=== PATIENT | female | born 1960 | race Caucasian/White ===

== ENCOUNTER 2021-08-29 21:14 | Inpatient (IN) | payer MEDICAID, SELFPAY ==
[2021-08-29 22:57] LABS: Abs Immature Grans 0.01 10^3/uL (0.0-0.06); Absolute Basophil Count 0.02 10^3/uL (0.0-0.2); Absolute Eosinophil Count 0.15 10^3/uL (0.0-0.7); Absolute Lymphocyte Count 1.41 10^3/uL (1.2-3.4); Absolute Monocyte Count 0.48 10^3/uL (0.1-0.8); Absolute Neutrophil Count 4.79 10^3/uL (1.2-6.7); Basophils % 0.3; Eosinophils % 2.2; HCT 32.6 % (36.0-46.0); HGB 11.2 g/dL (11.2-15.7); Immature Grans % 0.1; Lymphocytes % 20.6; MCH 29.7 pg (27.0-33.0); MCHC 34.4 % (32.0-36.0); MCV 86.5 fL (80-95); MPV 10.7 fL (8.0-11.0); Neutrophils % 69.8; Nucleated RBC 0 %; Platelet Count 146 10^3/uL (130-400); RBC 3.77 10^6/uL (3.93-5.22); RDW 12.3 % (11.7-14.6); WBC 6.86 10^3/uL (4.4-10.8)
[2021-08-29 23:03] LABS: Anion Gap 3.4 mmol/L (3-11); BUN 10 mg/dL (7-18); CO2 31.6 mmol/L (21.0-32.0); CREATININE 0.4 mg/dL (0.55-1.02); Calcium 8.3 mg/dL (8.5-10.1); Chloride 83 mmol/L (98-107); Glucose 84 mg/dL (74-106); Magnesium 1.6 mg/dL (1.8-2.4); Potassium 4.1 mmol/L (3.5-5.1)
[2021-08-29 23:07] LABS: Sodium 118 mmol/L (136-145)
[2021-08-30] VITALS (7 sets, daily range): BP systolic 113–193; BP diastolic 71–109; PULSE 57–82; RESP 16–21; TEMP 35.7–36.7; O2SAT 94–97
--- NOTE | 2021-08-30 | DI.RAD_ITS ---
Exam(s) XR HAND RT COMPLETE EXAM: XR HAND RT COMPLETE CLINICAL HISTORY: Pain. TECHNIQUE: 2D digital imaging was performed. COMPARISON: No exams were available for comparison FINDINGS: 3 views There is severe soft tissue swelling over the dorsal aspect of the hand and extending into the wrist. There is no radiopaque foreign body. There are no fractures. No radiographic evidence of osteomye litis. No soft tissue emphysema evident IMPRESSION: Severe soft tissue swelling over the dorsal aspect of the right hand. Suspect possible abscess. Rec ommend further study with CT, MRI, or ultrasound. No radiopaque foreign body. No gas in the soft tissues. No fractures, erosions, no radiographic evidence of osteomyelitis. DATA REPOSITORY: RADIATION DOSE DELIVERED:
[2021-08-30] MEDS: MAGNESIUM SULFATE 1 GM/100 ML BAG IVPB (00:09)
[2021-08-30] MEDS: Enoxaparin 40 MG/0.4 ML SYR SC ×2 (00:10→22:50)
[2021-08-30] MEDS: Normal Saline 1,000 ML 100 ML IV ×2 (03:36→15:08)
[2021-08-30 03:41] LABS: Anion Gap 2.7 mmol/L (3-11); BUN 8 mg/dL (7-18); CO2 32.3 mmol/L (21.0-32.0); CREATININE 0.4 mg/dL (0.55-1.02); Calcium 8.1 mg/dL (8.5-10.1); Chloride 83 mmol/L (98-107); Glucose 88 mg/dL (74-106); Potassium 4.2 mmol/L (3.5-5.1)
[2021-08-30 03:44] LABS: Sodium 118 mmol/L (136-145)
--- NOTE | 2021-08-30 06:10 | W.PM.HP.N ---
Assessment and Plan Assessment and plan (1) Hyponatremia: Status: Acute Assessment and plan: At [facility] a urine sodium was checked and was 48 serum osmolality was 369. Her sodium here was 118 on 2 occasions. She did not get her IV fluids started immediately on admission as directed And will be rechecked this morning. I have held her desmopressin. (2) Anemia: Status: Chronic Assessment and plan: I see from her previous labs that her hemoglobin was 13 in April of last year. In May it dropped to 11.7. (3) Hydrocephalus: Assessment and plan: I believe this is stable at the present time. She has a shunt in place. However the radiologist at [facility] could not see the end of the shunt tube. (4) Diabetes insipidus: Status: Acute (5) Pyuria: Status: Acute Assessment and plan: Urinalysis at [facility] is compatible with a urinary tract infection, although there were moderate epithelial cells. I do not know if a culture was done. History of Present Illness History of Present Illness Chief Complaint: Altered mental status and hyponatremia Narrative: This 61-year-old female was sent from her residence at [facility] to [facility] for evaluation of mental status changes. She has a history of multiple medical problems that include a stroke, history of astrocytoma of the brain, diabetes, atrial fibrillation, diabetes insipidus, depression, traumatic brain injury, constipation, congenital mitral insufficiency, posttraumatic seizures, vitamin D deficiency, gastroesophageal reflux, obstructive hydrocephalus and recent injury to her right hand and wrist without evidence of fracture. Her current medicines as transferred from [facility] show atorvastatin 80 mg/day, [id number] mg twice daily, vitamin D, albuterol/ipratropium inhaler as needed desmopressin 0.1 mg twice daily, hydrocortisone cream, senna 2 tablets daily, rivaroxaban 20 mg daily. She was evaluated at [facility] with a CT scan of the head, and lab studies. She was found to be hyponatremic with a sodium 115. She was given 100 mL of 3% saline and because he had no beds available they called to see if she could be admitted here. I excepted her as a transfer from there. She is transferred in stable condition. She has no complaints at the present time except for her right hand which is swollen with a hematoma with cutaneous blisters. She states that she does not use tobacco or drink alcohol. She has a daughter 36 years old and lives in [place] and her mother lives in [place] or not. She is . She can walk some with a walker. She has been immunized to coronavirus. Her sodium was last checked May 07 of last year prior to this present illness. Review of Systems Constitutional Constitutional: Denies chills, Denies fever(s) and Denies headache(s) ENT Ears, Nose, Mouth, and Throat: Denies headache(s) and Denies odynophagia Cardiovascular Cardiovascular: Denies chest pain, Denies radiating jaw, neck or arm pain, Denies palpitations and Denies dyspnea Respiratory Respiratory: Denies cough and Denies dyspnea Gastrointestinal Gastrointestinal: Denies diarrhea, Denies nausea, Denies odynophagia and Denies vomiting Genitourinary Genitourinary: Denies urinary frequency, Denies difficulty voiding and Denies dysuria Neurologic Neurologic: Denies headache(s) Endocrine Endocrine: Denies palpitations PFSH All Active Problems (Updated 08/30/21 @ 06:52 by Mann Barber MD) Pyuria (Acute) Diabetes insipidus (Acute) Anemia (Chronic) Hyponatremia (Acute) Medical History (Updated 08/30/21 @ 06:52 by Mann Barber MD) Hydrocephalus Social History Smoking/Tobacco Use Status: Former Tobacco Use Smoking risk assessment performed?: Yes Meds Allergies and Home Medications Allergies Allergy/AdvReac Type Severity Reaction Status Date / Time pineapple Allergy Unverified 08/29/21 22:44 tomato Allergy Unverified 08/29/21 22:44 Home Medications Medication Instructions Recorded Confirmed Type acetaminophen 325 mg tablet 650 mg PO PRN PRN 08/29/21 08/29/21 History (Pharbetol) atorvastatin 80 mg tablet 80 mg PO QHS 08/29/21 08/29/21 History carbamazepine 300 mg 300 mg PO BID 08/29/21 08/29/21 History capsule,extended release [id number] carvedilol 6.25 mg tablet 6.25 mg PO BID 08/29/21 08/29/21 History cholecalciferol (vitamin D3) 25 1,000 unit PO DAILY 08/29/21 08/29/21 History mcg (1,000 unit) capsule (Vitamin D3) desmopressin 0.1 mg tablet 0.1 mg PO BID 08/29/21 08/29/21 History ipratropium 20 mcg-albuterol 100 1 puff INHALATION .Q6H,PRN PRN 08/29/21 08/29/21 History mcg/actuation mist for inhalation (Combivent Respimat) rivaroxaban 20 mg tablet (Xarelto) 20 mg PO QPM 08/29/21 08/29/21 History sennosides 8.6 mg-docusate sodium 2 tab-cap PO DAILY 08/29/21 08/29/21 History 50 mg tablet (Senexon-S) Exam Const General: cooperative, comfortable, no acute distress and not ill appearing Nutritional Appearance: overweight HENMT Head: normal to inspection and normocephalic Mouth: oral mucosae normal Teeth and gingiva: poor dentition Neck Neck: normal visual inspection, no lymphadenopathy and no JVD Resp Auscultation: clear to auscultation bilaterally, no rales, no rhonchi and no wheezes Cardio Rate: regular rate Rhythm: regular rhythm Heart Sounds: S1 normal, S2 normal, no gallops and no murmurs GI Palpation: soft, no hepatosplenomegaly, no guarding and nontender Neuro General: patient alert, patient awake and patient oriented x3 Extrem Right upper extremity: normal capillary refill Other: There is a hematoma covering much of the dorsal right hand. There are number of other tense blisters filled with serous fluid on the fingers. There appears to be a small amount of oozing from the hematoma in the back of the hand. She has intact sensation on the hand and fingers. There is some limitation of flexion of the hand because of the hematoma that is present. Results Labs Result diagrams: 08/29/21 22:45 08/30/21 03:15 Labs: Laboratory Results - last 24 hr 08/29/21 08/29/21 08/30/21 22:45 22:45 03:15 WBC 6.86 RBC 3.77 L Hgb 11.2 Hct 32.6 L MCV 86.5 MCH 29.7 MCHC 34.4 RDW 12.3 Plt Count 146 MPV 10.7 Immature Gran % 0.1 Neutrophils % 69.8 Lymphocytes % 20.6 Monocytes % 7.0 Eosinophils % 2.2 Basophils % 0.3 Nucleated RBC % 0 Absolute Neutrophils 4.79 Absolute Lymphocytes 1.41 Absolute Monocytes 0.48 Absolute Eosinophils 0.15 Absolute Basophils 0.02 Sodium 118 L* 118 L* Potassium 4.1 4.2 Chloride 83 L 83 L Carbon Dioxide 31.6 32.3 H Anion Gap 3.4 2.7 L BUN 10 8 Creatinine 0.4 L 0.4 L Estimated GFR/1.73 m2 >= 60.00 >= 60.00 Glucose 84 88 Calcium 8.3 L 8.1 L Magnesium 1.6 L
[2021-08-30 06:52] LABS: Anion Gap 3.2 mmol/L (3-11); BUN 9 mg/dL (7-18); CO2 30.8 mmol/L (21.0-32.0); CREATININE 0.4 mg/dL (0.55-1.02); Calcium 8.2 mg/dL (8.5-10.1); Chloride 84 mmol/L (98-107); Glucose 87 mg/dL (74-106); Potassium 4.1 mmol/L (3.5-5.1)
[2021-08-30 06:55] LABS: Magnesium 1.9 mg/dL (1.8-2.4)
[2021-08-30 07:05] LABS: Sodium 118 mmol/L (136-145)
[2021-08-30] MEDS: Atorvastatin 40 MG TAB 80 MG PO ×2 (08:13→20:55)
[2021-08-30] MEDS: Carvedilol 6.25 MG TAB PO ×2 (08:14→20:55)
[2021-08-30] MEDS: Sennosides/Docusate Sodium TAB 2 TAB PO (08:56)
[2021-08-30] MEDS: Desmopressin 0.2 MG TAB PO (08:56)
[2021-08-30] MEDS: Sulfameth/Trimeth DS TAB 1 TAB PO ×2 (09:52→22:49)
--- NOTE | 2021-08-30 09:58 | WOUNDCONS ---
- If Service Date Differs Date of service: 08/30/21 Time of Service: 09:58 Wound Initial Evaluation Narrative: pictures for the chart request of Dr. Jones, Dr. Chacon, Nazia Rock NP. Hand is swollen, Painful, Blistered, there are pukses above the hand, and sensation below the area. - Photo Photo:
--- NOTE | 2021-08-30 10:31 | PDOC.CMIN ---
- If Service Date Differs Date of service: 08/30/21 Time of Service: 10:31 Care Management Initial Assess REASON FOR HOSPITALIZATION:: Hyponatremia PAST MEDICAL HISTORY/PAST SURGICAL HISTORY:: All Active Problems (Updated 08/30/21 @ 06:52 by Mann Barber MD). Pyuria (Acute). Diabetes insipidus (Acute). Anemia (Chronic). Hyponatremia (Acute). Medical History (Updated 08/30/21 @ 06:52 by Mann Barber MD). Hydrocephalus PREVIOUS FUNCTIONAL STATUS/SOCIAL/FAMILY SUPPORTS:: Maribel resides at the [facility] in [place], [place] She has been there for about 13 years. Maribel has one daughter who lives in the area but beulah does not see her often. her mother is her strongest support and visits with Beulah often. Maribel had a brain tumor removed many years ago which has left her with some defecits. She requires maximum assist with ADLs which is provided by the staff at the facility where she lives. CURRENT FUNCTIONAL STATUS:: Maribel was lying in bed when SUDEEP met with her. She was drowsy at first but was agreeable to conversation. Maribel had her right hand suspended on an IV pole with stockingette to reduce swelling. She apparently fell at her facility about 4 days ago and injured the hand. It was not fractured but was bruised and swollen with fluid filled blisters. Dr. Rivers examined the patient and recommended elevation and frequent monitoring. SUDEEP met with Beulah's mother, jackie Davis, later in the day. Her mother explained that Beulah had a small stroke about a year and a half ago and has not been able to ambulate much since then and requires almost total care. She also stated that Beulah is sometimes confused about days or events and may gives inappropriate answers to questions. She also shared that Beulah's [id number] was the one who put her in the [facility]. Has patient been provided with info about the portal/API?: No Did the patient sign up for the portal?: No (not from area) CODE STATUS:: Full Code INSURANCE COVERAGE / FINANCIAL ISSUES:: Medicaid CURRENT HOME/COMMUNITY SERVICES/EQUIPMENT:: lives in a correction facility PRIMARY CARE PHYSICIAN:: facility provider POTENTIAL DISCHARGE NEEDS:: return to [facility] PATIENT/FAMILY EDUCATION NEEDS:: Review of discharge instructions, limitations, medications, Ask Me Three TRANSPORTATION:: likely via EMS PLAN:: Maribel will return to [facility] where she resides when medically cleared for discharge. She will follow up with facility providers and plan of care and transport via EMS.CM will continue to support Maribel and her discharge needs.
--- NOTE | 2021-08-30 11:10 | DI.VRAD_ITS ---
PROCEDURE INFORMATION: Exam: XR Right Hand Exam date and time: 08/30/2021 10:56 AM Age: 61 years old Clinical indication: Pain; Hand; Right; Prior surgery; Surgery type: Unknown, TECHNIQUE: Imaging protocol: XR Right hand. Views: 3 or more views. COMPARISON: No relevant prior studies available. FINDINGS: Limitations: Evaluation is limited by suboptimal positioning with overlap of the digits on all images. Bones/joints: The bones are diffusely demineralized. No acute or healing fractures are identified. There is no cortical erosion or periosteal reaction. Alignment is anatomic. Soft tissues: Severe soft tissue swelling in the dorsum of the hand. No soft tissue emphysema or radiopaque foreign body. IMPRESSION: 1. Severe soft tissue swelling in the dorsal right hand. No soft tissue emphysema or radiopaque foreign body. 2. No acute osseous or articular abnormality in the right hand. Dictated and Authenticated by: Tracy Murray MD. Ordering:CHRISTINE Mcgregor MD
[2021-08-30 11:14] LABS: Bilirubin Negative (Negative); Blood Large (Negative); Clarity Cloudy (Clear); Glucose Negative (Negative); Ketones Negative (Negative); Leukocyte Esterase Large (Negative); Nitrite Positive (Negative); Specific Gravity 1.025 (1.005-1.025)
[2021-08-30 11:20] LABS: Bacteria Moderate HPF (Negative); C & S Indicated? Yes; Crystals Moderate Amorphous HPF (Negative); Epithelial Cells Few HPF (Negative); Mucus Trace (Negative); RBC >50 HPF (0-2); WBC >50 HPF (0-5)
[2021-08-30 11:37] LABS: Creatinine,Urine 87.11 mg/dL; Sodium, Urine 27 mmol/L
--- NOTE | 2021-08-30 11:37 | W.ORTHOCONSU ---
Date of service: 08/30/21 Time of Service: 11:00 History of Present Illness Narrative: 61-year-old female with unclear history of right hand injury and subsequent swelling. Probable fall with right hand injury 4 days ago. Lives at long-term care facility due to brain injury. Reportedly presented to [facility] emergency department yesterday due to right hand swelling and pain and subsequently transferred to [facility] due to lack of beds there for treatment of severe hyponatremia. Outside hospital records do not detail the right hand findings. It is possible there was hypertonic saline infiltrated about the dorsal right hand. History unobtainable, unfortunately, from patient. Consult Reason Right hand compartment syndrome Assessment and Plan Assessment and plan (1) Injury of hand, right: Status: Acute Assessment and plan: 61-year-old female with significant right edema, unclear etiology but probably iatrogenic injury from outside hospital dorsal IV hypertonic saline infiltrate. Possibly related to right hand injury 4 days ago. Although dorsal and somewhat generalized soft tissue swelling is severe, does not appear consistent with acute compartment syndrome at this time. With no underlying cause for bone, muscle, or intrinsic hand problem like fracture or crush injury, do not recommend any surgical intervention at this time. Probably subcutaneous fluid accumulation from prior IV. Unclear if at all related to right hand injury. Bullae drained. Hand wrapped from distally fingers to approximately the wrist with gentle Rai wrap compression and vertically elevated using stockinette to bedside IV pole given need for strict elevation and unclear patient ability to comply with elevation instructions. Nonadherent dressing and gauze applied underneath for drainage. Orders provided to nurses for dressing change later today, and they will call me later today with update on swelling. No drainable collection from the dorsal hand. No signs or symptoms of infection. Blisters are currently weeping. Plan for strict elevation, medical optimization of hyponatremia/ diuresis as indicated, serial checks right hand. Please call me directly with any questions or concerns about this patient Discussed with primary medical team Review of Systems Narrative: Unreliable/unobtainable, but as best I can tell negative for numbness tingling in the right hand and fingers PFSH All Active Problems Injury of hand, right (Acute) Pyuria (Acute) Diabetes insipidus (Acute) Anemia (Chronic) Hyponatremia (Acute) Medical History Hydrocephalus Social History Smoking/Tobacco Use Status: Former Tobacco Use Smoking risk assessment performed?: Yes Exam Narrative Exam Narrative: Right hand shows severe dorsal soft tissue edema with subacute appearing blisters that are actively weeping serosanguineous, nonpurulent, drainage. Examination limited by patient altered mental status. As best I can discern, there is no significant discomfort with short arc passive range of motion of all fingers.limited sensory exam, but grossly appears intact to light touch throughout. Limited motor exam due to discomfort but demonstrates flicker fingers and thumb flexion extension limited by swelling. Readily palpable radial pulse. Brisk cap refill all fingers. No erythema, warmth, or wrist joint issues. No proximal streaking. Results Labs Result diagrams: 08/29/21 22:45 08/30/21 05:58 Labs: Laboratory Results - last 24 hr 08/29/21 08/29/21 08/30/21 22:45 22:45 03:15 WBC 6.86 RBC 3.77 L Hgb 11.2 Hct 32.6 L MCV 86.5 MCH 29.7 MCHC 34.4 RDW 12.3 Plt Count 146 MPV 10.7 Immature Gran % 0.1 Neutrophils % 69.8 Lymphocytes % 20.6 Monocytes % 7.0 Eosinophils % 2.2 Basophils % 0.3 Nucleated RBC % 0 Absolute Neutrophils 4.79 Absolute Lymphocytes 1.41 Absolute Monocytes 0.48 Absolute Eosinophils 0.15 Absolute Basophils 0.02 Sodium 118 L* 118 L* Potassium 4.1 4.2 Chloride 83 L 83 L Carbon Dioxide 31.6 32.3 H Anion Gap 3.4 2.7 L BUN 10 8 Creatinine 0.4 L 0.4 L Estimated GFR/1.73 m2 >= 60.00 >= 60.00 Glucose 84 88 Calcium 8.3 L 8.1 L Magnesium 1.6 L 08/30/21 08/30/21 05:58 05:58 WBC RBC Hgb Hct MCV MCH MCHC RDW Plt Count MPV Immature Gran % Neutrophils % Lymphocytes % Monocytes % Eosinophils % Basophils % Nucleated RBC % Absolute Neutrophils Absolute Lymphocytes Absolute Monocytes Absolute Eosinophils Absolute Basophils Sodium 118 L* Potassium 4.1 Chloride 84 L Carbon Dioxide 30.8 Anion Gap 3.2 BUN 9 Creatinine 0.4 L Estimated GFR/1.73 m2 >= 60.00 Glucose 87 Calcium 8.2 L Magnesium 1.9 Imaging Imaging Studies: Right hand x-rays ordered and reviewed are negative for any apparent fracture or dislocation. No radiopaque foreign body or collection. Significant dorsal soft tissue swelling. Procedures Other Procedure Description/Findings: Right hand: Under sterile technique, the numerous bullae and blisters were pierced with a 21-gauge needle and drained of largely serous and some chronic serosanguinous fluid. There is no purulence. This was done at the bedside with nursing assistance. Patient tolerated procedure well. There is also attempted dorsal mid hand aspiration drainage of any abscess, or cyst, and there was no deep fluid collection.
[2021-08-30 11:53] LABS: ESR 12 mm/hr (0-30)
[2021-08-30 11:59] LABS: C-Reactive Protein 1.74 mg/dL (0.0-0.3)
[2021-08-30 14:13] LABS: Anion Gap 2.7 mmol/L (3-11); BUN 9 mg/dL (7-18); CO2 32.3 mmol/L (21.0-32.0); CREATININE 0.4 mg/dL (0.55-1.02); Calcium 8.2 mg/dL (8.5-10.1); Chloride 84 mmol/L (98-107); Glucose 107 mg/dL (74-106)
[2021-08-30 14:15] LABS: Sodium 119 mmol/L (136-145)
--- NOTE | 2021-08-30 16:10 | W.PM.PROGNOT ---
Date of Service Date of service: 08/30/21 Time of Service: 09:30 Subjective Subjective Patient reports: other Interval history since last seen: Called to patients room patient has large blisters with large hematoma to right hand. After reviewing the notes from [facility] patient had xray with findings of soft tissue swelling. No fx. Orthopedic consult placed. Dr. Rivers saw patient drained hematoma, wrapped and has hanging. Desmopression held. Repeat sodium was 119. Will give lasix, and repeat sodium at 1999. IVF infusion. Roxicodone for pain prn and tylenol sched. Labs and imaging have been reviewed. discussed with Dr. Chacon Objective Last Vital Signs Temp 36.5 C 08/30/21 15:51 Pulse 61 08/30/21 15:51 Resp 17 08/30/21 15:51 BP 193/105 H 08/30/21 15:51 Pulse Ox 94 08/30/21 15:51 Laboratory Results - last 24 hr 08/29/21 08/29/21 08/30/21 22:45 22:45 03:15 WBC 6.86 RBC 3.77 L Hgb 11.2 Hct 32.6 L MCV 86.5 MCH 29.7 MCHC 34.4 RDW 12.3 Plt Count 146 MPV 10.7 Immature Gran % 0.1 Neutrophils % 69.8 Lymphocytes % 20.6 Monocytes % 7.0 Eosinophils % 2.2 Basophils % 0.3 Nucleated RBC % 0 Absolute Neutrophils 4.79 Absolute Lymphocytes 1.41 Absolute Monocytes 0.48 Absolute Eosinophils 0.15 Absolute Basophils 0.02 ESR Sodium 118 L* 118 L* Potassium 4.1 4.2 Chloride 83 L 83 L Carbon Dioxide 31.6 32.3 H Anion Gap 3.4 2.7 L BUN 10 8 Creatinine 0.4 L 0.4 L Estimated GFR/1.73 m2 >= 60.00 >= 60.00 Glucose 84 88 Calcium 8.3 L 8.1 L Magnesium 1.6 L C-Reactive Protein Urine Color Urine Clarity Urine pH Ur Specific [place] Urine Protein Urine Ketones Urine Blood Urine Nitrite Urine Bilirubin Urine Urobilinogen Ur Leukocyte Esterase Urine RBC Urine WBC Ur Epithelial Cells Urine Crystals Urine Bacteria Urine Casts Urine Mucus Ur Culture Indicated? Ur Random Creatinine Ur Random Sodium Urine Glucose 08/30/21 08/30/21 08/30/21 05:58 05:58 05:58 WBC RBC Hgb Hct MCV MCH MCHC RDW Plt Count MPV Immature Gran % Neutrophils % Lymphocytes % Monocytes % Eosinophils % Basophils % Nucleated RBC % Absolute Neutrophils Absolute Lymphocytes Absolute Monocytes Absolute Eosinophils Absolute Basophils ESR Sodium 118 L* Potassium 4.1 Chloride 84 L Carbon Dioxide 30.8 Anion Gap 3.2 BUN 9 Creatinine 0.4 L Estimated GFR/1.73 m2 >= 60.00 Glucose 87 Calcium 8.2 L Magnesium 1.9 C-Reactive Protein 1.74 H Urine Color Urine Clarity Urine pH Ur Specific [place] Urine Protein Urine Ketones Urine Blood Urine Nitrite Urine Bilirubin Urine Urobilinogen Ur Leukocyte Esterase Urine RBC Urine WBC Ur Epithelial Cells Urine Crystals Urine Bacteria Urine Casts Urine Mucus Ur Culture Indicated? Ur Random Creatinine Ur Random Sodium Urine Glucose 08/30/21 08/30/21 08/30/21 05:58 10:48 11:17 WBC RBC Hgb Hct MCV MCH MCHC RDW Plt Count MPV Immature Gran % Neutrophils % Lymphocytes % Monocytes % Eosinophils % Basophils % Nucleated RBC % Absolute Neutrophils Absolute Lymphocytes Absolute Monocytes Absolute Eosinophils Absolute Basophils ESR 12 Sodium Potassium Chloride Carbon Dioxide Anion Gap BUN Creatinine Estimated GFR/1.73 m2 Glucose Calcium Magnesium C-Reactive Protein Urine Color Yellow Urine Clarity Cloudy Urine pH 7.0 Ur Specific [place] 1.025 Urine Protein 100 H Urine Ketones Negative Urine Blood Large H Urine Nitrite Positive H Urine Bilirubin Negative Urine Urobilinogen 1.0 H Ur Leukocyte Esterase Large H Urine RBC >50 H Urine WBC >50 H Ur Epithelial Cells Few Urine Crystals Moderate Amorphous Urine Bacteria Moderate Urine Casts 5-10 Fine Granular Urine Mucus Trace Ur Culture Indicated? Yes Ur Random Creatinine 87.11 Ur Random Sodium 27 Urine Glucose Negative 08/30/21 08/30/21 12:00 14:00 WBC RBC Hgb Hct MCV MCH MCHC RDW Plt Count MPV Immature Gran % Neutrophils % Lymphocytes % Monocytes % Eosinophils % Basophils % Nucleated RBC % Absolute Neutrophils Absolute Lymphocytes Absolute Monocytes Absolute Eosinophils Absolute Basophils ESR Sodium Cancelled 119 L* Potassium Cancelled 4.0 Chloride Cancelled 84 L Carbon Dioxide Cancelled 32.3 H Anion Gap Cancelled 2.7 L BUN Cancelled 9 Creatinine Cancelled 0.4 L Estimated GFR/1.73 m2 Cancelled >= 60.00 Glucose Cancelled 107 H Calcium Cancelled 8.2 L Magnesium C-Reactive Protein Urine Color Urine Clarity Urine pH Ur Specific [place] Urine Protein Urine Ketones Urine Blood Urine Nitrite Urine Bilirubin Urine Urobilinogen Ur Leukocyte Esterase Urine RBC Urine WBC Ur Epithelial Cells Urine Crystals Urine Bacteria Urine Casts Urine Mucus Ur Culture Indicated? Ur Random Creatinine Ur Random Sodium Urine Glucose
[2021-08-30] MEDS: Furosemide 40 MG/4 ML VIAL IVP (16:21)
[2021-08-30] MEDS: Acetaminophen 500 MG TAB 1000 MG PO ×2 (17:13→22:49)
[2021-08-30] MEDS: hydrALAZINE 20 MG/ML VIAL 10 MG IVP (17:50)
[2021-08-30 20:34] LABS: BUN 11 mg/dL (7-18); CREATININE 0.6 mg/dL (0.55-1.02); Calcium 8.5 mg/dL (8.5-10.1); Chloride 85 mmol/L (98-107); Glucose 176 mg/dL (74-106); Potassium 3.7 mmol/L (3.5-5.1)
[2021-08-30 20:39] LABS: Sodium 120 mmol/L (136-145)
[2021-08-30] MEDS: Rivaroxaban 10 MG TABLET 20 MG PO (20:55)
[2021-08-31] MEDS: Normal Saline 1,000 ML 100 ML IV ×3 (01:15→21:23)
[2021-08-31 04:07] VITALS: BP 152/82; PULSE 76; RESP 20; TEMP 36.1; O2SAT 96
[2021-08-31] MEDS: Acetaminophen 500 MG TAB 1000 MG PO ×3 (06:30→18:25)
[2021-08-31 06:47] LABS: Abs Immature Grans 0.04 10^3/uL (0.0-0.06); Absolute Basophil Count 0.02 10^3/uL (0.0-0.2); Absolute Eosinophil Count 0.08 10^3/uL (0.0-0.7); Absolute Lymphocyte Count 1.27 10^3/uL (1.2-3.4); Absolute Monocyte Count 0.58 10^3/uL (0.1-0.8); Basophils % 0.3; Eosinophils % 1.2; HCT 33.2 % (36.0-46.0); HGB 11.4 g/dL (11.2-15.7); Immature Grans % 0.6; Lymphocytes % 18.7; MCH 29.5 pg (27.0-33.0); MCHC 34.3 % (32.0-36.0); MPV 10.9 fL (8.0-11.0); Monocytes % 8.5; Neutrophils % 70.7; Nucleated RBC 0 %; Platelet Count 147 10^3/uL (130-400); RBC 3.86 10^6/uL (3.93-5.22); RDW 12.5 % (11.7-14.6); RDW-SD 39.5 fL; WBC 6.79 10^3/uL (4.4-10.8)
[2021-08-31 07:05] LABS: Anion Gap 4.4 mmol/L (3-11); BUN 11 mg/dL (7-18); CO2 30.6 mmol/L (21.0-32.0); CREATININE 0.5 mg/dL (0.55-1.02); Calcium 8.3 mg/dL (8.5-10.1); Chloride 90 mmol/L (98-107); Glucose 87 mg/dL (74-106); Magnesium 1.7 mg/dL (1.8-2.4); Potassium 3.9 mmol/L (3.5-5.1); Sodium 125 mmol/L (136-145)
[2021-08-31 07:24] LABS: Iron 55 ug/dL (50-170); Total Iron Binding Capacity 308 ug/dL (250-450); Transferrin Sat 18 % (15-50)
[2021-08-31 07:27] LABS: Folate 1.8 ng/mL (8.6-20.0); Vitamin B12 395 pg/mL (193-986)
[2021-08-31 07:32] LABS: Ferritin 49 ng/mL (8-252)
[2021-08-31 08:10] VITALS: BP 154/80; PULSE 70; RESP 16; TEMP 35.9; O2SAT 96
[2021-08-31] MEDS: Sennosides/Docusate Sodium TAB 2 TAB PO (08:14)
[2021-08-31] MEDS: Carvedilol 6.25 MG TAB PO ×2 (08:15→21:23)
[2021-08-31] MEDS: Folic Acid 1 MG TAB PO ×2 (08:15→21:24)
[2021-08-31] MEDS: Magnesium Oxide 400 MG TAB PO (08:44)
[2021-08-31] MEDS: Lisinopril 5 MG TAB PO (08:44)
--- NOTE | 2021-08-31 08:56 | W.PM.PROGNOT ---
Date of Service Date of service: 08/31/21 Time of Service: 08:20 Assessment and Plan Assessment and plan (1) Injury of hand, right: Status: Acute Assessment and plan: 61-year-old female with improved significant right hand dorsal edema Patient comfortable with reasonable active and passive motor about the digits. Dorsal edema compressible. Not consistent with acute or missed compartment syndrome at this time. Discussed with primary medical team and nursing staff. Continue strict elevation above the level of the heart between meals. Nonocclusive, nonstick dressing changes twice daily as needed for serous weeping. Start hand therapy/OT tomorrow for hand range of motion, to prevent stiffness, and consider compressive and/or lymphedema wrap or glove. Please call me directly with any questions or concerns about this patient. I will follow along. Subjective Subjective Interval history since last seen: Comfortable. No complaints except needs dentures for eating Right hand feels better. Exam Narrative Exam Narrative: Awake, sitting up resting comfortably in bed without pain. Eating breakfast with right hand in a dressing resting at her side. Significant dorsal edema remains however improved and compressible dorsally with less edema extending into the digits and minimal reaccumulation of blisters. Patient now demonstrates moderate active flexion extension all fingers and thumb without significant discomfort. Also tolerates passive range of motion all digits and wrist without difficulty. Isolated tenderness about dorsal blister and edema. No purulence. No erythema or proximal streaking. Objective Last Vital Signs Temp 97.0 F L 08/31/21 04:07 Pulse 76 08/31/21 04:07 Resp 20 08/31/21 04:07 BP 152/82 H 08/31/21 04:07 Pulse Ox 96 08/31/21 04:07 Laboratory Results - last 24 hr 08/30/21 08/30/21 08/30/21 05:58 05:58 10:48 WBC RBC Hgb Hct MCV MCH MCHC RDW Plt Count MPV Immature Gran % Neutrophils % Lymphocytes % Monocytes % Eosinophils % Basophils % Nucleated RBC % Absolute Neutrophils Absolute Lymphocytes Absolute Monocytes Absolute Eosinophils Absolute Basophils ESR 12 Sodium Potassium Chloride Carbon Dioxide Anion Gap BUN Creatinine Estimated GFR/1.73 m2 Glucose Calcium Magnesium Iron TIBC Transferrin % Sat Ferritin C-Reactive Protein 1.74 H Vitamin B12 Folate Urine Color Yellow Urine Clarity Cloudy Urine pH 7.0 Ur Specific [place] 1.025 Urine Protein 100 H Urine Ketones Negative Urine Blood Large H Urine Nitrite Positive H Urine Bilirubin Negative Urine Urobilinogen 1.0 H Ur Leukocyte Esterase Large H Urine RBC >50 H Urine WBC >50 H Ur Epithelial Cells Few Urine Crystals Moderate Amorphous Urine Bacteria Moderate Urine Casts 5-10 Fine Granular Urine Mucus Trace Ur Culture Indicated? Yes Ur Random Creatinine Ur Random Sodium Urine Glucose Negative 08/30/21 08/30/21 08/30/21 11:17 12:00 14:00 WBC RBC Hgb Hct MCV MCH MCHC RDW Plt Count MPV Immature Gran % Neutrophils % Lymphocytes % Monocytes % Eosinophils % Basophils % Nucleated RBC % Absolute Neutrophils Absolute Lymphocytes Absolute Monocytes Absolute Eosinophils Absolute Basophils ESR Sodium Cancelled 119 L* Potassium Cancelled 4.0 Chloride Cancelled 84 L Carbon Dioxide Cancelled 32.3 H Anion Gap Cancelled 2.7 L BUN Cancelled 9 Creatinine Cancelled 0.4 L Estimated GFR/1.73 m2 Cancelled >= 60.00 Glucose Cancelled 107 H Calcium Cancelled 8.2 L Magnesium Iron TIBC Transferrin % Sat Ferritin C-Reactive Protein Vitamin B12 Folate Urine Color Urine Clarity Urine pH Ur Specific [place] Urine Protein Urine Ketones Urine Blood Urine Nitrite Urine Bilirubin Urine Urobilinogen Ur Leukocyte Esterase Urine RBC Urine WBC Ur Epithelial Cells Urine Crystals Urine Bacteria Urine Casts Urine Mucus Ur Culture Indicated? Ur Random Creatinine 87.11 Ur Random Sodium 27 Urine Glucose 08/30/21 08/31/21 08/31/21 20:10 06:20 06:20 WBC 6.79 RBC 3.86 L Hgb 11.4 Hct 33.2 L MCV 86.0 MCH 29.5 MCHC 34.3 RDW 12.5 Plt Count 147 MPV 10.9 Immature Gran % 0.6 Neutrophils % 70.7 Lymphocytes % 18.7 Monocytes % 8.5 Eosinophils % 1.2 Basophils % 0.3 Nucleated RBC % 0 Absolute Neutrophils 4.80 Absolute Lymphocytes 1.27 Absolute Monocytes 0.58 Absolute Eosinophils 0.08 Absolute Basophils 0.02 ESR Sodium 120 L* 125 L Potassium 3.7 3.9 Chloride 85 L 90 L Carbon Dioxide 30.0 30.6 Anion Gap 5.0 4.4 BUN 11 11 Creatinine 0.6 0.5 L Estimated GFR/1.73 m2 >= 60.00 >= 60.00 Glucose 176 H 87 D Calcium 8.5 8.3 L Magnesium 1.7 L Iron TIBC Transferrin % Sat Ferritin 49 C-Reactive Protein Vitamin B12 Folate Urine Color Urine Clarity Urine pH Ur Specific [place] Urine Protein Urine Ketones Urine Blood Urine Nitrite Urine Bilirubin Urine Urobilinogen Ur Leukocyte Esterase Urine RBC Urine WBC Ur Epithelial Cells Urine Crystals Urine Bacteria Urine Casts Urine Mucus Ur Culture Indicated? Ur Random Creatinine Ur Random Sodium Urine Glucose 08/31/21 08/31/21 06:20 06:20 WBC RBC Hgb Hct MCV MCH MCHC RDW Plt Count MPV Immature Gran % Neutrophils % Lymphocytes % Monocytes % Eosinophils % Basophils % Nucleated RBC % Absolute Neutrophils Absolute Lymphocytes Absolute Monocytes Absolute Eosinophils Absolute Basophils ESR Sodium Potassium Chloride Carbon Dioxide Anion Gap BUN Creatinine Estimated GFR/1.73 m2 Glucose Calcium Magnesium Iron 55 TIBC 308 Transferrin % Sat 18 Ferritin C-Reactive Protein Vitamin B12 395 Folate 1.8 L Urine Color Urine Clarity Urine pH Ur Specific [place] Urine Protein Urine Ketones Urine Blood Urine Nitrite Urine Bilirubin Urine Urobilinogen Ur Leukocyte Esterase Urine RBC Urine WBC Ur Epithelial Cells Urine Crystals Urine Bacteria Urine Casts Urine Mucus Ur Culture Indicated? Ur Random Creatinine Ur Random Sodium Urine Glucose
[2021-08-31] MEDS: Sulfameth/Trimeth DS TAB 1 TAB PO ×2 (09:14→21:23)
[2021-08-31 11:40] VITALS: BP 151/86; PULSE 66; RESP 18; TEMP 35.8; O2SAT 95
[2021-08-31 14:25] LABS: Anion Gap 3.5 mmol/L (3-11); BUN 12 mg/dL (7-18); CO2 30.5 mmol/L (21.0-32.0); CREATININE 0.6 mg/dL (0.55-1.02); Calcium 8.4 mg/dL (8.5-10.1); Chloride 91 mmol/L (98-107); Glucose 138 mg/dL (74-106); Potassium 3.8 mmol/L (3.5-5.1); Sodium 125 mmol/L (136-145)
[2021-08-31 15:06] VITALS: BP 139/82; PULSE 66; RESP 16; TEMP 36.7; O2SAT 96
[2021-08-31 16:11] LABS: Osmolality, Urine 418 mOsm/kg (150-1,150)
--- NOTE | 2021-08-31 16:23 | W.PM.PROGNOT ---
Date of Service Date of service: 08/31/21 Time of Service: 11:30 Assessment and Plan Assessment and plan (1) Hyponatremia: Start date: 08/31/21 Start time: 11:30 Status: Acute Assessment and plan: On IVF, was not improving after holding desmopressin, Given IVP lasix 40 and now NA 125, repeat at 1400 NA 125. Will give another dose IVP lasix and repeat BMP in am (2) Anemia: Start date: 08/31/21 Start time: 11:00 Status: Chronic Assessment and plan: Anemia studies done. folate was 1.8 started on folate 1 mg BID (3) Hydrocephalus: Start date: 08/31/21 Start time: 11:30 Assessment and plan: stable at the present time. She has a shunt in place. . (4) Diabetes insipidus: Start date: 08/31/21 Start time: 11:30 Status: Chronic Assessment and plan: Chronic, on desmopression however currently on hold d/t hyponatremia, may need to be cut in half or held on discharege until f/u with PCP. (5) Pyuria: Start date: 08/31/21 Start time: 11:00 Status: Acute Assessment and plan: Urine cx from [facility] reveals proteus vernon sensitive to bactirim. Will continue day 2/5. Discussed with Dr. Chacon Subjective Subjective Patient reports: no new complaints Interval history since last seen: Patient sitting up in bed with right arm in sling hanging. Per Dr. Rivers improved but not great. He would like OT to work with her on hand therapy and lymphedema wraps. OT ordered for tomorrow. Sodium this am 125. Repeat at noon was 125, given another dose IVP lasix. Repeat BMP in am. Placed on lisinopril in addition to carvedilol. continue IVF at this time. Urine cx from [facility] revealed proteus mirabilis, sensitive to bactrim, on day 2/5. Mag low repleted. Pateint denies any other issues. Exam Const General: cooperative, comfortable, no acute distress and ill appearing chronically Nutritional Appearance: obese Orientation: alert, awake and oriented x3 HENMT Head: normal to inspection Teeth and gingiva: abnormal dentition, abnormal tooth or associated gingiva, gingiva abnormal receding and poor dentition Eyes Eyelids: eyelids normal Pupils: PERRL EOM: EOM intact bilaterally Neck Neck: normal visual inspection and no JVD Lymphatic: no lymphadenopathy noted Chest Chest: normal inspection of the chest Resp Effort & Inspection: normal respiratory effort Auscultation: clear to auscultation bilaterally Cardio Jugular venous pressure: no JVD Rhythm: regular rhythm Heart Sounds: S1 normal GI Inspection: obesity Auscultation: normal bowel sounds Skin Trauma: other (large hematoma and blisters to right hand, wrapped) Wounds: wounds noted (right hand with multiple blisters and hematoma now wrapped, followed by ort) hand drainage and without odor Neuro General: patient alert, patient awake and patient oriented x3 Gait: normal gait Extrem General: abnormal to inspection and full ROM Right upper extremity: edema and hand Details: tenderness and swelling; Negative for abnormal to inspection and ROM of fingers abnormal; No abnormal to inspection Objective Last Vital Signs Temp 35.8 C L 08/31/21 11:40 Pulse 66 08/31/21 11:40 Resp 18 08/31/21 11:40 BP 151/86 H 08/31/21 11:40 Pulse Ox 95 08/31/21 11:40 Laboratory Results - last 24 hr 08/30/21 08/31/21 08/31/21 20:10 06:20 06:20 WBC 6.79 RBC 3.86 L Hgb 11.4 Hct 33.2 L MCV 86.0 MCH 29.5 MCHC 34.3 RDW 12.5 Plt Count 147 MPV 10.9 Immature Gran % 0.6 Neutrophils % 70.7 Lymphocytes % 18.7 Monocytes % 8.5 Eosinophils % 1.2 Basophils % 0.3 Nucleated RBC % 0 Absolute Neutrophils 4.80 Absolute Lymphocytes 1.27 Absolute Monocytes 0.58 Absolute Eosinophils 0.08 Absolute Basophils 0.02 Sodium 120 L* 125 L Potassium 3.7 3.9 Chloride 85 L 90 L Carbon Dioxide 30.0 30.6 Anion Gap 5.0 4.4 BUN 11 11 Creatinine 0.6 0.5 L Estimated GFR/1.73 m2 >= 60.00 >= 60.00 Glucose 176 H 87 D Calcium 8.5 8.3 L Magnesium 1.7 L Iron TIBC Transferrin % Sat Ferritin 49 Vitamin B12 Folate 08/31/21 08/31/21 08/31/21 06:20 06:20 14:02 WBC RBC Hgb Hct MCV MCH MCHC RDW Plt Count MPV Immature Gran % Neutrophils % Lymphocytes % Monocytes % Eosinophils % Basophils % Nucleated RBC % Absolute Neutrophils Absolute Lymphocytes Absolute Monocytes Absolute Eosinophils Absolute Basophils Sodium 125 L Potassium 3.8 Chloride 91 L Carbon Dioxide 30.5 Anion Gap 3.5 BUN 12 Creatinine 0.6 Estimated GFR/1.73 m2 >= 60.00 Glucose 138 H Calcium 8.4 L Magnesium Iron 55 TIBC 308 Transferrin % Sat 18 Ferritin Vitamin B12 395 Folate 1.8 L
[2021-08-31 16:25] LABS: Osmolality Serum 240 mOsm/kg (275-295)
[2021-08-31] MEDS: Furosemide 40 MG/4 ML VIAL IVP (18:26)
[2021-08-31 19:34] VITALS: BP 146/82; PULSE 66; RESP 18; TEMP 36.5; O2SAT 96
[2021-08-31] MEDS: Atorvastatin 40 MG TAB 80 MG PO (21:23)
[2021-08-31] MEDS: Enoxaparin 40 MG/0.4 ML SYR SC (21:23)
[2021-08-31] MEDS: Rivaroxaban 10 MG TABLET 20 MG PO (21:24)
[2021-08-31] MEDS: Normal Saline Flush 10 ML SYR IVP (21:24)
[2021-08-31 22:58] VITALS: BP 112/72; PULSE 70; RESP 17; TEMP 37.5; O2SAT 97
[2021-09-01 03:15] VITALS: BP 140/80; PULSE 68; RESP 18; TEMP 36.6; O2SAT 96
[2021-09-01 07:03] LABS: Anion Gap 4.7 mmol/L (3-11); BUN 10 mg/dL (7-18); CO2 31.3 mmol/L (21.0-32.0); CREATININE 0.6 mg/dL (0.55-1.02); Calcium 8.5 mg/dL (8.5-10.1); Chloride 98 mmol/L (98-107); Glucose 77 mg/dL (74-106); Potassium 4.3 mmol/L (3.5-5.1); Sodium 134 mmol/L (136-145)
[2021-09-01 07:15] VITALS: BP 110/70; PULSE 65; RESP 16; TEMP 36; O2SAT 96
[2021-09-01 07:45] LABS: Magnesium 1.7 mg/dL (1.8-2.4)
[2021-09-01 08:11] LABS: Vitamin D 25 Total 29.3 ng/mL (30-100)
[2021-09-01] MEDS: Acetaminophen 500 MG TAB 1000 MG PO ×2 (08:26→11:45)
[2021-09-01] MEDS: Carvedilol 6.25 MG TAB PO (08:26)
[2021-09-01] MEDS: Lisinopril 5 MG TAB PO (08:26)
--- NOTE | 2021-09-01 08:26 | OT.INIE ---
Occupational Therapy Notes Inpatient Occupational Therapy Evaluation Date: 09/01/21 Referring Doctor:Nazia Rock NP OT Orders: Non Urgent Precautions: Fall, standard, full PATIENT PROFILE/ADMITTING DIAGNOSIS: Pt is a 61 year old female who was transferred from [facility] after a fall at her SNF placement. She had no fx but had notable bruising and fluid filled blisters. OT evaluation was sent for hand ROM and mobility. Past Medical History: (R) hand injury Pyuria Diabetes Insipidus Anemia Hyponatremia Social History/Home Situation: Pt lives at a SNF. She is a poor historian and unable to provide OT with details. Per note, ?Maribel resides at the [facility] in [place], [place] She has been there for about 13 years. Maribel has one daughter who lives in the area but beulah does not see her often. her mother is her strongest support and visits with Beulah often. Maribel had a brain tumor removed many years ago which has left her with some defecits. She requires maximum assist with ADLs which is provided by the staff at the facility where she lives. SUBJECTIVE: Pt was lying in bed when OT arrived. She is agreeable to OT session. OBJECTIVE: General Observation: Montez in place, (R) hand wrapped in gauze, IV in (L) UE Mental Status: A&Ox2 Pain: 7/10 pain in (R) hand ROM: RUE elbow and shoulder WFL L UE WNL STRENGTH: RUE NT LUE 3/5 throughout FUNCTIONAL MOBILITY/ADLS: BATHING lying in bed with max (A) set up/clean up Bathing (I) face and abdomen, max (A) (B) LE, max (A) hair DRESSING lying in bed Dressing UE Max (A) don and doffing [facility] gown. GROOMING mod (A) brushing hair, (I) with donning teeth TOILETING NT, pt states that she needs help with this. EATING NT SPECIAL TESTS: Daily Activity Limitations Standardized Measure [facility] AM -PAC ?6 clicks? Daily Activity Inpatient Short Form: Raw score: 10 Standardized score: 27.31 CMS score: 74.70% INFORMED CONSENT/EDUCATION: Pt instructed in purpose of OT Consult and plan of care. ASSESSMENT: Patient is a 61-year-old female referred to occupational therapy services with diagnosis of (R) hand injury, pyuria, diabetes, anemia, hyponatremia. Patient presents with clinical signs and symptoms consistent with dx, as demonstrated by the following impairment level findings/functional limitations: Impairments in ADL/IADL and leisure activities, pain in (R) hand, decreased functional activity tolerance, decreased strength in (R) UE, impairments in gross and fine motor control. OT was unable to assess ROM due to wraps placed on pts hand. However OT will continue to work with pt on hand ROM. AMPAC score 10 Patient is assessed as a Moderate 69277 complexity based on the following: History: see above Examination: see functional limitations as noted above Presentation: evolving Decision Making: AMPAC score 10 GOALS Goals x1 week 1. Grooming- Sitting in bed pt will require mod (A) for oral hygiene 2. Dressing- Sitting in chair pt will require mod (A) [facility] gown 3. Bathing- sitting in chair with max (A) set up/clean up pt will be (I) abdomen, (L) UE. Mod (A) denis area 4. Toileting- on commode mod (A) 5. Eating- Min (A) PLAN OF CARE/TREATMENT PLAN: 1x/day, 5 days/ week x 1week Initiate Occupational Therapy Services for bathing, dressing, grooming, toileting, eating, transfer training. DISCHARGE RECOMMENDATIONS OT recommends that pt return to SNF when medically cleared per MD. TREATMENT TIME/MINUTES/CODES 81778, [id number], 30 minutes FREDDIE Flynn/L [facility]
[2021-09-01] MEDS: Sennosides/Docusate Sodium TAB 2 TAB PO (08:27)
[2021-09-01] MEDS: Sulfameth/Trimeth DS TAB 1 TAB PO (09:48)
[2021-09-01] MEDS: Folic Acid 1 MG TAB PO (09:49)
[2021-09-01 11:31] VITALS: BP 117/77; PULSE 77; RESP 18; TEMP 36; O2SAT 95
--- NOTE | 2021-09-01 12:03 | W.PM.DS.N ---
Date of service: 09/01/21 Time of Service: 12:03 DS: Diagnosis Discharge Diagnosis (1) Hyponatremia: Status: Acute (2) Anemia: Status: Chronic (3) Hydrocephalus: (4) Diabetes insipidus: Status: Chronic (5) Pyuria: Status: Acute Discharge Plan Disposition Patient Disposition: SKILLED NSG. FAC.(LEVEL 1) Condition: Improving Discharge Details Reason For Visit: Hyponatremia Admit Date/Time: 08/29/21 21:14 Admit Provider: Mann Barber Attending Provider: Mann Barber [facility] Course Hospital Course: This is a 61-year-old female who resides at [facility] and presented to [facility] for evaluation of mental status changes.?Her medical history of include a stroke, history of astrocytoma of the brain, diabetes, atrial fibrillation, diabetes insipidus on depression, traumatic brain injury, constipation, congenital mitral insufficiency, posttraumatic seizures, vitamin D deficiency, gastroesophageal reflux, obstructive hydrocephalus and recent injury to her right hand and wrist without evidence of fracture. Her work up showed hyponatremia with a sodium of 115. She received hypertonic saline and because no beds available there she was transported here. Her desmopressin was placed on hold. she received NS iv fluids and placed on lasix. her sodium improved to 134 on day of discharge. she is back to baseline with confusion resolved. hemodynamically stable and eating and drinking. she is being discharged back to her senior living with instruction to decrease her desnopressin to 0.1 mg daily from BID. she should have her electrolytes repeted next week. discharged by ambulance discussed with DR Ines Hodge Medsamira and New Rx's Prescriptions: Continued atorvastatin 80 mg Tablet 80 mg PO QHS 0RF acetaminophen [Pharbetol] 325 mg Tablet 650 mg PO PRN PRN0RF carvedilol 6.25 mg Tablet 6.25 mg PO BID 0RF sennosides-docusate sodium [Senexon-S] 8.6-50 mg Tablet 2 tab-cap PO DAILY 0RF cholecalciferol (vitamin D3) [Vitamin D3] 25 mcg (1,000 unit) Capsule 1,000 unit PO DAILY 0RF carbamazepine 300 mg Capsule, Er Multiphase 12 Hr 300 mg PO BID 0RF Xarelto 20 mg Tablet 20 mg PO QPM 0RF Rx Instructions: must administer with evening meal Combivent Respimat 20-100 mcg/actuation Mist 1 puff INHALATION .Q6H,PRN PRN0RF Changed desmopressin 0.1 mg Tablet 0.1 mg PO DAILY Qty: 0 0RF Discharge Instructions Instructions: Diabetes Insipidus (DC) Additional Instructions: your were treated for UTI. cultures showed mixed growth. if you have further symptoms you should report for repeat urine and culture as indicated. no further antibiotics at discharge. Referrals: Practice Provider [Provider Group] (routine senior living follow up following hospitalization, within one week. ) Activity:: Activity as Tolerated Equipment/Supplies:: No Equipment Needed Diet:: As Tolerated Discharge Orders Discharge Orders: Discharge Order (Routine); Ordered 09/01/21 Ordered By: Liyah Cornell Discharge Data Discharge Date/Time-TO BE ENTERED AT DEPARTURE: 09/01/21 13:13 DS: Summary Time Spent with Patient providing and/or coordinating discharge services: Greater than 30 minutes Status at Discharge Functional status at discharge: bed bound Overall status at discharge: patient is back to baseline Mental Status: mental status grossly normal Speech and Movement: speech and movement normal Mood: congruent mood Affect: blunted Exam Const General: cooperative, comfortable, no acute distress and ill appearing chronically Nutritional Appearance: obese Orientation: alert, awake and oriented x3 HENMT Head: normal to inspection and normocephalic Teeth and gingiva: abnormal dentition, gingiva abnormal receding and poor dentition Chest Chest: normal inspection of the chest Resp Effort & Inspection: normal respiratory effort Auscultation: clear to auscultation bilaterally Cardio Rate: regular rate Rhythm: regular rhythm GI Inspection: obesity Palpation: soft Auscultation: normal bowel sounds Skin General skin exam: other (big bulky dressing intact to right hand.) Trauma: other (large hematoma and blisters to right hand, wrapped) Neuro General: patient alert, patient awake and patient oriented x3 Extrem General: abnormal to inspection, abnormal ROM and other (bedbound) Right upper extremity: normal capillary refill and edema Psych Mental Status: mental status grossly normal Speech and Movement: speech and movement normal Mood: congruent mood Affect: blunted DS: Data Vitals/I&O Vitals and I&O: Vital Signs Temperature 36.0 C L 09/01/21 11:31 Temperature Source Tympanic 09/01/21 11:31 Pulse 77 09/01/21 11:31 Pulse Rhythm Regular 08/31/21 22:50 Respiratory Rate 18 09/01/21 11:31 Respiratory Effort 08/31/21 22:50 Respiratory Depth Normal 08/31/21 22:50 Respiratory Pattern Normal 08/31/21 22:50 Blood Pressure 117/77 09/01/21 11:31 Pulse Oximetry 95 09/01/21 11:31 Oxygen Delivery Method Room Air 09/01/21 11:31 Oxygen Flow Rate 0 09/01/21 11:31 Pain Level 0 09/01/21 03:15 Comment 08/30/21 15:51 Intake & Output 08/31/21 09/01/21 09/01/21 23:59 11:59 23:59 Intake Total 1724.667 / 3924.667 480 / 480 Output Total 2500 / 2500 1500 / 1500 Balance -775.333 / 1424.667 -1020 / -1020 Intake: IV 1004.667 / 3004.667 Oral 720 / 920 480 / 480 Output: Urine 2500 / 2500 1500 / 1500 Other: Urine Color Yellow Yellow Urine Appearance Sediment Clear Stool Size Moderate Stool Characteristics Liquid Brown Data Completed and Pending Labs on day of discharge: Labs from last 24 hours 09/01/21 09/01/21 09/01/21 06:43 06:43 06:43 Sodium 134 L Potassium 4.3 Chloride 98 Carbon Dioxide 31.3 Anion Gap 4.7 BUN 10 Creatinine 0.6 Estimated GFR/1.73 m2 >= 60.00 Glucose 77 D Serum Osmolality Calcium 8.5 Magnesium 1.7 L 25-OH Vitamin D Total 29.3 L Urine Osmolality 08/31/21 08/30/21 08/30/21 14:02 11:17 05:58 Sodium 125 L Potassium 3.8 Chloride 91 L Carbon Dioxide 30.5 Anion Gap 3.5 BUN 12 Creatinine 0.6 Estimated GFR/1.73 m2 >= 60.00 Glucose 138 H Serum Osmolality 240 L Calcium 8.4 L Magnesium 25-OH Vitamin D Total Urine Osmolality 418 PFSH All Active Problems (Updated 08/31/21 @ 16:43 by Nazia Rock NP) Injury of hand, right (Acute) Pyuria (Acute) Diabetes insipidus (Chronic) Anemia (Chronic) Hyponatremia (Acute) Medical History Hydrocephalus Social History Smoking/Tobacco Use Status: Former Tobacco Use Smoking risk assessment performed?: Yes
--- NOTE | 2021-09-01 18:47 | PDOC.CMDIS ---
- If Service Date Differs Date of service: 09/01/21 Time of Service: 18:47 LACE Index Scoring Tool - Questions: Length of Stay (in days): 3 Acuity (Admit via E.D.?): Yes Comorbidities: Diabetes w/o Complication E.D. Visits: 0 - Answers: Total Score: 7 Risk of Readmission: Low Risk Care Management Discharge Reason for Hospitalization: Hyponatremia Discharge Plan: Maribel returned to [facility] today, where she resides. She was transported via EMS, coordinated by CM. She will follow up with facility providers and discharge plan of care. Patient/Family Education Needs: Review discharge instructions and limitations, discussion of self care needs including ask me three. Services Needed at Discharge: Penitentiary Facility ([facility]), Transportation ([facility])
--- NOTE | 2021-09-02 07:46 | OTDS_ITS ---
Occupational Therapy Notes Occupational Therapy Inpatient Discharge Summary Date: 09/02/21 Dates of Service: 09/01/21 Referring Doctor:Nazia Rock NP OT Orders: Non Urgent Precautions: Fall, standard, full *This document serves as a summary of care, no skilled OT services provided for this documentation* PATIENT PROFILE/ADMITTING DIAGNOSIS: Pt is a 61 year old female who was transferred from [facility] after a fall at her SNF placement. She had no fx but had notable bruising and fluid filled blisters. OT evaluation was sent for hand ROM and mobility. Past Medical History: (R) hand injury Pyuria Diabetes Insipidus Anemia Hyponatremia Social History/Home Situation: Pt lives at a SNF. She is a poor historian and unable to provide OT with details. Per CM note, ?Maribel resides at the [facility] in [place], [place] She has been there for about 13 years. Maribel has one daughter who lives in the area but beulah does not see her often. her mother is her strongest support and visits with Beulah often. Maribel had a brain tumor removed many years ago which has left her with some defecits. She requires maximum assist with ADLs which is provided by the staff at the facility where she lives. SUBJECTIVE:??NT OBJECTIVE:? ROM: RUE elbow and shoulder WFL L UE WNL STRENGTH: RUE NT LUE 3/5 throughout FUNCTIONAL MOBILITY/ADLS: BATHING lying in bed with max (A) set up/clean up Bathing (I) face and abdomen, max (A) (B) LE, max (A) hair DRESSING lying in bed Dressing UE Max (A) [facility] gown. GROOMING mod (A) brushing hair, (I) with donning teeth TOILETING NT, pt states that she needs help with this. EATING NT ASSESSMENT:?? Patient is a 61-year-old female referred to occupational therapy services with diagnosis of (R) hand injury, pyuria, diabetes, anemia, hyponatremia. Patient was seen for OT consult only and was discharged later that day. OT was unable to assess pts hand due to bandages and minimal ROM of his digits. GOALS 1.? Grooming- Sitting in bed pt will require mod (A) for oral hygiene 2.? Dressing- Sitting in chair pt will require mod (A) don [facility] gown 3.? Bathing- sitting in chair with max (A) set up/clean up pt will be (I) abdomen, (L) UE. Mod (A) denis area 4.? Toileting- on commode mod (A) 5.? Eating- Min (A) PLAN OF CARE/TREATMENT PLAN: Pt was discharged and medically cleared. She returned to SNF DISCHARGE RECOMMENDATIONS OT recommends that pt return to SNF when medically cleared per MD. TREATMENT TIME/MINUTES/CODES? N/A Sandra Patterson OTR/L [facility]
== END 2021-09-01 13:13 | disposition skilled nursing facility (03) | DRG 644 ==
PROVIDERS: Internal Medicine; Nurse Practitioner Family; Student in an Organized Health Care Education/Training Program; Admitting Provider Family Medicine; Visit Provider Family Medicine
DX: E23.2 Diabetes insipidus (principal); G91.3 Post-traumatic hydrocephalus, unspecified; Q23.3 Congenital mitral insufficiency; N39.0 Urinary tract infection, site not specified; D64.9 Anemia, unspecified; Z98.2 Presence of cerebrospinal fluid drainage device; Z86.73 Personal history of transient ischemic attack (TIA), and cerebral infarction without residual deficits; I48.91 Unspecified atrial fibrillation; E11.9 Type 2 diabetes mellitus without complications; K59.00 Constipation, unspecified; F32.A Depression, unspecified; G40.909 Epilepsy, unspecified, not intractable, without status epilepticus; E55.9 Vitamin D deficiency, unspecified; K21.9 Gastro-esophageal reflux disease without esophagitis; W19.XXXA Unspecified fall, initial encounter; Z85.841 Personal history of malignant neoplasm of brain; Z87.891 Personal history of nicotine dependence; S60.221A Contusion of right hand, initial encounter; B96.4 Proteus (mirabilis) (morganii) as the cause of diseases classified elsewhere
CPT/HCPCS: 10160; 36410; 36415; 80048; 82306; 83935; 85652; 97166; 97535; J1650; 73130; 81003; 81015; 82565; 82607; 82728; 82746; 83540; 83550; 83735; 83930; 84300; 85025; 86140; 87086; 99222; 99232; 99239; J0360; J1940; J3475; J3490

== ENCOUNTER 2022-07-13 19:05 | Outpatient (REF) | payer MEDICAID, SELFPAY ==
[2022-07-13 20:14] LABS: Abs Immature Grans 0.08 10^3/uL (0.0-0.06); Absolute Eosinophil Count 0.24 10^3/uL (0.0-0.7); Basophils % 0.4; Eosinophils % 1.5; HCT 32.4 % (36.0-46.0); HGB 9.7 g/dL (11.2-15.7); Immature Grans % 0.5; Lymphocytes % 13.1; MCH 27.5 pg (27.0-33.0); MCHC 29.9 % (32.0-36.0); MCV 92 fL (80-95); MPV 9.3 fL (8.0-11.0); Monocytes % 6.3; Neutrophils % 78.2; Platelet Count 393 10^3/uL (130-400); RBC 3.53 10^6/uL (3.93-5.22); RDW 15.7 % (11.7-14.6); RDW-SD 53.2 fL; WBC 15.82 10^3/uL (4.4-10.8)
[2022-07-13 20:18] LABS: Absolute Basophil Count 0.06 10^3/uL (0.0-0.2); Absolute Lymphocyte Count 2.07 10^3/uL (1.2-3.4); Absolute Neutrophil Count 12.37 10^3/uL (1.2-6.7)
[2022-07-13 20:19] LABS: Iron 24 ug/dL (50-170); Total Iron Binding Capacity 359 ug/dL (250-450); Transferrin Sat 7 % (15-50)
[2022-07-13 20:52] LABS: ALT 14 U/L (14-59); AST 14 U/L (15-37); Albumin 3.5 g/dL (3.4-5.0); Alkaline Phosphatase 94 U/L (46-116); Anion Gap 7.6 mmol/L (3-11); BUN 22 mg/dL (7-18); Bilirubin, Total 0.2 mg/dL (0.2-1.0); CO2 32.4 mmol/L (21.0-32.0); Calcium 9.4 mg/dL (8.5-10.1); Chloride 99 mmol/L (98-107); Estimated GFR 64.49 (mL/min/1.73m2); Ferritin 18 ng/mL (8-252); Folate 3.8 ng/mL (8.6-20.0); Glucose 105 mg/dL (74-106); Magnesium 1.8 mg/dL (1.8-2.4); Sodium 139 mmol/L (136-145); TSH (W/Ref FT4) 1.12 uIU/mL (0.36-3.74); Total Protein 7.5 g/dL (6.4-8.2); Vitamin B12 310 pg/mL (193-986)
[2022-07-13 21:17] LABS: Hemoglobin A1C 5.4 % (<5.7)
[2022-07-13 21:19] LABS: NT-proBNP 228 pg/mL (<300)
[2022-07-14 18:19] LABS: Carbamazepine 9.1 ug/mL (4.0-12.0)
== END 2022-07-13 19:06 | disposition home or self-care (01) ==
LOC: LBN 19:05
PROVIDERS: Visit Provider Nurse Practitioner Gerontology
DX: D64.9 Anemia, unspecified (principal); E11.9 Type 2 diabetes mellitus without complications; R68.89 Other general symptoms and signs; E55.9 Vitamin D deficiency, unspecified; G40.909 Epilepsy, unspecified, not intractable, without status epilepticus; Z51.81 Encounter for therapeutic drug level monitoring; Z79.899 Other long term (current) drug therapy; Z85.841 Personal history of malignant neoplasm of brain
CPT/HCPCS: 80053; 82306; 80156; 82607; 82728; 82746; 83036; 83540; 83550; 83735; 83880; 84443; 85025

== ENCOUNTER 2022-09-08 16:46 | Outpatient (REF) | payer MEDICAID, SELFPAY ==
[2022-09-08 18:28] LABS: ALT 14 U/L (14-59); AST 10 U/L (15-37); Albumin 3.5 g/dL (3.4-5.0); Alkaline Phosphatase 104 U/L (46-116); Anion Gap 6.9 mmol/L (3-11); BUN 20 mg/dL (7-18); Bilirubin, Total 0.2 mg/dL (0.2-1.0); CO2 34.1 mmol/L (21.0-32.0); Calcium 9.1 mg/dL (8.5-10.1); Chloride 101 mmol/L (98-107); Estimated GFR 64.49 (mL/min/1.73m2); Glucose 92 mg/dL (74-106); NT-proBNP 170 pg/mL (<300); Potassium 4.2 mmol/L (3.5-5.1); Sodium 142 mmol/L (136-145); Total Protein 7.8 g/dL (6.4-8.2)
== END 2022-09-08 16:47 | disposition home or self-care (01) ==
LOC: LBN 16:46
PROVIDERS: Visit Provider Nurse Practitioner Gerontology
DX: R68.89 Other general symptoms and signs (principal)
CPT/HCPCS: 80053; 83880

== ENCOUNTER 2022-09-25 09:15 | Emergency (ER) | payer MEDICAID, SELFPAY ==
--- NOTE | 2022-09-25 09:14 | W.ED.GENAD ---
Discharge Plan Disposition Patient Disposition: Home Discharge Details Clinical Impression: History of choking Primary Care Provider: Radha,Local ED Provider: Mann Barcenas Home Meds and New Rx's Prescriptions: Continued atorvastatin 80 mg Tablet 80 mg PO QHS acetaminophen [Pharbetol] 325 mg Tablet 650 mg PO PRN PRN carvedilol 6.25 mg Tablet 6.25 mg PO BID sennosides-docusate sodium [Senexon-S] 8.6-50 mg Tablet 2 tab-cap PO DAILY cholecalciferol (vitamin D3) [Vitamin D3] 25 mcg (1,000 unit) Capsule 1,000 unit PO DAILY carbamazepine 300 mg Capsule, Er Multiphase 12 Hr 300 mg PO BID Xarelto 20 mg Tablet 20 mg PO QPM Rx Instructions: must administer with evening meal Combivent Respimat 20-100 mcg/actuation Mist 1 puff INHALATION .Q6H,PRN PRN desmopressin 0.1 mg Tablet 0.1 mg PO DAILY Qty: 0 0RF Discharge Instructions Additional Instructions: You were seen in the emergency department for your episode of choking. Please schedule an appointment with your primary care provider later this week. Please return to the emergency department if you develop fevers chills nausea or vomiting. Medical Decision Making This is a normothermic and not tachycardic 62-year-old female coming from a local rehabilitation facility with episode of choking now with no complaints. Given that she did not require the Heimlich maneuver and was able to tolerate a p.o. challenge with a glass of water in the emergency department my suspicion for aspiration or esophageal obstruction is exceedingly low. Furthermore she had no signs of esophageal food bolus. Her vital signs are reassuring against pneumonia and she denies fevers and cough. It may be possible that she requires modification of her diet. I do not feel that she requires a chest x-ray at this point in time as her lung sounds are clear bilaterally. She has no obvious foreign bodies in her mouth. She certainly may develop an aspiration pneumonia however at this point there is no indication for prophylactic antibiotics as I feel that the risks of side effects from antibiotics outweigh the potential benefits at this early juncture. We will proceed with an empiric trial of expectant outpatient management back of the patient's half-way facility. HPI General Date/Time Provider Initiated Documentation: 04/28/23 09:23. HPI Narrative: This is a 62-year-old patient from a local half-way facility arriving via EMS following episode of choking. Patient was reportedly in her usual state of health earlier this morning when she choked on some ground sausage. She was sent to the emergency department for assessment for possibility of aspiration pneumonia. Patient denies any complaints at the moment. She does not feel that there is any foreign bodies or food in her throat or mouth. She is not having any pain. She does not feel short of breath. She has not had a cough nor any fevers. She did not take any falls this morning. She denies abdominal pain nausea vomiting chest pain dysuria and frequency. She did not require the Heimlich maneuver. Related Data Home Medications Medication Instructions Recorded Confirmed acetaminophen 325 mg tablet 650 mg PO PRN PRN 08/29/21 08/29/21 (Pharbetol) atorvastatin 80 mg tablet 80 mg PO QHS 08/29/21 08/29/21 carbamazepine 300 mg 300 mg PO BID 08/29/21 08/29/21 capsule,extended release [id number] carvedilol 6.25 mg tablet 6.25 mg PO BID 08/29/21 08/29/21 cholecalciferol (vitamin D3) 25 1,000 unit PO DAILY 08/29/21 08/29/21 mcg (1,000 unit) capsule (Vitamin D3) ipratropium 20 mcg-albuterol 100 1 puff inhalation .Q6H,PRN PRN 08/29/21 08/29/21 mcg/actuation mist for inhalation (Combivent Respimat) rivaroxaban 20 mg tablet (Xarelto) 20 mg PO QPM 08/29/21 08/29/21 sennosides 8.6 mg-docusate sodium 2 tab-cap PO DAILY 08/29/21 08/29/21 50 mg tablet (Senexon-S) desmopressin 0.1 mg tablet 0.1 mg PO DAILY #0 tabs 09/01/21 08/29/21 Previous Rx's Medication Instructions Recorded desmopressin 0.1 mg tablet 0.1 mg PO DAILY #0 tabs 09/01/21 Allergies Allergy/AdvReac Type Severity Reaction Status Date / Time pineapple Allergy Unverified 08/29/21 22:44 tomato Allergy Unverified 08/29/21 22:44 PFSH All Active Problems (Updated 09/25/22 @ 09:25 by Mann Barcenas MD) History of choking (Acute) Medical History Hydrocephalus Social History Smoking/Tobacco Use Status: Former Tobacco Use Smoking risk assessment performed?: Yes Alcohol Intake: never Drug use: Never Substance use type: does not use Do you feel safe at home: Yes Do you feel safe in your relationship?: Yes Exam Narrative Exam Narrative: General: Well-appearing in no acute distress speaking in complete sentences. Head: Normocephalic, atraumatic. Eye: Pupils equal, round reactive to light. Extraocular eye movements intact. No conjunctival injection. No scleral icterus. Ear, nose, mouth, throat: Grossly normal inspection. Normal voice, handling secretions normally. Neck: Trachea midline. Cardiovascular: Well-perfused distal extremities. Respiratory: Nonlabored respiration. Clear lungs bilaterally. Gastrointestinal: Nondistended abdomen. Musculoskeletal: No edema. Moving all 4 extremities spontaneously. Skin: Normal for age and race, grossly normal temperature and turgor. No acute rash. Neurologic: Alert and appropriate, no apparent acute deficits. Psychiatric: Mood and manner are appropriate. Grooming and personal hygiene are appropriate.
[2022-09-25 09:16] VITALS: BP 130/70; PULSE 85; RESP 16; TEMP 37.1; O2SAT 97
== END 2022-09-25 09:44 | disposition home or self-care (01) ==
PROVIDERS: Emergency Provider Emergency Medicine
DX: R09.89 Other specified symptoms and signs involving the circulatory and respiratory systems (principal); Z87.898 Personal history of other specified conditions
CPT/HCPCS: 99281; 99282

== ENCOUNTER 2022-10-06 17:23 | Outpatient (REF) | payer MEDICAID, SELFPAY ==
[2022-10-06 18:04] LABS: ALT 18 U/L (14-59); AST 12 U/L (15-37); Albumin 3.3 g/dL (3.4-5.0); Alkaline Phosphatase 104 U/L (46-116); Anion Gap 6.5 mmol/L (3-11); BUN 19 mg/dL (7-18); Bilirubin, Total 0.2 mg/dL (0.2-1.0); CO2 32.5 mmol/L (21.0-32.0); CREATININE 0.9 mg/dL (0.55-1.02); Calcium 8.9 mg/dL (8.5-10.1); Chloride 100 mmol/L (98-107); Estimated GFR 73.19 (mL/min/1.73m2); Glucose 129 mg/dL (74-106); Potassium 4.1 mmol/L (3.5-5.1); Sodium 139 mmol/L (136-145); Total Protein 7.4 g/dL (6.4-8.2)
== END 2022-10-06 17:24 | disposition home or self-care (01) ==
LOC: LBN 17:23
PROVIDERS: Visit Provider Nurse Practitioner Gerontology
DX: E87.5 Hyperkalemia (principal); R68.89 Other general symptoms and signs
CPT/HCPCS: 80053

== ENCOUNTER 2022-11-09 19:25 | Outpatient (REF) | payer MEDICAID, SELFPAY ==
[2022-11-09 20:40] LABS: TROPONIN-I 7.2 ug/mL (4.0-12.0)
== END 2022-11-09 19:26 | disposition home or self-care (01) ==
LOC: LBN 19:25
PROVIDERS: Visit Provider Nurse Practitioner Gerontology
DX: E55.9 Vitamin D deficiency, unspecified (principal); I50.9 Heart failure, unspecified; Z51.81 Encounter for therapeutic drug level monitoring; Z79.899 Other long term (current) drug therapy; G40.909 Epilepsy, unspecified, not intractable, without status epilepticus
CPT/HCPCS: 80156

== ENCOUNTER 2023-07-19 16:20 | Outpatient (REF) | payer MEDICAID, SELFPAY ==
[2023-07-19 18:13] LABS: TROPONIN-I 9.8 ug/mL (4.0-12.0)
[2023-07-19 18:22] LABS: ALT 14 U/L (14-59); AST 8 U/L (15-37); Albumin 3.3 g/dL (3.4-5.0); Alkaline Phosphatase 86 U/L (46-116); Anion Gap 9.3 mmol/L (3-11); BUN 23 mg/dL (7-18); Bilirubin, Total 0.2 mg/dL (0.2-1.0); CO2 30.7 mmol/L (21.0-32.0); CREATININE 1.1 mg/dL (0.55-1.02); Calcium 9.1 mg/dL (8.5-10.1); Chloride 104 mmol/L (98-107); Estimated GFR 57.17 (mL/min/1.73m2); Glucose 132 mg/dL (74-106); NT-proBNP 93 pg/mL (<300); Potassium 3.9 mmol/L (3.5-5.1); Sodium 144 mmol/L (136-145); Total Protein 7.9 g/dL (6.4-8.2)
== END 2023-07-19 16:21 | disposition home or self-care (01) ==
LOC: LBN 16:20
PROVIDERS: Visit Provider Nurse Practitioner Gerontology
DX: D64.9 Anemia, unspecified (principal); I11.0 Hypertensive heart disease with heart failure; F33.0 Major depressive disorder, recurrent, mild; Z51.81 Encounter for therapeutic drug level monitoring; Z79.899 Other long term (current) drug therapy
CPT/HCPCS: 80053; 80156; 83880

== ENCOUNTER 2023-08-30 18:33 | Outpatient (REF) | payer MEDICAID, SELFPAY ==
[2023-08-30 17:31] LABS: Bilirubin Small (Negative); Blood Large (Negative); Clarity Turbid (Clear); Glucose Negative (Negative); Ketones Trace mg/dL (Negative); Leukocyte Esterase Large (Negative); Nitrite Positive (Negative); Specific Gravity 1.025 (1.005-1.025); pH 5.5 (5-8)
[2023-08-30 17:39] LABS: RBC >50 HPF (0-2)
[2023-08-30 17:40] LABS: C & S Indicated? C&S Done As Ordered
== END 2023-08-30 18:34 | disposition home or self-care (01) ==
LOC: LBN 18:33
PROVIDERS: Visit Provider Nurse Practitioner Gerontology
DX: R82.89 Other abnormal findings on cytological and histological examination of urine (principal); R31.9 Hematuria, unspecified; B96.29 Other Escherichia coli [E. coli] as the cause of diseases classified elsewhere
CPT/HCPCS: 87077; 81003; 81015; 87086; 87186

== ENCOUNTER 2023-11-09 17:02 | Outpatient (REF) | payer MEDICAID, SELFPAY ==
[2023-11-09 17:52] LABS: Abs Immature Grans 0.09 10^3/uL (0.0-0.06); Absolute Basophil Count 0.04 10^3/uL (0.0-0.2); Absolute Eosinophil Count 0.24 10^3/uL (0.0-0.7); Absolute Lymphocyte Count 2.06 10^3/uL (1.2-3.4); Absolute Monocyte Count 0.57 10^3/uL (0.1-0.8); Absolute Neutrophil Count 6.11 10^3/uL (1.2-6.7); Basophils % 0.4 %; Eosinophils % 2.6 %; HCT 38.3 % (36.0-46.0); Lymphocytes % 22.6 %; MCH 29.9 pg (27.0-33.0); MCHC 31.3 % (32.0-36.0); MCV 96 fL (80-95); MPV 9.9 fL (8.0-11.0); Monocytes % 6.3 %; Neutrophils % 67.1 %; Platelet Count 326 10^3/uL (130-400); RBC 4.01 10^6/uL (3.93-5.22); RDW 14.3 % (11.7-14.6); RDW-SD 49.8 fL; WBC 9.11 10^3/uL (4.4-10.8)
[2023-11-09 17:57] LABS: Iron 84 ug/dL (50-170); Total Iron Binding Capacity 348 ug/dL (250-450); Transferrin Sat 24 % (15-50)
[2023-11-09 18:20] LABS: Hemoglobin A1C 6.3 % (<5.7)
[2023-11-09 18:25] LABS: ALT 19 U/L (14-59); AST 10 U/L (15-37); Albumin 3.4 g/dL (3.4-5.0); Alkaline Phosphatase 116 U/L (46-116); Anion Gap 6.9 mmol/L (3-11); BUN 15 mg/dL (7-18); Bilirubin, Total 0.3 mg/dL (0.2-1.0); CO2 31.1 mmol/L (21.0-32.0); CREATININE 1.1 mg/dL (0.55-1.02); Calcium 8.7 mg/dL (8.5-10.1); Chloride 95 mmol/L (98-107); Estimated GFR 57.17 (mL/min/1.73m2); Glucose 151 mg/dL (74-106); Potassium 3.9 mmol/L (3.5-5.1); Sodium 133 mmol/L (136-145); Total Protein 7.7 g/dL (6.4-8.2); Vitamin B12 287 pg/mL (193-986)
[2023-11-09 19:01] LABS: NT-proBNP 132 pg/mL (<300)
== END 2023-11-09 17:03 | disposition home or self-care (01) ==
LOC: LBN 17:02
PROVIDERS: Visit Provider Nurse Practitioner Gerontology
DX: G91.1 Obstructive hydrocephalus (principal); I48.0 Paroxysmal atrial fibrillation; I11.0 Hypertensive heart disease with heart failure; E55.9 Vitamin D deficiency, unspecified; E13.65 Other specified diabetes mellitus with hyperglycemia
CPT/HCPCS: 80053; 82306; 82607; 83036; 83540; 83550; 83880; 85025

== ENCOUNTER 2023-11-14 08:05 | Outpatient (REF) | payer MEDICAID, SELFPAY ==
[2023-11-14 09:20] LABS: Bilirubin Negative (Negative); Blood Moderate (Negative); Clarity Cloudy (Clear); Glucose Negative (Negative); Ketones Negative (Negative); Leukocyte Esterase Moderate (Negative); Nitrite Negative (Negative); Urobilinogen 0.2 mg/dL (Up to 0.2); pH 6.5 (5-8)
[2023-11-14 09:53] LABS: Bacteria Moderate HPF (Negative); C & S Indicated? C&S Done As Ordered; Crystals Negative HPF (Negative); Epithelial Cells Rare HPF (Negative); Mucus Negative (Negative); WBC >50 HPF (0-5)
== END 2023-11-14 08:06 | disposition home or self-care (01) ==
LOC: LBN 08:05
PROVIDERS: Visit Provider Nurse Practitioner Gerontology
DX: R82.998 Other abnormal findings in urine (principal); R53.83 Other fatigue
CPT/HCPCS: 87077; 81003; 81015; 87086; 87186

== ENCOUNTER 2024-03-30 16:53 | Outpatient (REF) | payer MEDICAID, SELFPAY ==
[2024-03-30 16:56] LABS: Abs Immature Grans 0.08 10^3/uL (0.0-0.06); Absolute Basophil Count 0.06 10^3/uL (0.0-0.2); Absolute Eosinophil Count 0.17 10^3/uL (0.0-0.7); Absolute Lymphocyte Count 1.59 10^3/uL (1.2-3.4); Absolute Monocyte Count 0.98 10^3/uL (0.1-0.8); Absolute Neutrophil Count 6.58 10^3/uL (1.2-6.7); Basophils % 0.6 %; Eosinophils % 1.8 %; HCT 37.1 % (36.0-46.0); HGB 11.5 g/dL (11.2-15.7); Immature Grans % 0.8 %; Lymphocytes % 16.8 %; MCH 29.9 pg (27.0-33.0); MCV 97 fL (80-95); MPV 9.5 fL (8.0-11.0); Monocytes % 10.4 %; Neutrophils % 69.6 %; Platelet Count 379 10^3/uL (130-400); RBC 3.84 10^6/uL (3.93-5.22); RDW 14.2 % (11.7-14.6); WBC 9.46 10^3/uL (4.4-10.8)
[2024-03-30 17:21] LABS: ALT 19 U/L (14-59); AST 10 U/L (15-37); Albumin 2.9 g/dL (3.4-5.0); Alkaline Phosphatase 92 U/L (46-116); BUN 11 mg/dL (7-18); CREATININE 0.9 mg/dL (0.55-1.02); Calcium 9.3 mg/dL (8.5-10.1); Chloride 99 mmol/L (98-107); Estimated GFR 72.73 (mL/min/1.73m2); Glucose 118 mg/dL (74-106); Potassium 4.6 mmol/L (3.5-5.1); Sodium 140 mmol/L (136-145); TROPONIN-I 10.4 ug/mL (4.0-12.0); TSH (W/Ref FT4) 1.12 uIU/mL (0.36-3.74); Total Protein 7.8 g/dL (6.4-8.2)
== END 2024-03-30 16:54 | disposition home or self-care (01) ==
LOC: LBN 16:53
PROVIDERS: Visit Provider Nurse Practitioner Gerontology
DX: R53.82 Chronic fatigue, unspecified (principal); G40.89 Other seizures
CPT/HCPCS: 80053; 80156; 84443; 85025

== ENCOUNTER 2024-08-09 22:41 | Outpatient (REF) | payer MEDICAID, SELFPAY ==
[2024-08-09 22:23] LABS: Abs Immature Grans 0.13 10^3/uL (0.0-0.06); Absolute Eosinophil Count 0.12 10^3/uL (0.0-0.7); Absolute Monocyte Count 0.97 10^3/uL (0.1-0.8); Basophils % 0.3 %; HGB 10.8 g/dL (11.2-15.7); Immature Grans % 1.1 %; Lymphocytes % 10.6 %; MCH 28.1 pg (27.0-33.0); MCHC 30.9 % (32.0-36.0); MCV 91 fL (80-95); MPV 9.9 fL (8.0-11.0); Monocytes % 8.2 %; Neutrophils % 78.8 %; Platelet Count 359 10^3/uL (130-400); RBC 3.84 10^6/uL (3.93-5.22); RDW 15.1 % (11.7-14.6); RDW-SD 50.8 fL; WBC 11.84 10^3/uL (4.4-10.8)
[2024-08-09 22:25] LABS: Absolute Basophil Count 0.04 10^3/uL (0.0-0.2); Absolute Lymphocyte Count 1.26 10^3/uL (1.2-3.4); Absolute Neutrophil Count 9.33 10^3/uL (1.2-6.7)
[2024-08-09 22:34] LABS: ALT 14 U/L (14-59); AST 16 U/L (15-37); Alkaline Phosphatase 103 U/L (46-116); Anion Gap 8.8 mmol/L (3-11); BUN 13 mg/dL (7-18); Bilirubin, Total 0.3 mg/dL (0.2-1.0); CO2 31.2 mmol/L (21.0-32.0); CREATININE 0.9 mg/dL (0.55-1.02); Calcium 9.2 mg/dL (8.5-10.1); Chloride 91 mmol/L (98-107); Estimated GFR 72.28 (mL/min/1.73m2); Glucose 115 mg/dL (74-106); Magnesium 2.1 mg/dL (1.8-2.4); Potassium 4.2 mmol/L (3.5-5.1); Sodium 131 mmol/L (136-145); Total Protein 8.2 g/dL (6.4-8.2)
== END 2024-08-09 22:42 | disposition home or self-care (01) ==
LOC: LBN 22:41
PROVIDERS: PCP Nurse Practitioner Gerontology; Visit Provider Nurse Practitioner Gerontology
DX: E87.8 Other disorders of electrolyte and fluid balance, not elsewhere classified (principal); D63.1 Anemia in chronic kidney disease; E83.42 Hypomagnesemia
CPT/HCPCS: 80053; 83735; 85025

== ENCOUNTER 2024-08-10 09:17 | Inpatient (IN) | payer MEDICAID, SELFPAY ==
[2024-08-10] VITALS (77 sets, daily range): BP systolic 112–179; BP diastolic 58–124; PULSE 61–99; RESP 13–25; TEMP 36.5–37.9; O2SAT 91–98
--- NOTE | 2024-08-10 09:15 | RT.EKG_ITS ---
APPROVED REPORT Exam: Resting ECG Reason for Exam: SOB Patient Location: E HR:86 bpm ECG Measurements Heart Rate 86 AXIS LA 173 P 48 QRSd 97 QRS 239 QT 366 T 48 QTc 439 Conclusion Sinus rhythm, rate 86 No interval abnormalities No STEMI No priors available for comparison
--- NOTE | 2024-08-10 09:28 | W.ED.GENAD ---
Discharge Plan Discharge Details Chief Complaint: Abd Prob Primary Care Provider: Unknown,Unknown ED Provider: Abril Hyde Home Meds and New Rx's Prescriptions: No Action atorvastatin 80 mg Tablet 80 mg PO QHS acetaminophen [Pharbetol] 325 mg Tablet 650 mg PO PRN PRN carvedilol 6.25 mg Tablet 6.25 mg PO BID sennosides-docusate sodium [Senexon-S] 8.6-50 mg Tablet 2 tab-cap PO DAILY cholecalciferol (vitamin D3) [Vitamin D3] 25 mcg (1,000 unit) Capsule 1,000 unit PO DAILY carbamazepine 300 mg Capsule, Er Multiphase 12 Hr 300 mg PO BID Xarelto 20 mg Tablet 10 mg PO QPM Rx Instructions: must administer with evening meal desmopressin 0.1 mg Tablet 0.1 mg PO DAILY Qty: 0 0RF furosemide 20 mg tablet 40 mg PO DAILY polyethylene glycol 3350 [ClearLax] 17 gram/dose powder 17 g PO DAILY HPI General Date/Time Provider Initiated Documentation: 08/10/24 09:55. HPI Narrative: Maribel is a 64 year old female who presents to the emergency department today for evaluation of abdominal pain and distention. HPI/ROS limited due to baseline mental status, however patient denies headache, congestion, sore throat, cough, chest pain, shortness of breath, nausea/vomiting, change in bowel or bladder function. She reports that she did have some discomfort this morning with urinating. Did not eat breakfast this AM. According to staff normal BM yesterday. Past medical history significant for dementia/AMS, CVA, obstructive hydrocephalus, HLD, and is anticoagulated. Physical exam remarkable for softly distended obese abdomen with hyperactive bowel sounds. Maribel is alert, appropriately conversational, answering questions. Easy work of breathing, coarse lung sounds throughout. Normal heart sounds, regular rate and rhythm. Bilateral pedal edema noted. D/dx includes but is not limited to: Bowel obstruction, diverticulitis, ascites, acute infectious process such as pneumonia, hepatitis, pyelonephritis, cholecystitis I independently interpreted the following tests: CBC notable for leukocytosis, white cell count 15.63. Mild anemia unchanged from baseline. Hyponatremia and hypochloremia noted, sodium 130 and chloride 91. CMP otherwise unremarkable. Urine notable for WBC >50, specific gravity >1.030, 100 protein and trace ketones, moderate blood. EKG reassuring, normal sinus rhythm, no changes consistent with acute ischemia, normal intervals. CT chest/abdomen/pelvis consistent with ileus; there was also a staghorn calculus noted in left kidney with concern for pyelonephritis. Dr Carbone discussed case with Dr Callahan; recommends abx and possible temporizing stent; pt will likely require nephrotomy for definitive management. Dr Callahan at bedside to evaluate at 1430. Presented case to Dr. Shah, general surgery. He is agreeable with plan of care for NG tube, bowel rest, and IV fluids. Ileus is likely secondary to pyelonephritis. While in the emergency department, Maribel received Zosyn for treatment of infected stone, IV fluids for maintenance, and NG tube for decompression. Patient to be admitted to med surg unit- Dr Carbone presented case to Val Tyson, NIA. Reviewed plan for admission with patient's mother, who is agreeable with plan of care. Related Data Home Medications ?Medication ?Instructions ?Recorded ?Confirmed acetaminophen 325 mg tablet 650 mg PO PRN PRN 08/29/21 08/10/24 (Pharbetol) atorvastatin 80 mg tablet 80 mg PO QHS 08/29/21 08/10/24 carbamazepine 300 mg 300 mg PO BID 08/29/21 08/10/24 capsule,extended release [id number] carvedilol 6.25 mg tablet 6.25 mg PO BID 08/29/21 08/10/24 cholecalciferol (vitamin D3) 25 1,000 unit PO DAILY 08/29/21 08/10/24 mcg (1,000 unit) capsule (Vitamin D3) rivaroxaban 20 mg tablet (Xarelto) 10 mg PO QPM 08/29/21 08/10/24 sennosides 8.6 mg-docusate sodium 2 tab-cap PO DAILY 08/29/21 08/10/24 50 mg tablet (Senexon-S) desmopressin 0.1 mg tablet 0.1 mg PO DAILY #0 tabs 09/01/21 08/10/24 furosemide 20 mg tablet 40 mg PO DAILY 08/10/24 08/10/24 polyethylene glycol 3350 17 17 g PO DAILY 08/10/24 08/10/24 gram/dose oral powder (ClearLax) Previous Rx's ?Medication ?Instructions ?Recorded desmopressin 0.1 mg tablet 0.1 mg PO DAILY #0 tabs 09/01/21 Allergies Allergy/AdvReac Type Severity Reaction Status Date / Time pineapple Allergy Unknown Unverified 08/10/24 09:29 tomato Allergy Unknown Unverified 08/10/24 09:29 General SAEID: 4 Review of Systems Narrative: see HPI Exam Const General: cooperative, comfortable, no acute distress and well developed Nutritional Appearance: obese Orientation: alert, awake and oriented to person Limitations: altered mental status (per baseline) [facility] Head: atraumatic General nose exam: external nose normal Face and sinus: normal facial exam Mouth: moist mucous membranes Neck Neck: normal visual inspection Resp Effort & Inspection: normal respiratory effort and able to speak in complete sentences Auscultation: other (course lung sounds in all antony) Cardio Rate: regular rate Rhythm: regular rhythm GI Inspection: distended, obesity, no visible herniation and no visible pulsation Palpation: soft, not firm, no guarding, not rigid and tender (diffuse) Auscultation: hyperactive bowel sounds Skin General skin exam: no rashes or lesions noted Trauma: no lacerations or abrasions Extrem General: pedal edema (bilateral, lower legs and feet) Medical Decision Making Imaging Data Radiologic Study: Radiologist's impression: Exam(s) CT CHEST/ABD/PEL W EXAM: CT CHEST/ABD/PEL W CLINICAL HISTORY: abdominal distention, diffuse tenderness TECHNIQUE: Imaging Protocol: Axial computed tomography images with coronal and sagittal reformatted images were created and reviewed. Lung Computer Aided Detection (CAD) was utilized. CONTRAST MATERIAL: Intravenous: Omnipaque 350 contrast volume:100 mL Oral: No COMPARISON: No exams were available for comparison FINDINGS: CHEST: Tracheobronchial tree: Patent where visualized. No evidence of bronchiectasis. Pulmonary parenchyma: No consolidation or dominant measurable mass. No architectural distortion. Visualized thyroid gland: Unremarkable. Mediastinum and Le: No dominant adenopathy or fluid collection. The esophagus is unremarkable. Pleura: No effusion or pneumothorax. Heart: The heart is not dilated. No coronary artery calcifications are seen. No pericardial effusion. Pulmonary arteries: No large central pulmonary embolism is present. The segmental and subsegmental pulmonary arteries are not adequately opacified for evaluation of pulmonary emboli. Aorta: Thoracic aorta non-dilated. No evidence of dissection. Mild atherosclerotic calcification is present. Lymph nodes: There are mildly enlarged lymph nodes seen adjacent to the great vessels. The largest measures 2 cm. Tubes, Catheters, and Lines: The patient has a ventriculoperitoneal shunt. Soft tissues: Unremarkable. Bones:Within normal limits for the patient's age. No displaced rib fractures are present. ABDOMEN: Liver: Normal density. No measurable mass. Portal, Superior Mesenteric, and Splenic Veins: Unremarkable. Gallbladder and Biliary Tract: There is a 3.7 cm gallstone. No biliary ductal dilatation. Pancreas: Normal density, no abnormal calcifications or inflammatory process. Spleen: Normal. Adrenals: No masses seen. Kidneys: The right kidney shows normal enhancement. There is a simple cyst on the right kidney. No nephrolithiasis or obstructive uropathy is present. There is a left-sided staghorn calculus with resultant hydronephrosis. There is delayed enhancement of the left kidney. There is cortical thinning present. Inflammatory stranding is seen around the left kidney. No intraparenchymal gas is seen. Nonobstructing stones are present in the left kidney. There are enlarged lymph nodes seen in the right hilum. Abdominal Aorta: Abdominal portion non-dilated. Atherosclerotic calcification is present. Bowel: There is dilatation of the colon through its entire length to the rectum. No obstructing mass is seen. Air-fluid levels are seen. There also mildly dilated loops of small bowel with air-fluid levels. This may represent an ileus. The appendix is not visualized. There is no pneumatosis. No portal venous gas is seen. The stomach is incompletely distended limiting evaluation. Peritoneal Cavity: No ascites, collection or mesenteric inflammatory response. No free air. Lymph Nodes: Within normal limits. Bones: Within normal limits for the patient's age. Soft Tissues: Calcifications are seen in the soft tissues posteriorly. These may represent injection granuloma. PELVIS: Bladder: Urinary bladder is incompletely distended limiting evaluation. Reproductive Organs: Unremarkable as visualized. Lymph Nodes: Within normal limits. Bones: Within normal limits. IMPRESSION: 1. There is a staghorn calculus in the left kidney. The kidney shows delayed enhancement with cortical thinning. There are areas of decreased attenuation scattered within the left kidney. Perinephric inflammatory stranding is seen. There also enlarged lymph nodes in the hilum of the left kidney. 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 2. Dilated loops of small and large bowel with air-fluid levels throughout to the level of the rectum. No rectal mass is seen. This may represent a severe ileus. Low obstructing lesion cannot be entirely excluded at the anus. Correlation with physical exam is recommended. 3. Cholelithiasis without evidence of acute cholecystitis on the CT examination. 4. No evidence of pneumatosis or portal venous gas. 5. No pulmonary infiltrates. 6. Findings were discussed with Abril Baxter APRN at 12:58 p.m. on 08/10/2024. Radiologic Study #2: Radiologist's impression: Exam(s) XR PORTABLE CHEST AP POST LINE EXAM: XR PORTABLE CHEST AP POST LINE CLINICAL HISTORY: NG tube placement. TECHNIQUE: 2D digital imaging was performed. COMPARISON: CT CT CHEST/ABD/PEL W from 08/10/2024 FINDINGS: Single AP portable view. Heart size is upper normal. The mediastinum is not widened. Lungs are clear. No infiltrates nor obvious pleural effusions. There is an NG tube. Its distal tip is in the proximal stomach just below the GE junction. Should be further advanced into the stomach. The stomach itself is not distended but there are multiple air-filled dilated bowel loops on both sides the abdomen noted. IMPRESSION: No acute pulmonary findings. The NG tube distal tip should be advanced further into the stomach. It is presently just below the GE junction. Quality:SDOH Health Related Social Needs: No Data to Display PFSH All Active Problems (Updated 12/30/23 @ 07:42 by Oliver Sinha NP) Nail dystrophy (Acute) Onychogryphosis (Acute) Medical History Hydrocephalus Social History Smoking/Tobacco Use Status: Former Tobacco Use Smoking risk assessment performed?: Yes Alcohol Intake: never Drug use: Never Substance use type: does not use [facility]: [facility] Do you feel safe at home: Yes Do you feel safe in your relationship?: Yes
[2024-08-10 10:16] LABS: Abs Immature Grans 0.12 10^3/uL (0.0-0.06); Absolute Basophil Count 0.05 10^3/uL (0.0-0.2); Basophils % 0.3 %; Eosinophils % 0.4 %; HCT 34.8 % (36.0-46.0); HGB 10.9 g/dL (11.2-15.7); Immature Grans % 0.8 %; Lymphocytes % 5.1 %; MCH 27.9 pg (27.0-33.0); MCHC 31.3 % (32.0-36.0); MCV 89 fL (80-95); MPV 8.9 fL (8.0-11.0); Monocytes % 8.6 %; Neutrophils % 84.8 %; Platelet Count 356 10^3/uL (130-400); RDW 14.8 % (11.7-14.6); WBC 15.63 10^3/uL (4.4-10.8)
[2024-08-10 10:17] LABS: Absolute Eosinophil Count 0.06 10^3/uL (0.0-0.7); Absolute Monocyte Count 1.34 10^3/uL (0.1-0.8); Absolute Neutrophil Count 13.25 10^3/uL (1.2-6.7)
[2024-08-10 10:30] LABS: INR 1.1 (0.9-1.1); PTT Activated 32.1 sec (20.6-30.2); Prothrombin Time 10.8 sec (9.1-11.1)
[2024-08-10 10:32] LABS: Bilirubin Small (Negative); Blood Moderate (Negative); Clarity Cloudy (Clear); Glucose Negative (Negative); Ketones Trace mg/dL (Negative); Leukocyte Esterase Small (Negative); Nitrite Negative (Negative); Specific Gravity >= 1.030 (1.005-1.025); pH 5.5 (5-8)
[2024-08-10 10:34] LABS: ALT 14 U/L (14-59); AST 15 U/L (15-37); Albumin 2.8 g/dL (3.4-5.0); Alkaline Phosphatase 102 U/L (46-116); Anion Gap 8.3 mmol/L (3-11); BUN 14 mg/dL (7-18); Bilirubin, Total 0.4 mg/dL (0.2-1.0); CO2 30.7 mmol/L (21.0-32.0); CREATININE 0.7 mg/dL (0.55-1.02); Calcium 9.6 mg/dL (8.5-10.1); Chloride 91 mmol/L (98-107); Estimated GFR 97.72 (mL/min/1.73m2); Glucose 138 mg/dL (74-106); Sodium 130 mmol/L (136-145); Total Protein 8.9 g/dL (6.4-8.2)
[2024-08-10 10:54] LABS: Bacteria Many HPF (Negative); C & S Indicated? Yes; WBC >50 HPF (0-5)
[2024-08-10 10:59] LABS: Lab Add On Test DONE
[2024-08-10] MEDS: Normal Saline - Diluent 50 ML VIAL IJ (11:02)
[2024-08-10] MEDS: Omnipaque 350 MG/ML 100 ML BTL IJ (11:04)
[2024-08-10 11:07] LABS: Lipase 12 U/L (<78)
--- NOTE | 2024-08-10 11:10 | DI.CT_ITS ---
Exam(s) CT CHEST/ABD/PEL W EXAM: CT CHEST/ABD/PEL W CLINICAL HISTORY: abdominal distention, diffuse tenderness TECHNIQUE: Imaging Protocol: Axial computed tomography images with coronal and sagittal reformatted images were created and reviewed. Lung Computer Aided Detection (CAD) was utilized. CONTRAST MATERIAL: Intravenous: Omnipaque 350 contrast volume:100 mL Oral: No COMPARISON: No exams were available for comparison FINDINGS: CHEST: Tracheobronchial tree: Patent where visualized. No evidence of bronchiectasis. Pulmonary parenchyma: No consolidation or dominant measurable mass. No architectural distortion. Visualized thyroid gland: Unremarkable. Mediastinum and Le: No dominant adenopathy or fluid collection. The esophagus is unremarkable. Pleura: No effusion or pneumothorax. Heart: The heart is not dilated. No coronary artery calcifications are seen. No pericardial effusion. Pulmonary arteries: No large central pulmonary embolism is present. The segmental and subsegmental p ulmonary arteries are not adequately opacified for evaluation of pulmonary emboli. Aorta: Thoracic aorta non-dilated. No evidence of dissection. Mild atherosclerotic calcification is present. Lymph nodes: There are mildly enlarged lymph nodes seen adjacent to the great vessels. The largest m easures 2 cm. Tubes, Catheters, and Lines: The patient has a ventriculoperitoneal shunt. Soft tissues: Unremarkable. Bones:Within normal limits for the patient's age. No displaced rib fractures are present. ABDOMEN: Liver: Normal density. No measurable mass. Portal, Superior Mesenteric, and Splenic Veins: Unremarkable. Gallbladder and Biliary Tract: There is a 3.7 cm gallstone. No biliary ductal dilatation. Pancreas: Normal density, no abnormal calcifications or inflammatory process. Spleen: Normal. Adrenals: No masses seen. Kidneys: The right kidney shows normal enhancement. There is a simple cyst on the right kidney. No nephrolithiasis or obstructive uropathy is present. There is a left-sided staghorn calculus with res ultant hydronephrosis. There is delayed enhancement of the left kidney. There is cortical thinning present. Inflammatory stranding is seen around the left kidney. No intraparenchymal gas is seen. N onobstructing stones are present in the left kidney. There are enlarged lymph nodes seen in the righ t hilum. Abdominal Aorta: Abdominal portion non-dilated. Atherosclerotic calcification is present. Bowel: There is dilatation of the colon through its entire length to the rectum. No obstructing mass is seen. Air-fluid levels are seen. There also mildly dilated loops of small bowel with air-fluid levels. This may represent an ileus. The appendix is not visualized. There is no pneumatosis. No portal venous gas is seen. The stomach is incompletely distended limiting evaluation. Peritoneal Cavity: No ascites, collection or mesenteric inflammatory response. No free air. Lymph Nodes: Within normal limits. Bones: Within normal limits for the patient's age. Soft Tissues: Calcifications are seen in the soft tissues posteriorly. These may represent injection granuloma. PELVIS: Bladder: Urinary bladder is incompletely distended limiting evaluation. Reproductive Organs: Unremarkable as visualized. Lymph Nodes: Within normal limits. Bones: Within normal limits. IMPRESSION: 1. There is a staghorn calculus in the left kidney. The kidney shows delayed enhancement with cortic al thinning. There are areas of decreased attenuation scattered within the left kidney. Perinephric inflammatory stranding is seen. There also enlarged lymph nodes in the hilum of the left kidney. F indings are suspicious for xanthogranulomatous pyelonephritis. 2. Dilated loops of small and large bowel with air-fluid levels throughout to the level of the rectum . No rectal mass is seen. This may represent a severe ileus. Low obstructing lesion cannot be enti rely excluded at the anus. Correlation with physical exam is recommended. 3. Cholelithiasis without evidence of acute cholecystitis on the CT examination. 4. No evidence of pneumatosis or portal venous gas. 5. No pulmonary infiltrates. 6. Findings were discussed with Arbil Baxter APRN at 12:58 p.m. on 08/10/2024. RADIATION DOSE DELIVERED: 932.58mGy.cm Total DLP DATA REPOSITORY: All CT scans at this facility are submitted to the National Radiology Data Registry (NRDR) Dose Index Registry (DIR) with the [employer] ([employer]). RADIATION OPTIMIZATION: All CT scans at this facility use at least one of these dose optimization te chniques: automated exposure control; mA and/or kV adjustment per patient size (includes targeted exa ms where dose is matched to clinical indication); or iterative reconstruction.
[2024-08-10] MEDS: Normal Saline 1,000 ML 100 ML IV (13:33)
--- NOTE | 2024-08-10 15:54 | DI.RAD_ITS ---
Exam(s) XR PORTABLE CHEST AP POST LINE EXAM: XR PORTABLE CHEST AP POST LINE CLINICAL HISTORY: NG tube placement. TECHNIQUE: 2D digital imaging was performed. COMPARISON: CT CT CHEST/ABD/PEL W from 08/10/2024 FINDINGS: Single AP portable view. Heart size is upper normal. The mediastinum is not widened. Lungs are clear. No infiltrates nor obvious pleural effusions. There is an NG tube. Its distal tip is in the proximal stomach just below the GE junction. Should b e further advanced into the stomach. The stomach itself is not distended but there are multiple air- filled dilated bowel loops on both sides the abdomen noted. IMPRESSION: No acute pulmonary findings. The NG tube distal tip should be advanced further into the stomach. It is presently just below the GE junction. DATA REPOSITORY: RADIATION DOSE DELIVERED:
--- NOTE | 2024-08-10 15:57 | W.PM.HP.N ---
Date of service: 08/10/24 Time of Service: 16:01 Assessment and Plan Assessment and plan (1) Pyelonephritis: Start date: 08/10/24 Start time: 17:14 Status: Acute Assessment and plan: As per imaging and as per discussion with Dr. Callahan this happened in the setting of Staghorn calculus- 2 month prior patient grew proteus Will need stent palcement OR at 07:30 -NPO post midnight -Complete IVF from ED X 1 bag then use m/s admit rate for IVF - On zosyn Urine Cx ordered in ED and pending (2) Staghorn renal calculus: Start date: 08/10/24 Start time: 17:14 Status: Acute Assessment and plan: As above (3) Ileus: Start date: 08/10/24 Start time: 17:15 Status: Acute Assessment and plan: Surgical consult NGT to LIS NPO- bowel rest IVF as per point one (4) Atrial fibrillation: Start date: 08/10/24 Start time: 17:15 Assessment and plan: Hx of On Xeralta and coreg Hold prior to OR and apply TEDs (5) GERD (gastroesophageal reflux disease): Start date: 08/10/24 Start time: 17:15 Assessment and plan: protonix IV daily discussed with Dr. Gottlieb History of Present Illness History of Present Illness Chief Complaint: Abdominal pain and distention Narrative: This 64 year old female with a PMHx of dementia, brain lesions/CVAon anticoagulation, hydrocephalus, hyperlipidemia, CHF presented to the ED at [facility] for evaluation of abdominal pain and distention. HPI/ROS was limited due to baseline mental status and communication abilities.The patient denied chills, fever, chest pain, nausea,vomiting, constipation, diarrhea, burning with urination. However reported having had some discomfort this morning with urinating to the ED provider. The workup in the ED showed WBC at 15.63, Hgb at 10 around baseline, hyponatremia at 130 and Cl at 91, chemistry was unremarkable otherwise. UA was positive for infection. CT of the chest abd and pelvis pointed to an ileus without obstruction, left renal staghorn calculus and pyelonephristis. The ED provider completed a rectal exam as per notes w/o acute findings. Dr Callahan from urology was consulted in the ED with recommendations for antibitics and temporizing stent placement. Surgery was consulted and recommended admission to the hospitalist service with surgery consult. Dr Shah recommended NGT, bowel rest and IVF. The patient is lsited as a full code at this time , waiting for the patient's mother is the DPOA. Mrs Davis, the patient's mother, confirmed full code status via phone call. Review of Systems All systems reviewed & are unremarkable except as noted in HPI and below PFSH All Active Problems (Updated 08/10/24 @ 16:40 by Charlei Callahan MD) Pyelonephritis (Acute) Staghorn renal calculus (Acute) Ileus (Acute) Nail dystrophy (Acute) Onychogryphosis (Acute) Medical History (Updated 08/10/24 @ 16:40 by Charlie Callahan MD) Mitral insufficiency Atrial fibrillation GERD (gastroesophageal reflux disease) Astrocytoma Injury of hand, right Diabetes insipidus Hydrocephalus Anemia Surgical History (Updated 08/10/24 @ 16:40 by Charlie Callahan MD) H/O craniotomy Social History Smoking/Tobacco Use Status: Former Tobacco Use Smoking risk assessment performed?: Yes Alcohol Intake: never Drug use: Never Substance use type: does not use Housing: longterm Do you feel safe at home: Yes Do you feel safe in your relationship?: Yes Meds Allergies and Home Medications Allergies Allergy/AdvReac Type Severity Reaction Status Date / Time pineapple Allergy Unknown Unverified 08/10/24 09:29 tomato Allergy Unknown Unverified 08/10/24 09:29 Home Medications ?Medication ?Instructions ?Recorded ?Confirmed ?Type acetaminophen 325 mg tablet 650 mg PO PRN PRN 08/29/21 08/10/24 History (Pharbetol) atorvastatin 80 mg tablet 80 mg PO QHS 08/29/21 08/10/24 History carbamazepine 300 mg 300 mg PO BID 08/29/21 08/10/24 History capsule,extended release [id number] carvedilol 6.25 mg tablet 6.25 mg PO BID 08/29/21 08/10/24 History cholecalciferol (vitamin D3) 25 1,000 unit PO DAILY 08/29/21 08/10/24 History mcg (1,000 unit) capsule (Vitamin D3) rivaroxaban 20 mg tablet (Xarelto) 10 mg PO QPM 08/29/21 08/10/24 History sennosides 8.6 mg-docusate sodium 2 tab-cap PO DAILY 08/29/21 08/10/24 History 50 mg tablet (Senexon-S) desmopressin 0.1 mg tablet 0.1 mg PO DAILY #0 tabs 09/01/21 08/10/24 Rx furosemide 20 mg tablet 40 mg PO DAILY 08/10/24 08/10/24 History polyethylene glycol 3350 17 17 g PO DAILY 08/10/24 08/10/24 History gram/dose oral powder (ClearLax) Exam Narrative Exam Narrative: Constitutional The patient is lying on stretcher without acute distress and has an average obese body habitus Eyes: Well aligned Neuro:alert and oriented to self. Resp: Normal respiratory pattern, speaks in short sentences, unlabored breathing, clear lung bilaterally w decreased bases Cardio: regular rhythm, S1, S2, bilateral radial and dorsalis pedis pulses are positive GI: Abdomen is distended, semi-firm and non tender, bowel sounds are high-pitched : Negative Costovertebral angle tenderness Integumentary: No opened skin lesions on exposed skin Psych: RASS 0- 1 Results Labs 08/10/24 10:06 08/10/24 10:06 Labs: Laboratory Results - last 24 hr 08/10/24 08/10/24 10:06 10:27 WBC 15.63 H RBC 3.90 L Hgb 10.9 L Hct 34.8 L MCV 89 MCH 27.9 MCHC 31.3 L RDW 14.8 H Plt Count 356 MPV 8.9 Immature Gran % 0.8 Neutrophils % 84.8 Lymphocytes % 5.1 Monocytes % 8.6 Eosinophils % 0.4 Basophils % 0.3 Nucleated RBC % 0.0 Absolute Neutrophils 13.25 H Absolute Lymphocytes 0.80 L Absolute Monocytes 1.34 H Absolute Eosinophils 0.06 Absolute Basophils 0.05 PT 10.8 INR 1.1 APTT 32.1 H Sodium 130 L Potassium 4.0 Chloride 91 L Carbon Dioxide 30.7 Anion Gap 8.3 BUN 14 Creatinine 0.7 Est GFR (CKD-EPI 2020) 97.72 Glucose 138 H Calcium 9.6 Total Bilirubin 0.4 AST 15 ALT 14 Alkaline Phosphatase 102 Total Protein 8.9 H Albumin 2.8 L Lipase 12 Urine Color Dark Yellow Urine Clarity Cloudy Urine pH 5.5 Ur Specific [place] >= 1.030 H Urine Protein 100 H Urine Ketones Trace H Urine Blood Moderate H Urine Nitrite Negative Urine Bilirubin Small H Urine Urobilinogen 1.0 H Ur Leukocyte Esterase Small H Urine RBC Not Applicable Urine WBC >50 H Ur Epithelial Cells Not Applicable Urine Crystals Not Applicable Urine Bacteria Many Urine Mucus Not Applicable Ur Culture Indicated? Yes Urine Glucose Negative Add-On Test Request DONE Last Vital Signs Temp 36.9 C 08/10/24 09:45 Pulse 89 08/10/24 15:01 Resp 20 08/10/24 14:20 BP 155/124 H 08/10/24 15:01 Pulse Ox 94 08/10/24 15:01 Time Spent Time spent with Patient: >75 minutes Time was spent: preparing to see the patient(eg.review tests), obtaining and/or reviewing separately otained hiistory, ordering medications,tests, procedures, referring, communicating with other health respiratory care practitioner, indepentently interpreting results, counseling the patient and care coordination
--- NOTE | 2024-08-10 16:06 | UCONE_ITS ---
Date of service: 08/10/24 Time of Service: 16:06 Assessment and Plan Assessment and plan (1) Staghorn renal calculus: Status: Acute Assessment and plan: Given her previous Proteus urinary tract infection and the staghorn stone, I would not be surprised if her current infection is Proteus as well. We often see recurrent Proteus infections associated with struvite stones. I would suggest continuing with Zosyn to cover her previous positive cultures while her new cultures are pending In addition to antibiotics, she will need a ureteral stent to be placed to allow the kidney to drain maximally. The patient is not able to give informed consent herself. Luckily, she is not overtly septic, so we will wait until we are able to speak with her mother to make sure she is agreeable to her stent placement. If her condition were to deteriorate overnight, we would place an emergent stent. Ultimately, from a urologic standpoint, her stone would likely need to be treated with percutaneous nephrolithotomy. Such a procedure is not available here at our facility, so we will make sure to make appropriate referrals to a tertiary care center after she clinically improves and is discharged from our facility. She is already lost parenchyma in the left kidney, so there is a chronic component to her stones and pyelonephritis. If she has already lost most of her renal function on the left side, a nephrectomy might be appropriate. History of Present Illness History of Present Illness Chief Complaint: Left staghorn calculus Narrative: This is a 64-year-old woman who is a resident of the [facility]. She comes in with concerns for abdominal distention and pain. She was evaluated with a CT of the abdomen and pelvis. A left sided staghorn calculus was identified. There is loss of parenchyma on the left side and her urine appears infected. She is not aware of any prior history of kidney stones. She has had positive urine cultures in the past. Her most recent positive culture in our EMR system was from October 2023 when Proteus was identified. She has no known history of gout or hyperparathyroidism. She is not able to tell me of any previous urologic surgeries. 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 She has had a craniotomy along with a shunt placement for hydrocephalus. She has had posttraumatic seizures. Her most recent neurosurgery evaluation at [facility] was a few years ago. Based on her previous medical record, she has a history of atrial fibrillation, diabetes insipidus, mitral insufficiency and GERD. None of these diagnoses are listed on her medical history, but can be extracted from some of her previous notes. PFSH All Active Problems (Updated 08/10/24 @ 16:40 by Charlie Callahan MD) Pyelonephritis (Acute) Staghorn renal calculus (Acute) Ileus (Acute) Nail dystrophy (Acute) Onychogryphosis (Acute) Medical History (Updated 08/10/24 @ 16:40 by Charlie Callahan MD) Mitral insufficiency Atrial fibrillation GERD (gastroesophageal reflux disease) Astrocytoma Injury of hand, right Diabetes insipidus Hydrocephalus Anemia Surgical History (Updated 08/10/24 @ 16:40 by Charlie Callahan MD) H/O craniotomy Social History Smoking/Tobacco Use Status: Former Tobacco Use Smoking risk assessment performed?: Yes Alcohol Intake: never Drug use: Never Substance use type: does not use Housing: prison Do you feel safe at home: Yes Do you feel safe in your relationship?: Yes Exam Const Other: She does not appear toxic at this time Her vital signs are documented elsewhere Her chest wall motion is normal. Her abdomen is diffusely enlarged and tense but nontender with no peritoneal signs A Montez catheter is in place She is awake and alert I reviewed her CT scan on the PACS system. The left kidney has a very large stone with thinning of her parenchyma, hydronephrosis and perinephric stranding. I do not see any sign of a perinephric abscess. I reviewed her previous cultures. She did have a positive urine culture for Proteus about 9 months ago Results Last Vital Signs Temp 36.9 C 08/10/24 09:45 Pulse 89 08/10/24 15:01 Resp 20 08/10/24 14:20 BP 155/124 H 08/10/24 15:01 Pulse Ox 94 08/10/24 15:01 Labs 08/10/24 10:06 08/10/24 10:06 Labs: Laboratory Results - last 24 hr 08/10/24 08/10/24 10:06 10:27 WBC 15.63 H RBC 3.90 L Hgb 10.9 L Hct 34.8 L MCV 89 MCH 27.9 MCHC 31.3 L RDW 14.8 H Plt Count 356 MPV 8.9 Immature Gran % 0.8 Neutrophils % 84.8 Lymphocytes % 5.1 Monocytes % 8.6 Eosinophils % 0.4 Basophils % 0.3 Nucleated RBC % 0.0 Absolute Neutrophils 13.25 H Absolute Lymphocytes 0.80 L Absolute Monocytes 1.34 H Absolute Eosinophils 0.06 Absolute Basophils 0.05 PT 10.8 INR 1.1 APTT 32.1 H Sodium 130 L Potassium 4.0 Chloride 91 L Carbon Dioxide 30.7 Anion Gap 8.3 BUN 14 Creatinine 0.7 Est GFR (CKD-EPI 2020) 97.72 Glucose 138 H Calcium 9.6 Total Bilirubin 0.4 AST 15 ALT 14 Alkaline Phosphatase 102 Total Protein 8.9 H Albumin 2.8 L Lipase 12 Urine Color Dark Yellow Urine Clarity Cloudy Urine pH 5.5 Ur Specific [place] >= 1.030 H Urine Protein 100 H Urine Ketones Trace H Urine Blood Moderate H Urine Nitrite Negative Urine Bilirubin Small H Urine Urobilinogen 1.0 H Ur Leukocyte Esterase Small H Urine RBC Not Applicable Urine WBC >50 H Ur Epithelial Cells Not Applicable Urine Crystals Not Applicable Urine Bacteria Many Urine Mucus Not Applicable Ur Culture Indicated? Yes Urine Glucose Negative Add-On Test Request DONE
--- NOTE | 2024-08-10 16:11 | SCONE_ITS ---
Date of service: 08/10/24 Time of Service: 16:11 Assessment and Plan Assessment and plan (1) Weston syndrome: Status: Acute Assessment and plan: Based on the history, I suspect there is at the very least a component of chronic constipation or slow colonic transit here, as her colon is quite long, and massively distended, which I would not expect for an acute situation. However, I suspect this is probably complicated by some Weston syndrome, or colonic pseudoobstruction which may be a result of her underlying kidney and electrolyte issues. I think nasogastric tube decompression is very reasonable, but also think there is probably benefit to colonic decompression here. Since she will be in the operating room with Dr. Callahan for renal stenting, I did discuss decompressive colonoscopy with her mother and stepfather. I explained that the goal of the procedure would be palliative to relieve the symptoms of the colonic distention. I think they have a good understanding of this. They are able to provide informed consent on her behalf. Obviously, the risk of procedural complications are a bit higher here, but will minimize insufflation, and evacuate as much as safely possible. History of Present Illness History of Present Illness Chief Complaint: ileus Narrative: Maribel is 64 years old. She comes to the emergency department from her assisted living facility. She was sent to the emergency department today because of abdominal pain. Her past medical history is fairly complicated, and she is not able to provide any details with regards to the history, but according to records, she has a history of multiple medical problems that include a stroke, history of astrocytoma of the brain, diabetes, atrial fibrillation, diabetes insipidus, depression, traumatic brain injury, constipation, congenital mitral insufficiency, posttraumatic seizures, vitamin D deficiency, gastroesophageal reflux, obstructive hydrocephalus. It looks like she has had a few hospitalizations for severe hyponatremia. In the emergency department, she had a leukocytosis to 12,000, and hyponatremia. She underwent a CT scan of the abdomen and pelvis which demonstrated a left-sided staghorn calculus with hydronephrosis, and some dilated intestine that was interpreted as perhaps ileus. Review of Systems Narrative: Unable to obtain meaningful review of symptoms because of mental status PFSH All Active Problems (Updated 08/11/24 @ 07:13 by Amaury Shah MD) [place] syndrome (Acute) Pyelonephritis (Acute) Staghorn renal calculus (Acute) Ileus (Acute) Nail dystrophy (Acute) Onychogryphosis (Acute) Medical History (Updated 08/11/24 @ 07:13 by Amaury Shah MD) Mitral insufficiency Atrial fibrillation GERD (gastroesophageal reflux disease) Astrocytoma Injury of hand, right Diabetes insipidus Hydrocephalus Anemia Surgical History (Updated 08/10/24 @ 16:40 by Charlie Callahan MD) H/O craniotomy Social History Smoking/Tobacco Use Status: Former Tobacco Use Smoking risk assessment performed?: Yes Alcohol Intake: never Drug use: Never Substance use type: does not use Housing: assisted living facility Do you feel safe at home: Yes Do you feel safe in your relationship?: Yes Exam GI Other: Her abdomen is massively distended and tympanitic. Bowel sounds are difficult to hear. Results Last Vital Signs Temp 98.5 F 08/10/24 09:45 Pulse 89 08/10/24 15:01 Resp 20 08/10/24 14:20 BP 155/124 H 08/10/24 15:01 Pulse Ox 94 08/10/24 15:01 Labs 08/10/24 10:06 08/10/24 10:06 Labs: Laboratory Results - last 24 hr 08/10/24 08/10/24 10:06 10:27 WBC 15.63 H RBC 3.90 L Hgb 10.9 L Hct 34.8 L MCV 89 MCH 27.9 MCHC 31.3 L RDW 14.8 H Plt Count 356 MPV 8.9 Immature Gran % 0.8 Neutrophils % 84.8 Lymphocytes % 5.1 Monocytes % 8.6 Eosinophils % 0.4 Basophils % 0.3 Nucleated RBC % 0.0 Absolute Neutrophils 13.25 H Absolute Lymphocytes 0.80 L Absolute Monocytes 1.34 H Absolute Eosinophils 0.06 Absolute Basophils 0.05 PT 10.8 INR 1.1 APTT 32.1 H Sodium 130 L Potassium 4.0 Chloride 91 L Carbon Dioxide 30.7 Anion Gap 8.3 BUN 14 Creatinine 0.7 Est GFR (CKD-EPI 2020) 97.72 Glucose 138 H Calcium 9.6 Total Bilirubin 0.4 AST 15 ALT 14 Alkaline Phosphatase 102 Total Protein 8.9 H Albumin 2.8 L Lipase 12 Urine Color Dark Yellow Urine Clarity Cloudy Urine pH 5.5 Ur Specific [place] >= 1.030 H Urine Protein 100 H Urine Ketones Trace H Urine Blood Moderate H Urine Nitrite Negative Urine Bilirubin Small H Urine Urobilinogen 1.0 H Ur Leukocyte Esterase Small H Urine RBC Not Applicable Urine WBC >50 H Ur Epithelial Cells Not Applicable Urine Crystals Not Applicable Urine Bacteria Many Urine Mucus Not Applicable Ur Culture Indicated? Yes Urine Glucose Negative Add-On Test Request DONE
--- NOTE | 2024-08-10 17:45 | W.PC.ACHO ---
Registration Status: Primary Language: Preferred Language: ED Information & Data Chief Complaint Abd Prob 08/10/24 09:28 Chief Complaint Abd Prob 08/10/24 09:23 Triage Note pt with no hx of abd issues, 08/10/24 09:23 hx of CVA with deficits, AMS at baseline, DNR/DNI, abd pain 10/10 LLQ, last BM yesterday normal per report, temp 100.0 temporal, no n/v /d, abd large/distended and painful, tight. Pt on monitors, BG [address], mother is guardian, came from [facility] by EMS. Medical / Surgical History (Last Updated 08/10/24 @ 16:40 by Charlie Callahan MD) Mitral insufficiency Atrial fibrillation GERD (gastroesophageal reflux disease) Astrocytoma Injury of hand, right Diabetes insipidus Hydrocephalus Anemia (Last Updated 08/10/24 @ 16:40 by Charlie Callahan MD) H/O craniotomy Most Recent Vital Signs Temperature 36.7 C 08/10/24 17:10 Temperature Source Oral 08/10/24 09:45 Pulse 92 H 08/10/24 17:10 Pulse 93 H 08/10/24 17:10 Respiratory Rate 23 08/10/24 17:10 Blood Pressure 172/85 H 08/10/24 17:10 Blood Pressure Mean 118 08/10/24 17:00 Blood Pressure Position Supine 08/10/24 09:23 Pulse Oximetry 93 08/10/24 17:10 Oxygen Delivery Method Room Air 08/10/24 12:23 Oxygen Flow Rate 0 08/10/24 12:23 Pain Level 10 08/10/24 09:45 Allergies pineapple Allergy (Unverified 08/10/24 09:29) Unknown tomato Allergy (Unverified 08/10/24 09:29) Unknown Precautions Isolation Standard precaution 08/10/24 09:28 Active Medications Generic Name Dose Route Start Last Admin Trade Name Freq PRN Reason Stop Dose Admin Sodium Chloride 1,000 mls @ 100 mls/hr 08/10/24 13:15 08/10/24 13:33 Saline 1000ml Bag IV 100 mls/hr INFUSION DAVID Administration IV IV Catheter Type [Left Forearm Peripheral IV ] IV Catheter Gauge [Left 18 Forearm] Diet Orders Category Date Time Status npo [Nothing Per Oral] [DIET] Nutrition 08/10/24 Dinner Active npo [Nothing Per Oral] [DIET] Nutrition 08/10/24 Dinner Active Diagnostics 08/10/24 08/10/24 Range/Units 10:27 10:06 WBC 15.63 H (4.4-10.8) 10^3/uL RBC 3.90 L (3.93-5.22) 10^6/uL Hgb 10.9 L (11.2-15.7) g/dL Hct 34.8 L (36.0-46.0) % MCV 89 (80-95) fL MCH 27.9 (27.0-33.0) pg MCHC 31.3 L (32.0-36.0) % RDW 14.8 H (11.7-14.6) % Plt Count 356 (130-400) 10^3/uL MPV 8.9 (8.0-11.0) fL Immature Gran % 0.8 % Neutrophils % 84.8 % Lymphocytes % 5.1 % Monocytes % 8.6 % Eosinophils % 0.4 % Basophils % 0.3 % Nucleated RBC % 0.0 (0.0-0.3) % Absolute Neutrophils 13.25 H (1.2-6.7) 10^3/uL Absolute Lymphocytes 0.80 L (1.2-3.4) 10^3/uL Absolute Monocytes 1.34 H (0.1-0.8) 10^3/uL Absolute Eosinophils 0.06 (0.0-0.7) 10^3/uL Absolute Basophils 0.05 (0.0-0.2) 10^3/uL PT 10.8 (9.1-11.1) sec INR 1.1 (0.9-1.1) APTT 32.1 H (20.6-30.2) sec Sodium 130 L (136-145) mmol/L Potassium 4.0 (3.5-5.1) mmol/L Chloride 91 L (98-107) mmol/L Carbon Dioxide 30.7 (21.0-32.0) mmol/L Anion Gap 8.3 (3-11) mmol/L BUN 14 (7-18) mg/dL Creatinine 0.7 (0.55-1.02) mg/dL Est GFR (CKD-EPI 2020) 97.72 (mL/min/1.73m2) Glucose 138 H (74-106) mg/dL Calcium 9.6 (8.5-10.1) mg/dL Total Bilirubin 0.4 (0.2-1.0) mg/dL AST 15 (15-37) U/L ALT 14 (14-59) U/L Alkaline Phosphatase 102 (46-116) U/L Total Protein 8.9 H (6.4-8.2) g/dL Albumin 2.8 L (3.4-5.0) g/dL Lipase 12 (<78) U/L Urine Color Dark Yellow (Yellow) Urine Clarity Cloudy (Clear) Urine pH 5.5 (5-8) Ur Specific [place] >= 1.030 H (1.005-1.025) Urine Protein 100 H (Neg-Trace) mg/dL Urine Ketones Trace H (Negative) mg/dL Urine Blood Moderate H (Negative) Urine Nitrite Negative (Negative) Urine Bilirubin Small H (Negative) Urine Urobilinogen 1.0 H (Up to 0.2) mg/dL Ur Leukocyte Esterase Small H (Negative) Urine RBC Not Applicable Urine WBC >50 H (0-5) HPF Ur Epithelial Cells Not Applicable Urine Crystals Not Applicable Urine Bacteria Many (Negative) HPF Urine Mucus Not Applicable Ur Culture Indicated? Yes Urine Glucose Negative (Negative) mg/dL Add-On Test Request DONE 08/10/24 10:27 Urine Culture - Pending Urine - Reflex from Ua Intake and Output - 24 Hour Total 08/10/24 09:09 thru 08/10/24 14:03 Intake Total 50 Output Total 515 Balance -465 Weight 123 kg Intake: IV 50 Output: Gastric Drainage 150 Right Nare 150 Urine 365 Other: Urine Color Dark Cynthia Urine Appearance Cloudy Urinary Catheter Urinary Catheter Date of 08/10/24 Insertion [Urethral (Montez)] Time of insertion [Urethral ( 13:40 Montez)] Falls Risk Assessment Contributing Factors Impairments 08/10/24 09:48 Cognition Cognitive impairment 08/10/24 09:48 Fall Total Score 18 08/10/24 09:48 Level of Risk Moderate Risk 08/10/24 09:48 Problems (Last Updated 08/10/24 @ 16:40 by Charlie Callahan MD) Pyelonephritis (Acute) Staghorn renal calculus (Acute) Ileus (Acute) v v v v v v v v v Sending and/or Receiving Nurses: Please use comment section below to note any information pertinent to the patient hand-off not included above. Information / Comments: Report received from: Kimberly Nazario ED RN, report at 17:09
[2024-08-10] MEDS: Pantoprazole 40 MG VIAL IVP (18:35)
[2024-08-10] MEDS: Carvedilol 6.25 MG TAB PO (20:05)
--- NOTE | 2024-08-10 21:55 | DI.RAD_ITS ---
Exam(s) XR PORTABLE CHEST AP EXAM: XR PORTABLE CHEST AP CLINICAL HISTORY: NG reinsertion/confirm placement TECHNIQUE: 2D digital imaging was performed of the chest. One image was obtained. An AP view was ob tained. COMPARISON: CR XR PORTABLE CHEST AP POST LINE from 08/10/2024 FINDINGS: The enteric tube has been advanced. Its tip is in the stomach below the edge of the film. MEDIASTINUM: Normal. HEART: Normal. PULMONARY VASCULATURE: Normal. LUNGS: There is poor inspiration with crowding of the pulmonary vasculature. No focal consolidating infiltrates. PLEURAL SPACE: No pleural effusion or pneumothorax. BONE:Within normal limits for the patient's age. OTHER FINDINGS:Normal. IMPRESSION: The enteric tube has been advanced and is in good position in the stomach. DATA REPOSITORY: RADIATION DOSE DELIVERED:
--- NOTE | 2024-08-10 22:50 | DI.VRAD_ITS ---
PROCEDURE INFORMATION: Exam: XR Chest Exam date and time: 08/10/2024 9:52 PM Age: 64 years old Clinical indication: Device placement; Ng tube; Ng reinsertion/ confirm placement TECHNIQUE: Imaging protocol: Radiologic exam of the chest. Views: 1 view. COMPARISON: CR XR PORTABLE CHEST AP POST LINE 08/10/2024 3:51 PM FINDINGS: Tubes, catheters and devices: A gastric feeding tube is present within the stomach. Lungs: Mild vascular congestion. Pleural spaces: Unremarkable. No pleural effusion. No pneumothorax. Heart/Mediastinum: The heart demonstrates diffuse enlargement. Bones/joints: Unremarkable. IMPRESSION: Mild vascular congestion. Dictated and Authenticated by: Keila Blandon MD. Orderin Verenice Le MD
[2024-08-11] VITALS (52 sets, daily range): BP systolic 99–183; BP diastolic 49–100; PULSE 83–98; RESP 13–20; TEMP 35.7–36.7; O2SAT 71–99; BMI 45.1
[2024-08-11] MEDS: Normal Saline 1,000 ML 100 ML IV (00:31)
--- NOTE | 2024-08-11 06:45 | DI.RAD_ITS ---
Exam(s) XR ABDOMEN FLAT PLATE EXAM: 2D digital imaging was performed. CLINICAL HISTORY: colonic psuedoobstruction. COMPARISON: CT CT CHEST/ABD/PEL W from 08/10/2024 TECHNIQUE: Supine views of the abdomen performed. FINDINGS: BOWEL GAS PATTERN: There are persistent distended loops of small and large bowel present. No definit e free air is seen at this time. CALCIFICATIONS: No radiopaque calcifications. OSSEOUS STRUCTURES: Normal for age. OTHER FINDINGS: There has been interval placement of a left nephroureteral stent. The tip of an ente mahad tube is seen in the stomach. IMPRESSION: 1. Persistent distended small and large bowel loops. The large bowel loops appears slightly decrease d in size compared to the prior examination. 2. The tip of the enteric tube is in good position in the stomach. 3. Interval placement of a left nephroureteral stent. DATA REPOSITORY: RADIATION DOSE DELIVERED:
--- NOTE | 2024-08-11 06:55 | PGE_ITS ---
Date of Service Date of service: 08/11/24 Time of Service: 06:55 Assessment and Plan Assessment and plan (1) Staghorn renal calculus: Status: Acute (2) Pyelonephritis: Status: Acute Assessment and plan: We will place a left ureteral stent to allow for maximal drainage of the left kidney and continue with IV antibiotics. After she is discharged, we will arrange for a nuclear renogram to assess her differential renal function. She will need an outpatient referral to meet with the urology team at a tertiary care center where she could have a percutaneous nephrolithotomy for nephrectomy based on the amount of renal function present in the left kidney. Subjective Subjective Interval history since last seen: The patient remained afebrile overnight. She did begin passing some liquid stools. I was able to discuss the situation with the patient's parents last evening after they arrived back home. The conversation was done by phone in approximately 6:45 PM. They are in agreement with proceeding with a left ureteral stent placement this morning. Exam Narrative Exam Narrative: Resting comfortably Her vital signs are documented elsewhere Her abdomen is distended but there are no peritoneal signs Objective Last Vital Signs Temp 36.7 C 08/11/24 03:20 Pulse 91 H 08/10/24 23:39 Resp 20 08/10/24 23:39 BP 138/80 08/10/24 23:39 Pulse Ox 96 08/10/24 23:39 Laboratory Results - last 24 hr 08/10/24 08/10/24 10:06 10:27 WBC 15.63 H RBC 3.90 L Hgb 10.9 L Hct 34.8 L MCV 89 MCH 27.9 MCHC 31.3 L RDW 14.8 H Plt Count 356 MPV 8.9 Immature Gran % 0.8 Neutrophils % 84.8 Lymphocytes % 5.1 Monocytes % 8.6 Eosinophils % 0.4 Basophils % 0.3 Nucleated RBC % 0.0 Absolute Neutrophils 13.25 H Absolute Lymphocytes 0.80 L Absolute Monocytes 1.34 H Absolute Eosinophils 0.06 Absolute Basophils 0.05 PT 10.8 INR 1.1 APTT 32.1 H Sodium 130 L Potassium 4.0 Chloride 91 L Carbon Dioxide 30.7 Anion Gap 8.3 BUN 14 Creatinine 0.7 Est GFR (CKD-EPI 2020) 97.72 Glucose 138 H Calcium 9.6 Total Bilirubin 0.4 AST 15 ALT 14 Alkaline Phosphatase 102 Total Protein 8.9 H Albumin 2.8 L Lipase 12 Urine Color Dark Yellow Urine Clarity Cloudy Urine pH 5.5 Ur Specific [place] >= 1.030 H Urine Protein 100 H Urine Ketones Trace H Urine Blood Moderate H Urine Nitrite Negative Urine Bilirubin Small H Urine Urobilinogen 1.0 H Ur Leukocyte Esterase Small H Urine RBC Not Applicable Urine WBC >50 H Ur Epithelial Cells Not Applicable Urine Crystals Not Applicable Urine Bacteria Many Urine Mucus Not Applicable Ur Culture Indicated? Yes Urine Glucose Negative Add-On Test Request DONE Time Spent with Patient Time Spent with Patient: <25 minutes Time was spent: referring, communicating with other health animal care worker
--- NOTE | 2024-08-11 07:17 | ANES.PREOP_ITS ---
General Info Date of Service Date Performed: 08/11/24 Height: 5 ft 6 in Weight: 126.688 kg Body Mass Index (BMI): 45.1 Surgical Procedure: Operation Date: 08/11/24 07:40 Proposed Procedure Side Surgeon p Cystoscopy with Stent Insertion Left Charlie Callahan MD s Colonoscopy Amaury Shah MD Actual Procedure Side Surgeon p Cystoscopy with Stent Insertion Left Charlie Callahan MD s Colonoscopy Not Applicable Amaury Shah MD Meds Allergies and Home Medications Allergies Allergy/AdvReac Type Severity Reaction Status Date / Time pineapple Allergy Unknown Unverified 08/10/24 09:29 tomato Allergy Unknown Unverified 08/10/24 09:29 Home Medication ?Medication ?Instructions ?Recorded acetaminophen 325 mg tablet 650 mg PO PRN PRN 08/29/21 (Pharbetol) atorvastatin 80 mg tablet 80 mg PO QHS 08/29/21 carbamazepine 300 mg 300 mg PO BID 08/29/21 capsule,extended release [id number] carvedilol 6.25 mg tablet 6.25 mg PO BID 08/29/21 cholecalciferol (vitamin D3) 25 1,000 unit PO DAILY 08/29/21 mcg (1,000 unit) capsule (Vitamin D3) rivaroxaban 20 mg tablet (Xarelto) 10 mg PO QPM 08/29/21 sennosides 8.6 mg-docusate sodium 2 tab-cap PO DAILY 08/29/21 50 mg tablet (Senexon-S) desmopressin 0.1 mg tablet 0.1 mg PO DAILY #0 tabs 09/01/21 furosemide 20 mg tablet 40 mg PO DAILY 08/10/24 polyethylene glycol 3350 17 17 g PO DAILY 08/10/24 gram/dose oral powder (ClearLax) Current Visit Medications: Current Medications Generic Name Dose Route Start Last Admin Trade Name Freq PRN Reason Stop Dose Admin Atorvastatin Calcium 80 mg 08/10/24 20:00 08/10/24 20:05 Atorvastatin 40 Mg Tab PO Not Given HS DAVID Carbamazepine 300 mg 08/10/24 20:00 08/10/24 20:20 Carbamazepine 20 Mg/Ml Suspension PO 15 ml BID DAVID Administration Carvedilol 6.25 mg 08/10/24 20:00 08/10/24 20:05 Carvedilol 6.25 Mg Tab PO 6.25 mg BID DAVID Administration Desmopressin Acetate 0.1 mg 08/11/24 08:30 Desmopressin 0.2 Mg Tab PO DAILY DAVID Furosemide 40 mg 08/11/24 08:30 Furosemide 20 Mg Tab PO DAILY DAVID Sodium Chloride 1,000 mls @ 100 mls/hr 08/10/24 13:15 08/11/24 00:31 Saline 1000ml Bag IV 100 mls/hr INFUSION DAVID Administration Piperacillin Sod/Tazobactam 50 mls @ 100 mls/hr 08/10/24 20:00 08/11/24 02:37 Sod 3.375 gm/ Dextrose/Water IVPB Infused Q6H DAVID Infusion Acetaminophen 1,000 mg in 100 mls @ 400 mls/hr 08/10/24 19:45 Ofirmev IVPB Q8H PRN Pain Pantoprazole Sodium 40 mg 08/10/24 17:34 08/10/24 18:35 Pantoprazole 40 Mg Vial IVP 40 mg DAILY DAVID Administration Sodium Chloride 0 ml 08/10/24 20:02 Normal Saline Flush 10 Ml Syr IVP PRN PRN PFSH Active Problems Active Problems: Problem Status Onset 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 Pyelonephritis Acute N12 Staghorn renal calculus Acute N20.0 Ileus Acute K56.7 Nail dystrophy Acute L60.3 Onychogryphosis Acute L60.2 Medical History Medical History (Updated 08/11/24 @ 07:13 by Amaury Shah MD) Mitral insufficiency Atrial fibrillation GERD (gastroesophageal reflux disease) Astrocytoma Injury of hand, right Diabetes insipidus Hydrocephalus Anemia Surgical History Surgical History (Updated 08/10/24 @ 16:40 by Charlie Callahan MD) H/O craniotomy Tobacco Smoking/Tobacco Use Status: Former Tobacco Use Alcohol Alcohol Intake: never Substance Use Substance use: Never Substance use type: does not use Vital Signs and Lab Results Vital Signs Most Recent Vital Signs in EMR: Most Recent Vital Signs Temp Pulse Resp BP Pulse Ox 36.7 C 91 H 20 138/80 96 08/11/24 03:20 08/10/24 23:39 08/10/24 23:39 08/10/24 23:39 08/10/24 23:39 Lab Results 08/10/24 10:06 08/10/24 10:06 Blood Type / Crossmatch: 2 No Data to Display Complete Blood Count: 2 White Blood Count 15.63 10^3/uL (4.4-10.8) H 08/10/24 10:06 Red Blood Count 3.90 10^6/uL (3.93-5.22) L 08/10/24 10:06 Hemoglobin 10.9 g/dL (11.2-15.7) L 08/10/24 10:06 Hematocrit 34.8 % (36.0-46.0) L 08/10/24 10:06 Platelet Count 356 10^3/uL (130-400) 08/10/24 10:06 Complete Metabolic Panel: 2 Sodium 130 mmol/L (136-145) L 08/10/24 10:06 Potassium 4.0 mmol/L (3.5-5.1) 08/10/24 10:06 Chloride 91 mmol/L (98-107) L 08/10/24 10:06 Carbon Dioxide 30.7 mmol/L (21.0-32.0) 08/10/24 10:06 BUN 14 mg/dL (7-18) 08/10/24 10:06 Creatinine 0.7 mg/dL (0.55-1.02) 08/10/24 10:06 Est GFR (CKD-EPI 2020) 97.72 (mL/min/1.73m2) 08/10/24 10:06 Magnesium 2.1 mg/dL (1.8-2.4) 08/09/24 13:15 Calcium 9.6 mg/dL (8.5-10.1) 08/10/24 10:06 Albumin 2.8 g/dL (3.4-5.0) L 08/10/24 10:06 Glucose 138 mg/dL (74-106) H 08/10/24 10:06 Liver Function Panel: 2 Alanine Aminotransferase (ALT/SGPT) 14 U/L (14-59) 08/10/24 10: 06 Aspartate Amino Transf (AST/SGOT) 15 U/L (15-37) 08/10/24 10:06 Coagulation Panel: 2 INR International Normalized Ratio 1.1 (0.9-1.1) 08/10/24 10:0 6 Prothrombin Time 10.8 sec (9.1-11.1) 08/10/24 10:06 Activated Partial Thromboplast Time 32.1 sec (20.6-30.2) H 08/10/24 10:06 Cardiac Panel: 2 No Data to Display Arterial Blood Gas: 2 No Data to Display Venous Blood Gas: 2 No Data to Display Pancreas Panel: 2 Lipase 12 U/L (<78) 08/10/24 10:06 Thyroid Panel: 2 No Data to Display Infectious Disease: 2 No Data to Display Blood Cultures: 2 No Data to Display Toxicology Panel: 2 No Data to Display Anesthesia Assessment and Plan Anesthesia History Personal History: No History of Anesthesia Complications Family History: No Family History of Anesthesia Complications Exercise Tolerance Exercise Tolerance: Metabolic Equivalents>4 Pertinent Negatives Pertinent Negatives: No Symptoms of GERD Cardiac & Pulmonary Exam Cardiac Exam: Normal S1/S2 Heart Sounds Pulmonary Exam: Clear Bilateral Breath Sounds Implantable Cardiac Device Does patient have a Pacemaker or an ICD?: No Airway Exam Known Difficult Airway: No Mallampati Class: 3 Mouth Opening: Normal (> 3cm) Thyromental Distance: Less than 3 cm Neck Range of Motion: Limited ROM Neck Circumference: Thick Teeth Condition: Normal Dentition ASA Classification ASA Score: ASA 3 Emergency Case?: No NPO Status NPO Status: NPO Clears >2 hours, Solids >8 hours Anesthesia Plan Resuscitation Status: Full Code Anesthesia Technique: General Anesthesia Airway Planned: Endotracheal Tube Monitors Used: Standard Monitors Preoperative Comments:: Unable to find any previous cardiac history. Pt. denies any history, mother is unsure. Pt. has NG tube in pace with green contents filling tube and spilling onto bed. COnnected this to decompress before entering OR. Depth is 80cm. Will likely adjust this in OR.
--- NOTE | 2024-08-11 09:00 | DI.RAD_ITS ---
Exam(s) XR RETROGRADE IN OR EXAM: XR RETROGRADE IN OR CLINICAL HISTORY: left ureteral stent placement TECHNIQUE: 2D and realtime digital imaging was performed. CONTRAST MATERIAL: Refer to procedure report. COMPARISON: No exams were available for comparison FINDINGS: Fluoroscopy was provided for Dr. Callahan during the performance of a evaluation of the left renal laz ecting system. Please refer to the procedure report for complete details. Ka,r=10.1 mGy IMPRESSION: RADIATION DOSE DELIVERED: 0.0 0.0 0
--- NOTE | 2024-08-11 09:04 | W.PM.OP ---
Operative Note Operative Note PRE-OP DIAGNOSIS: Weston syndrome POST-OP DIAGNOSIS: same PROCEDURE: Decompressive colonoscopy insertion of Flexi-Seal rectal fixed income manager SURGEON: Amaury Shah Refer to Anesthesia Record ESTIMATED BLOOD LOSS: 0 PATHOLOGY: none sent COMPLICATIONS: None Patient's condition: stable Indications: Maribel is a 64-year-old woman admitted to the hospital with staghorn calculus and obstructive pyelonephritis. Incidentally, she is got a distended abdomen, and a dilated colon consistent with [place] syndrome. She required cystoscopy with stenting for the pyelonephritis. Unfortunately, as combination of her body habitus combined with massive colonic distention, this made appropriate positioning and visualization quite challenging. I discussed the benefits of decompressive colonoscopy with her family who provided informed consent. Procedure Description: After obtaining informed consent from Maribel's mother, I joined the patient in the operating room. She was already in lithotomy positioning for the urology procedure. I performed a digital rectal exam which was normal. There was spontaneous evacuation of a large volume of liquid brown stool. Her abdomen remains quite distended. I then advanced a colonoscope into the rectal vault. There was a large amount of liquid stool and gas in the rectum. This was carefully evacuated. With some irrigation, and minimal gas insufflation I then began advancing the colonoscope. The rectum was easily traversed. The sigmoid colon was extremely redundant, but with tedious suction, and gentle advancement, I was able to advance the entire length of the standard colonoscope. Because of the unprepped stool, significant dilation, and the redundancy of her colon, normal anatomic landmarks were quite difficult to discern. I believe I was able to extend into the transverse colon. Next, I began withdrawing the colonoscope taking great care to evacuate as much liquid stool and gas as possible. The visible mucosa was healthy appearing, with no signs of ischemia. The colon was decompressed along the length of the entire colonoscope. At the end of the procedure, I inserted a Flexi-Seal rectal management system according to the manufactures instructions. The balloon was filled with 40 cc of water. I then turned the conduct of the operation over to Dr. Callahan for the cystoscopy and stenting. Date of Procedure: 08/11/24
[2024-08-11] MEDS: Lidocaine 2% Jelly 6 ML SYR (09:20)
[2024-08-11] MEDS: Omnipaque 300 MG/ML 50 ML BTL (09:20)
--- NOTE | 2024-08-11 09:34 | W.PM.OP ---
Operative Note Operative Note PRE-OP DIAGNOSIS: Left kidney stone POST-OP DIAGNOSIS: same pyelonephritis PROCEDURE: Cystoscopy, left retrograde pyelogram, insert left ureteral stent SURGEON: Charlie Callahan ANESTHESIA TYPE: General LMA/ETT Refer to Anesthesia Record ESTIMATED BLOOD LOSS: 5 PATHOLOGY: none sent COMPLICATIONS: None Patient was transported to: PACU Patient's condition: stable Implants: 7 Irish by 22 to 30 cm left ureteral stent Indications: This is a 64-year-old woman who was admitted through the emergency department yesterday with abdominal distention and pain. She was found to have a staghorn stone in the left kidney with hydronephrosis. Her urine appeared infected and there were radiographic signs of pyelonephritis on her CT scan. In addition to IV antibiotics, she presents for stent placement Findings: Large stone in the left renal pelvis Procedure Description: The patient was brought to the operating room on 08/11/2024. After successful induction of general anesthesia, she was placed in the dorsal lithotomy position. Colonoscopy was performed by Dr. Shah. Her indwelling catheter balloon was deflated and the catheter was removed. Her genitalia was prepped with Betadine. 2% Xylocaine jelly was instilled into the urethra. A 22 Irish rigid cystoscope was passed through the urethra into the bladder. The bladder was inspected with a 30 degree lens. Both ureteral orifices were identified and appeared normal in location. The left orifice was cannulated with a 5 Irish access catheter. The catheter was advanced up the left ureter and a retrograde pyelogram was obtained by injecting Omnipaque through the access catheter under fluoroscopic guidance. The large filling defect was seen in the renal pelvis and there was some contrast that was able to fill the calyces. I then was able to pass an angled tipped guidewire through the access catheter and advanced the wire to the upper pole calyx. I advanced a 7 Irish variable length stent over the wire and positioned the stent with the proximal end curled in the upper pole calyx and the distal end curled within the bladder. The positioning of the stent was confirmed both fluoroscopically and cystoscopically. Visually, I did not see a large amount of purulent material draining from the left ureteral orifice after the stent had been placed. The cystoscope was withdrawn. A 16 Irish Montez catheter was then passed back through the urethra into the bladder. The catheter balloon was inflated with 10 cc of sterile water and the catheter was hooked to gravity drainage. The patient tolerated this procedure well and was taken back to the recovery room in stable condition. Date of Procedure: 08/11/24
--- NOTE | 2024-08-11 11:04 | W.ANESPOSTOP ---
Postoperative Evaluation Date, Time and Location Date Performed: 08/11/24 Time Performed: 11:04 Patient Location: PACU Vital Signs Most Recent Imported Vital Signs: Most Recent Vital Signs Temp Pulse Resp BP Pulse Ox 36.4 C L 86 14 167/100 H 98 08/11/24 10:50 08/11/24 10:56 08/11/24 10:56 08/11/24 10:56 08/11/24 10:56 Pain Score Most Recent Pain Score: Most Recent Pain Score Pain Level 2 Face Scale 08/11/24 11:05 Assessment Mental Status: Awake (Alert & Oriented to Patient Baseline) Airway and Respiratory Function: Patent airway with normal (patient baseline) respiratory exam Cardiovascular Function: Hemodynamically Stable Hydration Status: Adequately Hydrated Nausea & Vomiting: No Nausea or Vomiting Pain: Pain is tolerable per patient Peripheral Nerve Block: Patient did not receive a nerve block
[2024-08-11 11:17] LABS: C Diff PCR Negative (Negative)
--- NOTE | 2024-08-11 11:17 | PHA.REVIEW2 ---
Pharmacy Admission Review Admission Clinical Review Admission Pharmacy Review: [place] syndrome (Acute) Pyelonephritis (Acute) Staghorn renal calculus (Acute) Ileus (Acute) pineapple Allergy (Unverified 08/10/24 09:29) Unknown tomato Allergy (Unverified 08/10/24 09:29) Unknown Resuscitation Status Full Code Height 5 ft 6 in Weight 126.688 kg Comments Comments/Follow Ups: POD #0 Cystoscopy, left retrograde pyelogram, insert left ureteral stent Pharmacy Admission Review Renal Dosing Renal Dosing: BUN 14 mg/dL (7-18) 08/10/24 10:06 Creatinine 0.7 mg/dL (0.55-1.02) 08/10/24 10:06 Medications needing adjustments: Reviewed (CrCl 79.43 mL/min) List of meds needing interventions: Current medications are okay Anticoagulation Anticoagulation: Hgb 10.9 g/dL (11.2-15.7) L 08/10/24 10:06 Hct 34.8 % (36.0-46.0) L 08/10/24 10:06 Plt Count 356 10^3/uL (130-400) 08/10/24 10:06 INR 1.1 (0.9-1.1) 08/10/24 10:06 Creatinine 0.7 mg/dL (0.55-1.02) 08/10/24 10:06 DVT Prophylaxis: Reviewed (TEDs) Relevant Labs Relevant Labs: Sodium 130 mmol/L (136-145) L 08/10/24 10:06 Potassium 4.0 mmol/L (3.5-5.1) 08/10/24 10:06 Chloride 91 mmol/L (98-107) L 08/10/24 10:06 Electrolytes, C-Reactive P, ESR: Reviewed (labs pending) Cardiac Review Cardiac Review: Blood Pressure 157/91 1106 Blood Pressure 181/98 1101 Blood Pressure 167/100 1056 Blood Pressure 165/89 1051 Blood Pressure 172/93 1046 Blood Pressure 152/88 1041 Blood Pressure 154/99 1036 Blood Pressure 107/83 1031 Blood Pressure 151/83 1026 Blood Pressure 159/89 1021 Blood Pressure 156/83 1016 Blood Pressure 155/84 1010 Blood Pressure 149/78 1005 Blood Pressure 129/79 1000 BP, HR, EF%: Reviewed (HR WNL, Oxygen flow rate 2) List meds needing interventions: Has order for carvedilol 6.25mg BID and furosemide 40mg daily QTc Review QTc: Reviewed (439 from 08/10/24) IV to PO Switch IV Medications: Reviewed (acetaminophen, pantoprazole and Zosyn - currently NPO for procedure today) Home Meds Home Med List reviewed: Reviewed Relevent Home Meds Not ordered & why?: vitamin D3, Miralax, Xarelto (on hold per H+P), senna/docusate Current Meds Current Medication Order Review: Reviewed Comments: Added IV access order Pharmacy Antibiotic Review Relevant Labs: WBC 15.63 10^3/uL (4.4-10.8) H 08/10/24 10:06 Temperature 36.4 C Temperature 36.6 C Temperature 36.6 C Temperature 36.6 C Temperature 36.6 C Temperature 36.7 C Temperature 36.6 C Pharmacy Antibiotic Activity: C/S review and Reviewed, no change Comments: Patient is on Zosyn, day 1, for pyelonephritis. Urine culture pending. C. diff toxin PCR pending. Comments Comments/Follow Ups: POD #0 Cystoscopy, left retrograde pyelogram, insert left ureteral stent
--- NOTE | 2024-08-11 11:48 | INITIAL_ITS ---
Date of service: 08/11/24 Time of Service: 11:48 Care Management Initial Assmt Initial Assessment Reason for Hospitalization: Ileus, UTI, pylenephritis, nephrolithiasis Functional Status/Living Situation Patient Presentation: Maribel was lying in bed when CM met with her. Her speech was garbled, and although she attempted to engage well, CM had some difficulty understanding her. She reported that she lives at the [facility], and she likes it there. She stated that she has a daughter and six grandchildren, who visit her at the facility where she resides. She asked if she could have ice chips; CM relayed this to her RN, as she was listed as NPO. She also asked about the remote; CM offered to change the channel, but she declined. CM reviewed her discharge plan, which will be for her to return to the [facility]. She will require EMS transport due to her bed bound status. Town of Residence: [place] Resides with: Other (SNF) Significant Other/Family: Local Caregiver/Guardian: Mraibel lives at the [facility], where she receives full care Natural Supports: Mother, Luna Daughter, Emilia Employment Status: Unemployed Instrumental Activities of Daily Living (ADLs): Requires support Medications Medication Management: No Issues/Barriers identified (Maribel receives her medications from staff at the facility where she resides) Advance Directives Advance Directives: Do you have an Advance Directive: N 08/29/21 21:29 AD On File at [facility]: N 08/29/21 21:29 Date Asked 08/10/24 08/10/24 10:00 AD Date Reviewed COLST On File at [facility] COLST Date Scanned Code Status Resuscitation Status Full Code Insurance Coverage/Financial Issues Insurance: [facility] Care Team Visit Care Team Role Provider Type Val Tyson APRN MD [facility] STAFF PHYSICIAN Unknown Unknown Primary Care Provider STAFF PHYSICIAN Charlie Callahan MD Other Providers [facility] STAFF PHYSICIAN Amaury Shah MD Other Providers [facility] STAFF PHYSICIAN Abril Lau Emergency Provider NURSE PRACTITIONER Ángel Gottlieb MD Admit Provider [facility] STAFF PHYSICIAN Attending Provider Discharge Potential Discharge Needs: PCP F/U Appt and Other (coordinated return to the [facility]) Anticipated Barriers to Discharge: None Identified Patient/Family Education Needs: Review discharge instructions, discuss Ask Me Three Transportation: EMS Plan: Anticipate Maribel will return to the [facility] once medically cleared, where she resides. She will transport via EMS. She will follow up with her PCP and discharge plan of care. CM will continue to follow. Social Determinants of Health Screening Will the Patient Participate in the Screening?: Unable to obtain PFSH All Active Problems (Updated 08/11/24 @ 15:37 by Val Tyson APRN) Cholelithiasis (Acute) Hydronephrosis (Acute) [place] syndrome (Acute) Pyelonephritis (Acute) Staghorn renal calculus (Acute) Ileus (Acute) Nail dystrophy (Acute) Onychogryphosis (Acute) Medical History (Updated 08/11/24 @ 15:37 by Val Tyson APRN) Mitral insufficiency Atrial fibrillation GERD (gastroesophageal reflux disease) Astrocytoma Injury of hand, right Diabetes insipidus Hydrocephalus Anemia Surgical History (Updated 08/10/24 @ 16:40 by Charlie Callahan MD) H/O craniotomy Social History Smoking/Tobacco Use Status: Former Tobacco Use Smoking risk assessment performed?: Yes Alcohol Intake: never Drug use: Never Substance use type: does not use Housing: assisted living facility Do you feel safe at home: Yes Do you feel safe in your relationship?: Yes
--- NOTE | 2024-08-11 12:43 | W.PM.PROGNOT ---
Date of Service Date of service: 08/11/24 Time of Service: 12:43 Assessment and Plan Assessment and plan (1) Pyelonephritis: Start date: 08/11/24 Start time: 12:52 Status: Acute Assessment and plan: On admission as per imaging study S/P stent placement by urology [place] Fong: Please read notes -Ongoing zosyn -outpatient nephrology ref on d/c as per urology Urine Cx ordered and still pending (2) Hydronephrosis: Status: Acute Assessment and plan: As per CT imaging to the right kidney in the setting of taghorn calculus And as above (3) Staghorn renal calculus: Start date: 08/11/24 Start time: 12:53 Status: Acute Assessment and plan: As per imaging on admission- months prior patient grew proteus mirabilis and strep Agalactiae As above (4) Ileus: Start date: 08/11/24 Start time: 13:02 Status: Acute Assessment and plan: Surgical consult: Dr Mcclendon - OR and surgical decompression completed with insertion of flexiseal Continue NGT to LIS Continue NPO- bowel rest continue cautious IVF hydration:LR at 75 cc/hr (5) [place] syndrome: Status: Acute Assessment and plan: As above Considerations for neostigmine ( with cardiac monitoring) as per guidelines s/p 72 hours after admission VS worsening condition or no progression as early as 08/12 as per discussion with Dr. Shah (6) Atrial fibrillation: Start date: 08/11/24 Start time: 13:02 Assessment and plan: Hx of A-fib : SR as per admission EKG On Xarelto and coreg Xarelto resumed s/p Sx interventions (7) Cholelithiasis: Start date: 08/11/24 Start time: 15:38 Status: Acute Assessment and plan: As per CT imaging there is a 3.7 cm gallstone. No biliary ductal dilatation. Outpatient f/u for cholecustectomy (8) GERD (gastroesophageal reflux disease): Start date: 08/11/24 Start time: 13:03 Assessment and plan: Continue protonix IV daily discussed with Dr. Gottlieb Subjective Subjective Patient reports: no new complaints, tolerating liquids well (NPO), voiding w/o difficulty (mohamud), no flatus, bowel movement, diarrhea and afebrile; denies vomiting or shortness of breath Exam Narrative Exam Narrative: Constitutional The patient is in bed , sleeping s/o OR, arousable to voice, appears comfortable; has an obese body habitus Eyes: Well aligned Neuro:alert and oriented to self. Resp: Unlabored breathing, clear lung bilaterally w decreased bases Cardio: regular rhythm, S1, S2, bilateral radial and dorsalis pedis pulses are positive GI: NGT to LIS , Abdomen is distended, soft and non tender, tympanic LLQ> RLQ, bowel sounds remain high-pitched, flexiseal in place : mohamud is patent Integumentary: No opened skin lesions on exposed skin Psych: RASS 0 to - 1 Objective Last Vital Signs Temp 36 C L 08/11/24 12:37 Pulse 94 H 08/11/24 12:37 Resp 18 08/11/24 12:37 BP 152/67 H 08/11/24 12:37 Pulse Ox 96 08/11/24 12:00 Laboratory Results - last 24 hr 08/11/24 08:50 Stl C.difficile Tox PCR Negative Time Spent with Patient Time Spent with Patient: >50 minutes Time was spent: preparing to see the patient(eg.review tests), obtaining and/or reviewing separately otained hiistory, ordering medications,tests, procedures, referring, communicating with other health health and social care teacher, indepentently interpreting results, counseling the patient and care coordination
[2024-08-11 13:49] LABS: Abs Immature Grans 0.06 10^3/uL (0.0-0.06); Absolute Basophil Count 0.04 10^3/uL (0.0-0.2); Absolute Eosinophil Count 0.01 10^3/uL (0.0-0.7); Absolute Lymphocyte Count 0.65 10^3/uL (1.2-3.4); Absolute Monocyte Count 0.91 10^3/uL (0.1-0.8); Absolute Neutrophil Count 5.87 10^3/uL (1.2-6.7); Basophils % 0.5 %; Eosinophils % 0.1 %; HCT 33.5 % (36.0-46.0); HGB 10.3 g/dL (11.2-15.7); Immature Grans % 0.8 %; Lymphocytes % 8.6 %; MCH 27.7 pg (27.0-33.0); MCHC 30.7 % (32.0-36.0); MCV 90 fL (80-95); MPV 8.9 fL (8.0-11.0); Monocytes % 12.1 %; Neutrophils % 77.9 %; Platelet Count 302 10^3/uL (130-400); RBC 3.72 10^6/uL (3.93-5.22); RDW 14.9 % (11.7-14.6); RDW-SD 49.6 fL; WBC 7.54 10^3/uL (4.4-10.8)
[2024-08-11] MEDS: Normal Saline Flush 10 ML SYR IVP ×2 (13:53→20:20)
[2024-08-11 13:58] LABS: BUN 20 mg/dL (7-18); CREATININE 0.8 mg/dL (0.55-1.02); Calcium 8.9 mg/dL (8.5-10.1); Chloride 96 mmol/L (98-107); Estimated GFR 83.26 (mL/min/1.73m2); Glucose 130 mg/dL (74-106); Potassium 4.1 mmol/L (3.5-5.1); Sodium 133 mmol/L (136-145)
[2024-08-11] MEDS: Lactated Ringers 1,000 ML 75 ML IV (14:29)
[2024-08-11] MEDS: Rivaroxaban 10 MG TABLET PO (17:13)
[2024-08-11] MEDS: Atorvastatin 40 MG TAB 80 MG PO (20:18)
[2024-08-11] MEDS: Carvedilol 6.25 MG TAB PO (20:18)
[2024-08-12 02:40] VITALS: BP 108/50; PULSE 86; RESP 19; TEMP 36.9; O2SAT 91
[2024-08-12 06:59] LABS: Abs Immature Grans 0.08 10^3/uL (0.0-0.06); Absolute Basophil Count 0.04 10^3/uL (0.0-0.2); Absolute Eosinophil Count 0.14 10^3/uL (0.0-0.7); Absolute Lymphocyte Count 0.93 10^3/uL (1.2-3.4); Absolute Monocyte Count 0.92 10^3/uL (0.1-0.8); Absolute Neutrophil Count 5.14 10^3/uL (1.2-6.7); Basophils % 0.6 %; Eosinophils % 1.9 %; HCT 31.5 % (36.0-46.0); HGB 9.9 g/dL (11.2-15.7); Immature Grans % 1.1 %; Lymphocytes % 12.8 %; MCH 28.1 pg (27.0-33.0); MCHC 31.4 % (32.0-36.0); MCV 90 fL (80-95); MPV 8.9 fL (8.0-11.0); Monocytes % 12.7 %; Neutrophils % 70.9 %; Platelet Count 300 10^3/uL (130-400); RBC 3.52 10^6/uL (3.93-5.22); RDW 14.8 % (11.7-14.6); RDW-SD 48.5 fL; WBC 7.25 10^3/uL (4.4-10.8)
[2024-08-12 07:11] LABS: Anion Gap 3.9 mmol/L (3-11); BUN 17 mg/dL (7-18); CO2 33.1 mmol/L (21.0-32.0); CREATININE 0.8 mg/dL (0.55-1.02); Calcium 8.9 mg/dL (8.5-10.1); Chloride 98 mmol/L (98-107); Estimated GFR 83.26 (mL/min/1.73m2); Glucose 111 mg/dL (74-106); Potassium 3.8 mmol/L (3.5-5.1); Sodium 135 mmol/L (136-145)
[2024-08-12 07:43] VITALS: BP 143/60; PULSE 82; RESP 18; TEMP 36; O2SAT 93
[2024-08-12] MEDS: Pantoprazole 40 MG VIAL IVP (09:08)
[2024-08-12] MEDS: Normal Saline Flush 10 ML SYR IVP ×6 (09:09→20:55)
[2024-08-12] MEDS: Desmopressin 0.2 MG TAB 0.1 MG PO (09:42)
[2024-08-12] MEDS: Furosemide 20 MG TAB 40 MG PO (09:43)
[2024-08-12] MEDS: Carvedilol 6.25 MG TAB PO ×2 (09:43→20:54)
[2024-08-12] MEDS: Lactated Ringers 1,000 ML 50 ML IV (10:16)
[2024-08-12 12:35] VITALS: BP 136/75; PULSE 85; RESP 19; TEMP 36.3; O2SAT 94
--- NOTE | 2024-08-12 13:56 | IN_ITS ---
PT Notes Visit Reasons: Ileus, UTI, pyelonephritis, nephrolithiasis, kanwal Inpatient Physical Therapy Evaluation Certification Period:? From 08/12/24 through 08/26/24 I certify the need for these services as being medically necessary and skilled as furnished under this plan of treatment while under my care. Please sign and return within 14 days if you agree with the plan of care listed below.? Thank you for this referral! ? Referring Physician? Date Referring Doctor:? Liyah Cornlel PT Orders: PT CONSULT for Mobility consult Precautions: None Patient Profile/Admitting Diagnosis:? The patient is a 64yo female admitted on 08/10 via the ED with abdominal pain and distension. Pt was dx polynephritis, staghorn renal callus,and ileus. On 08/11, she went to the OR for colonscopy for surgical decompression completed with insertion of flexiseal and stent placement by urology. Patient is a resident of the [facility]. She has a history of dementia, brain lesions/CVA, and hydrocephalus. Per staff at the [facility] patient is a wheelchair user and is able to propel herself with bilateral UE/LE, uses a stedy lift to transfer and requires assist of 2 for bed mobility. Past Medical History: PFSH All Active Problems (Updated 08/10/24 @ 16:40 by Charlie Callahan MD) Pyelonephritis (Acute) Staghorn renal calculus (Acute) Ileus (Acute) Nail dystrophy (Acute) Onychogryphosis (Acute) Medical History (Updated 08/10/24 @ 16:40 by Charlie Callahan MD) Mitral insufficiency Atrial fibrillation GERD (gastroesophageal reflux disease) Astrocytoma Injury of hand, right Diabetes insipidus Hydrocephalus Anemia Surgical History (Updated 08/10/24 @ 16:40 by Charlie Callahan MD) H/O craniotomy Social History/Home Situation: Patient lives at the [facility]. Subjective: Called to speak with [facility] to establish previous level of function. Per staff patient was able to transfer with stedy lift and assist of 2 for bed mobility. Patient was able to propel her wheelchair using bilateral upper and lower extremities. Pt's speech is impaired. Initially when asked she said she was ambulatory but later was able to communicate that she uses a wheel chair at the [facility]. Objective: Mental Status: Impaired, able to follow 1-2 step directions with repeated cueing as well as some tactile cues. ROM WFL for bed mobility and supine to sit transfer Strength: Upper extremities: Grossly 3/5 with field health officer strength of 4-4+/5 Lower extremities: Grossly 3/5 Bed Mobility: Supine to sit Max assist of 3 with 4th person to manage catheters, and IV Max assist x 4 for sit to supine and repositioning in bed Rolling supine to right side-lying max assist of 2 Tranfers: Sit to stand Unable Balance: mod to max of 2 to maintain static sitting, max assit of 2 to maintain dynamic sitting balance [facility] AM-PAC 6 clicks Basic Mobility Inpatient Short Form: Raw Score:?8??? CMS Score: 33% Informed Consent/Education:? Patient instructed in purpose of PT consult and plan of care and is agreeable Assessment:? Patient is a?64 year old female admitted on 08/10/24 for.? Patient presents with pain, decreased strength, decreased functional mobility, and decreased sitting balance. The patient would benefit from skilled inpatient services to improve these impairments to maximize function and safety with the goal of return to prior level of function. At this time, recommend use of Marina lift for safety. Patient is assessed as:? Moderate 13115? based on the following: History: See above Examination: see above Presentation: ? Evolving clinical presentation? Decision Making:? Moderate (1-2 history, 2-3 exam, evolving, mod-30 mins) Physical Therapy Goals: 1 week Able to roll in bed [id number] with min to mod assist of 2 Able to transfer supine to sit with mod to max assist of 2-3 Able to sit at edge of bed with mod assist of 2 Plan of Care/Treatment Plan: 1-2x/day, 7 days/week x 1 week for treatment consisting of therapeutic exercise, therapeutic activity, functional mobility training and patient education. Plan of care has been reviewed with the WAREHOUSE TRAINER providing the service under Physical Therapy direction. Initiate Physical Therapy intervention for strengthening, bed mobility, functional mobility training and sitting balance training. DISCHARGE RECOMMENDATIONS: Return to SNF Billing Charges: Treatment Units Time Duration Manual Therapy(46543) Hands-on techniques to modulate pain increase joint range of motion reduce or eliminate soft tissue swelling, inflammation, or restriction facilitate relaxation and improve contractile and non-contractile tissue extensibility ? ? Therapeutic Procedures (85130) Instruction in therapeutic exercises to develop strength and endurance, range of motion and flexibility. HEP instruction and review: Provided skilled instruction in proper exercise performance: Provided skilled manual cues to facilitate proper muscle recruitment and/or movement pattern Neurological Re-Education(60904) To improve balance, coordination, kinesthetic and proprioceptive sensations. ? ? Ultrasound(32851) To promote healing. ? ? Gait Training(82641) ? ? Therapeutic Activity(71008) Instruction in dynamic activities with one on one patient contact by the provider to improve functional performance as follows: ? ? Self Care Training(74453) ? ? E-Stim (Attended)(05825) ? ? Low IE(57746) Mod IE(09672) ?1 ?30 minutes High IE(39699) ? ? Time Coded Treatment Time ? Total Treatment Time ? 30 minutes Informed consent Prior to the start and throughout the course of the examination and treatment, patient was made aware of the specifics and purpose of the physical assessment and treatment procedures. Appropriate draping procedures were utilized to protect modesty where applicable.
[2024-08-12 16:29] VITALS: BP 136/73; PULSE 86; RESP 18; TEMP 36; O2SAT 93
[2024-08-12] MEDS: Rivaroxaban 10 MG TABLET PO (17:05)
[2024-08-12 19:20] VITALS: BP 148/70; PULSE 84; RESP 18; TEMP 36.8; O2SAT 94
[2024-08-12] MEDS: Atorvastatin 40 MG TAB 80 MG PO (20:54)
[2024-08-13] MEDS: Normal Saline Flush 10 ML SYR IVP ×2 (01:57→09:27)
[2024-08-13 02:17] VITALS: BP 137/74; PULSE 81; RESP 18; TEMP 36.4; O2SAT 92
[2024-08-13 07:47] VITALS: BP 147/79; PULSE 80; RESP 20; TEMP 36.8; O2SAT 93
[2024-08-13] MEDS: Furosemide 20 MG TAB 40 MG PO (09:26)
[2024-08-13] MEDS: Carvedilol 6.25 MG TAB PO (09:26)
[2024-08-13] MEDS: Pantoprazole 40 MG VIAL IVP (09:27)
[2024-08-13] MEDS: Desmopressin 0.2 MG TAB 0.1 MG PO (09:27)
--- NOTE | 2024-08-13 09:36 | W.PM.PROGNOT ---
Date of Service Date of service: 08/12/24 Time of Service: 13:00 Assessment and Plan Assessment and plan (1) Pyelonephritis: Status: Acute Assessment and plan: On admission as per imaging study S/P stent placement by urology [place] Fong: Please read notes -Ongoing zosyn -outpatient nephrology ref on d/c as per urology Urine Cx ordered and still pending (2) Hydronephrosis: Status: Acute Assessment and plan: As per CT imaging to the right kidney in the setting of taghorn calculus And as above (3) Staghorn renal calculus: Status: Acute Assessment and plan: As per imaging on admission- months prior patient grew proteus mirabilis and strep Agalactiae As above (4) Ileus: Status: Acute Assessment and plan: Surgical consult: Dr Mcclendon - OR and surgical decompression completed with insertion of flexiseal Continue NGT to LIS Continue NPO- bowel rest continue cautious IVF hydration:LR at 75 cc/hr (5) [place] syndrome: Status: Acute Assessment and plan: As above Considerations for neostigmine ( with cardiac monitoring) as per guidelines s/p 72 hours after admission VS worsening condition or no progression as early as 08/12 as per discussion with Dr. Shah (6) Atrial fibrillation: Assessment and plan: Hx of A-fib : SR as per admission EKG On Xarelto and coreg Xarelto resumed s/p Sx interventions (7) Cholelithiasis: Status: Acute Assessment and plan: As per CT imaging there is a 3.7 cm gallstone. No biliary ductal dilatation. Outpatient f/u for cholecustectomy (8) GERD (gastroesophageal reflux disease): Assessment and plan: Continue protonix IV daily discussed with Dr. Gottlieb Subjective Subjective Patient reports: feels better, tolerating liquids well and afebrile Interval history since last seen: reciseal remains intact, mohamud draining clear yellow urine, concentrated requiring yolanda for transfers Exam Const General: cooperative, comfortable, no acute distress and ill appearing (older than stated age) chronically Nutritional Appearance: obese Orientation: alert, awake and oriented x3 HENMT Head: normal to inspection, normocephalic and atraumatic Eyes General: appearance normal, both eyes and all related structures Resp Effort & Inspection: normal respiratory effort Auscultation: diminished lung sounds Cardio Rate: regular rate Rhythm: regular rhythm GI Inspection: distended, large pannus and obesity Other: flexiseal intact draining liquid stool Other: mohamud draining med yellow urine Neuro General: patient alert, patient awake and patient oriented x3 Extrem General: abnormal ROM (limited d/t body habitus) Objective Last Vital Signs Temp 36.8 C 08/13/24 07:47 Pulse 80 08/13/24 07:47 Resp 20 08/13/24 07:47 BP 147/79 H 08/13/24 07:47 Pulse Ox 93 08/13/24 07:47 Laboratory Results - last 24 hr 08/10/24 10:27 Urine Color Dark Yellow Urine Clarity Cloudy Urine pH 5.5 Ur Specific [place] >= 1.030 H Urine Protein 100 H Urine Ketones Trace H Urine Blood Moderate H Urine Nitrite Negative Urine Bilirubin Small H Urine Urobilinogen 1.0 H Ur Leukocyte Esterase Small H Urine WBC >50 H Urine Bacteria Many Ur Culture Indicated? Yes Urine Glucose Negative Time Spent with Patient Time Spent with Patient: 35-49 minutes Time was spent: preparing to see the patient(eg.review tests), obtaining and/or reviewing separately otained hiistory, ordering medications,tests, procedures, indepentently interpreting results and counseling the patient
--- NOTE | 2024-08-13 10:08 | W.PM.DS.N ---
Date of service: 08/13/24 Time of Service: 10:09 DS: Diagnosis Discharge Diagnosis (1) Pyelonephritis: Status: Acute (2) Hydronephrosis: Status: Acute (3) Staghorn renal calculus: Status: Acute (4) Ileus: Status: Acute (5) [place] syndrome: Status: Acute (6) Cholelithiasis: Status: Acute Discharge Plan Disposition Patient Disposition: Intermediate Facility(SNF) Condition: Improving Discharge Details Reason For Visit: Ileus, UTI, pyelonephritis, nephrolithiasis, kanwal Admit Date/Time: 08/10/24 16:25 Admit Provider: Ángel Gottlieb Attending Provider: Ángel Gottlieb Primary Care Provider: Unknown,Unknown Hospital Course Hospital Course: This is a 64-year-old female patient complex medical history significant for CVA, [place] syndrome, staghorn renal calculus who presented to the emergency department via EMS for evaluation of abdominal pain and distention. Her workup in the emergency department was concerning for a left renal staghorn calculus with pyelonephritis in addition to a ileus which was thought secondary to the pyelonephritis. She was seen by urology and underwent stent placement. She was also seen by general surgery for the ileus. An NG tube was placed and discussion of a palliative colonoscopy to help decompress was discussed with family but symptoms resolved with NG tube placement and a rectal tube/Flexi-Seal placement. She was admitted on Zosyn based on previous cultures while urine culture pending. Her urine culture did grow 2 strains of E. coli both are sensitive to levofloxacin which she will be discharged home on. She was provided a 14-day supply for pyelonephritis but should discuss course with urology outpatient. Her NG tube was removed and diet has been advanced which she is tolerating well. Her Mohamud is draining concentrated yellow urine. Flexi-Seal has been draining soft brown stool. She has remained hemodynamically stable and at her baseline with no complaints or fever. She is stable for discharge back to the [facility] and will be discharged by ground EMS. Discharge discussed with Dr. Buck Home Meds and New Rx's Prescriptions: New levofloxacin 750 mg tablet 750 mg PO DAILY Qty: 14 0RF Continued atorvastatin 80 mg Tablet 80 mg PO QHS acetaminophen [Pharbetol] 325 mg Tablet 650 mg PO PRN PRN carvedilol 6.25 mg Tablet 6.25 mg PO BID sennosides-docusate sodium [Senexon-S] 8.6-50 mg Tablet 2 tab-cap PO DAILY cholecalciferol (vitamin D3) [Vitamin D3] 25 mcg (1,000 unit) Capsule 1,000 unit PO DAILY carbamazepine 300 mg Capsule, Er Multiphase 12 Hr 300 mg PO BID Xarelto 20 mg Tablet 10 mg PO QPM Rx Instructions: must administer with evening meal desmopressin 0.1 mg Tablet 0.1 mg PO DAILY Qty: 0 0RF furosemide 20 mg tablet 40 mg PO DAILY polyethylene glycol 3350 [ClearLax] 17 gram/dose powder 17 g PO DAILY Discharge Instructions Instructions: Urinary tract infections in adults, Intestinal Pseudo-obstruction (DC), Kidney Stone, Adult ED Additional Instructions: take antibiotics as prescribed, unless directed otherwise by your doctor drink at least 6-8 glasses of water daily to stay well hydrated. Referrals: Charlie Callahan MD [ [facility] STAFF PHYSICIAN] - Unknown,Unknown [Primary Care Provider] - (routine provider follow up post hospitalization) Activity:: Activity as Tolerated Equipment/Supplies:: No Equipment Needed Diet:: As Tolerated Discharge Orders Discharge Orders: Discharge Order (Routine); Ordered 08/13/24 Ordered By: Liyah Cornell DS: Summary Time Spent with Patient providing and/or coordinating discharge services: Greater than 30 minutes Status at Discharge Functional status at discharge: bed bound Overall status at discharge: patient is progressing back to baseline Mental Status: other Speech and Movement: other Mood: other Affect: normal affect Quality:SDOH Health Related Social Needs: No Data to Display Exam Const General: cooperative, comfortable, no acute distress and ill appearing (older than stated age) chronically Nutritional Appearance: obese Orientation: alert, awake and oriented x3 HENMT Head: normal to inspection, normocephalic and atraumatic Eyes General: appearance normal, both eyes and all related structures Resp Effort & Inspection: normal respiratory effort Auscultation: diminished lung sounds Cardio Rate: regular rate Rhythm: regular rhythm GI Inspection: distended, large pannus and obesity Other: flexiseal intact draining liquid stool Other: mohamud draining med yellow urine Neuro General: patient alert, patient awake and patient oriented x3 Extrem General: abnormal ROM (limited d/t body habitus) Psych Mental Status: other Speech and Movement: other Mood: other Affect: normal affect DS: Data Vitals/I&O Vitals and I&O: Vital Signs Temperature 36.8 C 08/13/24 07:47 Temperature Source Temporal Artery Scan 08/13/24 07:47 Pulse 80 08/13/24 07:47 Pulse Rhythm Regular 08/10/24 17:46 Pulse 88 08/11/24 11:26 Respiratory Rate 20 08/13/24 07:47 Respiratory Effort Labored 08/10/24 17:46 Respiratory Depth Shallow 08/10/24 17:46 Respiratory Pattern Normal 08/10/24 17:46 Blood Pressure 147/79 H 08/13/24 07:47 Blood Pressure Mean 120 08/11/24 11:26 Blood Pressure Position Supine 08/10/24 09:23 Pulse Oximetry 93 08/13/24 07:47 Respiratory End-tidal CO2 51 08/11/24 11:01 Oxygen Delivery Method Room Air 08/13/24 07:47 Oxygen Flow Rate 0 08/13/24 07:47 Pain Level 0 08/12/24 18:59 Comment RN Notified 08/12/24 19:20 Intake & Output 08/12/24 08/12/24 08/13/24 11:59 23:59 11:59 Intake Total 661.25 / 1011.25 350 / 1011.25 1310 / 1310 Output Total 650 / 1725 1075 / 1725 150 / 150 Balance 11.25 / -713.75 -725 / -713.75 1160 / 1160 Intake: IV 661.25 / 811.25 150 / 811.25 950 / 950 Oral 200 / 200 360 / 360 Output: Urine 450 / 1525 1075 / 1525 150 / 150 Stool 200 / 200 Other: Urine Color Dark Cynthia Dark Cynthia Dark Cynthia Urine Appearance Cloudy Clear Cloudy Comment Change of shift. Stool Characteristics Liquid Liquid Liquid Brown Data Completed and Pending Labs on day of discharge: Labs from last 24 hours 08/10/24 10:27 Urine Color Dark Yellow Urine Clarity Cloudy Urine pH 5.5 Ur Specific [place] >= 1.030 H Urine Protein 100 H Urine Ketones Trace H Urine Blood Moderate H Urine Nitrite Negative Urine Bilirubin Small H Urine Urobilinogen 1.0 H Ur Leukocyte Esterase Small H Urine WBC >50 H Urine Bacteria Many Ur Culture Indicated? Yes Urine Glucose Negative PFSH All Active Problems (Updated 08/11/24 @ 15:37 by Val Tyson APRN) Cholelithiasis (Acute) Hydronephrosis (Acute) [place] syndrome (Acute) Pyelonephritis (Acute) Staghorn renal calculus (Acute) Ileus (Acute) Nail dystrophy (Acute) Onychogryphosis (Acute) Medical History (Updated 08/11/24 @ 15:37 by Val Tyson APRN) Mitral insufficiency Atrial fibrillation GERD (gastroesophageal reflux disease) Astrocytoma Injury of hand, right Diabetes insipidus Hydrocephalus Anemia Surgical History (Updated 08/10/24 @ 16:40 by Charlie Callahan MD) H/O craniotomy Social History Smoking/Tobacco Use Status: Former Tobacco Use Smoking risk assessment performed?: Yes Alcohol Intake: never Drug use: Never Substance use type: does not use Housing: assisted living facility Do you feel safe at home: Yes Do you feel safe in your relationship?: Yes Time Spent with Patient Time Spent with Patient: 70-84 minutes4 Time was spent: preparing to see the patient(eg.review tests), obtaining and/or reviewing separately otained hiistory, ordering medications,tests, procedures, indepentently interpreting results, counseling the patient and care coordination
[2024-08-13 11:21] VITALS: BP 139/76; PULSE 80; RESP 18; TEMP 36.8; O2SAT 94
--- NOTE | 2024-08-13 11:53 | PDOC.CMDIS ---
Date of service: 08/13/24 Time of Service: 11:53 LACE Index Scoring Tool Questions: Length of Stay (in days): 3 Was the patient admitted via the E.D.?: Yes Comorbidities: Diabetes w/o Complication E.D. Visits: 1 Answers: Total Score: 8 Risk of Readmission: Low Risk Care Management Discharge Plan Reason for Hospitalization: abdominal pain and distention. s/p stent placed secondary to pyelonephritis and NG tube and rectal tube for decompression Discharge Plan: Maribel will be transferred back to the [facility], where she resides, for continuation of her care. She will f/u with the facility provider and her plan of care. Maribel will be transported via [facility] due to her bed bound status. Patient/Family Education Needs: Review of discharge instructions, activity, limitations and discuss ask me 3. SDOH Health Related Social Needs: No Data to Display
== END 2024-08-13 11:59 | disposition skilled nursing facility (03) | DRG 690 ==
LOC: ER 16:31 → MS 17:25
PROVIDERS: Nurse Practitioner Acute Care; Surgery; Urology; Admitting Provider Family Medicine; Emergency Provider Nurse Practitioner Family; Responsible Provider Nurse Practitioner Acute Care; Visit Provider Family Medicine
PROC: 0T9780Z Drainage of Left Ureter with Drainage Device, Via Natural or Artificial Opening Endoscopic (ICD-10-PCS; CPT 52332; principal; 2024-08-11 07:30)
PROC: 0DJD8ZZ Inspection of Lower Intestinal Tract, Via Natural or Artificial Opening Endoscopic (ICD-10-PCS; CPT 45378; 2024-08-11 07:30)
DX: N13.6 Pyonephrosis (principal); E23.2 Diabetes insipidus; K56.7 Ileus, unspecified; K59.81 Ogilvie syndrome; I48.91 Unspecified atrial fibrillation; I34.0 Nonrheumatic mitral (valve) insufficiency; D64.9 Anemia, unspecified; F03.90 Unspecified dementia, unspecified severity, without behavioral disturbance, psychotic disturbance, mood disturbance, and anxiety; Z86.73 Personal history of transient ischemic attack (TIA), and cerebral infarction without residual deficits; E78.5 Hyperlipidemia, unspecified; Z79.01 Long term (current) use of anticoagulants; L60.3 Nail dystrophy; L60.2 Onychogryphosis; K80.20 Calculus of gallbladder without cholecystitis without obstruction; K21.9 Gastro-esophageal reflux disease without esophagitis; B96.20 Unspecified Escherichia coli [E. coli] as the cause of diseases classified elsewhere
CPT/HCPCS: 52332; 45393; 00123; 36415; 51702; 71045; 74177; 80048; 80053; 83690; 87077; 87493; 93005; 96365; 99285; 71260; 74018; 74420; 81003; 81015; 85025; 85610; 85730; 87086; 87186; 93010; 99223; 99233; 99239; J1100; J1885; J2371; J2405; J2470; J2543; J2704; J3010; J3490; Q9967

== ENCOUNTER 2024-08-23 01:14 | Outpatient (CLI) | payer MEDICAID, SELFPAY ==
--- NOTE | 2024-08-23 07:15 | DI.NM_ITS ---
Exam(s) NM MAG 3 RENOGRAM WO LASIX CLINICAL HISTORY: differential renal function,STAGHORN RENAL CALCULUS,HYDRONEPHROSIS,N20.0,N. COMPARISON: CT CT CHEST/ABD/PEL W from 08/10/2024 XA XR RETROGRADE IN OR from 08/11/2024 CR XR ABDOMEN FLAT PLATE from 08/11/2024 EXAMINATION: Dose: 10 mCi Tc-99m MAG3 Images: Immediately for 1 minute followed by dynamic for 30 minutes. FINDINGS: Time to peak: Right: 6 minutes min (< 5 min normal) Left: 0.3 minutes min (< 5 min normal). Very little activity observed in the left ki dney. Curve Appearance: Right kidney appears normal. Left kidney shows a flat curve with very little activity. The time activity curve reveals no delay in the washout of the right kidney. (< 10 min normal, 10-15 min Low grade obstruction, 15-20 min moderate,. 20 min high grade) Split renal function: Right: 90.4 % Left: 9.6 % IMPRESSION: 1. Right kidney shows 90.4 percent of the split function. Very little activity noted in the left kid suzie.
== END 2024-08-23 01:34 ==
LOC: DI 01:14
PROVIDERS: Visit Provider Urology
DX: N20.0 Calculus of kidney (principal)
CPT/HCPCS: 78707

== ENCOUNTER 2024-10-20 20:22 | Outpatient (REF) | payer MEDICAID, SELFPAY ==
[2024-10-20 20:16] LABS: Bilirubin Negative (Negative); Blood Large (Negative); Clarity Cloudy (Clear); Glucose Negative (Negative); Ketones Negative (Negative); Leukocyte Esterase Small (Negative); Nitrite Negative (Negative); Specific Gravity >= 1.030 (1.005-1.025); Urobilinogen 0.2 mg/dL (Up to 0.2); pH 5.5 (5-8)
[2024-10-20 20:26] LABS: Bacteria Many HPF (Negative); C & S Indicated? C&S Done As Ordered; Casts Negative LPF (Negative); Crystals Negative HPF (Negative); Epithelial Cells Rare HPF (Negative); Mucus Negative (Negative); RBC 20-50 HPF (0-2); WBC >50 HPF (0-5)
== END 2024-10-20 20:23 | disposition home or self-care (01) ==
LOC: LBN 20:22
PROVIDERS: Visit Provider Urology
DX: N39.0 Urinary tract infection, site not specified (principal)
CPT/HCPCS: 87077; 81003; 81015; 87086; 87186

== ENCOUNTER 2024-11-13 18:27 | Outpatient (REF) | payer MEDICAID, SELFPAY ==
[2024-11-13 19:40] LABS: Abs Immature Grans 0.51 10^3/uL (0.0-0.06); HCT 29.8 % (36.0-46.0); HGB 8.8 g/dL (11.2-15.7); MCH 29.7 pg (27.0-33.0); MCHC 29.5 % (32.0-36.0); MCV 101 fL (80-95); MPV 10.1 fL (8.0-11.0); Nucleated RBC 0.3 % (0.0-0.3); Platelet Count 421 10^3/uL (130-400); RBC 2.96 10^6/uL (3.93-5.22); RDW 15.7 % (11.7-14.6); RDW-SD 57.2 fL; WBC 10.84 10^3/uL (4.4-10.8)
[2024-11-13 20:00] LABS: Absolute Eosinophil Count 0.22 10^3/uL (0.0-0.7); Absolute Lymphocyte Count 3.25 10^3/uL (1.2-3.4); Absolute Monocyte Count 0.76 10^3/uL (0.1-0.8); Atypical Lymphocytes % 3 %; Promyelocytes % 1
[2024-11-13 20:01] LABS: ALT 27 U/L (14-59); AST 32 U/L (15-37); Albumin 2.4 g/dL (3.4-5.0); Alkaline Phosphatase 70 U/L (46-116); Anion Gap 7.9 mmol/L (3-11); BUN 14 mg/dL (7-18); Bilirubin, Total 0.2 mg/dL (0.2-1.0); CO2 35.1 mmol/L (21.0-32.0); CREATININE 1.1 mg/dL (0.55-1.02); Calcium 8.6 mg/dL (8.5-10.1); Chloride 100 mmol/L (98-107); Diff Comment Manual Differential; Estimated GFR 56.81 (mL/min/1.73m2); Glucose 135 mg/dL (74-106); Hypochromasia 1+; Potassium 3.7 mmol/L (3.5-5.1); Sodium 143 mmol/L (136-145); TROPONIN-I 6.4 ug/mL (4.0-12.0)
== END 2024-11-13 18:28 | disposition home or self-care (01) ==
LOC: LBN 18:27
PROVIDERS: Visit Provider Nurse Practitioner Gerontology
DX: E87.8 Other disorders of electrolyte and fluid balance, not elsewhere classified (principal); D63.1 Anemia in chronic kidney disease; Z51.81 Encounter for therapeutic drug level monitoring
CPT/HCPCS: 80053; 80156; 85025

== ENCOUNTER 2025-02-12 19:34 | Outpatient (REF) | payer MEDICAID, SELFPAY ==
[2025-02-12 19:46] LABS: Abs Immature Grans 0.04 10^3/uL (0.0-0.06); HCT 36.5 % (36.0-46.0); HGB 11.4 g/dL (11.2-15.7); Immature Grans % 0.4 %; MCH 28.6 pg (27.0-33.0); MCHC 31.2 % (32.0-36.0); MCV 92 fL (80-95); MPV 9.2 fL (8.0-11.0); Platelet Count 301 10^3/uL (130-400); RBC 3.98 10^6/uL (3.93-5.22); RDW 15.5 % (11.7-14.6); RDW-SD 52.3 fL; WBC 9.12 10^3/uL (4.4-10.8)
[2025-02-12 20:07] LABS: ALT 17 U/L (14-59); AST 12 U/L (15-37); Albumin 3.6 g/dL (3.4-5.0); Alkaline Phosphatase 106 U/L (46-116); Anion Gap 4.4 mmol/L (3-11); BUN 13 mg/dL (7-18); Bilirubin, Total 0.2 mg/dL (0.2-1.0); CO2 36.6 mmol/L (21.0-32.0); Calcium 9.2 mg/dL (8.5-10.1); Chloride 96 mmol/L (98-107); Estimated GFR 83.26 (mL/min/1.73m2); Glucose 100 mg/dL (74-106); Magnesium 1.8 mg/dL (1.8-2.4); Potassium 4.2 mmol/L (3.5-5.1); Sodium 137 mmol/L (136-145); TSH (W/Ref FT4) 1.43 uIU/mL (0.36-3.74); Total Protein 7.3 g/dL (6.4-8.2)
[2025-02-12 20:30] LABS: Hemoglobin A1C 6.3 % (<5.7)
== END 2025-02-12 19:35 | disposition home or self-care (01) ==
LOC: LBN 19:34
PROVIDERS: Visit Provider Nurse Practitioner Gerontology
DX: E87.8 Other disorders of electrolyte and fluid balance, not elsewhere classified (principal); D63.1 Anemia in chronic kidney disease; R53.82 Chronic fatigue, unspecified; E83.42 Hypomagnesemia; R73.03 Prediabetes
CPT/HCPCS: 80053; 83036; 83735; 84443; 85025

== ENCOUNTER 2025-03-01 09:57 | Inpatient (IN) | payer MEDICAID, SELFPAY ==
[2025-03-01] VITALS (13 sets, daily range): BP systolic 92–165; BP diastolic 30–72; PULSE 86–112; RESP 19–24; TEMP 37.4–37.7; O2SAT 93–98
--- NOTE | 2025-03-01 10:30 | RT.EKG_ITS ---
APPROVED REPORT Exam: Resting ECG Reason for Exam: syncope Patient Location: E HR:101 bpm ECG Measurements Heart Rate 101 AXIS OR 196 P 80 QRSd 98 QRS -38 QT 342 T 125 QTc 444 Conclusion Sinus tachycardia...rate> 99 Probable left atrial enlargement...P >50mS, <-0.10mV V1 Left axis deviation...QRS axis (-30,-90) Low voltage, precordial leads...precordial leads <1.0mV Abnrm T, consider ischemia, anterolateral lds...T <-0.20mV, I aVL V2-V6
--- NOTE | 2025-03-01 10:46 | W.ED.GENAD ---
Discharge Plan Disposition Patient Disposition: Admit to [facility] Condition: Serious Discharge Details Clinical Impression: Ileus Admit Date/Time: 03/01/25 15:18 Admit Provider: Mann Patterson Attending Provider: Mann Patterson Primary Care Provider: Unknown,Unknown ED Provider: Mik Sanders Discharge Data Discharge Date/Time-TO BE ENTERED AT DEPARTURE: 03/01/25 16:16 HPI General Mode of arrival: EMS. Date/Time Provider Initiated Documentation: 03/01/25 10:13. Limitations to Documentation: altered mental status. Information obtained by: patient, RN/MD and EMS. HPI Narrative: HISTORY OF PRESENT ILLNESS This is a 64-year-old female with a history of hydrocephalus, diabetes insipidus, anemia, astrocytoma, atrial fibrillation, Woodburn's syndrome, cerebrovascular accident (CVA), and renal stones presenting with altered mental status. History severely limited secondary to altered mental status. Per assisted staff, patient has been complaining of intermittent abdominal pain over the past couple days and had an episode of vomiting last night. They note increased distention of the abdomen this morning compared to baseline. Patient reports feeling well overall and has no issues with bowel movements. She mentions a persistent sensation of fullness in her abdomen but does not report any associated pain. Related Data Home Medications ?Medication ?Instructions ?Recorded ?Confirmed acetaminophen 325 mg tablet 650 mg PO PRN PRN 08/29/21 03/01/25 (Pharbetol) atorvastatin 80 mg tablet 80 mg PO QHS 08/29/21 03/01/25 carbamazepine 300 mg 300 mg PO BID 08/29/21 03/01/25 capsule,extended release [id number] carvedilol 6.25 mg tablet 6.25 mg PO BID 08/29/21 03/01/25 cholecalciferol (vitamin D3) 25 2,000 unit PO DAILY 08/29/21 03/01/25 mcg (1,000 unit) capsule (Vitamin D3) rivaroxaban 20 mg tablet (Xarelto) 10 mg PO QPM 08/29/21 03/01/25 sennosides 8.6 mg-docusate sodium 2 tab-cap PO DAILY 08/29/21 03/01/25 50 mg tablet (Senexon-S) desmopressin 0.1 mg tablet 0.1 mg PO DAILY #0 tabs 09/01/21 03/01/25 furosemide 20 mg tablet 40 mg PO DAILY 08/10/24 03/01/25 polyethylene glycol 3350 17 17 g PO DAILY 08/10/24 03/01/25 gram/dose oral powder (ClearLax) Previous Rx's ?Medication ?Instructions ?Recorded desmopressin 0.1 mg tablet 0.1 mg PO DAILY #0 tabs 09/01/21 Allergies Allergy/AdvReac Type Severity Reaction Status Date / Time pineapple Allergy Unknown Unverified 08/10/24 09:29 tomato Allergy Unknown Unverified 08/10/24 09:29 General Stated Complaint: Abd Prob SAEID: 3 Review of Systems Unobtainable due to mental status Exam Const General: cooperative and no acute distress HENMT Mouth: moist mucous membranes Eyes Conjunctivae: normal conjunctivae Sclera: normal sclerae Resp Auscultation: clear to auscultation bilaterally, no rales, no rhonchi and no wheezes Cardio Rate: regular rate and not tachycardic Rhythm: regular rhythm GI Inspection: distended Palpation: soft, not firm, no guarding, no masses, not rigid and nontender Percussion: tympanic to percussion Auscultation: normal bowel sounds Neuro General: patient alert and patient awake Cognition: abnormal cognition Course Vital Signs Vital signs: Vital Signs Temperature 37.7 C H 03/01/25 09:58 Pulse 103 H 03/01/25 09:58 Respiratory Rate 20 03/01/25 09:58 Blood Pressure 128/64 03/01/25 09:58 Pulse Oximetry 93 03/01/25 09:58 Temperature 37.7 C H 03/01/25 09:58 Temperature Source Oral 03/01/25 09:58 Pulse 103 H 03/01/25 09:58 Respiratory Rate 20 03/01/25 09:58 Blood Pressure 128/64 03/01/25 09:58 Pulse Oximetry 93 03/01/25 09:58 Oxygen Delivery Method Room Air 03/01/25 09:58 Oxygen Flow Rate 0 03/01/25 09:58 Medical Decision Making 1051 --64-year-old female with multiple medical problems including prior history of CVA, A-fib, astrocytoma, hydrocephalus, here with multiple syncopal episodes over the past couple days. History limited secondary to altered mental status and poor historian. Patient is tachycardic and febrile. Normotensive. Screening EKG to assess for arrhythmia was reviewed and interpreted by me: Sinus tachycardia 101 bpm, left axis deviation, T wave inversions noted V1 and V2. Plan to proceed with syncope workup and attempt to obtain additional history from family. -- Additional history was obtained from triage note. Patient apparently a resident of [facility]. I called and spoke with the the patient's nurse at [facility]. She states that there has been no observed recent episodes of syncope but in fact patient has been complaining of abdominal pain over the past couple days. She has had an episode of vomiting last night. Nurse notes her abdomen is more distended today than at baseline. Patient was sent here for abdominal pain with concern for ileus as she has had this in the past. Labs reviewed and leukocytosis noted. Urinalysis pending. CT of the abdomen pelvis was reviewed and interpreted by radiology: I had initially ordered D-dimer for syncopal workup. This is no longer indicated I do not believe PE is on the differential as patient has no chest pain or shortness of breath and is saturating well on room air and is on Xarelto. --Patient's blood pressure is lower than arrival now 94/36 with heart rate still slightly tachycardic at 105. I will give 500ml IV fluid bolus. 1500 --I spoke with Val, hospitalist MAT TESTER, discussed ED presentation and course, she will admit the patient. NG placement and UA pending at time of admission. Lab Data Lab results reviewed: Yes I reviewed the patient's lab results. PFSH All Active Problems (Updated 03/02/25 @ 16:08 by Val Tyson APRN) Discharge planning issues (Acute) Leukocytosis (Acute) Elevated d-dimer (Acute) Cholelithiasis (Acute) Hydronephrosis (Acute) Weston syndrome (Acute) Pyelonephritis (Acute) Staghorn renal calculus (Acute) Ileus (Acute) Nail dystrophy (Acute) Onychogryphosis (Acute) Medical History (Updated 03/02/25 @ 16:08 by Val Tyson APRN) Mitral insufficiency Atrial fibrillation GERD (gastroesophageal reflux disease) Astrocytoma Injury of hand, right Diabetes insipidus Hydrocephalus Anemia Surgical History (Updated 08/10/24 @ 16:40 by Charlie Callahan MD) H/O craniotomy Social History Smoking/Tobacco Use Status: Former Tobacco Use Smoking risk assessment performed?: Yes Alcohol Intake: never Drug use: Never Substance use type: does not use Housing: assisted Do you feel safe at home: Yes Do you feel safe in your relationship?: Yes
[2025-03-01 11:16] LABS: BE (Venous) 7 mmol/L (-2-3); HCO3 (Venous) 32 mmol/L (23-28); O2 Sat (Venous) 88 %; TCO2 (Venous) 29 mmol/L (24-29); pCO2 (Venous) 52 mmHg (41-51); pO2 (Venous) 55 mmHg
[2025-03-01 11:18] LABS: Abs Immature Grans 0.07 10^3/uL (0.0-0.06); HCT 37.4 % (36.0-46.0); HGB 11.7 g/dL (11.2-15.7); Immature Grans % 0.5 %; MCH 27.6 pg (27.0-33.0); MCHC 31.3 % (32.0-36.0); MCV 88 fL (80-95); MPV 8.7 fL (8.0-11.0); Platelet Count 250 10^3/uL (130-400); RBC 4.24 10^6/uL (3.93-5.22); RDW 15.8 % (11.7-14.6); RDW-SD 51.4 fL; WBC 13.94 10^3/uL (4.4-10.8)
--- NOTE | 2025-03-01 11:36 | DI.CT_ITS ---
Exam(s) CT ABDOMEN PELVIS W EXAM: CT ABDOMEN PELVIS W CLINICAL HISTORY: abdominal pain, increased distension, prior ileus. TECHNIQUE: Imaging Protocol: Axial computed tomography images with coronal and sagittal reformatted images were created and reviewed CONTRAST MATERIAL: Intravenous: Omnipaque-350 100cc Oral: None COMPARISON: CT CT CHEST/ABD/PEL W from 08/10/2024 CR XR ABDOMEN FLAT PLATE from 08/11/2024 FINDINGS: VISUALIZED LUNG BASES: No nodules nor pleural effusions evident. ABDOMEN: There is no ascites. LIVER: There are no focal hepatic lesions evident. No dilated intrahepatic ducts. GALLBLADDER/BILIARY: Large gallstone is again noted measuring 3.7 by 2.7 cm, unchanged in size and position. There is no gallbladder wall edema nor pericholecystic fluid. The CBD is not dilated. PANCREAS: No evidence of pancreatic mass nor dilatation of the pancreatic duct. SPLEEN: Spleen is not enlarged. No obvious intrasplenic lesions. Splenic and portal veins are patent. ADRENALS: There are no significant adrenal masses. The left adrenal gland appear surgically absent. KIDNEYS:There has been interval left nephrectomy since the CT scan of July 2024. Slight prominence of the right kidney infundibular noted which may be compensatory. The ipsilateral right ureter is not dilated. There is a small benign 1 cm size cyst in the anterior cortex of the right kidney again noted which is unchanged and does not require further imaging workup. There are no solid renal masses. There are no calculi in the right kidney. ABDOMINAL AORTA: Abdominal aorta is not enlarged. Celiac and superior mesenteric arteries are patent as is the inferior mesenteric artery. No aneurysmal dilatation of the iliac arteries. LYMPH NODES:There is no retroperitoneal nor paraaortic adenopathy. ABDOMINAL WALL: No evidence of significant anterior abdominal wall nor inguinal hernia. GI: The entire colon is distended with air and some fluid. Mid and distal small bowel loops are fluid-filled and mildly dilated. Probable I ileus pattern PELVIS: GI: The appendix is difficult to identify is distinct structure.No evidence of sigmoid diverticulitis. LYMPH NODES: There is no intrapelvic nor inguinal adenopathy. REPRODUCTIVE: Uterus and adnexal regions appear age-appropriate. URINARY BLADDER: No calculi nor obvious masses evident OSSEOUS: No fractures and no significant osseous lesions. OTHER: Bilateral buttock granulomas are again noted most probably related to multiple prior injections. No evidence of subcutaneous fluid collection or abscess. IMPRESSION: 1. Compared to the prior CT scan of July 2024 there has been interval left nephrectomy. No new significant findings noted in the left retroperitoneal surgical bed. Right kidney appears unremarkable. 2. There is distension and some fluid throughout the length of the colon and are also fluid filled and slightly prominent diameter small bowel loops. Suspect ileus pattern as previously described. However, cannot completely exclude distal colon lesion. There are no mesenteric masses evident and no significant lymphadenopathy. No ascites. 3. Large gallstone again noted. No evidence of acute cholecystitis. CBD is not dilated. Report called by myself to ER physician 03/01/2025 12:45 p.m. RADIATION DOSE DELIVERED: 1,032.42mGy.cm Total DLP DATA REPOSITORY: All CT scans at this facility are submitted to the National Radiology Data Registry (NRDR) Dose Index Registry (DIR) with the [employer] (ACR). RADIATION OPTIMIZATION: All CT scans at this facility use at least one of these dose optimization techniques: automated exposure control; mA and/or kV adjustment per patient size (includes targeted exams where dose is matched to clinical indication); or iterative reconstruction.
[2025-03-01 11:44] LABS: ALT 15 U/L (14-59); AST 10 U/L (15-37); Albumin 3.2 g/dL (3.4-5.0); Alkaline Phosphatase 112 U/L (46-116); Anion Gap 6.4 mmol/L (3-11); BUN 16 mg/dL (7-18); Bilirubin, Total 0.4 mg/dL (0.2-1.0); CO2 33.6 mmol/L (21.0-32.0); Calcium 8.8 mg/dL (8.5-10.1); Chloride 93 mmol/L (98-107); Estimated GFR 72.28 (mL/min/1.73m2); Glucose 151 mg/dL (74-106); Potassium 4.0 mmol/L (3.5-5.1); Sodium 133 mmol/L (136-145); Total Protein 7.7 g/dL (6.4-8.2); Troponin I 9 ng/L (<or=51)
[2025-03-01 11:48] LABS: D-Dimer 3801 ng/mlFEU (<500)
[2025-03-01] MEDS: Omnipaque 350 MG/ML 100 ML BTL IJ (12:19)
[2025-03-01] MEDS: Normal Saline - Diluent 50 ML VIAL IJ (12:20)
[2025-03-01] MEDS: Normal Saline Flush 10 ML SYR IVP ×2 (12:21→19:46)
[2025-03-01 12:22] LABS: Lipase 11 U/L (<78)
[2025-03-01 12:32] LABS: Troponin I 8 ng/L (<or=51)
--- NOTE | 2025-03-01 15:06 | W.PM.HP.N ---
Date of service: 03/01/25 Time of Service: 15:06 Assessment and Plan Assessment and plan (1) Ileus: Status: Acute Assessment and plan: As per HPI and imaging Surgical consult: -NGT to LIS - mag citrate once, followed by miralx q 8, give dulcolax q 6. Put in a flexiseal rectal acting manager with mineral oil ememas every 6 hours. -Rectal exam completed- no mass found, no fissure - Has been seeing by surgery in the past and decompressed NPO except meds LR at 125 cc/hr (2) Cholelithiasis: Status: Acute Assessment and plan: no cholescystitis (3) Weston syndrome: Status: Acute Assessment and plan: History of now in with suspected ileus (4) GERD (gastroesophageal reflux disease): Assessment and plan: Will give IV PPI (5) Atrial fibrillation: Assessment and plan: On home DOAC and beta alf (6) Elevated d-dimer: Status: Acute Assessment and plan: D-dimer > 3000 , EKG not showing RV strain , tachycardia improving with IVF but no ALAINA ON DOAC and does not present clinical signs of PE, no hypoxia Will continue to monitor telemetry d/t V2 pattern on EKG and T wave inversion in a few leads (7) Leukocytosis: Status: Acute Assessment and plan: consider reactive leukocytosis- UA pending Discussed with Dr. Patterson History of Present Illness History of Present Illness Chief Complaint: fainting, vomiting, abdominal pain Narrative: This is a 64-year-old female who resides at a local SNF presenting to the ED for evaluation of nausea, vomiting , abdominal pain, loss of conciousness as per patient not corroborated by staff. ?Her medical history of include ileus, ogilvy's , stroke, history of astrocytoma of the brain, diabetes, atrial fibrillation on DOAC , diabetes insipidus on depression, traumatic brain injury, constipation, left nephrectomy, congenital mitral insufficiency, posttraumatic seizures, vitamin D deficiency, gastroesophageal reflux, obstructive hydrocephalus. Work-up in the ED was positive with ABD and pelvic CT showed distension and fluid throughout the length of the colon and dilated small bowel loop suspicious for ileus; large gallstone w/o evidence of acute cholocystistis. Blood work showed leukocytosis, D-dimer at 3801, Na 133. troponin negative and EKG not showing clear RV strain or coronary occlusion. The patient presented afebrile BP soft with SPB 90's DBP mid 30's to 50's, minimal tachycardia HR in the low 100's; IVF intiated in the ED. No increased O2 requirement. The patient was admitted to the medical surgical floor byt he hospitalist team for ileus and surgical consultation. NGT placed in the ED. Full code status confirmed. Patient reporting, syncope, hematemesis, fever , abdominal pain, nausea vomiting, denies hematochezia,headache, change in vision, chest pain , difficulty breathing, dysuria. Reporting last BM on 02/28 but the patient is currently incontinent of liquid stool when seen but unaware. The patient is also not oriented in time, and space compromising the accuracy of the ROS. Review of Systems All systems reviewed & are unremarkable except as noted in HPI and below PFSH All Active Problems (Updated 03/01/25 @ 19:23 by Val Tyson APRN) Leukocytosis (Acute) Elevated d-dimer (Acute) Cholelithiasis (Acute) Hydronephrosis (Acute) [place] syndrome (Acute) Pyelonephritis (Acute) Staghorn renal calculus (Acute) Ileus (Acute) Nail dystrophy (Acute) Onychogryphosis (Acute) Medical History (Updated 03/01/25 @ 19:23 by Val Tyson APRN) Mitral insufficiency Atrial fibrillation GERD (gastroesophageal reflux disease) Astrocytoma Injury of hand, right Diabetes insipidus Hydrocephalus Anemia Surgical History (Updated 08/10/24 @ 16:40 by Charlie Callahan MD) H/O craniotomy Social History Smoking/Tobacco Use Status: Former Tobacco Use Smoking risk assessment performed?: Yes Alcohol Intake: never Drug use: Never Substance use type: does not use Housing: assisted Do you feel safe at home: Yes Do you feel safe in your relationship?: Yes Meds Allergies and Home Medications Allergies Allergy/AdvReac Type Severity Reaction Status Date / Time pineapple Allergy Unknown Unverified 08/10/24 09:29 tomato Allergy Unknown Unverified 08/10/24 09:29 Home Medications ?Medication ?Instructions ?Recorded ?Confirmed ?Type acetaminophen 325 mg tablet 650 mg PO PRN PRN 08/29/21 03/01/25 History (Pharbetol) atorvastatin 80 mg tablet 80 mg PO QHS 08/29/21 03/01/25 History carbamazepine 300 mg 300 mg PO BID 08/29/21 03/01/25 History capsule,extended release [id number] carvedilol 6.25 mg tablet 6.25 mg PO BID 08/29/21 03/01/25 History cholecalciferol (vitamin D3) 25 2,000 unit PO DAILY 08/29/21 03/01/25 History mcg (1,000 unit) capsule (Vitamin D3) rivaroxaban 20 mg tablet (Xarelto) 10 mg PO QPM 08/29/21 03/01/25 History sennosides 8.6 mg-docusate sodium 2 tab-cap PO DAILY 08/29/21 03/01/25 History 50 mg tablet (Senexon-S) desmopressin 0.1 mg tablet 0.1 mg PO DAILY #0 tabs 09/01/21 03/01/25 Rx furosemide 20 mg tablet 40 mg PO DAILY 08/10/24 03/01/25 History polyethylene glycol 3350 17 17 g PO DAILY 08/10/24 03/01/25 History gram/dose oral powder (ClearLax) Results Labs 03/01/25 11:10 03/01/25 11:10 Labs: Laboratory Results - last 24 hr 03/01/25 03/01/25 11:10 12:04 WBC 13.94 H RBC 4.24 Hgb 11.7 Hct 37.4 MCV 88 MCH 27.6 MCHC 31.3 L RDW 15.8 H Plt Count 250 MPV 8.7 Immature Gran % 0.5 Neutrophils % 76.9 Lymphocytes % 6.1 Monocytes % 16.1 Eosinophils % 0.1 Basophils % 0.3 Nucleated RBC % 0.0 Absolute Neutrophils 10.72 H Absolute Lymphocytes 0.85 L Absolute Monocytes 2.24 H Absolute Eosinophils 0.01 Absolute Basophils 0.04 D-Dimer 3801 H VBG pH 7.39 VBG pCO2 52 H VBG pO2 55 VBG HCO3 32 H VBG Total CO2 29 VBG O2 Saturation 88 VBG Base Excess 7 H Sodium 133 L Potassium 4.0 Chloride 93 L Carbon Dioxide 33.6 H Anion Gap 6.4 BUN 16 Creatinine 0.9 Est GFR (CKD-EPI 2020) 72.28 Glucose 151 H Calcium 8.8 Total Bilirubin 0.4 AST 10 L ALT 15 Alkaline Phosphatase 112 Troponin I 9 8 Total Protein 7.7 Albumin 3.2 L Lipase 11 Last Vital Signs Temp 37.7 C H 03/01/25 13:04 Pulse 105 H 03/01/25 13:46 Resp 21 03/01/25 13:46 BP 94/36 L 03/01/25 13:46 Pulse Ox 95 03/01/25 13:46 Time Spent Time spent with Patient: >75 minutes Time was spent: preparing to see the patient(eg.review tests), obtaining and/or reviewing separately otained hiistory, ordering medications,tests, procedures, referring, communicating with other health child care cook, indepentently interpreting results, counseling the patient, care coordination and other
--- NOTE | 2025-03-01 15:30 | DI.RAD_ITS ---
Exam(s) XR PORTABLE CHEST AP POST LINE EXAM: XR PORTABLE CHEST AP CLINICAL HISTORY: post ng placement TECHNIQUE: 2D digital imaging was performed. COMPARISON: CT CT ABDOMEN PELVIS W from 03/01/2025 FINDINGS: The exam is limited by under penetration, poor pulmonary inflation multiple overlying modern leads. A nasogastric tube has been inserted. The tip projects in the fundus/body of the stomach. LUNGS: Grossly clear. No pleural abnormality seen. HEART: Normal size. AORTA: Normal diameter. BONES: Unremarkable for age. Soft tissues: There is also TRUCK CLEANER shunt tubing. Small portion of dilated bowel loops are visible at the upper abdomen. IMPRESSION: Satisfactory placement of nasogastric tube. DATA REPOSITORY: RADIATION DOSE DELIVERED:
--- NOTE | 2025-03-01 15:33 | SCONE_ITS ---
Date of service: 03/01/25 Time of Service: 15:33 Assessment and Plan Assessment and plan (1) Weston syndrome: Status: Acute Assessment and plan: Imaging today is very consistent with her previous CT that demonstrates massively dilated colon that is both stool and air-filled. She does have a leukocytosis today, with no clear source of infection yet. She is a little bit tachycardic, but generally is well-preserved blood pressure. Clinically, this seems most consistent with chronic colonic pseudoobstruction, or slow colonic transit. I am not able to tell if she is on any meaningful longstanding bowel regimen. Since there is no evidence of any distal obstruction, at this point I think an aggressive bowel regimen is the most useful plan. Nasogastric tube has already been inserted, although there is not very much small bowel dilatation to worry about. I do recommend insertion of a Flexi-Seal rectal management device as well. I would start her on every 6 hour mineral oil enemas, which could be administered through the Flexi-Seal. Be sure to flush enema through the Flexi- Seal tubing with an additional 50 cc of saline. Dulcolax and MiraLAX could be administered orally. If there is any significant change we could give reconsideration to another decompressive colonoscopy, although this does not seem to be a meaningful long-term strategy. Ultimately, I think colostomy is probably the simplest way to take care of this, and it is probably worth revisiting that discussion (I suggested during her last visit) if this remains an issue. History of Present Illness History of Present Illness Chief Complaint: Colonic pseudoobstruction Narrative: Maribel is 64 years old. She has a complicated medical history, but relevant to this consult she is noted to have colonic pseudoobstruction. I first met her in July 2024. At that time, she was admitted for complications of a staghorn renal calculus Proteus urinary tract infection. I was consulted for an ileus at that time. Imaging appeared more consistent with colonic pseudoobstruction, as the small bowel was relatively decompressed despite massive dilation of the colon. During that hospitalization, I did perform colonoscopy. Although I reached the cecum, I was able to advance a full-length colonoscope up into what appeared to be the transverse colon. It was gas and stool-filled, and essentially I performed a decompressive colon to help facilitate urologic procedure. Rectal manager convention was left in place. Her abdominal distention decreased, her diet advanced prior to discharge about 2 days later. In the interim, she has undergone a left nephrectomy at [facility] in October of this year. It looks like her recovery was complicated by postoperative abdominal distention that was treated with a nasogastric tube. As best I can tell, that was in place for a few days, then removed prior to her discharge. PFSH All Active Problems (Updated 03/01/25 @ 19:23 by Val Tyson APRN) Leukocytosis (Acute) Elevated d-dimer (Acute) Cholelithiasis (Acute) Hydronephrosis (Acute) [place] syndrome (Acute) Pyelonephritis (Acute) Staghorn renal calculus (Acute) Ileus (Acute) Nail dystrophy (Acute) Onychogryphosis (Acute) Medical History (Updated 03/01/25 @ 19:23 by Val Tyson APRN) Mitral insufficiency Atrial fibrillation GERD (gastroesophageal reflux disease) Astrocytoma Injury of hand, right Diabetes insipidus Hydrocephalus Anemia Surgical History (Updated 08/10/24 @ 16:40 by Charlie Callahan MD) H/O craniotomy Social History Smoking/Tobacco Use Status: Former Tobacco Use Smoking risk assessment performed?: Yes Alcohol Intake: never Drug use: Never Substance use type: does not use Housing: senior care Do you feel safe at home: Yes Do you feel safe in your relationship?: Yes Exam GI Other: Abdomen is distended and tympanitic. There are bowel sounds present Results Last Vital Signs Temp 99.9 F H 03/01/25 13:04 Pulse 105 H 03/01/25 13:46 Resp 21 03/01/25 13:46 BP 94/36 L 03/01/25 13:46 Pulse Ox 95 03/01/25 13:46 Labs 03/01/25 11:10 03/01/25 11:10 Labs: Laboratory Results - last 24 hr 03/01/25 03/01/25 11:10 12:04 WBC 13.94 H RBC 4.24 Hgb 11.7 Hct 37.4 MCV 88 MCH 27.6 MCHC 31.3 L RDW 15.8 H Plt Count 250 MPV 8.7 Immature Gran % 0.5 Neutrophils % 76.9 Lymphocytes % 6.1 Monocytes % 16.1 Eosinophils % 0.1 Basophils % 0.3 Nucleated RBC % 0.0 Absolute Neutrophils 10.72 H Absolute Lymphocytes 0.85 L Absolute Monocytes 2.24 H Absolute Eosinophils 0.01 Absolute Basophils 0.04 D-Dimer 3801 H VBG pH 7.39 VBG pCO2 52 H VBG pO2 55 VBG HCO3 32 H VBG Total CO2 29 VBG O2 Saturation 88 VBG Base Excess 7 H Sodium 133 L Potassium 4.0 Chloride 93 L Carbon Dioxide 33.6 H Anion Gap 6.4 BUN 16 Creatinine 0.9 Est GFR (CKD-EPI 2020) 72.28 Glucose 151 H Calcium 8.8 Total Bilirubin 0.4 AST 10 L ALT 15 Alkaline Phosphatase 112 Troponin I 9 8 Total Protein 7.7 Albumin 3.2 L Lipase [address] scan report/results: report reviewed and image reviewed CT scan - pelvis: report reviewed and image reviewed
[2025-03-01] MEDS: Lidocaine 2% Jelly 6 ML SYR (15:53)
[2025-03-01] MEDS: Benzocaine 20% 60 ML CAN (15:53)
[2025-03-01] MEDS: Lactated Ringers 500 ML 1000 ML IV (15:53)
--- NOTE | 2025-03-01 16:18 | W.PC.ACHO ---
Registration Status: REG ER Primary Language: Preferred Language: Kiswahili ED Information & Data Chief Complaint Abd Prob 03/01/25 13:04 Chief Complaint Abd Prob 03/01/25 10:53 Triage Note pt complaining of abd pain 03/01/25 09:58 for 3days Medical / Surgical History (Last Updated 08/10/24 @ 16:40 by Charlie Callahan MD) Mitral insufficiency Atrial fibrillation GERD (gastroesophageal reflux disease) Astrocytoma Injury of hand, right Diabetes insipidus Hydrocephalus Anemia (Last Updated 08/10/24 @ 16:40 by Charlie Callahan MD) H/O craniotomy Most Recent Vital Signs Temperature 37.7 C H 03/01/25 13:04 Temperature Source Oral 03/01/25 09:58 Pulse 112 H 03/01/25 15:32 Pulse 112 H 03/01/25 15:32 Respiratory Rate 23 03/01/25 15:32 Blood Pressure 110/40 L 03/01/25 15:32 Blood Pressure Mean 66 03/01/25 15:32 Pulse Oximetry 95 03/01/25 15:32 Oxygen Delivery Method Room Air 03/01/25 09:58 Oxygen Flow Rate 0 03/01/25 09:58 Allergies pineapple Allergy (Unverified 08/10/24 09:29) Unknown tomato Allergy (Unverified 08/10/24 09:29) Unknown Precautions Isolation Fall precaution 03/01/25 13:04 Active Medications Generic Name Dose Route Start Last Admin Trade Name Freq PRN Reason Stop Dose Admin Sodium Chloride 0 ml 03/01/25 12:11 03/01/25 12:21 Normal Saline Flush 10 Ml Syr IVP 10 ml PRN PRN Administration IV IV Catheter Type [Left Nexiva Diffusics Antecubital] IV Catheter Type [Left Forearm Peripheral IV ] IV Catheter Gauge [Left 20 Antecubital] IV Catheter Gauge [Left 20 Forearm] Diet Orders Category Date Time Status Nothing Per Oral [DIET] Nutrition 03/01/25 16:14 Active Diagnostics 03/01/25 03/01/25 Range/Units 12:04 11:10 WBC 13.94 H (4.4-10.8) 10^3/uL RBC 4.24 (3.93-5.22) 10^6/uL Hgb 11.7 (11.2-15.7) g/dL Hct 37.4 (36.0-46.0) % MCV 88 (80-95) fL MCH 27.6 (27.0-33.0) pg MCHC 31.3 L (32.0-36.0) % RDW 15.8 H (11.7-14.6) % Plt Count 250 (130-400) 10^3/uL MPV 8.7 (8.0-11.0) fL Immature Gran % 0.5 % Neutrophils % 76.9 % Lymphocytes % 6.1 % Monocytes % 16.1 % Eosinophils % 0.1 % Basophils % 0.3 % Nucleated RBC % 0.0 (0.0-0.3) % Absolute Neutrophils 10.72 H (1.2-6.7) 10^3/uL Absolute Lymphocytes 0.85 L (1.2-3.4) 10^3/uL Absolute Monocytes 2.24 H (0.1-0.8) 10^3/uL Absolute Eosinophils 0.01 (0.0-0.7) 10^3/uL Absolute Basophils 0.04 (0.0-0.2) 10^3/uL D-Dimer 3801 H (<500) ng/mlFEU VBG pH 7.39 (7.31-7.41) VBG pCO2 52 H (41-51) mmHg VBG pO2 55 mmHg VBG HCO3 32 H (23-28) mmol/L VBG Total CO2 29 (24-29) mmol/L VBG O2 Saturation 88 % VBG Base Excess 7 H (-2-3) mmol/L Sodium 133 L (136-145) mmol/L Potassium 4.0 (3.5-5.1) mmol/L Chloride 93 L (98-107) mmol/L Carbon Dioxide 33.6 H (21.0-32.0) mmol/L Anion Gap 6.4 (3-11) mmol/L BUN 16 (7-18) mg/dL Creatinine 0.9 (0.55-1.02) mg/dL Est GFR (CKD-EPI 2020) 72.28 (mL/min/1.73m2) Glucose 151 H (74-106) mg/dL Calcium 8.8 (8.5-10.1) mg/dL Total Bilirubin 0.4 (0.2-1.0) mg/dL AST 10 L (15-37) U/L ALT 15 (14-59) U/L Alkaline Phosphatase 112 (46-116) U/L Troponin I 8 9 (<or=51) ng/L Total Protein 7.7 (6.4-8.2) g/dL Albumin 3.2 L (3.4-5.0) g/dL Lipase 11 (<78) U/L Intake and Output - 24 Hour Total 03/01/25 09:41 thru 03/01/25 09:58 Weight 104.326 kg Falls Risk Assessment History of Falls No History 03/01/25 13:04 Contributing Factors Confusion,Impairments 03/01/25 13:04 Ambulatory Aids Uses ambulatory device + 03/01/25 13:04 Tubes/Lines None 03/01/25 13:04 Gait Evaluation W/any additional score 03/01/25 13:04 Cognition Cognitive impairment 03/01/25 13:04 Fall Total Score 71 03/01/25 13:04 Level of Risk High Risk 03/01/25 13:04 Problems (Last Updated 08/10/24 @ 16:40 by Charlie Callahan MD) [place] syndrome (Acute) Ileus (Acute) v v v v v v v v v Sending and/or Receiving Nurses: Please use comment section below to note any information pertinent to the patient hand-off not included above. Information / Comments: Pt is a/o to self but confused. Here from [place] with illeus. NG tube in R nare and xray has been completed to confirm placement. Measurement to nare is 65. Pt will be placed in RM 226 Report received from: [facility]
[2025-03-01] MEDS: Bisacodyl 5 MG TABEC PO (18:37)
[2025-03-01] MEDS: Magnesium Citrate 300 ML BTL PO (18:38)
[2025-03-01] MEDS: Rivaroxaban 10 MG TABLET PO (18:38)
[2025-03-01] MEDS: Mineral Oil-Enema 133 ML BTL PR (19:44)
[2025-03-01] MEDS: Carvedilol 6.25 MG TAB PO (19:45)
[2025-03-01] MEDS: Polyethylene Glycol 3350 17 GM PACKET PO (19:45)
[2025-03-01 21:03] LABS: Glucose Negative (Negative)
[2025-03-01 21:18] LABS: C & S Indicated? No; RBC 0-2 HPF (0-2); WBC 0-2 HPF (0-5)
[2025-03-01] MEDS: Lactated Ringers 1,000 ML 125 ML IV (21:26)
[2025-03-02] VITALS (8 sets, daily range): BP systolic 116–134; BP diastolic 59–74; PULSE 90–100; RESP 16–18; TEMP 36.2–38.6; O2SAT 91–94
[2025-03-02] MEDS: Bisacodyl 5 MG TABEC PO ×2 (00:31→16:49)
[2025-03-02] MEDS: Polyethylene Glycol 3350 17 GM PACKET PO (03:41)
[2025-03-02 07:05] LABS: Abs Immature Grans 0.02 10^3/uL (0.0-0.06); HCT 38.2 % (36.0-46.0); HGB 11.8 g/dL (11.2-15.7); MCH 27.8 pg (27.0-33.0); MCHC 30.9 % (32.0-36.0); MCV 90 fL (80-95); MPV 9.1 fL (8.0-11.0); Platelet Count 240 10^3/uL (130-400); RBC 4.25 10^6/uL (3.93-5.22); RDW 16.1 % (11.7-14.6); RDW-SD 53.0 fL; WBC 7.57 10^3/uL (4.4-10.8)
--- NOTE | 2025-03-02 07:20 | W.PM.PROGNOT ---
Date of Service Date of service: 03/02/25 Time of Service: 07:20 Assessment and Plan Assessment and plan (1) Weston syndrome: Status: Acute Assessment and plan: This seems to be improving with the aggressive bowel regimen. The NG tube is not put out any meaningful volume, and I suspect is not really adding much. I think it is probably fine to remove at this point. She clearly has some type of colonic dysmotility disorder, although she seems to respond favorably to laxatives and stimulants. I would continue with the standing Dulcolax to help promote contractility and afferent flow. If the stools are quite liquid, then it is probably reasonable to back off of the osmotic laxative a bit. Subjective Subjective Interval history since last seen: Maribel seems to have done well overnight, with multiple large liquid bowel movements. She does not offer any specific complaints this morning. Exam GI Other: Abdomen is soft, and although still quite distended, it seems less than yesterday. Less tympanitic. She is not tender. Objective Last Vital Signs Temp 98.2 F 03/02/25 02:46 Pulse 90 03/02/25 02:46 Resp 18 03/02/25 02:46 BP 119/63 03/02/25 02:46 Pulse Ox 91 L 03/02/25 02:46 Laboratory Results - last 24 hr 03/01/25 03/01/25 03/01/25 11:10 12:04 20:41 WBC 13.94 H RBC 4.24 Hgb 11.7 Hct 37.4 MCV 88 MCH 27.6 MCHC 31.3 L RDW 15.8 H Plt Count 250 MPV 8.7 Immature Gran % 0.5 Neutrophils % 76.9 Lymphocytes % 6.1 Monocytes % 16.1 Eosinophils % 0.1 Basophils % 0.3 Nucleated RBC % 0.0 Absolute Neutrophils 10.72 H Absolute Lymphocytes 0.85 L Absolute Monocytes 2.24 H Absolute Eosinophils 0.01 Absolute Basophils 0.04 D-Dimer 3801 H VBG pH 7.39 VBG pCO2 52 H VBG pO2 55 VBG HCO3 32 H VBG Total CO2 29 VBG O2 Saturation 88 VBG Base Excess 7 H Sodium 133 L Potassium 4.0 Chloride 93 L Carbon Dioxide 33.6 H Anion Gap 6.4 BUN 16 Creatinine 0.9 Est GFR (CKD-EPI 2020) 72.28 Glucose 151 H Calcium 8.8 Total Bilirubin 0.4 AST 10 L ALT 15 Alkaline Phosphatase 112 Troponin I 9 8 Total Protein 7.7 Albumin 3.2 L Lipase 11 Urine Color Yellow Urine Clarity Clear Urine pH 5.0 Ur Specific [place] 1.010 Urine Protein Trace Urine Ketones Trace H Urine Blood Small H Urine Nitrite Negative Urine Bilirubin Small H Urine Urobilinogen 0.2 Ur Leukocyte Esterase Negative Urine RBC 0-2 Urine WBC 0-2 Ur Epithelial Cells Few Urine Crystals Negative Urine Bacteria Few Urine Casts 0-2 Hyaline Urine Mucus Negative Ur Culture Indicated? No Urine Glucose Negative Time Spent with Patient Time Spent with Patient: 25-34 minutes Time was spent: preparing to see the patient(eg.review tests), referring, communicating with other health manager critical care and indepentently interpreting results
[2025-03-02 07:24] LABS: ALT 12 U/L (14-59); AST 10 U/L (15-37); Albumin 2.8 g/dL (3.4-5.0); Alkaline Phosphatase 95 U/L (46-116); Anion Gap 7.4 mmol/L (3-11); BUN 23 mg/dL (7-18); Bilirubin, Total 0.4 mg/dL (0.2-1.0); CO2 34.6 mmol/L (21.0-32.0); Calcium 8.6 mg/dL (8.5-10.1); Chloride 94 mmol/L (98-107); Estimated GFR 63.70 (mL/min/1.73m2); Glucose 126 mg/dL (74-106); Potassium 3.7 mmol/L (3.5-5.1); Sodium 136 mmol/L (136-145); Total Protein 7.0 g/dL (6.4-8.2)
[2025-03-02 08:04] LABS: RBC Morphology Normal
--- NOTE | 2025-03-02 09:05 | PDOC.CMIN ---
Date of service: 03/02/25 Time of Service: 16:53 Care Management Initial Assmt Initial Assessment Reason for Hospitalization: ileus Functional Status/Living Situation Patient Presentation: Maribel was lying in bed and awake when CM met with her. Rosalinda presented to the ED for abdominal pain with concern for ileus as she has had this in the past. PT consult pending. Palliative consult requested. Per report, Maribel is a poor historian; [facility] confirms. The following information was obtained from Srikanth Self RN at the [facility]. Maribel is a long-term care resident at [facility], where she has resided for approximately two years. She uses a wheelchair and is encouraged to self-propel using her hands and feet. For transfers, a Marina lift is utilized. Maribel?s mother, Luna, is reported to be her legal guardian; CM awaiting paperwork. At baseline, Maribel is described as alert and oriented to self and follows a mechanical soft diet. [facility] reported that Maribel underwent a procedure at [facility] on November 03, 2024. Prior to this procedure, she had a documented DNR/I status. A COLST has been requested from the facility for further clarification and documentation; CM awaiting paperwork. She will require EMS transport due to her bed bound status. CM will continue to follow. Town of Residence: [place] Resides with: Other ([facility]) Significant Other/Family: Local Caregiver/Guardian: [facility] Natural Supports: Mother, Luna Daughter, Emilia Instrumental Activities of Daily Living (ADLs): Requires support Medications Medication Management: No Issues/Barriers identified Physical Functioning/Mobility Assistive Device: Wheelchair Advance Directives Advance Directives: Do you have an Advance Directive: N 08/29/21, 21:29 AD On File at [facility]: N 08/29/21, 21:29 Date Asked 03/01/25 03/01/25, : AD Date Reviewed COLST On File at [facility] COLST Date Scanned Code Status Resuscitation Status Full Code Portal Pt does not currently have a portal and education provided: Yes Insurance Coverage/Financial Issues Insurance: Medicaid [facility] - [id number] Care Team Visit Care Team Role Provider Type Val Tyson APRN MD [facility] STAFF PHYSICIAN Unknown Unknown Primary Care Provider STAFF PHYSICIAN InPatient Yamil Boswell Other Providers OTHER Amaury Shah MD Other Providers [facility] STAFF PHYSICIAN Mik Sanders MD Emergency Provider [facility] STAFF PHYSICIAN Mann Patterson Admit Provider [facility] STAFF PHYSICIAN Attending Provider Discharge Potential Discharge Needs: PCP F/U Appt Anticipated Barriers to Discharge: Medical Status Patient/Family Education Needs: Review discharge instructions, discuss Ask Me Three Transportation: RCT Plan: Per provider, Anticipate Maribel will be discharged back to [facility] tomorrow; Srikanth MILLER at [facility] aware and agreeable, once medically ready. It is recommended she follow up with facility providers and continue per her discharge plan of care. She will be transported via EMS due to bed bound status. CM will continue to follow. Social Determinants of Health Screening Social Determinants of health last assessed in clinic: 03/02/25 Will the Patient Participate in the Screening?: Yes Do you worry about having a steady place to live?: no Problems where you live: no known problems In the past 12 months, have you had to go without electric, gas, oil or water in your home?: no 1. Within the past 12 months, we worried whether our food would run out before we got money to buy more.: Never true 2. Within the past 12 months, the food we bought just didn't last and we didn't have money to get more.: Never true Has lack of transportation kept you from medical appointments or from doing things needed for daily living?: no Has anyone in your life made you feel unsafe or unsupported?: no How hard is it for you to pay for the very basics like food, housing, medical care, and heating? Would you say it is:: Not hard at all Do you want help finding or keeping work or a job?: I do not need or want help If for any reason you need help with day-to-day activities such as bathing, preparing meals, shopping, managing finances, etc., do you get the help you need?: I don?t need any help How often do you feel lonely or isolated from those around you?: Never Do you speak a language other than Gibraltarian at home?: No Does the patient want assistance with any of the above?: No PFSH All Active Problems (Updated 03/02/25 @ 16:08 by Val Tyson APRN) Discharge planning issues (Acute) Leukocytosis (Acute) Elevated d-dimer (Acute) Cholelithiasis (Acute) Hydronephrosis (Acute) Weston syndrome (Acute) Pyelonephritis (Acute) [place] renal calculus (Acute) Ileus (Acute) Nail dystrophy (Acute) Onychogryphosis (Acute) Medical History (Updated 03/02/25 @ 16:08 by Val Tyson APRN) Mitral insufficiency Atrial fibrillation GERD (gastroesophageal reflux disease) Astrocytoma Injury of hand, right Diabetes insipidus Hydrocephalus Anemia Surgical History (Updated 08/10/24 @ 16:40 by Charlie Callahan MD) H/O craniotomy Social History Smoking/Tobacco Use Status: Former Tobacco Use Smoking risk assessment performed?: Yes Alcohol Intake: never Drug use: Never Substance use type: does not use Housing: residential Do you feel safe at home: Yes Do you feel safe in your relationship?: Yes Readmission Within the Past 30 Days Yes or No: No
[2025-03-02] MEDS: Carvedilol 6.25 MG TAB PO ×2 (09:27→20:32)
[2025-03-02] MEDS: Desmopressin 0.2 MG TAB 0.1 MG PO (09:28)
[2025-03-02 10:30] LABS: Lab Add On Test DONE
[2025-03-02 10:53] LABS: Magnesium 2.1 mg/dL (1.8-2.4)
--- NOTE | 2025-03-02 12:36 | PGE_ITS ---
Date of Service Date of service: 03/02/25 Time of Service: 12:36 Assessment and Plan Assessment and plan (1) Ileus: Status: Acute Assessment and plan: As per HPI and imaging- no free air on CT report cannot completely exclude distal colon lesion Seems to be resolving Surgical consult: please read notes -NGT to LIS - mag citrate given once on admit followed by miralx q 8, mineral oil enemas every 6 hours- Regimen discontinued -Ongoing flexiseal rectal manager relocation - Ongoing dulcolax oral and KS Resume clear diet and advance as tolerated LR at 125 cc/hr now at 75cc/hr-Stop when stool output is reduced and diet tolerated IV access lost - will hold off has stool output has decreased and diet tolerated Reglan AC (2) Cholelithiasis: Status: Acute Assessment and plan: As per initial imaging no cholescystitis (3) Weston syndrome: Status: Acute Assessment and plan: Patient has a history of this listed , but not on medicines Admitted with suspected ileus ,but was passing stools on the floor on arrival (4) GERD (gastroesophageal reflux disease): Assessment and plan: ongoing IV PPI (5) Atrial fibrillation: Assessment and plan: Ongoing home DOAC and beta alf (6) Elevated d-dimer: Status: Acute Assessment and plan: On admission - no previous - D-dimer > 3000 , EKG not showing RV strain , tachycardia improving with IVF but no ALAINA Fully anticoagulated on DOAC and does not present clinical signs of PE, no hypoxia Will continue to monitor telemetry d/t V2 pattern on EKG and T wave inversion in a few leads- no ectooy - will d/c (7) Leukocytosis: Status: Acute Assessment and plan: consider reactive leukocytosis on admission - now resolved UA negative but now febrile- questioning viral VS bacterial gastroenteritis - PRN acetaminophen Stool C-diff and pathogen PCR Will continue to monitor (8) Diabetes insipidus: Assessment and plan: Home dose DDAVP (9) Hydrocephalus: Assessment and plan: Hisotry of home dose tegretol Discussed with Dr. Patterson (10) Discharge planning issues: Status: Acute Assessment and plan: S/p dicussion with the [facility] and CM- patient could return on 03/03/25 - Report that patient was DNR/I prior to surgery in 10/2024 -Guardian mother Mrs Luna Davsi ) with whom provider discussed code status this afternoon; stating that she wants everything done to keep Jaquelni alive- discussed intubation , rate of success of CPR being less than 6% after cardiac arrest. Usual process of reversal of DNR/DNI prior top surgical interventions also mentioned. Palliative care consult placed Discussed with Dr. Patterson Subjective Subjective Patient reports: feels better, tolerating liquids well, voiding w/o difficulty, flatus, bowel movement, diarrhea and fever; denies nausea, vomiting or shortness of breath Exam Narrative Exam Narrative: Alert but confused in time and space, no focal neurological deficit, S1, S2 regular, clear lungs, abd is obese, slightly distended not tympanic, semi-firm bowel sound are present, minimal supra-pubic pain on palpation is improving , moves all [address] rectal flex[address] in place patent with sliquid stool this AM , no bleeding seen or reported Objective Last Vital Signs Temp 38.6 C H 03/02/25 12:02 Pulse 91 H 03/02/25 11:14 Resp 17 03/02/25 11:14 BP 120/59 L 03/02/25 11:14 Pulse Ox 91 L 03/02/25 11:14 Laboratory Results - last 24 hr 03/01/25 03/02/25 03/02/25 20:41 05:46 10:29 WBC 7.57 RBC 4.25 Hgb 11.8 Hct 38.2 MCV 90 MCH 27.8 MCHC 30.9 L RDW 16.1 H Plt Count 240 MPV 9.1 Immature Gran % See Differential Neutrophils % 41.0 Band Neutrophils % 6 Lymphocytes % 18.0 Monocytes % 30.0 Eosinophils % 1.0 Basophils % 0.0 Metamyelocytes % 4 Nucleated RBC % 0.0 Absolute Neutrophils 3.56 Absolute Lymphocytes 1.36 Absolute Monocytes 2.27 H Absolute Eosinophils 0.08 Absolute Basophils 0.00 RBC Morphology Normal Sodium 136 Potassium 3.7 Chloride 94 L Carbon Dioxide 34.6 H Anion Gap 7.4 BUN 23 H Creatinine 1.0 Est GFR (CKD-EPI 2020) 63.70 Glucose 126 H Calcium 8.6 Magnesium 2.1 Total Bilirubin 0.4 AST 10 L ALT 12 L Alkaline Phosphatase 95 Total Protein 7.0 Albumin 2.8 L Urine Color Yellow Urine Clarity Clear Urine pH 5.0 Ur Specific [place] 1.010 Urine Protein Trace Urine Ketones Trace H Urine Blood Small H Urine Nitrite Negative Urine Bilirubin Small H Urine Urobilinogen 0.2 Ur Leukocyte Esterase Negative Urine RBC 0-2 Urine WBC 0-2 Ur Epithelial Cells Few Urine Crystals Negative Urine Bacteria Few Urine Casts 0-2 Hyaline Urine Mucus Negative Ur Culture Indicated? No Urine Glucose Negative Add-On Test Request DONE Time Spent with Patient Time Spent with Patient: >50 minutes Time was spent: preparing to see the patient(eg.review tests), obtaining and/or reviewing separately otained hiistory, ordering medications,tests, procedures, referring, communicating with other health care professional, indepentently interpreting results, counseling the patient, care coordination and other
[2025-03-02] MEDS: Acetaminophen 500 MG TAB 1000 MG PO (13:06)
--- NOTE | 2025-03-02 13:21 | PHA.REVIEW2 ---
Pharmacy Admission Review Admission Clinical Review Admission Pharmacy Review: Leukocytosis (Acute) Elevated d-dimer (Acute) Cholelithiasis (Acute) Weston syndrome (Acute) Ileus (Acute) pineapple Allergy (Unverified 08/10/24 09:29) Unknown tomato Allergy (Unverified 08/10/24 09:29) Unknown Resuscitation Status Full Code Height 5 ft 6 in Weight 104.326 kg Comments Comments/Follow Ups: Follow up on home meds if not added Pharmacy Admission Review Renal Dosing Renal Dosing: BUN 23 mg/dL (7-18) H 03/02/25 05:46 Creatinine 1.0 mg/dL (0.55-1.02) 03/02/25 05:46 Medications needing adjustments: Reviewed (CrCl 71.19 mL/min) List of meds needing interventions: Current medications are okay Anticoagulation Anticoagulation: Hgb 11.8 g/dL (11.2-15.7) 03/02/25 05:46 Hct 38.2 % (36.0-46.0) 03/02/25 05:46 Plt Count 240 10^3/uL (130-400) 03/02/25 05:46 Creatinine 1.0 mg/dL (0.55-1.02) 03/02/25 05:46 DVT Prophylaxis: Reviewed Medications: Rivaroxaban (10mg daily) Relevant Labs Relevant Labs: Sodium 136 mmol/L (136-145) 03/02/25 05:46 Potassium 3.7 mmol/L (3.5-5.1) 03/02/25 05:46 Chloride 94 mmol/L (98-107) L 03/02/25 05:46 Magnesium 2.1 mg/dL (1.8-2.4) 03/02/25 05:46 Electrolytes, C-Reactive P, ESR: Reviewed Cardiac Review Cardiac Review: Troponin I 8 ng/L (<or=51) 03/01/25 12:04 Blood Pressure 120/59 1114 Blood Pressure 116/74 0718 Blood Pressure 119/63 0246 BP, HR, EF%: Reviewed (HR 91 and Ox 91) List meds needing interventions: Has order for carvedilol 6.25mg BID QTc Review QTc: Reviewed (444 from 03/01/25) IV to PO Switch IV Medications: Reviewed Home Meds Home Med List reviewed: Intervened Relevent Home Meds Not ordered & why?: atorvastatin, carbamazepine, vitamin D3, furosemide and senna/docusate Spoke to provider regarding atorvastatin, carbamazepine and furosemide - patient was NPO with NG tube this AM but was removed. Provider plans on resuming today Current Meds Current Medication Order Review: Reviewed Comments Comments/Follow Ups: Follow up on home meds if not added
--- NOTE | 2025-03-02 14:39 | CHAPLAIN ---
Maribel was in bed when I visited. She spoke softly. I explained my role. She asked me if I had any children and told me she had a daughter. She asked for some apple juice that I got for her after checking with her nurse. Maribel lives in a local [facility].
[2025-03-02] MEDS: Rivaroxaban 10 MG TABLET PO (16:48)
[2025-03-02] MEDS: Metoclopramide 10 MG TAB PO (16:48)
[2025-03-02] MEDS: Bisacodyl 10 MG SUPP (16:49)
[2025-03-02] MEDS: Pantoprazole 40 MG TABCR PO (16:49)
[2025-03-02 20:06] LABS: EPI 027-NAP1-B1 PRESUMPTIVE NEGATIVE
[2025-03-02] MEDS: Atorvastatin 40 MG TAB 80 MG PO (20:32)
[2025-03-03] MEDS: Metoclopramide 10 MG TAB PO ×2 (06:04→10:29)
[2025-03-03] MEDS: Pantoprazole 40 MG TABCR PO (06:04)
[2025-03-03 06:38] LABS: HCT 33.0 % (36.0-46.0); HGB 10.1 g/dL (11.2-15.7); MCH 27.2 pg (27.0-33.0); MCHC 30.6 % (32.0-36.0); MCV 89 fL (80-95); MPV 9.5 fL (8.0-11.0); Platelet Count 221 10^3/uL (130-400); RBC 3.72 10^6/uL (3.93-5.22); RDW 15.9 % (11.7-14.6); RDW-SD 52.1 fL; WBC 6.06 10^3/uL (4.4-10.8)
[2025-03-03 07:07] LABS: Anion Gap 7.3 mmol/L (3-11); BUN 23 mg/dL (7-18); CO2 32.7 mmol/L (21.0-32.0); Calcium 8.5 mg/dL (8.5-10.1); Chloride 97 mmol/L (98-107); Estimated GFR 83.26 (mL/min/1.73m2); Glucose 120 mg/dL (74-106); Potassium 3.6 mmol/L (3.5-5.1); Sodium 137 mmol/L (136-145)
[2025-03-03 07:25] LABS: Abs Immature Grans 0.00 10^3/uL (0.0-0.06); Anisocytosis 1+; Immature Grans % 0.0 %; Polychromasia Present
[2025-03-03 07:29] VITALS: BP 123/70; PULSE 85; RESP 17; TEMP 36.8; O2SAT 91
[2025-03-03] MEDS: Carvedilol 6.25 MG TAB PO (08:23)
[2025-03-03] MEDS: Desmopressin 0.2 MG TAB 0.1 MG PO (08:23)
[2025-03-03] MEDS: Furosemide 20 MG TAB 40 MG PO (08:23)
[2025-03-03] MEDS: Acetaminophen 500 MG TAB 1000 MG PO (10:28)
--- NOTE | 2025-03-03 10:47 | W.PC.ACHO ---
Registration Status: ADM IN Primary Language: Preferred Language: Amharic ED Information & Data Chief Complaint Abd Prob 03/01/25 13:04 Chief Complaint Abd Prob 03/01/25 10:53 Triage Note pt complaining of abd pain 03/01/25 09:58 for 3days Medical / Surgical History (Last Updated 08/10/24 @ 16:40 by Charlie Callahan MD) Mitral insufficiency Atrial fibrillation GERD (gastroesophageal reflux disease) Astrocytoma Injury of hand, right Diabetes insipidus Hydrocephalus Anemia (Last Updated 08/10/24 @ 16:40 by Charlie Callahan MD) H/O craniotomy Most Recent Vital Signs Temperature 36.8 C 03/03/25 07:29 Temperature Source Temporal Artery Scan 03/03/25 07:29 Pulse 85 03/03/25 07:29 Pulse 112 H 03/01/25 15:32 Respiratory Rate 17 03/03/25 07:29 Respiratory Effort Normal 03/01/25 16:46 Respiratory Depth Normal 03/01/25 16:46 Respiratory Pattern Normal 03/01/25 16:46 Blood Pressure 123/70 03/03/25 07:29 Blood Pressure Mean 87 03/03/25 07:29 Pulse Oximetry 91 L 03/03/25 07:29 Oxygen Delivery Method Room Air 03/03/25 07:29 Oxygen Flow Rate 0 03/03/25 07:29 Pain Level 0 03/03/25 07:29 Comment pt refused to get repositioned for breakfast 03/03/25 07:29 Allergies pineapple Allergy (Unverified 08/10/24 09:29) Unknown tomato Allergy (Unverified 08/10/24 09:29) Unknown Precautions Isolation Fall precaution 03/01/25 13:04 Active Medications Generic Name Dose Route Start Last Admin Trade Name Freq PRN Reason Stop Dose Admin Acetaminophen 1,000 mg 03/02/25 12:34 03/03/25 10:28 Acetaminophen 500 Mg Tab PO 1,000 mg Q6H PRN PRN Administration Atorvastatin Calcium 80 mg 03/02/25 20:00 03/02/25 20:32 Atorvastatin 40 Mg Tab PO 80 mg QPM DAVID Administration Bisacodyl 5 mg 03/02/25 14:00 03/03/25 08:22 Bisacodyl 5 Mg Tabec PO Not Given Q6H DAVID Bisacodyl 10 mg 03/02/25 20:00 03/03/25 08:22 Bisacodyl 10 Mg Supp MA Not Given TID DAVID Carbamazepine 300 mg 03/02/25 20:00 03/03/25 08:23 Carbamazepine-Cr 300 Mg Capcr PO 300 mg BID DAVID Administration Carvedilol 6.25 mg 03/01/25 20:00 03/03/25 08:23 Carvedilol 6.25 Mg Tab PO 6.25 mg BID DAVID Administration Desmopressin Acetate 0.1 mg 03/02/25 08:30 03/03/25 08:23 Desmopressin 0.2 Mg Tab PO 0.1 mg DAILY DAVID Administration Furosemide 40 mg 03/03/25 08:30 03/03/25 08:23 Furosemide 20 Mg Tab PO 40 mg DAILY DAVID Administration Metoclopramide HCl 10 mg 03/02/25 16:30 03/03/25 10:29 Metoclopramide 10 Mg Tab PO 10 mg AC DAVID Administration Pantoprazole Sodium 40 mg 03/02/25 14:35 03/03/25 06:04 Pantoprazole 40 Mg Tabcr PO 40 mg DAILY@0730 DAVID Administration Rivaroxaban 10 mg 03/01/25 17:00 03/02/25 16:48 Rivaroxaban 10 Mg Tablet PO 10 mg DAILY@1700 DAVID Administration Sodium Chloride 0 ml 03/01/25 20:00 03/03/25 08:27 Normal Saline Flush 10 Ml Syr IVP Not Given BID [facility] IV IV Catheter Type [Left Peripheral IV Antecubital] IV Catheter Type [Left Forearm Peripheral IV ] IV Catheter Gauge [Left 20 Antecubital] IV Catheter Gauge [Left 20 Forearm] Diagnostics 03/03/25 03/03/25 03/02/25 Range/Units 09:20 06:06 19:15 WBC 6.06 (4.4-10.8) 10^3/uL RBC 3.72 L (3.93-5.22) 10^6/uL Hgb 10.1 L (11.2-15.7) g/dL Hct 33.0 L (36.0-46.0) % MCV 89 (80-95) fL MCH 27.2 (27.0-33.0) pg MCHC 30.6 L (32.0-36.0) % RDW 15.9 H (11.7-14.6) % Plt Count 221 (130-400) 10^3/uL MPV 9.5 (8.0-11.0) fL Immature Gran % 0.0 % Neutrophils % 49.0 % Band Neutrophils % 18 % Lymphocytes % 18.0 % Atypical Lymphs % 0 % Monocytes % 12.0 % Eosinophils % 3.0 % Basophils % 0.0 % Nucleated RBC % 0.0 (0.0-0.3) % Absolute Neutrophils 4.06 (1.2-6.7) 10^3/uL Absolute Lymphocytes 1.09 L (1.2-3.4) 10^3/uL Absolute Monocytes 0.73 (0.1-0.8) 10^3/uL Absolute Eosinophils 0.18 (0.0-0.7) 10^3/uL Absolute Basophils 0.00 (0.0-0.2) 10^3/uL RBC Morphology See Below Polychromasia Present Anisocytosis 1+ Sodium 137 (136-145) mmol/L Potassium 3.6 (3.5-5.1) mmol/L Chloride 97 L (98-107) mmol/L Carbon Dioxide 32.7 H (21.0-32.0) mmol/L Anion Gap 7.3 (3-11) mmol/L BUN 23 H (7-18) mg/dL Creatinine 0.8 (0.55-1.02) mg/dL Est GFR (CKD-EPI 2020) 83.26 (mL/min/1.73m2) Glucose 120 H (74-106) mg/dL Calcium 8.5 (8.5-10.1) mg/dL Magnesium (1.8-2.4) mg/dL Stool Campylobacter PCR Pending Stl C.difficile Tox PCR Negative (Negative) Stool Salmonella PCR Pending Stool Shigella PCR Pending Shiga Toxin (PCR) Pending 03/02/25 Range/Units 05:46 WBC (4.4-10.8) 10^3/uL RBC (3.93-5.22) 10^6/uL Hgb (11.2-15.7) g/dL Hct (36.0-46.0) % MCV (80-95) fL MCH (27.0-33.0) pg MCHC (32.0-36.0) % RDW (11.7-14.6) % Plt Count (130-400) 10^3/uL MPV (8.0-11.0) fL Immature Gran % % Neutrophils % % Band Neutrophils % % Lymphocytes % % Atypical Lymphs % % Monocytes % % Eosinophils % % Basophils % % Nucleated RBC % (0.0-0.3) % Absolute Neutrophils (1.2-6.7) 10^3/uL Absolute Lymphocytes (1.2-3.4) 10^3/uL Absolute Monocytes (0.1-0.8) 10^3/uL Absolute Eosinophils (0.0-0.7) 10^3/uL Absolute Basophils (0.0-0.2) 10^3/uL RBC Morphology Polychromasia Anisocytosis Sodium (136-145) mmol/L Potassium (3.5-5.1) mmol/L Chloride (98-107) mmol/L Carbon Dioxide (21.0-32.0) mmol/L Anion Gap (3-11) mmol/L BUN (7-18) mg/dL Creatinine (0.55-1.02) mg/dL Est GFR (CKD-EPI 2020) (mL/min/1.73m2) Glucose (74-106) mg/dL Calcium (8.5-10.1) mg/dL Magnesium 2.1 (1.8-2.4) mg/dL Stool Campylobacter PCR Stl C.difficile Tox PCR (Negative) Stool Salmonella PCR Stool Shigella PCR Shiga Toxin (PCR) Intake and Output - 24 Hour Total 03/01/25 09:41 thru 03/03/25 04:28 Intake Total 1720 Output Total 20 Balance 1700 Weight 104.326 kg Intake: IV 1500 Oral 220 Output: Gastric Drainage 20 Right Nare 20 Other: Urine Color Yellow Urine Odor Normal Comment incontinent, mixed with liquid stool Stool Size Large Stool Characteristics Liquid Falls Risk Assessment History of Falls Previous History 03/01/25 16:46 Contributing Factors Confusion,Unstable, 03/01/25 16:46 Impairments,Incontinence, Medications Ambulatory Aids Uses ambulatory device + 03/01/25 16:46 Tubes/Lines With any additional score 03/01/25 16:46 Gait Evaluation W/any additional score 03/01/25 16:46 Cognition Cognitive impairment 03/01/25 13:04 Fall Total Score 100 03/01/25 16:46 Level of Risk Maximum Risk 03/01/25 16:46 Problems (Last Updated 08/10/24 @ 16:40 by Charlie Callahan MD) Discharge planning issues (Acute) Leukocytosis (Acute) Elevated d-dimer (Acute) Cholelithiasis (Acute) Weston syndrome (Acute) Ileus (Acute) v v v v v v v v v Sending and/or Receiving Nurses: Please use comment section below to note any information pertinent to the patient hand-off not included above. Information / Comments: Report received from: Report Given to Le Poe RN at the [facility] at 1041
[2025-03-03] MEDS: Simethicone 80 MG CHEW 40 MG PO (11:20)
--- NOTE | 2025-03-03 11:31 | W.PM.DS.N ---
Date of service: 03/03/25 Time of Service: 11:31 DS: Diagnosis Discharge Diagnosis (1) Ileus: Status: Acute (2) Cholelithiasis: Status: Acute (3) [place] syndrome: Status: Acute (4) GERD (gastroesophageal reflux disease): (5) Atrial fibrillation: (6) Elevated d-dimer: Status: Acute (7) Leukocytosis: Status: Acute (8) Diabetes insipidus: (9) Hydrocephalus: (10) Discharge planning issues: Status: Acute Discharge Plan Disposition [facility] Disposition: [facility]) Condition: Improving Discharge Details Reason For Visit: Ileus Admit Date/Time: 03/01/25 15:18 Admit Provider: Mann Patterson Attending Provider: Mann Patterson Primary Care Provider: Unknown,Unknown Hospital Course Hospital Course: This is a 64-year-old female who resides at a local SNF presenting to the ED for evaluation of nausea, vomiting , abdominal pain, loss of conciousness as per patient not corroborated by staff. ?Her medical history of include ileus, ogilvy's , stroke, history of astrocytoma of the brain, diabetes, atrial fibrillation on DOAC , diabetes insipidus on depression, traumatic brain injury, constipation, left nephrectomy, congenital mitral insufficiency, posttraumatic seizures, vitamin D deficiency, gastroesophageal reflux, obstructive hydrocephalus. Work-up in the ED was positive with ABD and pelvic CT showed distension and fluid throughout the length of the colon and dilated small bowel loop suspicious for ileus; large gallstone w/o evidence of acute cholocystistis. Blood work showed leukocytosis, D-dimer at 3801, Na 133. troponin negative and EKG not showing clear RV strain or coronary occlusion. The patient presented afebrile BP soft with SPB 90's DBP mid 30's to 50's, minimal tachycardia HR in the low 100's improving with IVF in the ED. No increased O2 requirement. The patient was admitted to the medical surgical floor by the hospitalist team for ileus and surgical consultation. NGT placed in the ED. On arrival to the floor the patient had been producing copious liquid stools w/o interventions. Full code status confirmed with patient and guardian / mother Joana Davis-further handling as per her SNF protocol on discharge. Palliative care consultation pending at discharge. Surgery recommended medical management with laxative and determined that the patient had chronic colonic pseudoobstruction, or slow colonic transit with colostomy been probably the simplest way to take care of this a colonic impairment; this was also discussed during last visit when Dr. Shah had performed a decompressive colonoscopy for similar presentation . The patient is hemodynamically stable and afebrile, tolerating enteral intake and moving her bowels. Leukocytosis resolved, C-diff negative, other stool pathoden PCR pending. As per surgery recommendation will continue Biscodyl on discharge; simiethicone added to regimen. Recommendation for outpatient referral to GI/ colorectal at [facility] or [facility]. Discussed with Dr. Gottlieb Home Meds and New Rx's Prescriptions: New acetaminophen 500 mg Tablet 1,000 mg PO Q6H PRN PRNQty: 60 0RF metoclopramide HCl 10 mg Tablet 10 mg PO TID PRNQty: 14 0RF bisacodyl 10 mg Suppository 10 mg PA DAILY Qty: 12 0RF simethicone 80 mg Tablet,Chewable 40 mg PO PC & HS Qty: 60 0RF bisacodyl 5 mg Tablet,Delayed Release (Dr/Ec) 5 mg PO TID Qty: 90 0RF Continued atorvastatin 80 mg Tablet 80 mg PO QHS carvedilol 6.25 mg Tablet 6.25 mg PO BID cholecalciferol (vitamin D3) [Vitamin D3] 25 mcg (1,000 unit) Capsule 2,000 unit PO DAILY carbamazepine 300 mg Capsule, Er Multiphase 12 Hr 300 mg PO BID Xarelto 20 mg Tablet 10 mg PO QPM Rx Instructions: must administer with evening meal desmopressin 0.1 mg Tablet 0.1 mg PO DAILY Qty: 0 0RF furosemide 20 mg tablet 40 mg PO DAILY polyethylene glycol 3350 [ClearLax] 17 gram/dose powder 17 g PO DAILY Held sennosides-docusate sodium [Senexon-S] 8.6-50 mg Tablet 2 tab-cap PO DAILY Hold Instructions: Resume on 03/14/25. Resume as per outpatient provider Discontinued acetaminophen [Pharbetol] 325 mg Tablet 650 mg PO PRN PRN Discharge Instructions Referrals: Unknown,Unknown [Primary Care Provider, Unknown] Referral Note: Follow-up with PCP within 7 days of discharge - Need a GI/ Colorectal referral outpatient to [facility] or [facility] Activity:: As per [employer] Equipment/Supplies:: Marina lift - WC Diet:: As per [employer]- diabetic heart healthy Discharge Orders Discharge Orders: Discharge Order (Routine); Ordered 03/03/25 Ordered By: Val Tyson DS: Summary Time Spent with Patient providing and/or coordinating discharge services: Greater than 30 minutes Status at Discharge Functional status at discharge: wheelchair bound Overall status at discharge: patient is progressing back to baseline Mental Status: mental status grossly normal Speech and Movement: speech and movement normal Mood: congruent mood Affect: normal affect Exam Narrative Exam Narrative: Alert , pleasant with limited ability for ROS,enjoying television, no acute distress or pain ,moist mucus membranes, non-icteric sclera , not oriented to time and space, no focal neurological deficit, S1, S2 regular, clear lungs, abd is obese, non-distended not tympanic, soft bowel sounds are present, no further supra-pubic pain on palpation, moves all 4 ext. Psych Mental Status: mental status grossly normal Speech and Movement: speech and movement normal Mood: congruent mood Affect: normal affect DS: Data Vitals/I&O Vitals and I&O: Vital Signs Temperature 36.8 C 03/03/25 07:29 Temperature Source Temporal Artery Scan 03/03/25 07:29 Pulse 85 03/03/25 07:29 Pulse 112 H 03/01/25 15:32 Respiratory Rate 17 03/03/25 07:29 Respiratory Effort Normal 03/01/25 16:46 Respiratory Depth Normal 03/01/25 16:46 Respiratory Pattern Normal 03/01/25 16:46 Blood Pressure 123/70 03/03/25 07:29 Blood Pressure Mean 87 03/03/25 07:29 Pulse Oximetry 91 L 03/03/25 07:29 Oxygen Delivery Method Room Air 03/03/25 07:29 Oxygen Flow Rate 0 03/03/25 07:29 Pain Level 0 03/03/25 07:29 Comment pt refused to get repositioned for breakfast 03/03/25 07:29 Intake & Output 03/02/25 03/02/25 03/03/25 11:59 23:59 11:59 Intake Total 1100 / 1100 Output Total Balance 1080 / 1080 Intake: IV 1000 / 1000 Oral 100 / 100 Output: Gastric Drainage / Right Nare Other: Comment incontinent, mixed with liquid stool Stool Size Copious Copious Large Stool Characteristics Liquid Liquid Liquid Brown Brown Data Completed and Pending Labs on day of discharge: Labs from last 24 hours 03/03/25 03/03/25 03/02/25 09:20 06:06 19:15 WBC 6.06 RBC 3.72 L Hgb 10.1 L Hct 33.0 L MCV 89 MCH 27.2 MCHC 30.6 L RDW 15.9 H Plt Count 221 MPV 9.5 Immature Gran % 0.0 Neutrophils % 49.0 Band Neutrophils % 18 Lymphocytes % 18.0 Atypical Lymphs % 0 Monocytes % 12.0 Eosinophils % 3.0 Basophils % 0.0 Nucleated RBC % 0.0 Absolute Neutrophils 4.06 Absolute Lymphocytes 1.09 L Absolute Monocytes 0.73 Absolute Eosinophils 0.18 Absolute Basophils 0.00 RBC Morphology See Below Polychromasia Present Anisocytosis 1+ Sodium 137 Potassium 3.6 Chloride 97 L Carbon Dioxide 32.7 H Anion Gap 7.3 BUN 23 H Creatinine 0.8 Est GFR (CKD-EPI 2020) 83.26 Glucose 120 H Calcium 8.5 Stool Campylobacter PCR Pending Stl C.difficile Tox PCR Negative Stool Salmonella PCR Pending Stool Shigella PCR Pending Shiga Toxin (PCR) Pending [facility] All Active Problems (Updated 03/02/25 @ 16:08 by Val Tyson APRN) Discharge planning issues (Acute) Leukocytosis (Acute) Elevated d-dimer (Acute) Cholelithiasis (Acute) Hydronephrosis (Acute) Weston syndrome (Acute) Pyelonephritis (Acute) [place] renal calculus (Acute) Ileus (Acute) Nail dystrophy (Acute) Onychogryphosis (Acute) Medical History (Updated 03/02/25 @ 16:08 by Val Tyson APRN) Mitral insufficiency Atrial fibrillation GERD (gastroesophageal reflux disease) Astrocytoma Injury of hand, right Diabetes insipidus Hydrocephalus Anemia Surgical History (Updated 08/10/24 @ 16:40 by Charlie Callahna MD) H/O craniotomy Social History Smoking/Tobacco Use Status: Former Tobacco Use Smoking risk assessment performed?: Yes Alcohol Intake: never Drug use: Never Substance use type: does not use Housing: longterm Do you feel safe at home: Yes Do you feel safe in your relationship?: Yes Time Spent with Patient Time Spent with Patient: >85 minutes Time was spent: preparing to see the patient(eg.review tests), obtaining and/or reviewing separately otained hiistory, ordering medications,tests, procedures, referring, communicating with other health rn transitional care, indepentently interpreting results, counseling the patient, care coordination and other
--- NOTE | 2025-03-03 13:28 | CMDISCH_ITS ---
Date of service: 03/03/25 Time of Service: 13:29 LACE Index Scoring Tool Questions: Length of Stay (in days): 2 Was the patient admitted via the E.D.?: Yes E.D. Visits: 1 Answers: Total Score: 6 Risk of Readmission: Low Risk Care Management Discharge Plan Reason for Hospitalization: ileus Discharge Plan: Maribel will be discharged back to the [facility] where she resides. She will follow up with facility providers and plan of care and transport via [facility] coordinated by CM. Patient/Family Education Needs: Review discharge instructions, limitations, and discuss Ask Me Three Services Needed at Discharge: Long-Term Facility and Transportation
== END 2025-03-03 12:30 | disposition skilled nursing facility (03) | DRG 389 ==
LOC: ER 16:17 → MS 16:22
PROVIDERS: Admitting Provider Family Medicine; Emergency Provider Student in an Organized Health Care Education/Training Program; Responsible Provider Nurse Practitioner Acute Care; Visit Provider Family Medicine
DX: K56.7 Ileus, unspecified (principal); E23.2 Diabetes insipidus; Q23.3 Congenital mitral insufficiency; K59.81 Ogilvie syndrome; D72.829 Elevated white blood cell count, unspecified; R79.1 Abnormal coagulation profile; K80.20 Calculus of gallbladder without cholecystitis without obstruction; B35.1 Tinea unguium; I48.91 Unspecified atrial fibrillation; K21.9 Gastro-esophageal reflux disease without esophagitis; R00.0 Tachycardia, unspecified; Z79.01 Long term (current) use of anticoagulants; K59.00 Constipation, unspecified; R56.9 Unspecified convulsions; E55.9 Vitamin D deficiency, unspecified; Z90.5 Acquired absence of kidney; R41.0 Disorientation, unspecified; Z66 Do not resuscitate; Z87.820 Personal history of traumatic brain injury
CPT/HCPCS: 00123; 36415; 71045; 80048; 80053; 82805; 83690; 87505; 93005; 96360; 96361; 99285; 74177; 81003; 81015; 83735; 84484; 85025; 85379; 93010; 99223; 99233; 99239; J3490

== ENCOUNTER 2025-03-05 02:02 | Inpatient (IN) | payer MEDICAID, SELFPAY ==
[2025-03-05] VITALS (65 sets, daily range): BP systolic 100–139; BP diastolic 51–68; PULSE 73–92; RESP 16–21; TEMP 36.3–37.1; O2SAT 83–97
--- NOTE | 2025-03-05 02:00 | RT.EKG_ITS ---
APPROVED REPORT Exam: Resting ECG Reason for Exam: Abdominal Pain over 45 Patient Location: E HR:91 bpm ECG Measurements Heart Rate 91 AXIS AK 168 P 19 QRSd 96 QRS 5 QT 356 T 48 QTc 438 Conclusion Sinus rhythm...normal P axis, V-rate 60- [address] segment or wave abnormalities to suggest occlusive MERRITT
--- NOTE | 2025-03-05 02:28 | DI.CT_ITS ---
Exam(s) CT CHEST PE ABD PELVIS W EXAM: CT CHEST PE ABD PELVIS W CLINICAL HISTORY: hypoxia,diffuse abdominal tenderness. TECHNIQUE: Imaging Protocol: Axial CT angiography was performed with multi- slice acquisition and multi-planar and/or 3D reconstructions. Computer aided detection (CAD) was utilized. CONTRAST MATERIAL: Intravenous: Omnipaque 350contrast volume:100 mL COMPARISON: CT CT CHEST/ABD/PEL W from 08/10/[address] ABDOMEN PELVIS W from 03/01/2025 CR XR PORTABLE CHEST AP POST LINE from 03/01/2025 FINDINGS: The examination is limited due to patient motion artifact. CHEST: Tracheobronchial tree: Patent where visualized. No evidence of bronchiectasis. Pulmonary parenchyma: No consolidation or dominant measurable mass. There is dependent atelectasis present. Pulmonary Arteries: Evaluation is compromised by patient motion artifact. Within the limits of the examination, no pulmonary embolism is identified. The main pulmonary arteries and pulmonary trunk compare enlarged suggesting pulmonary artery hypertension. Mediastinum and Le: No dominant adenopathy or fluid collection. The esophagus is unremarkable. Visualized thyroid gland: Unremarkable. Pleura: No effusion or pneumothorax. Heart: Mild cardiomegaly. No coronary artery calcifications are seen. No pericardial effusion. Aorta: Thoracic aorta non-dilated. No evidence of dissection. Mild atherosclerotic calcification is present. Bones: Within normal limits for the patient's age. There is motion artifact seen through the sternum. Soft tissues: Unremarkable. There is again seen a subcutaneous 2 being along the anterior chest wall probably reflecting a ventriculoperitoneal shunt. ABDOMEN: Liver: Normal density. No measurable mass. Portal, Superior Mesenteric, and Splenic Veins: Unremarkable. Gallbladder and Biliary Tract: There is a 3.6 cm gallstone present. There is no biliary ductal dilatation or evidence to suggest acute cholecystitis on the CT examination. Pancreas: Normal density, no abnormal calcifications or inflammatory process. Spleen: Normal. Adrenals: No masses seen. Kidneys: The right kidney is unremarkable. There are few tiny hypodensities in the right kidney which appears stable and likely reflect small cysts. There is no evidence of nephrolithiasis or obstructive uropathy. The left kidney is absent. The scarring/postoperative seroma seen in the left renal fossa appears stable. There are no suspicious right renal masses. Abdominal Aorta: Abdominal portion non-dilated. There is mild atherosclerotic calcification present. Bowel: There are few diverticula seen in the colon but no evidence of acute diverticulitis. There is [id number] wall thickening seen in the distal small bowel and terminal ileum. There is mild infiltration of the surrounding fat. There is no evidence of bowel obstruction. The stomach is incompletely distended limiting evaluation. Fluid-filled loops of large bowel are noted. This can be seen with a diarrheal illness. There is no evidence of appendicitis. There is no evidence of pneumatosis. Peritoneal Cavity: No ascites, collection or mesenteric inflammatory response. No free air. Lymph Nodes: Within normal limits. Bones: Within normal limits for the patient's age. Soft Tissues: There again seen multiple calcifications in the soft tissues over the buttocks which may represent injection granuloma. PELVIS: Bladder: Symmetric distention, no gross wall thickening. There is a small amount of air seen in the dependent portion of the urinary bladder. This may reflect instrumentation/catheterization. Please correlate clinically. Infection should also be considered. Reproductive Organs: Unremarkable as visualized. Lymph Nodes: Within normal limits. Bones: Within normal limits. IMPRESSION: 1. Within the limits of the examination, no large pulmonary embolism is evident. 2. No evidence of thoracic aortic dissection or aneurysm. 3. No acute pulmonary process. 4. Mild to moderate bowel wall thickening seen in the distal small bowel and terminal ileum suspicious for an enteritis/ileitis. 5. Small amount of air seen in the urinary bladder. This may reflect recent catheterization. Please correlate clinically. Infection should be considered. 6. Cholelithiasis without CT evidence to suggest acute cholecystitis. 7. Colonic diverticula without evidence of acute diverticulitis. 8. The preliminary [facility] report was reviewed. RADIATION DOSE DELIVERED: 1,265.6mGy.cm Total DLP DATA REPOSITORY: All CT scans at this facility are submitted to the National Radiology Data Registry (NRDR) Dose Index Registry (DIR) with the [employer] (A[employer]). RADIATION OPTIMIZATION: All CT scans at this facility use at least one of these dose optimization techniques: automated exposure control; mA and/or kV adjustment per patient size (includes targeted exams where dose is matched to clinical indication); or iterative reconstruction.
--- NOTE | 2025-03-05 02:35 | W.ED.GENAD ---
Discharge Plan Disposition Patient Disposition: Admit to [facility] Condition: Serious Discharge Details Clinical Impression: Acute hypoxic respiratory failure, Fever, UTI (urinary tract infection), Ileitis, Abdominal pain Primary Care Provider: Unknown,Unknown ED Provider: Aurora Hubbard Home Meds and New Rx's Prescriptions: No Action atorvastatin 80 mg Tablet 80 mg PO QHS carvedilol 6.25 mg Tablet 6.25 mg PO BID sennosides-docusate sodium [Senexon-S] 8.6-50 mg Tablet 2 tab-cap PO DAILY cholecalciferol (vitamin D3) [Vitamin D3] 25 mcg (1,000 unit) Capsule 2,000 unit PO DAILY carbamazepine 300 mg Capsule, Er Multiphase 12 Hr 300 mg PO BID Xarelto 20 mg Tablet 10 mg PO QPM Rx Instructions: must administer with evening meal desmopressin 0.1 mg Tablet 0.1 mg PO DAILY Qty: 0 0RF furosemide 20 mg tablet 40 mg PO DAILY polyethylene glycol 3350 [ClearLax] 17 gram/dose powder 17 g PO DAILY metoclopramide HCl 10 mg Tablet 10 mg PO TID PRNQty: 14 0RF bisacodyl 10 mg Suppository 10 mg NM DAILY Qty: 12 0RF simethicone 80 mg Tablet,Chewable 40 mg PO PC & HS Qty: 60 0RF bisacodyl 5 mg Tablet,Delayed Release (Dr/Ec) 5 mg PO TID Qty: 90 0RF triamcinolone acetonide 0.025 % ointment 1 applic topical BID acetaminophen 500 mg Tablet 1,000 mg PO TID HPI General Date/Time Provider Initiated Documentation: 03/05/25 02:09. Limitations to Documentation: altered mental status (confused at baseline). Information obtained by: patient, EMS and old records reviewed. HPI Narrative: 64yo F with recent hospital admission for ileus discharged 03/03/25, hx of ogilivies , atrial fibrillation on Xarelto , congenital mitral insufficiency, TBI, posttraumatic seizures, obstructive hydrocephalus, stroke, astrocytoma of the brain,diabetes insipidus on desmopressin, left nephrectomy, vitamin D deficiency, GERD, presenting from the [facility] for abdominal pain. Patient confused at baseline, medical history obtained from [facility] record review including most recent hospital admission HPI and DC summary. EMS reports that patient was c/o abdominal pain to staff this evening, had not had bowel movement since discharge. She was given an enema which was reportedly effect, however she was also newly febrile to 101F and tachycardiac to low 100s; received a gram of tylenol [employer]. It also noted that she was hypoxic to high 80's on room air and she does not have an O2 requirement at baseline. Patient denies any complaints or pain on arrival including shortness of breath, chest pain, or abdominal pain. Hospital course prior to discharge significant for CT concerning for ileus, elevated dimer (though no hypoxia during admission and pt on xaraleto), surgery consult with presentation thought to be 2/t chronic colonic pseudoobstruction. Was discharged with plan for outpatient referral to GI/ colorectal. Related Data Home Medications ?Medication ?Instructions ?Recorded ?Confirmed atorvastatin 80 mg tablet 80 mg PO QHS 08/29/21 03/05/25 carbamazepine 300 mg 300 mg PO BID 08/29/21 03/05/25 capsule,extended release [id number] carvedilol 6.25 mg tablet 6.25 mg PO BID 08/29/21 03/05/25 cholecalciferol (vitamin D3) 25 2,000 unit PO DAILY 08/29/21 03/05/25 mcg (1,000 unit) capsule (Vitamin D3) rivaroxaban 20 mg tablet (Xarelto) 10 mg PO QPM 08/29/21 03/05/25 sennosides 8.6 mg-docusate sodium 2 tab-cap PO DAILY 08/29/21 03/05/25 50 mg tablet (Senexon-S) Held on 03/03/25. Instructions: Resume on 03/14/25. Resume as per outpatient provider desmopressin 0.1 mg tablet 0.1 mg PO DAILY #0 tabs 09/01/21 03/05/25 furosemide 20 mg tablet 40 mg PO DAILY 08/10/24 03/05/25 polyethylene glycol 3350 17 17 g PO DAILY 08/10/24 03/05/25 gram/dose oral powder (ClearLax) bisacodyl 10 mg rectal suppository 10 mg NM DAILY #12 ea 03/03/25 03/05/25 bisacodyl 5 mg tablet,delayed 5 mg PO TID #90 tabs 03/03/25 03/05/25 release metoclopramide HCl 10 mg tablet 10 mg PO TID PRN #14 tabs 03/03/25 03/05/25 simethicone 80 mg chewable tablet 40 mg (1/2 x 80 mg) PO PC & HS #60 03/03/25 03/05/25 tabs acetaminophen 500 mg tablet 1,000 mg PO TID 03/05/25 03/05/25 triamcinolone acetonide 0.025 % 1 applic topical BID 03/05/25 03/05/25 topical ointment Previous Rx's ?Medication ?Instructions ?Recorded desmopressin 0.1 mg tablet 0.1 mg PO DAILY #0 tabs 09/01/21 bisacodyl 10 mg rectal suppository 10 mg NM DAILY #12 ea 03/03/25 bisacodyl 5 mg tablet,delayed 5 mg PO TID #90 tabs 03/03/25 release metoclopramide HCl 10 mg tablet 10 mg PO TID PRN #14 tabs 03/03/25 simethicone 80 mg chewable tablet 40 mg (1/2 x 80 mg) PO PC & HS #60 03/03/25 tabs Allergies Allergy/AdvReac Type Severity Reaction Status Date / Time pineapple Allergy Unknown Unverified 08/10/24 09:29 tomato Allergy Unknown Unverified 08/10/24 09:29 General Stated Complaint: Abd Prob SAEID: 3 Review of Systems All systems reviewed & are unremarkable except as noted in HPI and below Exam Narrative Exam Narrative: General: Alert, non-toxic, obese Head: Normocephalic, atraumatic Neck: Trachea midline, ?Neck supple. ENT: ?MMM.? Cardiac: ?RRR, no murmurs appreciated Resp: No increased WOB. CTAB. Abd: Obese, soft, diffusely TTP with no rebound or guarding. : ?No suprapubic tenderness. Extremities: ?No deformities.? 1+ symmetric BLE edema. Neurologic: GCS 14 (oriented to person). ? Moves all extremities freely against gravity Course Vital Signs Vital signs: Vital Signs Temperature 37.1 C 03/05/25 02:04 Pulse 90 03/05/25 02:04 Respiratory Rate 18 03/05/25 02:04 Blood Pressure 117/56 L 03/05/25 02:04 Pulse Oximetry 91 L 03/05/25 02:04 Temperature 37.1 C 03/05/25 02:11 Temperature Source Oral 03/05/25 02:11 Pulse 90 03/05/25 02:11 Respiratory Rate 18 03/05/25 02:11 Blood Pressure 117/56 L 03/05/25 02:11 Blood Pressure Position Supine 03/05/25 02:11 Pulse Oximetry 91 L 03/05/25 02:11 Oxygen Delivery Method Room Air 03/05/25 02:11 Oxygen Flow Rate 0 03/05/25 02:11 Pain Level 0 03/05/25 02:11 Lab/Test Results Lab/Test Results: 03/05/25 02:28 Blood Blood Culture - Pending 03/05/25 02:28 Blood Blood Culture - Pending Medical Decision Making 64yo F with recent hospital admission for ileus discharged 03/03/25, hx of ogilivies , atrial fibrillation on Xarelto presenting from the [facility] for abdominal pain. Patient confused at baseline and is reportedly at her baseline mental status per EMS/SNF. Medical history obtained from [facility] record review shows hospital admission for ileus with concern for chronic colonic pseudoobstruction. She was discharged with plan for outpatient referral to GI/colorectal. Of note, had elevated dimer during hospital admission but with no hypoxia and already on xareleto did not get CTA. Presents today from [facility] for abdominal pain, fever to 101F, tachycardia to low 100's, and new O2 requirement of 2L NC (desats to high 80's on room air). Patient denies complaints on arrival. Vital signs reassuring on arrival, she does continue to require supplemental O2 to maintain sat >92%. Diffuse abdominal tenderness on exam with no peritoneal signs. Given limited ability to elicit history from patient, will workup broadly for fever/hypoxia/abd pain and treat empirically with broad spectrum abx while awaiting results of workup. Appears somewhat volume out on exam and will be getting volume along with abx infusion; will hold off on additional IVF at this time. Ed course: -EKG on arrival SR, appropriate intervals, no ST segment or T wave abnormalities to suggest occlusive [place]. -Labs reviewed as below, CBC with no leukocytosis, anemia at 9.6 (appears somewhat chronic on [facility] record review), CMP with no actionable abnormalities, Mg normal, VBG reassuring with no acidosis or significant hypercapnea,, lactate normal, lipase not suggestive of pancreatitis, BNP mildly elevated at 619 which is new for patient concerning for possible mild CHF, troponin reassuring at 9 with one hour repeat of 8. -Blood and urine cultures sent. UA suggestive of infection with +nitrate, WBC, bacteria. Respiratory viral swab negative for covid & flu. -CTA chest independently reviewed; no large saddle embolus or pneumothorax or focal pneumonia or pulmonary edema on my view, radiology read suggestive of pulmonary hypertension with no large PE but limited evaluation d/t motion artifcact. -CT abd/pelvis independently reviewed; no obstruction or free fluid on my view, radiology read with concern for ileitis. On reassessment she remains non-toxic with reassuring vital signs, abdomen does remain diffusely tender. She is on both desmopressin (for DI) and lasix (I am unclear why). Given her mild hypoxia, elevated BNP, ? pulmonary hypertension on CT, and appears somewhat volume up on exam will try 40mg of IV lasix and see if helps with hypoxia (though no clear pulmonary edema on CT scan). PO potassium ordered as well d/t borderline hypokalemia at 3.4. In terms of her fever and tachycardia prior to arrival, infectious workup has been significant for UTI and ileitis (unknown etiology,?infectious). Has received zosyn and zyvox Discussed with [facility] hospitalist Dr. Tapia; pt accepted to medicine service for further workup and management. Awaiting admission orders and transfer to the floor. IMPRESSION: 1. No active disease is seen in the chest. 2. Enlarged pulmonary trunk and main pulmonary arteries suggesting pulmonary hypertension. IMPRESSION: 1. Long segment distal and terminal ileitis with fat stranding in the adjacent mesentery. Infectious or inflammatory causes would be favored although clinical correlation is recommended. 2. Fluid throughout the colon suggesting diarrhea. No evidence of diverticulitis or colitis. 3. Prior left nephrectomy with redemonstration of a postop fluid collection in the surgical bed. 4. Large 2.4 cm x 4.0 cm gallstone. No biliary dilatation. PFSH All Active Problems (Updated 03/05/25 @ 05:38 by Aurora Hubbard MD) Abdominal pain (Acute) Ileitis (Acute) UTI (urinary tract infection) (Acute) Fever (Acute) Acute hypoxic respiratory failure (Acute) Cholelithiasis (Acute) Hydronephrosis (Acute) Pyelonephritis (Acute) Staghorn renal calculus (Acute) Nail dystrophy (Acute) Onychogryphosis (Acute) Medical History (Updated 03/05/25 @ 05:38 by Aurora Hubbard MD) Elevated d-dimer Weston syndrome Mitral insufficiency Atrial fibrillation GERD (gastroesophageal reflux disease) Astrocytoma Injury of hand, right Diabetes insipidus Hydrocephalus Anemia Surgical History (Updated 08/10/24 @ 16:40 by Charlie Callahan MD) H/O craniotomy Social History Smoking/Tobacco Use Status: Former Tobacco Use Smoking risk assessment performed?: Yes Alcohol Intake: never Drug use: Never Substance use type: does not use Housing: [facility] Do you feel safe at home: Yes Do you feel safe in your relationship?: Yes
[2025-03-05 02:42] LABS: BE (Venous) 9 mmol/L (-2-3); HCO3 (Venous) 33 mmol/L (23-28); O2 Sat (Venous) 92 %; TCO2 (Venous) 31 mmol/L (24-29); pCO2 (Venous) 52 mmHg (41-51); pO2 (Venous) 65 mmHg
[2025-03-05 02:44] LABS: Abs Immature Grans 0.16 10^3/uL (0.0-0.06); HCT 31.6 % (36.0-46.0); HGB 9.6 g/dL (11.2-15.7); MCH 27.1 pg (27.0-33.0); MCHC 30.4 % (32.0-36.0); MCV 89 fL (80-95); MPV 9.5 fL (8.0-11.0); Platelet Count 218 10^3/uL (130-400); RBC 3.54 10^6/uL (3.93-5.22); RDW 15.9 % (11.7-14.6); RDW-SD 52.2 fL; WBC 5.80 10^3/uL (4.4-10.8)
[2025-03-05] MEDS: PIPERACILLIN/TAZO 3.375 GM in Normal Saline 50 ML IVPB (02:45)
[2025-03-05 03:04] LABS: ALT 11 U/L (14-59); AST 8 U/L (15-37); Albumin 2.4 g/dL (3.4-5.0); Alkaline Phosphatase 70 U/L (46-116); Anion Gap 4.0 mmol/L (3-11); BUN 20 mg/dL (7-18); Bilirubin, Total 0.3 mg/dL (0.2-1.0); CO2 35.0 mmol/L (21.0-32.0); Calcium 8.3 mg/dL (8.5-10.1); Chloride 99 mmol/L (98-107); Estimated GFR 72.28 (mL/min/1.73m2); Glucose 121 mg/dL (74-106); Magnesium 2.0 mg/dL (1.8-2.4); NT-proBNP 619 pg/mL (<300); Potassium 3.4 mmol/L (3.5-5.1); Sodium 138 mmol/L (136-145); Total Protein 6.5 g/dL (6.4-8.2); Troponin I 9 ng/L (<or=51)
[2025-03-05 03:10] LABS: Lipase 16 U/L (<78)
[2025-03-05 03:20] LABS: COVID-19 PCR Negative (Negative); RSV PCR Negative (Negative)
[2025-03-05] MEDS: LINEZOLID 600 MG/300 ML BAG 300 MG IVPB (03:32)
[2025-03-05 03:37] LABS: Glucose Negative (Negative)
[2025-03-05] MEDS: Omnipaque 350 MG/ML 100 ML BTL IJ (03:42)
[2025-03-05] MEDS: Normal Saline Flush 10 ML SYR IVP (03:43)
[2025-03-05] MEDS: Normal Saline - Diluent 50 ML VIAL IJ (03:43)
--- NOTE | 2025-03-05 03:56 | DI.VRAD_ITS ---
PROCEDURE INFORMATION: Exam: CTA Chest With Contrast Exam date and time: 03/05/2025 3:15 AM Age: 64 years old Clinical indication: Hypoxia, diffuse abdominal tenderness TECHNIQUE: Imaging protocol: Computed tomographic angiography of the chest with contrast. Exam focused on the arteries. Radiation optimization: All CT scans at this facility use at least one of these dose optimization techniques: automated exposure control; mA and/or kV adjustment per patient size (includes targeted exams where dose is matched to clinical indication); or iterative reconstruction. Contrast material: OMNIPAQUE 350; Contrast volume: 100 ml; Contrast route: INTRAVENOUS (IV); COMPARISON: CT CHEST/ABD/PEL W 08/10/2024 10:50 AM FINDINGS: Tubes, catheters and devices: Tunneled catheter in the subcutaneous fat of the anterior chest wall, presumably a ventriculoperitoneal shunt catheter. Pulmonary arteries: Enlarged pulmonary trunk and main pulmonary arteries suggesting pulmonary hypertension. Within the limits of 5 mm slice thickness, no large central pulmonary embolism is demonstrated in the pulmonary trunk or main pulmonary arteries. The segmental and distal pulmonary arteries are not adequately evaluated for diagnosis or exclusion of pulmonary emboli at 5 mm slice thickness, particularly given the extent of artifact from breathing motion. Aorta: No thoracic aortic aneurysm or dissection. Thyroid: Thyroid gland partially excluded from view but grossly unremarkable through its visualized portion. Lungs: Mild dependent atelectasis. No pulmonary consolidation. Pleural spaces: No pleural effusion or pneumothorax. Heart: Cardiomegaly. Coronary artery calcification. Fatty infiltration of the interatrial septum with a septal thickness of 1.8 cm. Lymph nodes: No pathologically enlarged mediastinal or hilar lymph nodes. Bones/joints: No acute fracture seen among the bones of the chest. Spinal degenerative change with anterior osteophytes at several levels. Soft tissues: No gross soft tissue mass or fluid collection seen in the chest wall. IMPRESSION: 1. No active disease is seen in the chest. 2. Enlarged pulmonary trunk and main pulmonary arteries suggesting pulmonary hypertension. PROCEDURE INFORMATION: Exam: CT Abdomen And Pelvis With Contrast Exam date and time: 03/05/2025 3:15 AM Age: 64 years old Clinical indication: Hypoxia, diffuse abdominal tenderness TECHNIQUE: Imaging protocol: Computed tomography of the abdomen and pelvis with contrast. Radiation optimization: All CT scans at this facility use at least one of these dose optimization techniques: automated exposure control; mA and/or kV adjustment per patient size (includes targeted exams where dose is matched to clinical indication); or iterative reconstruction. Contrast material: OMNIPAQUE 350; Contrast volume: 100 ml; Contrast route: INTRAVENOUS (IV); COMPARISON: CT ABDOMEN PELVIS W 03/01/2025 12:13 PM FINDINGS: Tubes, catheters and devices: Subcutaneously tunneled catheter in the left upper quadrant abdominal wall extending into the peritoneal cavity, presumably a ventriculoperitoneal shunt catheter. No associated fluid collection. Liver: Normal appearing liver. Gallbladder and biliary ducts: Moderate gallbladder distention. 2.4 cm x 4.0 cm gallstone, image 38 of series 22. No biliary dilatation. Pancreas: Normal appearing pancreas. Spleen: Normal appearing spleen. Adrenal glands: Normal-appearing right adrenal gland. Left adrenal gland not confidently identified. Surgical material in the expected location of the adrenal gland. Prior adrenalectomy or partial adrenalectomy? Correlation with surgical history recommended. Kidneys and ureters: Normal right renal morphology. Small indeterminate right renal lesions, not well characterized but statistically most likely small cysts. No obstructing ureteral stones or hydronephrosis. Prior left nephrectomy with a 1.9 cm x 4.0 cm fluid collection in the surgical bed on image 40 of series 22, also present on the recent comparison exam from March 01, 2025, presumably a postop collection/seroma. Stomach and bowel: No oral contrast. Stomach largely decompressed. No small bowel dilatation to suggest obstruction. Prominent mural thickening through the distal and terminal ileum with adjacent hazy mesenteric fat crowding suggesting acute ileitis. Colon largely well evacuated of fecal material. Fluid and gas throughout the colon suggesting diarrhea. No evidence of diverticulitis or colitis. Appendix: Normal appendix. Intraperitoneal space: No gross ascites or free air. Vasculature: Normal caliber abdominal aorta. Lymph nodes: No pathologically enlarged mesenteric, retroperitoneal, or pelvic sidewall lymph nodes. Urinary bladder: Urinary bladder partially distended. Gas in the bladder lumen, nonspecific but commonly seen after recent bladder catheterization. Correlation with procedure history recommended. Reproductive: Uterus and ovaries not well evaluated but normal in size. Bones/joints: No acute fracture seen among the bones of the abdomen or pelvis. Soft tissues: Coarse subcutaneous calcifications in the buttocks bilaterally, nonspecific but suspicious for dystrophic calcifications in the setting of old fat necrosis from prior trauma or injection granulomas. Diastasis recti. Small fat containing right inguinal region hernia. IMPRESSION: 1. Long segment distal and terminal ileitis with fat stranding in the adjacent mesentery. Infectious or inflammatory causes would be favored although clinical correlation is recommended. 2. Fluid throughout the colon suggesting diarrhea. No evidence of diverticulitis or colitis. 3. Prior left nephrectomy with redemonstration of a postop fluid collection in the surgical bed. 4. Large 2.4 cm x 4.0 cm gallstone. No biliary dilatation. Dictated and Authenticated by: Pavel Bacon MD. Orderin Haydee Simon MD
[2025-03-05 04:07] LABS: Troponin I 8 ng/L (<or=51)
[2025-03-05] MEDS: Furosemide 40 MG/4 ML VIAL IVP (04:26)
[2025-03-05] MEDS: Potassium Chloride Liquid 20 MEQ PKT PO (04:26)
[2025-03-05 05:42] LABS: Troponin I 8 ng/L (<or=51)
--- NOTE | 2025-03-05 05:42 | W.PM.HP.N ---
Date of service: 03/05/25 Time of Service: 05:42 Assessment and Plan Assessment and plan (1) Ileitis: Status: Acute Assessment and plan: will add cipro and monitor for improvements (2) Abdominal pain: Status: Acute Assessment and plan: Could be due to ileitis or her other bowel problems which preclude Lansing syndrome recent ileus and potential gastroparesis (3) UTI (urinary tract infection): Status: Acute Assessment and plan: Reviewing old culture results she does have results from E. coli which indicate sensitivity to Cipro so we will continue with this (4) Atrial fibrillation: Assessment and plan: Patient is on Xarelto as well as rate control continue with this (5) Respiratory distress: Status: Acute Assessment and plan: This does appear to be a somewhat new problem I have added inhalers as well as prednisone. At this point there is no indication that she has a pneumonia but certainly in the differential. Consider an outpatient pulmonary function test. History of Present Illness History of Present Illness Chief Complaint: abdominal pain Narrative: This is a 64-year-old female who was recently discharged from the hospital 2 days ago. At that time she was admitted for an ileus among her other medical problems. Patient complained of abdominal pain while she was at the longterm facility was brought into the ED for further evaluation and treatment. While she was in the ED workup was indicative of a urinary tract infection and the patient also was noted to have a new oxygen requirement. The patient was not willing to discuss her case with me and would not even open her eyes upon my interview this morning. Laboratory data shows anemia with a hemoglobin of 9.6 hematocrit 31, negative troponins x 2, BNP of 619, mild hypokalemia, and elevated BUN to creatinine ratio 20/49, negative viral panel, UA consistent with a UTI. In terms of radiographic data a chest abdomen and pelvis CT did not show any active disease in the chest. There was mention of a long segment distal terminal ileitis with fat stranding in the adjacent mesentery but infectious versus inflammatory causes of nephrectomy and a large gallstone of 2.4 x 4[address] scan from 01 March there was mention of ileus versus a possible distal colonic lesion. In reviewing her chart it appears she did have a decompressive colonoscopy recently. Patient was noted to have as mentioned new oxygen requirement at 3 L nasal Review of Systems Unobtainable due to mental status PFSH All Active Problems (Updated 03/05/25 @ 05:51 by Pito Tapia MD) Respiratory distress (Acute) Abdominal pain (Acute) Ileitis (Acute) UTI (urinary tract infection) (Acute) Fever (Acute) Acute hypoxic respiratory failure (Acute) Cholelithiasis (Acute) Hydronephrosis (Acute) Pyelonephritis (Acute) Staghorn renal calculus (Acute) Nail dystrophy (Acute) Onychogryphosis (Acute) Medical History (Updated 03/05/25 @ 05:51 by Pito Tapia MD) Elevated d-dimer Weston syndrome Mitral insufficiency Atrial fibrillation GERD (gastroesophageal reflux disease) Astrocytoma Injury of hand, right Diabetes insipidus Hydrocephalus Anemia Surgical History (Updated 08/10/24 @ 16:40 by Charlie Callahan MD) H/O craniotomy Social History Smoking/Tobacco Use Status: Former Tobacco Use Smoking risk assessment performed?: Yes Alcohol Intake: never Drug use: Never Substance use type: does not use Housing: correction Do you feel safe at home: Yes Do you feel safe in your relationship?: Yes Meds Allergies and Home Medications Allergies Allergy/AdvReac Type Severity Reaction Status Date / Time pineapple Allergy Unknown Unverified 08/10/24 09:29 tomato Allergy Unknown Unverified 08/10/24 09:29 Home Medications ?Medication ?Instructions ?Recorded ?Confirmed ?Type atorvastatin 80 mg tablet 80 mg PO QHS 08/29/21 03/05/25 History carbamazepine 300 mg 300 mg PO BID 08/29/21 03/05/25 History capsule,extended release [id number] carvedilol 6.25 mg tablet 6.25 mg PO BID 08/29/21 03/05/25 History cholecalciferol (vitamin D3) 25 2,000 unit PO DAILY 08/29/21 03/05/25 History mcg (1,000 unit) capsule (Vitamin D3) rivaroxaban 20 mg tablet (Xarelto) 10 mg PO QPM 08/29/21 03/05/25 History sennosides 8.6 mg-docusate sodium 2 tab-cap PO DAILY 08/29/21 03/05/25 History 50 mg tablet (Senexon-S) Held on 03/03/25. Instructions: Resume on 03/14/25. Resume as per outpatient provider desmopressin 0.1 mg tablet 0.1 mg PO DAILY #0 tabs 09/01/21 03/05/25 Rx furosemide 20 mg tablet 40 mg PO DAILY 08/10/24 03/05/25 History polyethylene glycol 3350 17 17 g PO DAILY 08/10/24 03/05/25 History gram/dose oral powder (ClearLax) bisacodyl 10 mg rectal suppository 10 mg NC DAILY #12 ea 03/03/25 03/05/25 Rx bisacodyl 5 mg tablet,delayed 5 mg PO TID #90 tabs 03/03/25 03/05/25 Rx release metoclopramide HCl 10 mg tablet 10 mg PO TID PRN #14 tabs 03/03/25 03/05/25 Rx simethicone 80 mg chewable tablet 40 mg (1/2 x 80 mg) PO PC & HS #60 03/03/25 03/05/25 Rx tabs acetaminophen 500 mg tablet 1,000 mg PO TID 03/05/25 03/05/25 History triamcinolone acetonide 0.025 % 1 applic topical BID 03/05/25 03/05/25 History topical ointment Exam Narrative Exam Narrative: HEENT-normocephalic atraumatic mucous membranes moist nasal cannula in place Neck-no lymphadenopathy no JVD no thyromegaly Cardiovascular-ir/ir no murmur rubs gallops Lungs-bilateral expiratory wheeze no accessory muscle use noted Abdomen-protuberant bowel sounds decreased x 4 quadrants Extremities-significant onychomycosis but also 1+ lower extremity edema Neurologic cannot be assessed Psych cannot be assessed Results Labs 03/05/25 02:13 03/05/25 02:13 Labs: Laboratory Results - last 24 hr 03/05/25 03/05/25 03/05/25 02:13 02:37 02:49 WBC 5.80 RBC 3.54 L Hgb 9.6 L Hct 31.6 L MCV 89 MCH 27.1 MCHC 30.4 L RDW 15.9 H Plt Count 218 MPV 9.5 Immature Gran % See Differential Neutrophils % 51.0 Band Neutrophils % 1 Lymphocytes % 22.0 Atypical Lymphs % 2 Monocytes % 21.0 Eosinophils % 0.0 Basophils % 0.0 Metamyelocytes % 2 Myelocytes % 1 Nucleated RBC % 0.0 Absolute Neutrophils 3.02 Absolute Lymphocytes 1.39 Absolute Monocytes 1.22 H Absolute Eosinophils 0.00 Absolute Basophils 0.00 VBG pH 7.42 H VBG pCO2 52 H VBG pO2 65 VBG HCO3 33 H VBG Total CO2 31 H VBG O2 Saturation 92 VBG Base Excess 9 H VBG Lactate 0.5 Sodium 138 Potassium 3.4 L Chloride 99 Carbon Dioxide 35.0 H Anion Gap 4.0 BUN 20 H Creatinine 0.9 Est GFR (CKD-EPI 2020) 72.28 Glucose 121 H Calcium 8.3 L Magnesium 2.0 Total Bilirubin 0.3 AST 8 L ALT 11 L Alkaline Phosphatase 70 Troponin I 9 NT-Pro-B Natriuret Pep 619 H Total Protein 6.5 Albumin 2.4 L Lipase 16 Urine Color Yellow Urine Clarity Sl Cloudy Urine pH 6.0 Ur Specific [place] 1.020 Urine Protein 100 H Urine Ketones Trace H Urine Blood Small H Urine Nitrite Positive H Urine Bilirubin Moderate H Urine Urobilinogen 0.2 Ur Leukocyte Esterase Trace H Urine RBC 3-5 H Urine WBC 10-20 H Ur Epithelial Cells Few Urine Crystals Negative Urine Bacteria Moderate Urine Casts Negative Urine Mucus Moderate Ur Culture Indicated? C&S Done As Ordered Urine Glucose Negative COVID-19 Source Nasopharynx SARS-CoV-2 (PCR) Negative Influenza Type A (PCR) Negative Influenza Type B (PCR) Negative RSV (PCR) Negative 03/05/25 03:32 WBC RBC Hgb Hct MCV MCH MCHC RDW Plt Count MPV Immature Gran % Neutrophils % Band Neutrophils % Lymphocytes % Atypical Lymphs % Monocytes % Eosinophils % Basophils % Metamyelocytes % Myelocytes % Nucleated RBC % Absolute Neutrophils Absolute Lymphocytes Absolute Monocytes Absolute Eosinophils Absolute Basophils VBG pH VBG pCO2 VBG pO2 VBG HCO3 VBG Total CO2 VBG O2 Saturation VBG Base Excess VBG Lactate Sodium Potassium Chloride Carbon Dioxide Anion Gap BUN Creatinine Est GFR (CKD-EPI 2020) Glucose Calcium Magnesium Total Bilirubin AST ALT Alkaline Phosphatase Troponin I 8 NT-Pro-B Natriuret Pep Total Protein Albumin Lipase Urine Color Urine Clarity Urine pH Ur Specific [place] Urine Protein Urine Ketones Urine Blood Urine Nitrite Urine Bilirubin Urine Urobilinogen Ur Leukocyte Esterase Urine RBC Urine WBC Ur Epithelial Cells Urine Crystals Urine Bacteria Urine Casts Urine Mucus Ur Culture Indicated? Urine Glucose COVID-19 Source SARS-CoV-2 (PCR) Influenza Type A (PCR) Influenza Type B (PCR) RSV (PCR) Last Vital Signs Temp 37.1 C 03/05/25 02:11 Pulse 79 03/05/25 05:31 Resp 18 03/05/25 05:31 BP 131/62 03/05/25 05:31 Pulse Ox 96 03/05/25 05:31 Time Spent Time spent with Patient: 40-54 minutes Time was spent: preparing to see the patient(eg.review tests), obtaining and/or reviewing separately otained hiistory, ordering medications,tests, procedures, referring, communicating with other health child care aide, indepentently interpreting results, counseling the patient and care coordination
[2025-03-05] MEDS: AZITHROMYCIN 500 MG in Normal Saline 250 ML 250 MG IVPB (06:15)
--- NOTE | 2025-03-05 06:24 | NUR.NOTE ---
Nursing Note: Update given to Sherly, nurse from the [facility]. Updated on plan of care including admission. Sherly had spoken with Luna (pt's mother) upon transfer to ED. Sherly aware Luna will be contacted regarding admission to [facility] as well. Pending admission for change of shift when beds become available.
--- NOTE | 2025-03-05 06:56 | W.PC.ACHO ---
Registration Status: REG ER Primary Language: Preferred Language: Polish ED Information & Data Chief Complaint Abd Prob 03/05/25 02:49 Triage Note BIBA from [facility], recent 03/05/25 02:04 inpatient stay thurs-sat for ileus and constipation. C/o abdominal pain tonight to staff. Fidel gave enema and had a large BM. Fidel also gave tylenol. Normally does not require oxygen, sats in high 80s on RA. improved to 94% on 2L. Temp 101.9 by EMS . Confused at baseline. [facility] staff reports pt is at her baseline. Pt has no complaints on arrival. Medical / Surgical History (Last Updated 08/10/24 @ 16:40 by Charlie Callahan MD) Elevated d-dimer Weston syndrome Mitral insufficiency Atrial fibrillation GERD (gastroesophageal reflux disease) Astrocytoma Injury of hand, right Diabetes insipidus Hydrocephalus Anemia (Last Updated 08/10/24 @ 16:40 by Charlie Callahan MD) H/O craniotomy Most Recent Vital Signs Temperature 37.0 C 03/05/25 05:45 Temperature Source Temporal Artery Scan 03/05/25 05:45 Pulse 78 03/05/25 06:16 Pulse 80 03/05/25 06:16 Respiratory Rate 18 03/05/25 06:16 Respiratory Depth Normal 03/05/25 05:45 Respiratory Pattern Normal 03/05/25 05:45 Blood Pressure 139/68 03/05/25 06:16 Blood Pressure Mean 87 03/05/25 06:16 Blood Pressure Position Supine 03/05/25 02:11 Pulse Oximetry 96 03/05/25 06:16 Oxygen Delivery Method Nasal Cannula 03/05/25 05:45 Oxygen Flow Rate 0 03/05/25 02:11 Pain Level 0 03/05/25 02:11 Allergies pineapple Allergy (Unverified 08/10/24 09:29) Unknown tomato Allergy (Unverified 08/10/24 09:29) Unknown Precautions Isolation Standard precaution 03/05/25 02:09 Active Medications Generic Name Dose Route Start Last Admin Trade Name Freq PRN Reason Stop Dose Admin Azithromycin 500 mg/ Sodium 250 mls @ 250 mls/hr 03/05/25 05:45 03/05/25 06:15 Chloride IVPB 250 mls/hr Q24H DAVID Administration Iohexol 100 ml 03/05/25 03:00 03/05/25 03:42 Omnipaque 350 Mg/Ml 100 Ml Btl IJ 04/04/25 23:59 100 ml DIRECTED DAVID Administration Sodium Chloride 50 ml 03/05/25 03:00 03/05/25 03:43 Normal Saline - Diluent 50 Ml Vial IJ 50 ml DIRECTED DAVID Administration Sodium Chloride 0 ml 03/05/25 02:53 03/05/25 03:43 Normal Saline Flush 10 Ml Syr IVP 10 ml PRN PRN Administration IV IV Catheter Type [Left Forearm Peripheral IV ] IV Catheter Type [Right Peripheral IV Antecubital] IV Catheter Gauge [Left 18 Forearm] IV Catheter Gauge [Right 20 Antecubital] Diet Orders Category Date Time Status Regular/Normal [DIET] Nutrition 03/05/25 Breakfast Active Diagnostics 03/05/25 03/05/25 03/05/25 Range/Units 05:14 03:32 02:49 WBC (4.4-10.8) 10^3/uL RBC (3.93-5.22) 10^6/uL Hgb (11.2-15.7) g/dL Hct (36.0-46.0) % MCV (80-95) fL MCH (27.0-33.0) pg MCHC (32.0-36.0) % RDW (11.7-14.6) % Plt Count (130-400) 10^3/uL MPV (8.0-11.0) fL Immature Gran % Neutrophils % % Band Neutrophils % % Lymphocytes % % Atypical Lymphs % % Monocytes % % Eosinophils % % Basophils % % Metamyelocytes % Myelocytes % Nucleated RBC % (0.0-0.3) % Absolute Neutrophils (1.2-6.7) 10^3/uL Absolute Lymphocytes (1.2-3.4) 10^3/uL Absolute Monocytes (0.1-0.8) 10^3/uL Absolute Eosinophils (0.0-0.7) 10^3/uL Absolute Basophils (0.0-0.2) 10^3/uL VBG pH (7.31-7.41) VBG pCO2 (41-51) mmHg VBG pO2 mmHg VBG HCO3 (23-28) mmol/L VBG Total CO2 (24-29) mmol/L VBG O2 Saturation % VBG Base Excess (-2-3) mmol/L VBG Lactate (<or=2.0) mmol/L Sodium (136-145) mmol/L Potassium (3.5-5.1) mmol/L Chloride (98-107) mmol/L Carbon Dioxide (21.0-32.0) mmol/L Anion Gap (3-11) mmol/L BUN (7-18) mg/dL Creatinine (0.55-1.02) mg/dL Est GFR (CKD-EPI 2020) (mL/min/1.73m2) Glucose (74-106) mg/dL Calcium (8.5-10.1) mg/dL Magnesium (1.8-2.4) mg/dL Total Bilirubin (0.2-1.0) mg/dL AST (15-37) U/L ALT (14-59) U/L Alkaline Phosphatase (46-116) U/L Troponin I 8 8 (<or=51) ng/L NT-Pro-B Natriuret Pep (<300) pg/mL Total Protein (6.4-8.2) g/dL Albumin (3.4-5.0) g/dL Lipase (<78) U/L Urine Color Yellow (Yellow) Urine Clarity Sl Cloudy (Clear) Urine pH 6.0 (5-8) Ur Specific [place] 1.020 (1.005-1.025) Urine Protein 100 H (Neg-Trace) mg/dL Urine Ketones Trace H (Negative) mg/dL Urine Blood Small H (Negative) Urine Nitrite Positive H (Negative) Urine Bilirubin Moderate H (Negative) Urine Urobilinogen 0.2 (Up to 0.2) mg/dL Ur Leukocyte Esterase Trace H (Negative) Urine RBC 3-5 H (0-2) HPF Urine WBC 10-20 H (0-5) HPF Ur Epithelial Cells Few (Negative) HPF Urine Crystals Negative (Negative) HPF Urine Bacteria Moderate (Negative) HPF Urine Casts Negative (Negative) LPF Urine Mucus Moderate (Negative) Ur Culture Indicated? C&S Done As Ordered Urine Glucose Negative (Negative) mg/dL COVID-19 Source SARS-CoV-2 (PCR) (Negative) Influenza Type A (PCR) (Negative) Influenza Type B (PCR) (Negative) RSV (PCR) (Negative) 10/06/25 10/06/25 Range/Units 02:37 02:13 WBC 5.80 (4.4-10.8) 10^3/uL RBC 3.54 L (3.93-5.22) 10^6/uL Hgb 9.6 L (11.2-15.7) g/dL Hct 31.6 L (36.0-46.0) % MCV 89 (80-95) fL MCH 27.1 (27.0-33.0) pg MCHC 30.4 L (32.0-36.0) % RDW 15.9 H (11.7-14.6) % Plt Count 218 (130-400) 10^3/uL MPV 9.5 (8.0-11.0) fL Immature Gran % See Differential Neutrophils % 51.0 % Band Neutrophils % 1 % Lymphocytes % 22.0 % Atypical Lymphs % 2 % Monocytes % 21.0 % Eosinophils % 0.0 % Basophils % 0.0 % Metamyelocytes % 2 Myelocytes % 1 Nucleated RBC % 0.0 (0.0-0.3) % Absolute Neutrophils 3.02 (1.2-6.7) 10^3/uL Absolute Lymphocytes 1.39 (1.2-3.4) 10^3/uL Absolute Monocytes 1.22 H (0.1-0.8) 10^3/uL Absolute Eosinophils 0.00 (0.0-0.7) 10^3/uL Absolute Basophils 0.00 (0.0-0.2) 10^3/uL VBG pH 7.42 H (7.31-7.41) VBG pCO2 52 H (41-51) mmHg VBG pO2 65 mmHg VBG HCO3 33 H (23-28) mmol/L VBG Total CO2 31 H (24-29) mmol/L VBG O2 Saturation 92 % VBG Base Excess 9 H (-2-3) mmol/L VBG Lactate 0.5 (<or=2.0) mmol/L Sodium 138 (136-145) mmol/L Potassium 3.4 L (3.5-5.1) mmol/L Chloride 99 (98-107) mmol/L Carbon Dioxide 35.0 H (21.0-32.0) mmol/L Anion Gap 4.0 (3-11) mmol/L BUN 20 H (7-18) mg/dL Creatinine 0.9 (0.55-1.02) mg/dL Est GFR (CKD-EPI 2020) 72.28 (mL/min/1.73m2) Glucose 121 H (74-106) mg/dL Calcium 8.3 L (8.5-10.1) mg/dL Magnesium 2.0 (1.8-2.4) mg/dL Total Bilirubin 0.3 (0.2-1.0) mg/dL AST 8 L (15-37) U/L ALT 11 L (14-59) U/L Alkaline Phosphatase 70 (46-116) U/L Troponin I 9 (<or=51) ng/L NT-Pro-B Natriuret Pep 619 H (<300) pg/mL Total Protein 6.5 (6.4-8.2) g/dL Albumin 2.4 L (3.4-5.0) g/dL Lipase 16 (<78) U/L Urine Color (Yellow) Urine Clarity (Clear) Urine pH (5-8) Ur Specific [place] (1.005-1.025) Urine Protein (Neg-Trace) mg/dL Urine Ketones (Negative) mg/dL Urine Blood (Negative) Urine Nitrite (Negative) Urine Bilirubin (Negative) Urine Urobilinogen (Up to 0.2) mg/dL Ur Leukocyte Esterase (Negative) Urine RBC (0-2) HPF Urine WBC (0-5) HPF Ur Epithelial Cells (Negative) HPF Urine Crystals (Negative) HPF Urine Bacteria (Negative) HPF Urine Casts (Negative) LPF Urine Mucus (Negative) Ur Culture Indicated? Urine Glucose (Negative) mg/dL COVID-19 Source Nasopharynx SARS-CoV-2 (PCR) Negative (Negative) Influenza Type A (PCR) Negative (Negative) Influenza Type B (PCR) Negative (Negative) RSV (PCR) Negative (Negative) 03/05/25 02:49 Urine Culture - Pending Urine - Cath Straight 03/05/25 02:37 Blood Culture - Pending Blood 03/05/25 02:13 Blood Culture - Pending Blood Intake and Output - 24 Hour Total 03/05/25 01:54 thru 03/05/25 04:47 Intake Total 350 Balance 350 Weight 125.4 kg Intake: IV 350 Falls Risk Assessment History of Falls Previous History 03/05/25 02:09 Contributing Factors Confusion,Unstable, 03/05/25 02:09 Impairments Ambulatory Aids Uses ambulatory device + 03/05/25 02:09 Tubes/Lines With any additional score 03/05/25 02:09 Gait Evaluation W/any additional score 03/05/25 02:09 Fall Total Score 94 03/05/25 02:09 Level of Risk Maximum Risk 03/05/25 02:09 Problems (Last Updated 08/10/24 @ 16:40 by Charlie Callahan MD) Respiratory distress (Acute) Abdominal pain (Acute) Ileitis (Acute) UTI (urinary tract infection) (Acute) Notes 03/05/25 06:24 Nursing Notes by Sweetie Shah Nursing Note: Update given to Sherly, nurse from the [facility]. Updated on plan of care including admission. Sherly had spoken with Luna (pt's mother) upon transfer to ED. Sherly aware Luna will be contacted regarding admission to [facility] as well. Pending admission for change of shift when beds become available. Initialized on 03/05/25 06:24 - END OF NOTE v v v v v v v v v Sending and/or Receiving Nurses: Please use comment section below to note any information pertinent to the patient hand-off not included above. Information / Comments: Report received from: Sweetie RN, ED at [phone]
--- NOTE | 2025-03-05 07:53 | INITIAL_ITS ---
Date of service: 03/05/25 Time of Service: 18:40 Care Management Initial Assmt Initial Assessment Reason for Hospitalization: UTI Functional Status/Living Situation Patient Presentation: Maribel was lying in bed and asleep when CM met with her. Rosalinda was admitted to [facility] for medical work up of an ileus on 03/02/25. During this admission, a referral to GI was made and a palliative consult was pending at D/C. Rosalinda respresnts to the ED in the early hours this morning for evaluation of abdominal pain. Per Fidel, Rosalinda was able to take her medications yesterday and around 00:00 she became lethargic and was reporting abdominal pain. Fidel report they contacted their provider who recommenced IV fluids. However, Fidel indicated they do not have the capacity to provide IV therapy. This, combined with consistently decreasing oxygen saturation levels on room air, prompted a request for re-evaluation. PT consult pending; The patient is wheelchair-bound at baseline and requires a Marina lift for transfers. Per report, Maribel is a poor historian; Fidel confirms. COLST and guardianship information now on file. Per RN, Maribel is experiencing loose stools. Additional background information was provided by the patient?s mother and legal guardian, Luna. Maribel has resided in a custodial facility since 1997, with Luna serving as her guardian for the majority of that time. CM will continue to follow. Town of Residence: [place] Resides with: Other ([facility]) Significant Other/Family: Local Caregiver/Guardian: [facility] Natural Supports: Mother, Luna Daughter, Emilia Instrumental Activities of Daily Living (ADLs): Requires support Medications Medication Management: No Issues/Barriers identified Physical Functioning/Mobility Assistive Device: Wheelchair and marina at baseline Advance Directives Advance Directives: Do you have an Advance Directive: N , 21:29 AD On File at [facility]: N 08/29/21, 21:29 Date Asked 03/05/25 Today, 02:05 AD Date Reviewed COLST On File at [facility] COLST Date Scanned Code Status Resuscitation Status Full Code Portal Pt does not currently have a portal and education provided: Yes Insurance Coverage/Financial Issues Insurance: Medicaid of [place] - [id number] Care Team Visit Care Team Role Provider Type Tati Dominguez NP MD [facility] STAFF PHYSICIAN Unknown Unknown Primary Care Provider STAFF PHYSICIAN InPatient Yamil Elbert Other Providers OTHER Aurora Hubbard MD Emergency Provider [facility] STAFF PHYSICIAN Pito Tapia MD Admit Provider [facility] STAFF PHYSICIAN Attending Provider Discharge Potential Discharge Needs: Consult Consult Services Needed: Palliative, PT Evaluation and PCP F/U Appt Anticipated Barriers to Discharge: None Identified Patient/Family Education Needs: Review discharge instructions, discuss Ask Me Three Transportation: EMS Plan: Anticipate Maribel will be discharged back to [facility] once medically ready. It is recommended she follow up with facility providers and continue per her discharge plan of care. She may need to follow up with GI outpatinet. She will be transported via EMS due to bed bound status. CM will continue to follow. Social Determinants of Health Screening Will the Patient Participate in the Screening?: Unable to obtain PFSH All Active Problems (Updated 03/05/25 @ 07:16 by ELLEN TONY) Respiratory distress (Acute) Abdominal pain (Acute) Ileitis (Acute) UTI (urinary tract infection) (Acute) Fever (Acute) Acute hypoxic respiratory failure (Acute) Cholelithiasis (Acute) Hydronephrosis (Acute) Pyelonephritis (Acute) Staghorn renal calculus (Acute) Nail dystrophy (Acute) Onychogryphosis (Acute) Medical History (Updated 03/05/25 @ 07:16 by ELLEN TONY) Elevated d-dimer Taylor syndrome Mitral insufficiency Atrial fibrillation GERD (gastroesophageal reflux disease) Astrocytoma Injury of hand, right Diabetes insipidus Hydrocephalus Anemia Surgical History (Updated 08/10/24 @ 16:40 by Charlie Callahan MD) H/O craniotomy Social History Smoking/Tobacco Use Status: Former Tobacco Use Smoking risk assessment performed?: Yes Alcohol Intake: never Drug use: Never Substance use type: does not use Housing: longterm Do you feel safe at home: Yes Do you feel safe in your relationship?: Yes Readmission Within the Past 30 Days Yes or No: Yes Date of First Admission Date of 1st Admission: 04/01/25 Date of this Admission Date of Admission: 03/05/25 This admission was: Through ED Office Visit Since 1st Admission Have you seen your PCP in the office since discharge?: Yes Date of PCP Appointment: Provider at the Facility I. Interview patient and/or Family Have you had trouble purchasing/ or taking medication?: No Describe barriers fpr purchasing or taking medication: SNF How do you take your medications and set up your pills?: SNF Have you had trouble with getting meals at home?: No What services were received?: SNF Did you call your physician beore you came to the ED?: Yes If the patient had a VNA ordered Did the patient have a VNA order?: No If the patient came from Ext. Facility Call the Facility to discuss the patient's admission: She had abdominal discomfort when turning on her side. Took meds Wednesday. Around midnight, she became lethargic and she was reporting pain. Send her back after she was sating 91% on room air and continuing to d-sat. ED visits How many ED visits in the past 12 months: 3 Assessment for Readmission Summary of readmission circumstances, based upon interviews: The patient expressed pain at [facility] and was sent back to [facility] for evaluation following their providers request for IV fluids; Per SNF they cannot do that.
[2025-03-05] MEDS: Bisacodyl 10 MG SUPP PR (09:58)
[2025-03-05] MEDS: Potassium Chloride 20 MEQ TABCR PO ×2 (09:58→20:59)
[2025-03-05] MEDS: Cholecalciferol (Vitamin D3) 1,000 UNIT TAB 2000 UNITS PO (09:59)
[2025-03-05] MEDS: Polyethylene Glycol 3350 17 GM PACKET PO (10:00)
[2025-03-05] MEDS: Desmopressin 0.2 MG TAB 0.1 MG PO (10:00)
[2025-03-05] MEDS: Bisacodyl 5 MG TABEC PO ×3 (10:01→20:58)
[2025-03-05] MEDS: predniSONE 20 MG TAB PO ×3 (10:01→20:58)
[2025-03-05] MEDS: Acetaminophen 500 MG TAB 1000 MG PO ×3 (10:02→20:58)
[2025-03-05] MEDS: Simethicone 80 MG CHEW 40 MG PO ×4 (10:02→20:59)
[2025-03-05] MEDS: Carvedilol 6.25 MG TAB PO ×2 (10:03→20:58)
[2025-03-05] MEDS: Furosemide 20 MG TAB 40 MG PO (10:03)
--- NOTE | 2025-03-05 13:54 | PT.INIE ---
PT Notes Visit Reasons: Urinary tract infection Inpatient Physical Therapy Evaluation Date: 03/05/2025 Referring Doctor: Dr. Tapia PT Orders: PT CONSULT: PT evaluation and treat Precautions: Standard, O2 dependent currently at 2 L/min patient incontinent of stool Patient Profile/Admitting Diagnosis: Patient is a 64-year-old female presented to the ED 2 days status post discharge from hospital. Patient presented with abdominal pain Fever andLow SaO2. Patient diagnosed with acute hypoxic respiratory failure requiring supplemental O2, ileitis and UTI. Patient admitted to the [facility] unit for further medical management PT consult placed PMHX: Respiratory distress (Acute) Abdominal pain (Acute) Ileitis (Acute) UTI (urinary tract infection) (Acute) Fever (Acute) Acute hypoxic respiratory failure (Acute) Cholelithiasis (Acute) Hydronephrosis (Acute) Pyelonephritis (Acute) Staghorn renal calculus (Acute) Nail dystrophy (Acute) Onychogryphosis (Acute) Medical History (Updated 03/05/25 @ 05:51 by Pito Tapia MD) Elevated d-dimer Weston syndrome Mitral insufficiency Atrial fibrillation GERD (gastroesophageal reflux disease) Astrocytoma Injury of hand, right Diabetes insipidus Hydrocephalus Anemia Surgical History (Updated 08/10/24 @ 16:40 by Charlie Callahan MD) H/O craniotomy Social History/Home Situation: Since surgical procedure in July 2024 patient has been mechanical lift with 2 assist for all transfers. Staff encourage patient to self propel in wheelchair with bilateral lower extremities for short distances. Patient is dependent for care/ADLs Equipment Owned/DME: Wheelchair with cushion at the [facility] Subjective: Patient nonverbal Objective: [] General Observation: Female supine in bed oxy mask in place. Patient positioned with bilateral lower extremity external rotation arms at side snoring. Patient incontinent of bowel. Mental Status: Responsive to name, difficulty following instructions Pain: Patient did not voice pain nor no nonverbal signs noted Vital Signs: O2 sats 95% on OxyMask at 2 L ROM: Passive Right Upper Extremity: WFL Left Upper Extremity: WFL Right Lower Extremity: WFL except hip external rotation to neutral dorsiflexion to neutral Left Lower Extremity: WFL except hip external rotation to neutral dorsiflexion to neutral Strength: Patient unable to follow instructions Right Upper Extremity: Minimal active movement noted Left Upper Extremity: Minimal active movement noted Right Lower Extremity: Minimal active movement noted Left Lower Extremity: Minimal active movement noted Sensation: Appears intact however patient unable to participate responsive to tactile stimuli eval Bed Mobility/Transfers: Rolling [id number] dependent x 2 Supine to and from sit dependent x 2 Gait: Not applicable patient nonambulatory Balance: [] Static Sitting: Poor Dynamic Sitting: Unable Static Standing: Unable Dynamic Standing: Unable Special Tests: Mobility Limitations Standardized Measure [facility] AM-PAC 6 clicks Basic Mobility Inpatient Short Form: Raw Score: 8 CMS Score: 86.62 % Informed Consent/Education: Patient instructed in purpose of PT consult and plan of care. Treatment: 45472 therapeutic activity Rolling [id number] dependent x 2 with hand overhand placement on rail patient unable to grasp dependent x 4 to boost up in bed with use of hover mat patient dependent x 2 to sit at edge of bed Assessment: Patient is a 64-year-old female who presents with ileitis, frequent loose stools now O2 dependent. Patient's prior level of function is mechanical lift at the [facility]. She utilizes wheelchair for out of bed seating and locomotion. Staff attempt to encourage her to propel however limited engagement. At this time patient is dependent to roll [id number] for Marina pad placement. Skilled PT not indicated at this time. Patient with no limitations of range of motion. Cognitive status impedes patient's ability to participate. Patient will remain Marina lift with to assist with in-hospital no further skilled PT indicated as an inpatient. Patient is assessed as a Low 48068 complexity based on the following: History: 64-year-old female with significant comorbidities and past medical history Examination: As stated above Presentation: Stable/evolving Decision Making: Low Goals: N/A skilled PT not indicated as an inpatient Plan of Care/Treatment Plan: PT evaluation only DISCHARGE RECOMMENDATIONS: [] [] Home with no services [] [] Home with services [specify] [] Home with outpatient PT [] [] SNF for continued rehabilitation [] X Bowling Floor Desk Clerk Care at the [facility] [] SNF versus LTC based on ability to participate and progress [] TREATMENT CODE/TIME: 66437/10856/1020?1050
--- NOTE | 2025-03-05 14:51 | TELEFU_ITS ---
Date of service: 03/05/25 Time of Service: 14:00 Nutrition Note NOTE: pt deeply sleeping on my visit - will attempt again. Admitted from group home. Was recently here for ileus. now having very liquid diarrhea - will offer banatrol medical food dinner and bkfst to help. has advanced from clears to regular diet. Will follow for acceptance/toleration of ONS above, monitor intake, nutrition- related labs. nutrition dx: acute altered GI fxn as evidenced by acute diarrhea. possible nutrient deficiencies related to acute diarrhea (mag,ca+, K+) Time Spent in Nutritional Counseling and Treatment: 0
[2025-03-05] MEDS: cefTRIAXone 1 GM/50 ML BAG IVPB (15:33)
[2025-03-05] MEDS: Atorvastatin 40 MG TAB 80 MG PO (20:58)
[2025-03-05] MEDS: Rivaroxaban 10 MG TABLET PO (20:59)
[2025-03-06] VITALS (9 sets, daily range): BP systolic 101–129; BP diastolic 56–72; PULSE 77–78; RESP 16; TEMP 36–36.6; O2SAT 85–96
[2025-03-06 06:57] LABS: Abs Immature Grans 0.40 10^3/uL (0.0-0.06); HCT 32.2 % (36.0-46.0); HGB 9.5 g/dL (11.2-15.7); MCH 27.1 pg (27.0-33.0); MCHC 29.5 % (32.0-36.0); MCV 92 fL (80-95); MPV 9.8 fL (8.0-11.0); Platelet Count 205 10^3/uL (130-400); RBC 3.51 10^6/uL (3.93-5.22); RDW 15.8 % (11.7-14.6); RDW-SD 52.7 fL; WBC 4.78 10^3/uL (4.4-10.8)
[2025-03-06 07:21] LABS: ALT 13 U/L (14-59); AST 15 U/L (15-37); Albumin 2.4 g/dL (3.4-5.0); Alkaline Phosphatase 64 U/L (46-116); Anion Gap 6.6 mmol/L (3-11); BUN 18 mg/dL (7-18); Bilirubin, Total 0.2 mg/dL (0.2-1.0); CO2 35.4 mmol/L (21.0-32.0); Calcium 8.7 mg/dL (8.5-10.1); Chloride 101 mmol/L (98-107); Estimated GFR 83.26 (mL/min/1.73m2); Glucose 110 mg/dL (74-106); Potassium 3.6 mmol/L (3.5-5.1); Sodium 143 mmol/L (136-145); Total Protein 6.9 g/dL (6.4-8.2)
[2025-03-06 07:45] LABS: Hypochromasia 1+
[2025-03-06 08:24] LABS: Immature Grans % 0.0 %
[2025-03-06] MEDS: Acetaminophen 500 MG TAB 1000 MG PO ×3 (09:09→20:45)
[2025-03-06] MEDS: Cholecalciferol (Vitamin D3) 1,000 UNIT TAB 2000 UNITS PO (09:09)
[2025-03-06] MEDS: Polyethylene Glycol 3350 17 GM PACKET PO (09:09)
[2025-03-06] MEDS: cefTRIAXone 1 GM/50 ML BAG IVPB (09:09)
[2025-03-06] MEDS: Potassium Chloride 20 MEQ TABCR PO ×2 (09:10→20:47)
[2025-03-06] MEDS: Desmopressin 0.2 MG TAB 0.1 MG PO (09:10)
[2025-03-06] MEDS: Azithromycin 250 MG TAB 500 MG PO (09:10)
[2025-03-06] MEDS: predniSONE 20 MG TAB PO ×3 (09:10→20:46)
[2025-03-06] MEDS: Simethicone 80 MG CHEW 40 MG PO ×4 (09:10→20:46)
[2025-03-06] MEDS: Furosemide 20 MG TAB 40 MG PO (09:10)
[2025-03-06] MEDS: Carvedilol 6.25 MG TAB PO ×2 (09:10→20:47)
[2025-03-06] MEDS: Fosfomycin Tromethamine 3 GM PACKET PO (10:35)
--- NOTE | 2025-03-06 12:35 | PUCON_ITS ---
General Date Of Service Date of service: 03/06/25 Time of Service: 12:00 Requesting physician: Tati Dominguez Reason for Consult: Noctural Hypoxia Recommendations: Assessment: 1. Nocturnal hypoxemic respiratory failure - suspect underlying DAVIS/OHS. Do not have any clear evidence of pneumonia. Has elevated bicarb, suggestive of underlying hypercapnia. VBG showed baseline CO2 ~45-50 2. Morbid obesity 3. Chronic hypercapnic respiratory failure - likley due to OHS. No prior PFT's available. Has a smoking history, but lower suspicion for underlying COPD 4. UTI Recommendations: - will completed an overnight oximetry study while inpatient - ABG in the AM - further recommendations to follow once above tests are obtained - do not see any clear evidence of active pneumonia at this time. Will defer antibiotics for her UTI to her primary team - given her mental status, I do not believe she would be able to complete pulmonary function testing Assessment and Plan Assessment and plan (1) Nocturnal hypoxia: Status: Acute (2) Chronic hypercapnic respiratory failure: Status: Acute (3) UTI (urinary tract infection): Status: Acute History of Present Illness Narrative: Patient is a 64 yo with a history of morbid obesity, traumatic brain injury, [employer] astrocytoma, CVA, and Afib who was admitted for abdominal pain and UTI. She is unable to provide an accurate history due to underlying comorbidities. She has had O2 desaturations overnight. No known history of lung disease. CT chest imaging on admission was unremarkable. Unclear if she has had a prior sleep study. Does not use oxygen or NIV at her nursing facility. She denied abdominal pain this AM. ROS: unable to obtain ROS due to clinical condition PFS All Active Problems (Updated 03/06/25 @ 12:44 by Brendon Richmond MD) Chronic hypercapnic respiratory failure (Acute) Nocturnal hypoxia (Acute) Respiratory distress (Acute) Abdominal pain (Acute) Ileitis (Acute) UTI (urinary tract infection) (Acute) Fever (Acute) Acute hypoxic respiratory failure (Acute) Cholelithiasis (Acute) Hydronephrosis (Acute) Pyelonephritis (Acute) Staghorn renal calculus (Acute) Nail dystrophy (Acute) Onychogryphosis (Acute) Medical History (Updated 03/06/25 @ 12:44 by Brendon Richmond MD) Elevated d-dimer Duffield syndrome Mitral insufficiency Atrial fibrillation GERD (gastroesophageal reflux disease) Astrocytoma Injury of hand, right Diabetes insipidus Hydrocephalus Anemia Surgical History (Updated 08/10/24 @ 16:40 by Charlie Callahan MD) H/O craniotomy Social History Smoking/Tobacco Use Status: Former Tobacco Use Smoking risk assessment performed?: Yes Alcohol Intake: never Drug use: Never Substance use type: does not use Housing: custodial Do you feel safe at home: Yes Do you feel safe in your relationship?: Yes Visit Medication and Allergies Active Medications Generic Name Dose Route Start Last Admin Trade Name Freq PRN Reason Stop Dose Admin Acetaminophen 0 mg 03/05/25 05:36 Acetaminophen 325 Mg Tab PO Q4H PRN PRN Acetaminophen 1,000 mg 03/05/25 08:30 03/06/25 09:09 Acetaminophen 500 Mg Tab PO 1,000 mg TID DAVID Administration Al Hydrox/Mg Hydrox/Simethicone 30 ml 03/05/25 05:36 Mylanta Suspension 30 Ml Cup PO Q2H PRN PRN Albuterol Sulfate 2.5 mg 03/05/25 05:36 Albuterol 2.5 Mg/3 Ml Inh Soln Vial UPD Q2H PRN PRN Albuterol/Ipratropium 3 ml 03/05/25 08:38 Albuterol/Ipratropium 3 Ml Upd Vial UPD Q6H PRN PRN Atorvastatin Calcium 80 mg 03/05/25 20:00 03/05/25 20:58 Atorvastatin 40 Mg Tab PO 80 mg HS DAVID Administration Azithromycin 500 mg 03/06/25 08:30 03/06/25 09:10 Azithromycin 250 Mg Tab PO 500 mg DAILY DAVID Administration Carbamazepine 300 mg 03/05/25 08:30 03/06/25 09:10 Carbamazepine-Cr 300 Mg Capcr PO 300 mg BID DAVID Administration Carvedilol 6.25 mg 03/05/25 08:30 03/06/25 09:10 Carvedilol 6.25 Mg Tab PO 6.25 mg BID DAVID Administration Cholecalciferol 2,000 units 03/05/25 08:30 03/06/25 09:09 Cholecalciferol (Vitamin D3) 1,000 Unit Tab PO 2,000 units DAILY DAVID Administration Desmopressin Acetate 0.1 mg 03/05/25 08:30 03/06/25 09:10 Desmopressin 0.2 Mg Tab PO 0.1 mg DAILY DAVID Administration Docusate Sodium 100 mg 03/05/25 05:36 Docusate Sodium 100 Mg Cap PO TID PRN PRN Furosemide 40 mg 03/05/25 08:30 03/06/25 09:10 Furosemide 20 Mg Tab PO 40 mg DAILY DAVID Administration Iohexol 100 ml 03/05/25 03:00 03/05/25 03:42 Omnipaque 350 Mg/Ml 100 Ml Btl IJ 04/04/25 23:59 100 ml DIRECTED DAVID Administration Metoclopramide HCl 10 mg 03/05/25 07:40 Metoclopramide 10 Mg Tab PO TID PRN PRN Polyethylene Glycol 17 gm 03/05/25 05:36 Polyethylene Glycol 3350 17 Gm Packet PO DAILY PRN PRN Constipation Polyethylene Glycol 17 gm 03/05/25 05:36 Polyethylene Glycol 3350 17 Gm Packet PO DAILY PRN PRN Constipation Polyethylene Glycol 17 gm 03/05/25 08:30 03/06/25 09:09 Polyethylene Glycol 3350 17 Gm Packet PO 17 gm DAILY DAVID Administration Potassium Chloride 20 meq 03/05/25 08:30 03/06/25 09:10 Potassium Chloride 20 Meq Tabcr PO 20 meq BID DAVID Administration Prednisone 20 mg 03/05/25 08:30 03/06/25 09:10 Prednisone 20 Mg Tab PO 20 mg TID DAVID Administration Rivaroxaban 10 mg 03/05/25 20:00 03/05/25 20:59 Rivaroxaban 10 Mg Tablet PO 10 mg QPM DAVID Administration Simethicone 40 mg 03/05/25 09:00 03/06/25 09:10 Simethicone 80 Mg Chew PO 40 mg PC & HS DAVID Administration Sodium Chloride 50 ml 03/05/25 03:00 03/05/25 03:43 Normal Saline - Diluent 50 Ml Vial IJ 50 ml DIRECTED DAVID Administration Sodium Chloride 0 ml 03/05/25 02:53 03/05/25 03:43 Normal Saline Flush 10 Ml Syr IVP 10 ml PRN PRN Administration Triamcinolone Acetonide 0 gm 03/05/25 08:30 03/06/25 09:23 Triamcinolone 0.025% Cr 15 Gm Tube TP Not Given BID DAVID Allergies pineapple Allergy (Unverified 08/10/24 09:29) Unknown tomato Allergy (Unverified 08/10/24 09:29) Unknown Exam Narrative Exam Narrative: General: alert, no acute distress Head: normocephalic ENT: no stridor, trachea midline CV: normal rate, irregular rhythm Respiratory: no wheezing, no crackles, no rhonchi, no prolonged expiration GI: abd soft, non-tender, non-distended Skin: no rashes Extremities: +1 edema, no digital clubbing Psych: flat affect Results Last Vital Signs Temp 36.6 C 03/06/25 07:40 Pulse 77 03/06/25 07:40 Resp 16 03/06/25 07:40 BP 129/72 03/06/25 07:40 Pulse Ox 92 03/06/25 08:20 Labs 03/06/25 05:45 03/06/25 05:45 Labs: Laboratory Results - last 24 hr 03/06/25 05:45 WBC 4.78 RBC 3.51 L Hgb 9.5 L Hct 32.2 L MCV 92 MCH 27.1 MCHC 29.5 L RDW 15.8 H Plt Count 205 MPV 9.8 Immature Gran % 0.0 Neutrophils % 66.0 Band Neutrophils % 4 Lymphocytes % 20.0 Monocytes % 4.0 Eosinophils % 1.0 Basophils % 0.0 Metamyelocytes % 3 Myelocytes % 2 Nucleated RBC % 0.0 Absolute Neutrophils 3.35 Absolute Lymphocytes 0.96 L Absolute Monocytes 0.19 Absolute Eosinophils 0.05 Absolute Basophils 0.00 RBC Morphology See Below Hypochromasia 1+ Sodium 143 Potassium 3.6 Chloride 101 Carbon Dioxide 35.4 H Anion Gap 6.6 BUN 18 Creatinine 0.8 Est GFR (CKD-EPI 2020) 83.26 Glucose 110 H Calcium 8.7 Total Bilirubin 0.2 AST 15 ALT 13 L Alkaline Phosphatase 64 Total Protein 6.9 [address]in [address] scan - chest: report reviewed and image reviewed
--- NOTE | 2025-03-06 13:25 | CMPROGNOTE_ITS ---
Date of service: 03/06/25 Time of Service: 13:25 Care Management Progress Note Progress Note Text Progress Note Text: Maribel was lying in bed and sleeping with O2 NC on when CM met with her. Pulmonology consult ordered. Per report, it is anticipated that Rosalinda will remain at [facility] overnight for additional testing to support qualification for a Trilogy device. CM communicated this plan to staff at [facility]. Per provider, discharge to home is expected tomorrow. Discharge Potential Discharge Needs: PCP F/U Appt Anticipated Barriers to Discharge: None Identified Patient/Family Education Needs: Review discharge instructions, discuss Ask Me Three Transportation: EMS (Due to bed bound status ) Plan: anticipate Maribel will be discharged back to [facility] once medically ready. It is recommended she follow up with facility providers and continue per her discharge plan of care. She may need to follow up with GI outpatinet. She will be transported via EMS due to bed bound status. CM will continue to follow. Social Determinants of Health Screening Will the Patient Participate in the Screening?: Unable to obtain Do you worry about having a steady place to live?: no
--- NOTE | 2025-03-06 13:39 | CHAPLAIN ---
Maribel was sitting up in bed when I visited. We remembered that we has met during a recent previous admission. Maribel lives at the [facility]. Today she told me about her daughter and seven grandchildren, and that she enjoyed hearing the dulcimer music from the music volunteer today. I will continue to visit.
--- NOTE | 2025-03-06 15:29 | PGE_ITS ---
Date of Service Date of service: 03/06/25 Time of Service: 15:29 Assessment and Plan Assessment and plan (1) Respiratory distress: Status: Acute Assessment and plan: Seen by pulmonology. Probably nocturnal hypoxemic respiratory failure, with underlying DAVIS. No PNA. Bicarb is elevated suggesting hypercapnia. Baseline CO2 45-50 Pulmonology recommends overnight oximetry study while inpatient ABG in the am (ordered by Dr Wolf) Stop antibioitics for PNA They feel she will not be able to perform PFT due to her mental status at baseline. Return to the [facility] tomorrow am. Discussed with Lola KRAMER @ the [facility] and she agrees with this plan (2) Ileitis: Status: Acute Assessment and plan: Monitor (3) Abdominal pain: Status: Acute Assessment and plan: Denies abdominal pain (4) UTI (urinary tract infection): Status: Acute Assessment and plan: Reviewing old culture results she does have results from E. coli Ceftriaxone given yesterday, d/c'd today and fosfomycin given. (5) Atrial fibrillation: Assessment and plan: Continue Xarelto Subjective Subjective Patient reports: no new complaints, tolerating liquids well, tolerating a regular diet, bowel movement and afebrile; denies flatus, nausea or vomiting Interval history since last seen: Awake alert, answers some questions appropriately. States she is comfortable, continues to have an oxygen requirement while asleep Exam Narrative Exam Narrative: General: Alert, oriented, in no acute distress. Head: Normocephalic, atraumatic. ENT: No stridor; trachea midline. Cardiovascular: Normal rate, irregular rhythm; no murmurs, rubs, or gallops. Respiratory: Clear to auscultation bilaterally; no wheezes, crackles, rhonchi, or prolonged expiratory phase. Gastrointestinal: Abdomen soft, non-tender, non-distended. Skin: Warm, dry, no rashes. Extremities: +1 bilateral edema, no clubbing or cyanosis. Psychiatric: Flat affect, cooperative. Objective Last Vital Signs Temp 36.6 C 03/06/25 07:40 Pulse 77 03/06/25 07:40 Resp 16 03/06/25 07:40 BP 129/72 03/06/25 07:40 Pulse Ox 92 03/06/25 08:20 Laboratory Results - last 24 hr 03/06/25 05:45 WBC 4.78 RBC 3.51 L Hgb 9.5 L Hct 32.2 L MCV 92 MCH 27.1 MCHC 29.5 L RDW 15.8 H Plt Count 205 MPV 9.8 Immature Gran % 0.0 Neutrophils % 66.0 Band Neutrophils % 4 Lymphocytes % 20.0 Monocytes % 4.0 Eosinophils % 1.0 Basophils % 0.0 Metamyelocytes % 3 Myelocytes % 2 Nucleated RBC % 0.0 Absolute Neutrophils 3.35 Absolute Lymphocytes 0.96 L Absolute Monocytes 0.19 Absolute Eosinophils 0.05 Absolute Basophils 0.00 RBC Morphology See Below Hypochromasia 1+ Sodium 143 Potassium 3.6 Chloride 101 Carbon Dioxide 35.4 H Anion Gap 6.6 BUN 18 Creatinine 0.8 Est GFR (CKD-EPI 2020) 83.26 Glucose 110 H Calcium 8.7 Total Bilirubin 0.2 AST 15 ALT 13 L Alkaline Phosphatase 64 Total Protein 6.9 Albumin 2.4 L Time Spent with Patient Time Spent with Patient: 35-49 minutes Time was spent: preparing to see the patient(eg.review tests), ordering medications,tests, procedures, referring, communicating with other health day care aide, indepentently interpreting results, counseling the patient and care coordination
[2025-03-06] MEDS: Rivaroxaban 10 MG TABLET PO (20:46)
[2025-03-06] MEDS: Atorvastatin 40 MG TAB 80 MG PO (20:46)
--- NOTE | 2025-03-07 06:03 | RESPIRATORY ---
Pt taken off o2 @ 2203, night pox placed on pt. RT will continue to monitor 1220 - pt has frequent desats to 83% but quickly recovers back to 94% w/out intervention 0200 - Pt awake, semi mandujano in bed watching tv 0545 - Pt remains awake and alert. Noc study removed
[2025-03-07 06:41] LABS: HCT 33.2 % (36.0-46.0); HGB 9.9 g/dL (11.2-15.7); MCH 27.1 pg (27.0-33.0); MCHC 29.8 % (32.0-36.0); MCV 91 fL (80-95); MPV 9.5 fL (8.0-11.0); Platelet Count 259 10^3/uL (130-400); RBC 3.65 10^6/uL (3.93-5.22); RDW 15.6 % (11.7-14.6); RDW-SD 52.0 fL; WBC 7.51 10^3/uL (4.4-10.8)
[2025-03-07 06:57] LABS: Anion Gap 8.1 mmol/L (3-11); BUN 16 mg/dL (7-18); CO2 33.9 mmol/L (21.0-32.0); Calcium 8.8 mg/dL (8.5-10.1); Chloride 103 mmol/L (98-107); Estimated GFR 72.28 (mL/min/1.73m2); Glucose 116 mg/dL (74-106); Magnesium 2.1 mg/dL (1.8-2.4); Potassium 3.4 mmol/L (3.5-5.1); Sodium 145 mmol/L (136-145)
[2025-03-07 07:08] LABS: Immature Grans % 0.0 %
[2025-03-07 07:09] LABS: Abs Immature Grans 0.00 10^3/uL (0.0-0.06); RBC Morphology Normal
[2025-03-07 07:56] VITALS: BP 127/59; PULSE 76; RESP 16; TEMP 36.2; O2SAT 94
[2025-03-07 07:57] VITALS: O2SAT 91
[2025-03-07] MEDS: Polyethylene Glycol 3350 17 GM PACKET PO (08:05)
[2025-03-07] MEDS: Cholecalciferol (Vitamin D3) 1,000 UNIT TAB 2000 UNITS PO (08:05)
[2025-03-07] MEDS: Acetaminophen 500 MG TAB 1000 MG PO (08:05)
[2025-03-07] MEDS: Potassium Chloride 20 MEQ TABCR PO ×2 (08:05→10:03)
[2025-03-07] MEDS: Furosemide 20 MG TAB 40 MG PO (08:06)
[2025-03-07] MEDS: predniSONE 20 MG TAB PO (08:06)
[2025-03-07] MEDS: Carvedilol 6.25 MG TAB PO (08:06)
[2025-03-07] MEDS: Desmopressin 0.2 MG TAB 0.1 MG PO (08:06)
[2025-03-07] MEDS: Simethicone 80 MG CHEW 40 MG PO (08:15)
[2025-03-07 08:32] LABS: BE 13 mmol/L (-2-3); HCO3 37 mmol/L (22-26)
[2025-03-07 08:34] LABS: FIO2 21 %
--- NOTE | 2025-03-07 08:34 | W.PULMPROG ---
Assessment and Plan Assessment and plan (1) Nocturnal hypoxia: Status: Acute (2) Chronic hypercapnic respiratory failure: Status: Acute (3) Pyelonephritis: Status: Acute General Date Of Service Date of service: 03/07/25 Time of Service: 08:00 Requesting physician: Tati Dominguez Reason for Consult: Noctural Hypoxia Recommendations: Assessment: 1. Nocturnal hypoxemic respiratory failure - suspect underlying DAVIS/OHS. Do not have any clear evidence of pneumonia. Has elevated bicarb, suggestive of underlying hypercapnia. VBG showed baseline CO2 ~45-50 2. Morbid obesity 3. Chronic hypercapnic respiratory failure - likley due to OHS. No prior PFT's available. Has a smoking history, but lower suspicion for underlying COPD 4. UTI Recommendations: - noc ox completed, report is pending - ABG drawn this AM and pending - given her mental status, I do not believe she would be able to complete pulmonary function testing Subjective 24 Hour Events: No acute issues overnight. Patient does report a history of snoring. Denied dyspnea or chest pain. On room air. Exam Narrative Exam Narrative: General: alert, no acute distress Head: normocephalic ENT: no stridor, trachea midline CV: normal rate, irregular rhythm Respiratory: no wheezing, no crackles, no rhonchi, no prolonged expiration GI: abd soft, non-tender, non-distended Skin: no rashes Extremities: trace edema, no digital clubbing Psych: normal affect Objective Last Vital Signs Temp 36.2 C L 03/07/25 07:56 Pulse 76 03/07/25 07:56 Resp 16 03/07/25 07:56 BP 127/59 L 03/07/25 07:56 Pulse Ox 91 L 03/07/25 07:57 Laboratory Results - last 24 hr 03/07/25 03/07/25 06:15 08:26 WBC 7.51 RBC 3.65 L Hgb 9.9 L Hct 33.2 L MCV 91 MCH 27.1 MCHC 29.8 L RDW 15.6 H Plt Count 259 MPV 9.5 Immature Gran % 0.0 Neutrophils % 43.0 Lymphocytes % 41.0 Monocytes % 8.0 Eosinophils % 1.0 Basophils % 0.0 Metamyelocytes % 2 Myelocytes % 1 Other Cells % 4 Nucleated RBC % 0.0 Absolute Neutrophils 3.23 Absolute Lymphocytes 3.08 Absolute Monocytes 0.60 Absolute Eosinophils 0.08 Absolute Basophils 0.00 RBC Morphology Normal ABG Sample Site Left Radial ABG pH 7.48 H ABG pCO2 50 H ABG pO2 62 L ABG HCO3 37 H ABG Total CO2 34 H ABG O2 Saturation 93 L ABG Base Excess 13 H FiO2 21 Sodium 145 Potassium 3.4 L Chloride 103 Carbon Dioxide 33.9 H Anion Gap 8.1 BUN 16 Creatinine 0.9 Est GFR (CKD-EPI 2020) 72.28 Glucose 116 H Calcium 8.8 Magnesium 2.1 Results Medications Medications: Active Medications Generic Name Dose Route Start Last Admin Trade Name Freq PRN Reason Stop Dose Admin Acetaminophen 0 mg 03/05/25 05:36 Acetaminophen 325 Mg Tab PO Q4H PRN PRN Acetaminophen 1,000 mg 03/05/25 08:30 03/07/25 08:05 Acetaminophen 500 Mg Tab PO 1,000 mg TID DAVID Administration Al Hydrox/Mg Hydrox/Simethicone 30 ml 03/05/25 05:36 Mylanta Suspension 30 Ml Cup PO Q2H PRN PRN Albuterol Sulfate 2.5 mg 03/05/25 05:36 Albuterol 2.5 Mg/3 Ml Inh Soln Vial UPD Q2H PRN PRN Albuterol/Ipratropium 3 ml 03/05/25 08:38 Albuterol/Ipratropium 3 Ml Upd Vial UPD Q6H PRN PRN Atorvastatin Calcium 80 mg 03/05/25 20:00 03/06/25 20:46 Atorvastatin 40 Mg Tab PO 80 mg HS DAVID Administration Carbamazepine 300 mg 03/05/25 08:30 03/07/25 08:06 Carbamazepine-Cr 300 Mg Capcr PO 300 mg BID DAVID Administration Carvedilol 6.25 mg 03/05/25 08:30 03/07/25 08:06 Carvedilol 6.25 Mg Tab PO 6.25 mg BID DAVID Administration Cholecalciferol 2,000 units 03/05/25 08:30 03/07/25 08:05 Cholecalciferol (Vitamin D3) 1,000 Unit Tab PO 2,000 units DAILY DAVID Administration Desmopressin Acetate 0.1 mg 03/05/25 08:30 03/07/25 08:06 Desmopressin 0.2 Mg Tab PO 0.1 mg DAILY DAVID Administration Docusate Sodium 100 mg 03/05/25 05:36 Docusate Sodium 100 Mg Cap PO TID PRN PRN Furosemide 40 mg 03/05/25 08:30 03/07/25 08:06 Furosemide 20 Mg Tab PO 40 mg DAILY DAVID Administration Iohexol 100 ml 03/05/25 03:00 03/05/25 03:42 Omnipaque 350 Mg/Ml 100 Ml Btl IJ 04/04/25 23:59 100 ml DIRECTED DAVID Administration Metoclopramide HCl 10 mg 03/05/25 07:40 Metoclopramide 10 Mg Tab PO TID PRN PRN Polyethylene Glycol 17 gm 03/05/25 05:36 Polyethylene Glycol 3350 17 Gm Packet PO DAILY PRN PRN Constipation Polyethylene Glycol 17 gm 03/05/25 05:36 Polyethylene Glycol 3350 17 Gm Packet PO DAILY PRN PRN Constipation Polyethylene Glycol 17 gm 03/05/25 08:30 03/07/25 08:05 Polyethylene Glycol 3350 17 Gm Packet PO 17 gm DAILY DAVID Administration Potassium Chloride 20 meq 03/05/25 08:30 03/07/25 08:05 Potassium Chloride 20 Meq Tabcr PO 20 meq BID DAVID Administration Prednisone 20 mg 03/05/25 08:30 03/07/25 08:06 Prednisone 20 Mg Tab PO 20 mg TID DAVID Administration Rivaroxaban 10 mg 03/05/25 20:00 03/06/25 20:46 Rivaroxaban 10 Mg Tablet PO 10 mg QPM DAVID Administration Simethicone 40 mg 03/05/25 09:00 03/07/25 08:15 Simethicone 80 Mg Chew PO 40 mg PC & HS DAVID Administration Sodium Chloride 50 ml 03/05/25 03:00 03/05/25 03:43 Normal Saline - Diluent 50 Ml Vial IJ 50 ml DIRECTED DAVID Administration Sodium Chloride 0 ml 03/05/25 02:53 03/05/25 03:43 Normal Saline Flush 10 Ml Syr IVP 10 ml PRN PRN Administration Triamcinolone Acetonide 0 gm 03/05/25 08:30 03/07/25 08:05 Triamcinolone 0.025% Cr 15 Gm Tube TP 1 applic BID DAVID Administration Allergies pineapple Allergy (Unverified 08/10/24 09:29) Unknown tomato Allergy (Unverified 08/10/24 09:29) Unknown Labs 03/07/25 06:15 03/07/25 06:15 Labs: 03/05/25 02:49 Urine - Cath Straight Urine Culture - Final Klebsiella pneumoniae 03/05/25 02:13 Blood Blood Culture - Preliminary NO GROWTH 48 HOURS 03/05/25 02:37 Blood Blood Culture - Preliminary NO GROWTH 48 HOURS Laboratory Tests Range/Units 03/05/25 03/05/25 03/05/25 02:13 02:37 02:49 WBC (4.4-10.8) 10^3/uL 5.80 RBC (3.93-5.22) 10^6/uL 3.54 L Hgb (11.2-15.7) g/dL 9.6 L Hct (36.0-46.0) % 31.6 L MCV (80-95) fL 89 MCH (27.0-33.0) pg 27.1 MCHC (32.0-36.0) % 30.4 L RDW (11.7-14.6) % 15.9 H Plt Count (130-400) 10^3/uL 218 MPV (8.0-11.0) fL 9.5 Immature Gran % See Differential Neutrophils % % 51.0 Band Neutrophils % % 1 Lymphocytes % % 22.0 Atypical Lymphs % % 2 Monocytes % % 21.0 Eosinophils % % 0.0 Basophils % % 0.0 Metamyelocytes % 2 Myelocytes % 1 Other Cells % Nucleated RBC % (0.0-0.3) % 0.0 Absolute Neutrophils (1.2-6.7) 10^3/uL 3.02 Absolute Lymphocytes (1.2-3.4) 10^3/uL 1.39 Absolute Monocytes (0.1-0.8) 10^3/uL 1.22 H Absolute Eosinophils (0.0-0.7) 10^3/uL 0.00 Absolute Basophils (0.0-0.2) 10^3/uL 0.00 RBC Morphology Hypochromasia ABG Sample Site ABG pH (7.35-7.45) ABG pCO2 (35-45) mmHg ABG pO2 (80-105) mmHg ABG HCO3 (22-26) mmol/L ABG Total CO2 (23-27) mmol/L ABG O2 Saturation (95-98) % ABG Base Excess (-2-3) mmol/L VBG pH (7.31-7.41) 7.42 H VBG pCO2 (41-51) mmHg 52 H VBG pO2 mmHg 65 VBG HCO3 (23-28) mmol/L 33 H VBG Total CO2 (24-29) mmol/L 31 H VBG O2 Saturation % 92 VBG Base Excess (-2-3) mmol/L 9 H VBG Lactate (<or=2.0) mmol/L 0.5 FiO2 % Sodium (136-145) mmol/L 138 Potassium (3.5-5.1) mmol/L 3.4 L Chloride (98-107) mmol/L 99 Carbon Dioxide (21.0-32.0) mmol/L 35.0 H Anion Gap (3-11) mmol/L 4.0 BUN (7-18) mg/dL 20 H Creatinine (0.55-1.02) mg/dL 0.9 Est GFR (CKD-EPI 2020) (mL/min/1.73m2) 72.28 Glucose (74-106) mg/dL 121 H Calcium (8.5-10.1) mg/dL 8.3 L Magnesium (1.8-2.4) mg/dL 2.0 Total Bilirubin (0.2-1.0) mg/dL 0.3 AST (15-37) U/L 8 L ALT (14-59) U/L 11 L Alkaline Phosphatase (46-116) U/L 70 Troponin I (<or=51) ng/L 9 NT-Pro-B Natriuret Pep (<300) pg/mL 619 H Total Protein (6.4-8.2) g/dL 6.5 Albumin (3.4-5.0) g/dL 2.4 L Lipase (<78) U/L 16 Urine Color (Yellow) Yellow Urine Clarity (Clear) Sl Cloudy Urine pH (5-8) 6.0 Ur Specific [place] (1.005-1.025) 1.020 Urine Protein (Neg-Trace) mg/dL 100 H Urine Ketones (Negative) mg/dL Trace H Urine Blood (Negative) Small H Urine Nitrite (Negative) Positive H Urine Bilirubin (Negative) Moderate H Urine Urobilinogen (Up to 0.2) mg/dL 0.2 Ur Leukocyte Esterase (Negative) Trace H Urine RBC (0-2) HPF 3-5 H Urine WBC (0-5) HPF 10-20 H Ur Epithelial Cells (Negative) HPF Few Urine Crystals (Negative) HPF Negative Urine Bacteria (Negative) HPF Moderate Urine Casts (Negative) LPF Negative Urine Mucus (Negative) Moderate Ur Culture Indicated? C&S Done As Ordered Urine Glucose (Negative) mg/dL Negative COVID-19 Source Nasopharynx SARS-CoV-2 (PCR) (Negative) Negative Influenza Type A (PCR) (Negative) Negative Influenza Type B (PCR) (Negative) Negative RSV (PCR) (Negative) Negative Range/Units 03/05/25 03/05/25 03/06/25 03:32 05:14 05:45 WBC (4.4-10.8) 10^3/uL 4.78 RBC (3.93-5.22) 10^6/uL 3.51 L Hgb (11.2-15.7) g/dL 9.5 L Hct (36.0-46.0) % 32.2 L MCV (80-95) fL 92 MCH (27.0-33.0) pg 27.1 MCHC (32.0-36.0) % 29.5 L RDW (11.7-14.6) % 15.8 H Plt Count (130-400) 10^3/uL 205 MPV (8.0-11.0) fL 9.8 Immature Gran % 0.0 Neutrophils % % 66.0 Band Neutrophils % % 4 Lymphocytes % % 20.0 Atypical Lymphs % % Monocytes % % 4.0 Eosinophils % % 1.0 Basophils % % 0.0 Metamyelocytes % 3 Myelocytes % 2 Other Cells % Nucleated RBC % (0.0-0.3) % 0.0 Absolute Neutrophils (1.2-6.7) 10^3/uL 3.35 Absolute Lymphocytes (1.2-3.4) 10^3/uL 0.96 L Absolute Monocytes (0.1-0.8) 10^3/uL 0.19 Absolute Eosinophils (0.0-0.7) 10^3/uL 0.05 Absolute Basophils (0.0-0.2) 10^3/uL 0.00 RBC Morphology See Below Hypochromasia 1+ ABG Sample Site ABG pH (7.35-7.45) ABG pCO2 (35-45) mmHg ABG pO2 (80-105) mmHg ABG HCO3 (22-26) mmol/L ABG Total CO2 (23-27) mmol/L ABG O2 Saturation (95-98) % ABG Base Excess (-2-3) mmol/L VBG pH (7.31-7.41) VBG pCO2 (41-51) mmHg VBG pO2 mmHg VBG HCO3 (23-28) mmol/L VBG Total CO2 (24-29) mmol/L VBG O2 Saturation % VBG Base Excess (-2-3) mmol/L VBG Lactate (<or=2.0) mmol/L FiO2 % Sodium (136-145) mmol/L 143 Potassium (3.5-5.1) mmol/L 3.6 Chloride (98-107) mmol/L 101 Carbon Dioxide (21.0-32.0) mmol/L 35.4 H Anion Gap (3-11) mmol/L 6.6 BUN (7-18) mg/dL 18 Creatinine (0.55-1.02) mg/dL 0.8 Est GFR (CKD-EPI 2020) (mL/min/1.73m2) 83.26 Glucose (74-106) mg/dL 110 H Calcium (8.5-10.1) mg/dL 8.7 Magnesium (1.8-2.4) mg/dL Total Bilirubin (0.2-1.0) mg/dL 0.2 AST (15-37) U/L 15 ALT (14-59) U/L 13 L Alkaline Phosphatase (46-116) U/L 64 Troponin I (<or=51) ng/L 8 8 NT-Pro-B Natriuret Pep (<300) pg/mL Total Protein (6.4-8.2) g/dL 6.9 Albumin (3.4-5.0) g/dL 2.4 L Lipase (<78) U/L Urine Color (Yellow) Urine Clarity (Clear) Urine pH (5-8) Ur Specific [place] (1.005-1.025) Urine Protein (Neg-Trace) mg/dL Urine Ketones (Negative) mg/dL Urine Blood (Negative) Urine Nitrite (Negative) Urine Bilirubin (Negative) Urine Urobilinogen (Up to 0.2) mg/dL Ur Leukocyte Esterase (Negative) Urine RBC (0-2) HPF Urine WBC (0-5) HPF Ur Epithelial Cells (Negative) HPF Urine Crystals (Negative) HPF Urine Bacteria (Negative) HPF Urine Casts (Negative) LPF Urine Mucus (Negative) Ur Culture Indicated? Urine Glucose (Negative) mg/dL COVID-19 Source SARS-CoV-2 (PCR) (Negative) Influenza Type A (PCR) (Negative) Influenza Type B (PCR) (Negative) RSV (PCR) (Negative) Range/Units 03/07/25 03/07/25 06:15 08:26 WBC (4.4-10.8) 10^3/uL 7.51 RBC (3.93-5.22) 10^6/uL 3.65 L Hgb (11.2-15.7) g/dL 9.9 L Hct (36.0-46.0) % 33.2 L MCV (80-95) fL 91 MCH (27.0-33.0) pg 27.1 MCHC (32.0-36.0) % 29.8 L RDW (11.7-14.6) % 15.6 H Plt Count (130-400) 10^3/uL 259 MPV (8.0-11.0) fL 9.5 Immature Gran % 0.0 Neutrophils % % 43.0 Band Neutrophils % % Lymphocytes % % 41.0 Atypical Lymphs % % Monocytes % % 8.0 Eosinophils % % 1.0 Basophils % % 0.0 Metamyelocytes % 2 Myelocytes % 1 Other Cells % 4 Nucleated RBC % (0.0-0.3) % 0.0 Absolute Neutrophils (1.2-6.7) 10^3/uL 3.23 Absolute Lymphocytes (1.2-3.4) 10^3/uL 3.08 Absolute Monocytes (0.1-0.8) 10^3/uL 0.60 Absolute Eosinophils (0.0-0.7) 10^3/uL 0.08 Absolute Basophils (0.0-0.2) 10^3/uL 0.00 RBC Morphology Normal Hypochromasia ABG Sample Site Left Radial ABG pH (7.35-7.45) 7.48 H ABG pCO2 (35-45) mmHg 50 H ABG pO2 (80-105) mmHg 62 L ABG HCO3 (22-26) mmol/L 37 H ABG Total CO2 (23-27) mmol/L 34 H ABG O2 Saturation (95-98) % 93 L ABG Base Excess (-2-3) mmol/L 13 H VBG pH (7.31-7.41) VBG pCO2 (41-51) mmHg VBG pO2 mmHg VBG HCO3 (23-28) mmol/L VBG Total CO2 (24-29) mmol/L VBG O2 Saturation % VBG Base Excess (-2-3) mmol/L VBG Lactate (<or=2.0) mmol/L FiO2 % 21 Sodium (136-145) mmol/L 145 Potassium (3.5-5.1) mmol/L 3.4 L Chloride (98-107) mmol/L 103 Carbon Dioxide (21.0-32.0) mmol/L 33.9 H Anion Gap (3-11) mmol/L 8.1 BUN (7-18) mg/dL 16 Creatinine (0.55-1.02) mg/dL 0.9 Est GFR (CKD-EPI 2020) (mL/min/1.73m2) 72.28 Glucose (74-106) mg/dL 116 H Calcium (8.5-10.1) mg/dL 8.8 Magnesium (1.8-2.4) mg/dL 2.1 Total Bilirubin (0.2-1.0) mg/dL AST (15-37) U/L ALT (14-59) U/L Alkaline Phosphatase (46-116) U/L Troponin I (<or=51) ng/L NT-Pro-B Natriuret Pep (<300) pg/mL Total Protein (6.4-8.2) g/dL Albumin (3.4-5.0) g/dL Lipase (<78) U/L Urine Color (Yellow) Urine Clarity (Clear) Urine pH (5-8) Ur Specific [place] (1.005-1.025) Urine Protein (Neg-Trace) mg/dL Urine Ketones (Negative) mg/dL Urine Blood (Negative) Urine Nitrite (Negative) Urine Bilirubin (Negative) Urine Urobilinogen (Up to 0.2) mg/dL Ur Leukocyte Esterase (Negative) Urine RBC (0-2) HPF Urine WBC (0-5) HPF Ur Epithelial Cells (Negative) HPF Urine Crystals (Negative) HPF Urine Bacteria (Negative) HPF Urine Casts (Negative) LPF Urine Mucus (Negative) Ur Culture Indicated? Urine Glucose (Negative) mg/dL COVID-19 Source SARS-CoV-2 (PCR) (Negative) Influenza Type A (PCR) (Negative) Influenza Type B (PCR) (Negative) RSV (PCR) (Negative) Imaging CT scan - chest: report reviewed and image reviewed
--- NOTE | 2025-03-07 09:51 | W.NUTRFU ---
Date of service: 03/07/25 Time of Service: 10:00 Nutrition Note NOTE: Received request for nutr consult - ? diet order consistency as patient had been aspiration precautions last admission. I did call the [facility] yesterday morning and they were able to give me current diet order for mechanical soft with regular liquids via straw. I modified Maribel's diet order accordingly. Visited with pt today - sitting up in chair. Conversative but hard to understand (hx of astrocytoma and hydrocephalus). She denied concerns with tolerating her current diet, had already ordered lunch today. Her usual diet is supported at [facility] - would recommend continued work on fat loss to help with respiratory concerns. Labs: K+ low and is ordered for oral repletion. Hgb/Hct today at 9.9/33.2. A1c last month 6.3 (consistent with prediabetes) Anticipate discharge today but will continue to monitor intake and diet toleration this admission Time Spent in Nutritional Counseling and Treatment: 10min
--- NOTE | 2025-03-07 10:15 | DSE_ITS ---
Date of service: 03/07/25 Time of Service: 10:15 DS: Diagnosis Discharge Diagnosis (1) Nocturnal hypoxia: Status: Acute (2) Chronic hypercapnic respiratory failure: Status: Acute (3) Pyelonephritis: Status: Acute Discharge Plan Disposition [facility] Disposition: [facility]) Condition: Fair Discharge Details Reason For Visit: UTI Admit Date/Time: 03/05/25 05:36 Admit Provider: Pito Tapia Attending Provider: Pito Tapia Primary Care Provider: Unknown,Unknown Hospital Course Hospital Course: This is a 64-year-old female with a complex medical history including atrial fibrillation, morbid obesity, [employer]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 She was recently discharged from another facility and returned due to worsening symptoms. Workup revealed acute pyelonephritis, ileitis, and nocturnal hypoxia likely related to obstructive sleep apnea and obesity hypoventilation syndrome. She was started on ciprofloxacin and azithromycin for broad-spectrum coverage. Imaging showed terminal ileitis and a large gallstone, no evidence of active pneumonia. Her respiratory symptoms improved with inhalers and steroids. Overnight oximetry showed significant desaturations, ABG showed baseline CO2 of 50. Will not be able to qualify for home NIV based on this value, and outpatient sleep study was recommended by Pulmonology. This will be arranged by their office, and will be done at the [facility] She will be discharged with 2 L nasal cannula oxygen at night, with follow-up for sleep evaluation and further management of her chronic respiratory failure. Potassium has been low and she has been receiving potassium 20 meq twice a day. Recommend 40 meq daily with BMP in 5-7 days. She was treated with fosfomycin for UTI. Culture is pending. Recommend repeat dose Fosfomycin 3 gm orally on 03/08. [place]ana Findings Laboratory Findings: * Hgb: 9.5?9.6 g/dL * WBC: Normal * BUN/Creatinine: 20/0.9 * CO2: Elevated (~35?35.4) Suggests chronic hypercapnia * BNP: 619 Mild elevation * Albumin: 2.4 g/dL Hypoalbuminemia * UA: Positive nitrite, moderate bacteria, leukocyte esterase, RBCs and WBCs Consistent with UTI. Treated with Fosfomycin 3 gm orally. Culture pending. Recommend repeat dose on 03/08. * VBG: CO2 45?52, pH 7.42 ? Hypercapnic respiratory failure Imaging: * CT Abdomen/Pelvis: Long segment terminal ileitis with adjacent fat stranding; large gallstone (2.4 x 4.0 cm); no clear signs of obstruction or colitis * CT Chest: No active pulmonary disease; no evidence of pneumonia Respiratory Assessment: * Nocturnal oximetry: Significant desaturations * Pulmonology consult: Suspected DAVIS/OHS, chronic hypercapnic respiratory failure, no current indication for home NIV * Plan: Arrange outpatient sleep study; continue nighttime oxygen (2 L NC) Medications on Discharge (Selected): * Respiratory: Albuterol/Ipratropium, Prednisone * AFib management: Rivaroxaban, Carvedilol * GI support: Metoclopramide, PEG, Bisacodyl * Other: Atorvastatin, Desmopressin, Vitamin D3 Home Meds and New Rx's Prescriptions: New potassium chloride 20 mEq Tablet Extended Release 40 meq PO DAILY Qty: 30 0RF fosfomycin tromethamine 3 gram packet 3 g PO ONCE Qty: 1 0RF Rx Instructions: To be given on 03/08 Continued atorvastatin 80 mg Tablet 80 mg PO QHS carvedilol 6.25 mg Tablet 6.25 mg PO BID sennosides-docusate sodium [Senexon-S] 8.6-50 mg Tablet 2 tab-cap PO DAILY cholecalciferol (vitamin D3) [Vitamin D3] 25 mcg (1,000 unit) Capsule 2,000 unit PO DAILY carbamazepine 300 mg Capsule, Er Multiphase 12 Hr 300 mg PO BID Xarelto 20 mg Tablet 10 mg PO QPM Rx Instructions: must administer with evening meal desmopressin 0.1 mg Tablet 0.1 mg PO DAILY Qty: 0 0RF furosemide 20 mg tablet 40 mg PO DAILY polyethylene glycol 3350 [ClearLax] 17 gram/dose powder 17 g PO DAILY metoclopramide HCl 10 mg Tablet 10 mg PO TID PRNQty: 14 0RF bisacodyl 10 mg Suppository 10 mg IA DAILY Qty: 12 0RF simethicone 80 mg Tablet,Chewable 40 mg PO PC & HS Qty: 60 0RF bisacodyl 5 mg Tablet,Delayed Release (Dr/Ec) 5 mg PO TID Qty: 90 0RF triamcinolone acetonide 0.025 % ointment 1 applic topical BID acetaminophen 500 mg Tablet 1,000 mg PO TID Discharge Instructions Additional Instructions: Respiratory Support * Oxygen: 2 L/min via nasal cannula at night only (during sleep) * Reason: Nocturnal desaturations; pending sleep study for suspected DAVIS/OHS * Inhalers: * Albuterol/Ipratropium inhalation every 6 hours as needed * Monitor for increased shortness of breath or wheezing 2. Antibiotics * Fosfomycin 3 gm oral given 03/06 for UTI; recommend repeat dose 03/08 3. GI and Bowel Management * Continue scheduled bowel regimen: * Polyethylene Glycol (MiraLAX) daily * Bisacodyl tablets and suppositories as prescribed * Simethicone and Metoclopramide for gas/bloating and suspected gastroparesis * Abdominal exam daily ? watch for distention, decreased bowel sounds, or pain 4. Neurologic/Mental Status * Patient has a history of traumatic brain injury and astrocytoma * Limited communication; continue to monitor for any change in baseline mental status * Use caution with sedating medications 5. Cardiac/AFib Management * Continue Rivaroxaban and Carvedilol as scheduled * Monitor heart rate and blood pressure * Watch for signs of bleeding (gums, stool, bruising) 6. Hydration and Labs * Monitor fluid intake and output * Repeat CBC and BMP in 1 week to monitor anemia and renal function * Urine culture pending * Continue potassium supplement, recheck level in 1 week 7. Skin/Nail Care * Patient has significant onychomycosis and nail dystrophy * Continue topical care as ordered (e.g., Triamcinolone ointment) * Monitor for signs of infection or breakdown 8. Sleep Study * Outpatient home sleep study is being arranged * Continue oxygen during sleep until sleep study results are available * No home NIV indicated at this time 9. Follow-Up Appointments * Primary Care Provider: Within 1 week * Pulmonology: After sleep study is completed * Gastroenterology (Optional): For ileitis/gastroparesis if symptoms persist * Nephrology/Urology: If recurrent UTIs or worsening renal function 10. Safety & Monitoring * Fall risk precautions due to neurologic history and oxygen use * Monitor vitals per facility protocol * Ensure medication compliance and document refusals Activity:: Activity as Tolerated Equipment/Supplies:: No Equipment Needed Diet:: As Tolerated Discharge Orders Discharge Orders: Discharge Order (Routine); Ordered 03/07/25 Ordered By: Tati Dominguez DS: Summary Time Spent with Patient providing and/or coordinating discharge services: Greater than 30 minutes Status at Discharge Functional status at discharge: wheelchair bound Overall status at discharge: patient is back to baseline Mental Status: mental status grossly normal Speech and Movement: speech and movement normal Mood: congruent mood Affect: normal affect Exam Narrative Exam Narrative: General: Alert, oriented, in no acute distress. Head: Normocephalic, atraumatic. ENT: No stridor; trachea midline. Cardiovascular: Normal rate, irregular rhythm; no murmurs, rubs, or gallops. Respiratory: Clear to auscultation bilaterally; no wheezes, crackles, rhonchi, or prolonged expiratory phase. Gastrointestinal: Abdomen soft, non-tender, non-distended. Skin: Warm, dry, no rashes. Extremities: +1 bilateral edema, no clubbing or cyanosis. Psychiatric: Flat affect, cooperative. Psych Mental Status: mental status grossly normal Speech and Movement: speech and movement normal Mood: congruent mood Affect: normal affect DS: Data Vitals/I&O Vitals and I&O: Vital Signs Temperature 36.2 C L 03/07/25 07:56 Temperature Source Temporal Artery Scan 03/07/25 07:56 Pulse 76 03/07/25 07:56 Pulse Rhythm Regular 03/05/25 14:46 Pulse 84 03/05/25 06:50 Respiratory Rate 16 03/07/25 07:56 Respiratory Effort Normal, Non-Labored 03/05/25 14:46 Respiratory Depth Normal 03/05/25 14:46 Respiratory Pattern Normal 03/05/25 14:46 Blood Pressure 127/59 L 03/07/25 07:56 Blood Pressure Mean 81 03/07/25 07:56 Blood Pressure Position Supine 03/05/25 02:11 Pulse Oximetry 91 L 03/07/25 07:57 Oxygen Delivery Method Room Air 03/07/25 07:57 Oxygen Flow Rate 0 03/07/25 07:57 Pain Level 0 03/07/25 08:05 Comment Pt is unable to participate with admission questions. 03/05/25 14:46 Intake & Output 03/06/25 03/06/25 03/07/25 11:59 23:59 11:59 Intake Total 590 / 680 90 / 680 240 / 240 Balance 590 / 680 90 / 680 240 / 240 Weight 121.1 kg 119.5 kg Intake: IV 350 / 350 Oral 240 / 330 90 / 330 240 / 240 Other: Urine Color Yellow Light Cynthia Yellow Urine Appearance Clear Urine Odor Normal Strong Strong Comment pt dry at this time pt is incontinent of urine. Pt dry at this time. Stool Size Copious Copious Stool Characteristics Liquid Liquid Brown Brown Data Completed and Pending Labs on day of discharge: Labs from last 24 hours 03/07/25 03/07/25 08:26 06:15 WBC 7.51 RBC 3.65 L Hgb 9.9 L Hct 33.2 L MCV 91 MCH 27.1 MCHC 29.8 L RDW 15.6 H Plt Count 259 MPV 9.5 Immature Gran % 0.0 Neutrophils % 43.0 Lymphocytes % 41.0 Monocytes % 8.0 Eosinophils % 1.0 Basophils % 0.0 Metamyelocytes % 2 Myelocytes % 1 Other Cells % 4 Nucleated RBC % 0.0 Absolute Neutrophils 3.23 Absolute Lymphocytes 3.08 Absolute Monocytes 0.60 Absolute Eosinophils 0.08 Absolute Basophils 0.00 RBC Morphology Normal ABG Sample Site Left Radial ABG pH 7.48 H ABG pCO2 50 H ABG pO2 62 L ABG HCO3 37 H ABG Total CO2 34 H ABG O2 Saturation 93 L ABG Base Excess 13 H FiO2 21 Sodium 145 Potassium 3.4 L Chloride 103 Carbon Dioxide 33.9 H Anion Gap 8.1 BUN 16 Creatinine 0.9 Est GFR (CKD-EPI 2020) 72.28 Glucose 116 H Calcium 8.8 Magnesium 2.1 Preliminary micro results at discharge 03/05/25 02:13 Blood Blood Culture - Preliminary NO GROWTH 48 HOURS 03/05/25 02:37 Blood Blood Culture - Preliminary NO GROWTH 48 HOURS PFSH All Active Problems (Updated 03/07/25 @ 10:12 by Tati Dominguez NP) Chronic hypercapnic respiratory failure (Acute) Nocturnal hypoxia (Acute) Respiratory distress (Acute) Abdominal pain (Acute) Ileitis (Acute) UTI (urinary tract infection) (Acute) Fever (Acute) Acute hypoxic respiratory failure (Acute) Cholelithiasis (Acute) Hydronephrosis (Acute) Pyelonephritis (Acute) Staghorn renal calculus (Acute) Nail dystrophy (Acute) Onychogryphosis (Acute) Medical History (Updated 03/07/25 @ 10:12 by Tati Dominguez NP) 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 Mitral insufficiency Atrial fibrillation GERD (gastroesophageal reflux disease) Astrocytoma Injury of hand, right Diabetes insipidus Hydrocephalus Anemia Surgical History (Updated 08/10/24 @ 16:40 by Charlie Callahan MD) H/O craniotomy Social History Smoking/Tobacco Use Status: Former Tobacco Use Smoking risk assessment performed?: Yes Alcohol Intake: never Drug use: Never Substance use type: does not use Housing: [facility] Do you feel safe at home: Yes Do you feel safe in your relationship?: Yes Time Spent with Patient Time Spent with Patient: 45-69 minutes Time was spent: preparing to see the patient(eg.review tests), ordering medications,tests, procedures, referring, communicating with other health healthcare consultant, indepentently interpreting results, counseling the patient and care coordination
--- NOTE | 2025-03-07 11:15 | PDOC.CMDIS ---
Date of service: 03/07/25 Time of Service: 11:17 LACE Index Scoring Tool Questions: Length of Stay (in days): 2 Was the patient admitted via the E.D.?: Yes E.D. Visits: 2 Answers: Total Score: 7 Risk of Readmission: Low Risk Care Management Discharge Plan Reason for Hospitalization: UTI Discharge Plan: Maribel will be discharged back to [facility] today. It is recommended she follow up with facility providers and continue per her discharge plan of care. She may need to follow up with GI outpatient. She will be discharged with 2 L nasal cannula oxygen at night, with follow-up for sleep evaluation. She will be transported via EMS due to bed bound status. Facility notified of discharge time and mode of transportation. Patient/Family Education Needs: Review of discharge instruction, activity, limitation, and plan of care. Discuss ask me three Services Needed at Discharge: Long-Term Facility
--- NOTE | 2025-03-07 12:38 | NUR.NOTE ---
Nursing Note: Nurse to nurse report given to RN at [facility]. All questions were answered.
== END 2025-03-07 12:09 | disposition skilled nursing facility (03) | DRG 690 ==
LOC: ER 06:45 → MS 07:16
PROVIDERS: Internal Medicine Pulmonary Disease; Admitting Provider Hospitalist; Emergency Provider Student in an Organized Health Care Education/Training Program; Responsible Provider Nurse Practitioner Family; Visit Provider Hospitalist
DX: N10 Acute pyelonephritis (principal); J96.12 Chronic respiratory failure with hypercapnia; Q23.3 Congenital mitral insufficiency; E23.2 Diabetes insipidus; Z68.43 Body mass index [BMI] 50.0-59.9, adult; I48.91 Unspecified atrial fibrillation; Z79.01 Long term (current) use of anticoagulants; Z79.899 Other long term (current) drug therapy; K59.81 Ogilvie syndrome; G40.909 Epilepsy, unspecified, not intractable, without status epilepticus; S06.9XAS Unspecified intracranial injury with loss of consciousness status unknown, sequela; Z90.5 Acquired absence of kidney; E55.9 Vitamin D deficiency, unspecified; K21.9 Gastro-esophageal reflux disease without esophagitis; R79.1 Abnormal coagulation profile; D64.9 Anemia, unspecified; B35.1 Tinea unguium; R60.0 Localized edema; G47.33 Obstructive sleep apnea (adult) (pediatric); E66.01 Morbid (severe) obesity due to excess calories; K52.9 Noninfective gastroenteritis and colitis, unspecified
CPT/HCPCS: 00123; 36415; 71275; 74177; 80048; 80053; 82805; 83690; 87040; 87077; 87637; 93005; 96365; 96367; 96375; 97161; 97530; 99285; 36600; 81003; 81015; 83605; 83735; 83880; 84484; 85025; 87086; 87186; 93010; 94760; 94762; 99222; 99232; 99239; J0456; J0696; J1938; J2020; J2543; J3490; J7512

== ENCOUNTER 2025-03-12 21:03 | Outpatient (REF) | payer MEDICAID, SELFPAY ==
[2025-03-12 18:47] LABS: Abs Immature Grans 0.48 10^3/uL (0.0-0.06); HCT 36.7 % (36.0-46.0); HGB 11.2 g/dL (11.2-15.7); Immature Grans % 4.7 %; MCH 28.0 pg (27.0-33.0); MCHC 30.5 % (32.0-36.0); MCV 92 fL (80-95); MPV 9.3 fL (8.0-11.0); Platelet Count 321 10^3/uL (130-400); RBC 4.00 10^6/uL (3.93-5.22); RDW 15.9 % (11.7-14.6); RDW-SD 53.2 fL; WBC 10.18 10^3/uL (4.4-10.8)
[2025-03-12 19:38] LABS: ALT 37 U/L (14-59); AST 17 U/L (15-37); Albumin 3.2 g/dL (3.4-5.0); Alkaline Phosphatase 69 U/L (46-116); Anion Gap 9.3 mmol/L (3-11); BUN 9 mg/dL (7-18); Bilirubin, Total 0.2 mg/dL (0.2-1.0); CO2 30.7 mmol/L (21.0-32.0); Calcium 9.0 mg/dL (8.5-10.1); Chloride 100 mmol/L (98-107); Estimated GFR 72.28 (mL/min/1.73m2); Glucose 133 mg/dL (74-106); Magnesium 1.8 mg/dL (1.8-2.4); Potassium 4.2 mmol/L (3.5-5.1); Sodium 140 mmol/L (136-145); Total Protein 6.7 g/dL (6.4-8.2)
== END 2025-03-12 21:04 | disposition home or self-care (01) ==
LOC: LBN 21:03
PROVIDERS: Visit Provider Nurse Practitioner Gerontology
DX: E87.8 Other disorders of electrolyte and fluid balance, not elsewhere classified (principal); D63.1 Anemia in chronic kidney disease; E83.42 Hypomagnesemia
CPT/HCPCS: 80053; 83735; 85025

== ENCOUNTER 2025-03-19 18:47 | Outpatient (REF) | payer MEDICAID, SELFPAY ==
[2025-03-19 18:56] LABS: Anion Gap 7.6 mmol/L (3-11); BUN 9 mg/dL (7-18); CO2 34.4 mmol/L (21.0-32.0); Calcium 8.8 mg/dL (8.5-10.1); Chloride 94 mmol/L (98-107); Estimated GFR 72.28 (mL/min/1.73m2); Glucose 132 mg/dL (74-106); Potassium 4.3 mmol/L (3.5-5.1); Sodium 136 mmol/L (136-145)
== END 2025-03-19 18:48 | disposition home or self-care (01) ==
LOC: LBN 18:47
PROVIDERS: PCP Legal Medicine; Visit Provider Nurse Practitioner Gerontology
DX: E87.8 Other disorders of electrolyte and fluid balance, not elsewhere classified (principal)
CPT/HCPCS: 80048

== ENCOUNTER 2025-04-26 17:23 | Emergency (ER) | payer MEDICAID, SELFPAY ==
--- NOTE | 2025-04-26 17:15 | DI.CT_ITS ---
Exam(s) CT HEAD CERVICAL SPINE WO EXAM: CT HEAD CERVICAL SPINE WO CLINICAL HISTORY: unwitnessed fall on thinners. TECHNIQUE: Imaging Protocol: Axial computed tomography images with coronal and sagittal reformatted images were created and reviewed COMPARISON: No exams were available for comparison FINDINGS: Head CT Ventricles and Extra axial spaces: Right parietal shunt. The tip projects in the left frontal horn. No ventricular dilatation. Hemorrhage: None. Cerebral parenchyma: No evidence of mass or acute infarct. Right frontal encephalomalacia. Midline shift: None. Brainstem/Cerebellum: Normal. Calvarium: Chronically thickened skull. Right frontal craniotomy defect. Claudia holes noted posteriorly. Visualized Paranasal sinuses/Mastoids: Clear. Soft tissues: Unremarkable. Cervical Spine CT BONES: Vertebral body heights are maintained. Alignment is normal. There is no evidence of acute fracture. Degenerative disc changes and facet degenerative changes are seen . SOFT TISSUES: No paraspinal hematoma. The airway appears intact. No pneumothorax is seen at the lung apices. IMPRESSION: Head CT: Right-sided ventriculoperitoneal shunt. Area of right frontal encephalomalacia. No acute abnormality. C-spine CT: Degenerative changes, no acute abnormality. RADIATION DOSE DELIVERED: 1,338.46mGy.cm Total DLP DATA REPOSITORY: All CT scans at this facility are submitted to the National Radiology Data Registry (NRDR) Dose Index Registry (DIR) with the [employer] ([employer]). RADIATION OPTIMIZATION: All CT scans at this facility use at least one of these dose optimization techniques: automated exposure control; mA and/or kV adjustment per patient size (includes targeted exams where dose is matched to clinical indication); or iterative reconstruction.
--- NOTE | 2025-04-26 17:15 | DI.RAD_ITS ---
Exam(s) XR KNEE RT 2V AP,LAT EXAM: XR KNEE RT 2V AP,LAT CLINICAL HISTORY: pain after fall. TECHNIQUE: 2D digital imaging was performed. Three views. COMPARISON: No exams were available for comparison FINDINGS: BONES: Mildly comminuted distal femoral fracture extending obliquely through the metaphysis. There is question of extension to the articular surface anteriorly. There is significant lateral displacement as well some overriding of the fracture fragments and posterior angulation. No bony destructive lesion is seen. A question of a nondisplaced fracture proximal fibula. JOINTS: The knee is normally aligned. A large joint effusion is seen. SOFT TISSUE: Normal. IMPRESSION: Distal femoral fracture question of extension to the articular surface anteriorly. Question of proximal fibular fracture. The preliminary [facility] report was reviewed. DATA REPOSITORY: RADIATION DOSE DELIVERED:
--- NOTE | 2025-04-26 17:15 | DI.RAD_ITS ---
Exam(s) XR ANKLE RT 2V EXAM: XR ANKLE RT 2V CLINICAL HISTORY: deformity after fall. TECHNIQUE: 2D digital imaging was performed. Two views. COMPARISON: No exams were available for comparison FINDINGS: Exam is limited by overlying material on the AP view. BONES: Nondisplaced fracture extending obliquely through the lateral malleolus. No bony destructive lesion is seen. Prominent plantar calcaneal spur. JOINTS: The ankle mortise is not not well profiled. Degenerative changes in the ankle and foot. SOFT TISSUE: Significant soft tissue swelling. Chronic calcifications. IMPRESSION: Limited exam. Distal fibular fracture. The preliminary [facility] report was reviewed. DATA REPOSITORY: RADIATION DOSE DELIVERED:
[2025-04-26 17:23] VITALS: BP 136/80; PULSE 85; RESP 16; TEMP 36.9; O2SAT 95
--- NOTE | 2025-04-26 17:39 | W.ED.GENAD ---
Discharge Plan Disposition Patient Disposition: Transfer-Acute Inpatient Care Specific Acute Inpt Facility: [facility] Condition: Stable Discharge Details Clinical Impression: Fracture of distal end of right femur, Fracture of distal end of right fibula, Fall Primary Care Provider: Rachel Greenberg ED Provider: Ayana Short Home Meds and New Rx's Prescriptions: No Action ipratropium-albuterol 0.5 mg-3 mg(2.5 mg base)/3 mL solution for nebulization 3 ml inhalation QID PRN Rx Instructions: via nebulizer every 6 hours as needed for shortness of breath/wheezing potassium chloride [Klor-Con] 20 mEq packet 40 meq PO DAILY Rx Instructions: give 2 packets=40meQ by mouth daily atorvastatin 80 mg Tablet 80 mg PO QHS carvedilol 6.25 mg Tablet 6.25 mg PO BID sennosides-docusate sodium [Senexon-S] 8.6-50 mg Tablet 2 tab-cap PO DAILY cholecalciferol (vitamin D3) [Vitamin D3] 25 mcg (1,000 unit) Capsule 2,000 unit PO DAILY carbamazepine 300 mg Capsule, Er Multiphase 12 Hr 300 mg PO BID Xarelto 20 mg Tablet 10 mg PO QPM Rx Instructions: must administer with evening meal desmopressin 0.1 mg Tablet 0.1 mg PO DAILY Qty: 0 0RF furosemide 20 mg tablet 40 mg PO DAILY polyethylene glycol 3350 [ClearLax] 17 gram/dose powder 17 g PO DAILY metoclopramide HCl 10 mg Tablet 10 mg PO TID PRNQty: 14 0RF bisacodyl 10 mg Suppository 10 mg LA DAILY Qty: 12 0RF simethicone 80 mg Tablet,Chewable 40 mg PO PC & HS Qty: 60 0RF bisacodyl 5 mg Tablet,Delayed Release (Dr/Ec) 5 mg PO TID Qty: 90 0RF triamcinolone acetonide 0.025 % ointment 1 applic topical BID acetaminophen 500 mg Tablet 1,000 mg PO TID potassium chloride 20 mEq Tablet Extended Release 40 meq PO DAILY Qty: 30 0RF HPI General Mode of arrival: EMS. Date/Time Provider Initiated Documentation: 04/26/25 17:29. Limitations to Documentation: no limitations. Information obtained by: patient, EMS and old records reviewed. HPI Narrative: This is a 64-year-old female patient with a past medical history significant for CVA, atrial fibrillation on Xarelto, who was brought in from the [facility] after a fall. The patient was attempting to transfer from her chair on her own and lost her footing and fell. She is not sure if she hit her head or not but does not think she lost consciousness. She states that she is primarily experiencing knee pain. The patient was noted to have obvious right ankle deformity by EMS on arrival, was placed in a splint and brought to our emergency department for evaluation. The patient currently is complaining of knee and ankle pain, denies head, neck or back, chest, abdomen, or pelvis pain. At baseline this patient is a two-person assist, with some baseline altered mental status after a stroke. The patient reports that she did not experience any chest pain, dizziness, loss of consciousness, and has been eating and drinking typically. Related Data Home Medications ?Medication ?Instructions ?Recorded ?Confirmed atorvastatin 80 mg tablet 80 mg PO QHS 08/29/21 04/26/25 carbamazepine 300 mg 300 mg PO BID 08/29/21 04/26/25 capsule,extended release [id number] carvedilol 6.25 mg tablet 6.25 mg PO BID 08/29/21 04/26/25 cholecalciferol (vitamin D3) 25 2,000 unit PO DAILY 08/29/21 04/26/25 mcg (1,000 unit) capsule (Vitamin D3) rivaroxaban 20 mg tablet (Xarelto) 10 mg PO QPM 08/29/21 04/26/25 sennosides 8.6 mg-docusate sodium 2 tab-cap PO DAILY 08/29/21 04/26/25 50 mg tablet (Senexon-S) desmopressin 0.1 mg tablet 0.1 mg PO DAILY #0 tabs 09/01/21 04/26/25 furosemide 20 mg tablet 40 mg PO DAILY 08/10/24 04/26/25 polyethylene glycol 3350 17 17 g PO DAILY 08/10/24 04/26/25 gram/dose oral powder (ClearLax) bisacodyl 10 mg rectal suppository 10 mg LA DAILY #12 ea 03/03/25 04/26/25 bisacodyl 5 mg tablet,delayed 5 mg PO TID #90 tabs 03/03/25 04/26/25 release metoclopramide HCl 10 mg tablet 10 mg PO TID PRN #14 tabs 03/03/25 04/26/25 simethicone 80 mg chewable tablet 40 mg (1/2 x 80 mg) PO PC & HS #60 03/03/25 04/26/25 tabs acetaminophen 500 mg tablet 1,000 mg PO TID 03/05/25 04/26/25 triamcinolone acetonide 0.025 % 1 applic topical BID 03/05/25 04/26/25 topical ointment potassium chloride 20 mEq 40 meq (2 x 20 mEq) PO DAILY #30 03/07/25 04/26/25 tablet,extended release tabs ipratropium 0.5 mg-albuterol 3 mg 3 ml inhalation QID PRN 04/05/25 04/26/25 (2.5 mg base)/3 mL nebulization soln potassium chloride 20 mEq oral 40 meq PO DAILY 04/05/25 04/26/25 packet (Deangelo-Con) Previous Rx's ?Medication ?Instructions ?Recorded desmopressin 0.1 mg tablet 0.1 mg PO DAILY #0 tabs 09/01/21 bisacodyl 10 mg rectal suppository 10 mg LA DAILY #12 ea 03/03/25 bisacodyl 5 mg tablet,delayed 5 mg PO TID #90 tabs 03/03/25 release metoclopramide HCl 10 mg tablet 10 mg PO TID PRN #14 tabs 03/03/25 simethicone 80 mg chewable tablet 40 mg (1/2 x 80 mg) PO PC & HS #60 03/03/25 tabs potassium chloride 20 mEq 40 meq (2 x 20 mEq) PO DAILY #30 03/07/25 tablet,extended release tabs Allergies Allergy/AdvReac Type Severity Reaction Status Date / Time pineapple Allergy Unknown Verified 04/05/25 12:50 tomato Allergy Unknown Verified 04/05/25 12:50 General Stated Complaint: Orthopedic SAEID: 3 Exam Narrative Exam Narrative: Gen: Awake and alert, in no apparent distress HEENT: Non-icteric sclera, PERRL, EOMs full. Scalp atraumatic Neck: Supple, no C-spine tenderness or step-offs Lungs: No apparent respiratory distress, normal respiratory effort. CV: Appears well perfused, heart with regular rate and rhythm, strong distal pulses Abdomen: Non-distended, soft, nontender to palpation without rigidity, rebound, or guarding. MSK: Moves 4 extremities without apparent limitation in ROM with the exception of the right lower extremity, which demonstrates deformity with outward rotation of the right foot at the ankle, no overlying skin breaks. Right knee is tender without obvious deformity, swelling, or overlying skin changes. Thigh is nontender to palpation without deformity, DP pulses strong distal to this injury, no weakness or numbness. Skin: Visualized skin without rashes, cyanosis. Neuro: No obvious focal deficits or facial asymmetry. Speaks in full, clear sentences. Psych: Appropriate for situation. Course Vital Signs Vital signs: Vital Signs Temperature 36.9 C 04/26/25 17:23 Pulse 85 04/26/25 17:23 Respiratory Rate 16 04/26/25 17:23 Blood Pressure 136/80 04/26/25 17:23 Pulse Oximetry 95 04/26/25 17:23 Temperature 36.9 C 04/26/25 17:23 Temperature Source Oral 04/26/25 17:23 Pulse 85 04/26/25 17:23 Respiratory Rate 16 04/26/25 17:23 Blood Pressure 136/80 04/26/25 17:23 Blood Pressure Position Supine 04/26/25 17:23 Pulse Oximetry 95 04/26/25 17:23 Oxygen Delivery Method Room Air 04/26/25 17:23 Oxygen Flow Rate 0 04/26/25 17:23 Medical Decision Making This is a 64-year-old female patient presenting for evaluation after a fall. Differential includes but is not limited to orthopedic injuries including fracture, dislocation, sprain/strain, less likely neurovascular injury. I considered intracranial injury including hemorrhage, skull fracture, though the patient has no evidence of external injury. She is on blood thinners and is not sure if she hit her head and it is reasonable for us to obtain a head CT in this setting. The patient had a clear mechanical etiology of her fall with no preceding symptoms to increase my concern for arrhythmia, ACS, seizure, stroke. There is no evidence on my head to toe trauma exam for severe chest, abdomen, or pelvis injury. We will obtain a CT head and neck, as well as x-rays of the affected right knee and right ankle. I will obtain basic labs to include CBC, CMP, magnesium, INR, and will provide the patient with a dose of fentanyl for pain management. - I reviewed the patient's laboratory studies, which showed no leukocytosis, anemia or thrombocytopenia. Chemistry panel is without significant electrolyte derangements other than a mild elevation in her bicarb to 35, likely due to her DAVIS/obesity hypoventilation syndrome. No evidence of kidney or liver dysfunction. X-rays reviewed by myself, and show a comminuted/spiral appearing distal femur fracture of that right lower extremity. There is no evidence of obvious fracture or dislocation at the ankle on x-ray. Given the fracture which will almost certainly require operative intervention, I did proceed with CT imaging of the right lower extremity for surgical planning. Additionally, I reviewed the CT of her brain, which shows an appropriately placed shunt, with no evidence of acute intracranial hemorrhage, skull fracture, or cervical spine injury. The patient reports that her pain is well-controlled after fentanyl, I reached out to [facility] who is unfortunately not able to accept the patient for consultation or transfer given that they are over capacity. I contacted [facility] to discuss this patient's case, and Dr. Guadarrama with orthopedics recommends transfer to the ED for definitive management. Dr. Swann in the emergency department accepted this patient for transfer. Prior to her departing, I did review her CT scan, which redemonstrates the known distal femur fracture but also shows a distal fibula fracture, a knee immobilizer was placed. I provided her with Tylenol for more long-term pain management, she has not required repeat dosing of narcotics. The patient remained hemodynamically appropriate while under my care, her guardian was updated and she was signed out to the oncoming provider prior to final transportation from our department. Ayana Short MD [facility] All Active Problems (Updated 04/26/25 @ 20:25 by Ayana Short MD) Fall (Acute) Fracture of distal end of right fibula (Acute) Fracture of distal end of right femur (Acute) Snoring (Acute) Idiopathic sleep related nonobstructive alveolar hypoventilation (Acute) Chronic hypercapnic respiratory failure (Acute) Nocturnal hypoxia (Acute) Fever (Acute) Cholelithiasis (Acute) Hydronephrosis (Acute) Staghorn renal calculus (Acute) Nail dystrophy (Acute) Onychogryphosis (Acute) Medical History (Updated 04/26/25 @ 20:25 by Ayana Short MD) Respiratory distress Acute hypoxic respiratory failure Abdominal pain Ileitis UTI (urinary tract infection) Elevated d-dimer Rienzi syndrome Mitral insufficiency Atrial fibrillation GERD (gastroesophageal reflux disease) Astrocytoma Injury of hand, right Diabetes insipidus Hydrocephalus Anemia Surgical History (Updated 08/10/24 @ 16:40 by Charlie Callahan MD) H/O craniotomy Social History Smoking/Tobacco Use Status: Former Tobacco Use Smoking risk assessment performed?: Yes Alcohol Intake: never Drug use: Never Substance use type: does not use Housing: shelter Do you feel safe at home: Yes Do you feel safe in your relationship?: Yes
[2025-04-26] MEDS: fentaNYL 100 MCG/2 ML VIAL 50 MCG IVP ×2 (17:48→22:02)
[2025-04-26 17:52] LABS: Abs Immature Grans 0.04 10^3/uL (0.0-0.06); HCT 36.6 % (36.0-46.0); HGB 11.4 g/dL (11.2-15.7); Immature Grans % 0.5 %; MCH 28.7 pg (27.0-33.0); MCHC 31.1 % (32.0-36.0); MCV 92 fL (80-95); MPV 8.6 fL (8.0-11.0); Platelet Count 261 10^3/uL (130-400); RBC 3.97 10^6/uL (3.93-5.22); RDW 15.6 % (11.7-14.6); RDW-SD 52.8 fL; WBC 7.54 10^3/uL (4.4-10.8)
[2025-04-26 18:03] LABS: INR 1.0 (0.9-1.1); Prothrombin Time 9.9 sec (9.1-11.1)
[2025-04-26 18:11] LABS: Magnesium 1.9 mg/dL (1.6-2.6)
[2025-04-26 18:13] LABS: ALT 11 U/L (10-49); AST 13 U/L (<34); Albumin 4.4 g/dL (3.2-5.0); Alkaline Phosphatase 87 U/L (46-116); Anion Gap 0.6 mmol/L (3-11); BUN 15 mg/dL (9-23); Bilirubin, Total 0.20 mg/dL (0.2-1.2); CO2 35.4 mmol/L (20.0-31.0); Calcium 8.9 mg/dL (8.3-10.6); Chloride 101 mmol/L (98-107); Glucose 136 mg/dL (74-106); Potassium 4.0 mmol/L (3.5-5.1); Sodium 137 mmol/L (136-145); Total Protein 7.6 g/dL (5.7-8.2)
--- NOTE | 2025-04-26 18:29 | DI.VRAD_ITS ---
PROCEDURE INFORMATION: Exam: CT Head Without Contrast Exam date and time: 04/26/2025 18:03 Age: 64 years old Clinical indication: Other: Fall unwitnessed on thinners TECHNIQUE: Imaging protocol: Computed tomography of the head without contrast. COMPARISON: No relevant prior studies available. FINDINGS: Tubes, catheters and devices: Right parietal approach PROTOTYPE SEWER shunt, tip in the left frontal horn. Brain: Chronic moderate right frontal encephalomalacia/resection cavity. No edema or hemorrhage. Cerebral ventricles: Slit-like ventricles other than ex vacuo dilation of right frontal horn. Paranasal sinuses: No acute sinusitis. Mastoid air cells: No mastoid effusion. Bones: Calvarial hyperostosis. Chronic right frontal calvarial plasty changes. Soft tissues: No suspicious lesions. IMPRESSION: 1. No acute intracranial findings. 2. Right parietal approach PROTOTYPE SEWER shunt, tip in the left frontal horn. 3. Slit-like ventricles other than ex vacuo dilation of right frontal horn. PROCEDURE INFORMATION: Exam: CT Cervical Spine Without Contrast Exam date and time: 04/26/2025 18:03 Age: 64 years old Clinical indication: Other: Fall unwitnessed on thinners TECHNIQUE: Imaging protocol: Computed tomography of the cervical spine without contrast. COMPARISON: CT CHEST PE ABD PELVIS W 03/05/2025 03:15 FINDINGS: Tubes, catheters and devices: Right-sided PROTOTYPE SEWER shunt tubing, intact as visualized. Bones: Reversal of the normal cervical lordosis. No acute fracture or subluxation. Mild multilevel cervical degenerative changes. Lungs: No consolidation. Soft tissues: Prominent subcutaneous fat. Other findings: Motion artifact however this is felt to be a diagnostic study. IMPRESSION: No cervical spine fracture. Dictated and Authenticated by: Andreia Pascual MD. Orderin [facility] Wade Piña MD
--- NOTE | 2025-04-26 18:30 | DI.VRAD_ITS ---
PROCEDURE INFORMATION: Exam: XR Right Knee Exam date and time: 04/26/2025 18:18 Age: 64 years old Clinical indication: Other: Unwitnessed fall TECHNIQUE: Imaging protocol: Radiologic exam of the right knee. Views: 3 views. COMPARISON: CR XR ANKLE RT COMPLETE 04/26/2025 18:13 FINDINGS: Bones/joints: Acute comminuted fracture, distal femoral diaphysis and metaphysis, moderate apex lateral and moderate apex posterior angulation, 18 mm over-ride. Moderate joint effusion. Subtle discontinuity at the fibular head/neck. Soft tissues: Prominent subcutaneous fat. Generalized soft tissue swelling. Benign appearing distal quadriceps enthesophyte. IMPRESSION: 1. Acute comminuted fracture, distal femoral diaphysis and metaphysis, moderate apex lateral and moderate apex posterior angulation, 18 mm over-ride. 2. Moderate joint effusion. 3. Subtle discontinuity at the fibular head/neck. Acute versus chronic fracture. Dictated and Authenticated by: Andreia Pascual MD. Orderin [facility] Wade Piña MD
--- NOTE | 2025-04-26 18:32 | DI.VRAD_ITS ---
PROCEDURE INFORMATION: Exam: XR Right Ankle Exam date and time: 04/26/2025 18:13 Age: 64 years old Clinical indication: Other: Unwitnessed fall TECHNIQUE: Imaging protocol: Radiologic exam of the right ankle. Views: 1 or 2 views. COMPARISON: No relevant prior studies available. FINDINGS: Bones/joints: The bones are demineralized. Plantar calcaneal spur. Posterior calcaneal spur. Two Limited projections without gross fracture or listhesis in the ankle. Soft tissues: Generalized soft tissue swelling. Benign calcifications in the soft tissues. IMPRESSION: Two Limited projections without gross fracture or listhesis in the ankle. Consider a follow-up three view film when clinically possible. Dictated and Authenticated by: Andreia Pascual MD. Orderin [facility] Wade Piña MD
--- NOTE | 2025-04-26 18:36 | DI.CT_ITS ---
Exam(s) CT LOWER EXTREMITY RT WO EXAM: CT LOWER EXTREMITY RT WO CLINICAL HISTORY: Knee fracture, surgical planning. TECHNIQUE: Imaging Protocol: Axial computed tomography images with coronal and sagittal reformatted images were created and reviewed. Field of view includes the hip through the ankle CONTRAST MATERIAL: Noncontrast COMPARISON: CR,XR XR KNEE RT 2V AP,LAT from 04/26/2025 CR,XR XR ANKLE RT 2V from 04/26/2025 FINDINGS: Bones: Comminuted, impacted, displaced and angulated fracture of the distal femoral metadiaphysis. The fracture does not extend to the articular surface. The patella and proximal tibia appear intact. Nondisplaced proximal fibular fracture. Mildly displaced distal fibular fracture. Fracture at the tip of the medial malleolus. The ankle mortise appears disrupted. The bones of the ankle are somewhat difficult to evaluate due to severe osteoporotic changes. No osteomyelitic changes are identified. No lytic or sclerotic lesions are identified. Bones appear osteoporotic. No fracture at the hip. Joints: Hemarthrosis at the knee. Soft Tissues: soft tissue swelling around the knee and ankle. Chronic soft tissue calcifications in the lower leg. Intrapelvic contents: Large quantity of stool distending the rectum. IMPRESSION: Comminuted, displaced and impacted fracture of the distal femoral metadiaphysis. Nondisplaced proximal fibular fracture. Mildly displaced distal fibular fracture and medial malleolar fracture. The preliminary [facility] report was reviewed. RADIATION DOSE DELIVERED: 995.38mGy.cm Total DLP DATA REPOSITORY: All CT scans at this facility are submitted to the National Radiology Data Registry (NRDR) Dose Index Registry (DIR) with the [employer] ([employer]). RADIATION OPTIMIZATION: All CT scans at this facility use at least one of these dose optimization techniques: automated exposure control; mA and/or kV adjustment per patient size (includes targeted exams where dose is matched to clinical indication); or iterative reconstruction.
--- NOTE | 2025-04-26 18:51 | DI.VRAD_ITS ---
PROCEDURE INFORMATION: Exam: CT Right Lower Extremity Without Contrast, Knee Exam date and time: 04/26/2025 18:21 Age: 64 years old Clinical indication: Injury or trauma; Fall; Fracture, traumatic; Other: Acute comminuted fracture; Femur and patella or knee; Right; Lower end of femur; Injury date: 04/26/25; Knee fracture, surgical planning TECHNIQUE: Imaging protocol: CT of the right lower extremity without contrast was performed. Exam focused on the knee. Radiation optimization: All CT scans at this facility use at least one of these dose optimization techniques: automated exposure control; mA and/or kV adjustment per patient size (includes targeted exams where dose is matched to clinical indication); or iterative reconstruction. COMPARISON: CR XR KNEE RT 2V AP,LAT 04/26/2025 18:18 FINDINGS: Bones/joints: Moderate swelling in the soft tissues about the knee particularly laterally and anteriorly. The bones are demineralized. Acute, comminuted distal femoral diaphysis and metaphysis fracture; moderate apex lateral and moderate apex posterior angulation similar to plain films. The femoral condyles are intact. Normal alignment of the knee joint. Acute fracture of the fibular neck without angulation. Moderate lipohemarthrosis of the knee. Patella is intact. The bones are severely demineralized distally. There is an acute oblique fracture of the distal fibular diaphysis extending through the medial malleolus with 3 mm AP distraction; the medial malleolus tip is indistinct and challenging to characterize and there could be a tiny acute avulsion fracture dislocation. Posterior malleolus is grossly intact. The ankle mortise is grossly anatomic. There is no gross acute fracture in talus calcaneus allowing for severe demineralization. Soft tissues: Prominent subcutaneous fat. Vasculature: Varicose veins. Intestine: Large amount of desiccated stool in the rectum. IMPRESSION: 1. Acute, comminuted distal femoral diaphysis and metaphysis fracture; moderate apex lateral and moderate apex posterior angulation similar to plain films. 2. Acute fracture of the fibular neck without angulation. 3. Moderate lipohemarthrosis of the knee. 4. Acute fracture distal fibula as above, possible acute avulsion fracture of the medial malleolus. Severe demineralization distally. Dictated and Authenticated by: Andreia Pascual MD. Orderin [facility] Wade Piña MD
[2025-04-26] MEDS: Acetaminophen 500 MG TAB 1000 MG PO (20:34)
[2025-04-26 22:03] VITALS: BP 136/80; PULSE 85; RESP 16; TEMP 36.9; O2SAT 95
== END 2025-04-26 22:07 | disposition short-term general hospital (02) ==
PROVIDERS: Emergency Medicine; Emergency Provider Emergency Medicine; PCP Legal Medicine
DX: S82.831A Other fracture of upper and lower end of right fibula, initial encounter for closed fracture (principal); S72.401A Unspecified fracture of lower end of right femur, initial encounter for closed fracture; W19.XXXA Unspecified fall, initial encounter
CPT/HCPCS: 80053; 96374; 96376; 99285; 70450; 72125; 73560; 73600; 73610; 73700; 83735; 85025; 85610; J3010

== ENCOUNTER 2025-05-03 17:12 | Outpatient (REF) | payer MEDICAID, SELFPAY ==
[2025-05-03 17:32] LABS: Abs Immature Grans 0.31 10^3/uL (0.0-0.06); HCT 28.4 % (36.0-46.0); HGB 8.6 g/dL (11.2-15.7); Immature Grans % 3.6 %; MCH 29.2 pg (27.0-33.0); MCHC 30.3 % (32.0-36.0); MCV 96 fL (80-95); MPV 9.9 fL (8.0-11.0); Platelet Count 289 10^3/uL (130-400); RBC 2.95 10^6/uL (3.93-5.22); RDW 16.7 % (11.7-14.6); RDW-SD 57.7 fL; WBC 8.52 10^3/uL (4.4-10.8)
[2025-05-03 17:48] LABS: ALT 7 U/L (10-49); AST 13 U/L (<34); Albumin 4.0 g/dL (3.2-5.0); Alkaline Phosphatase 79 U/L (46-116); Anion Gap 8.4 mmol/L (3-11); BUN 14 mg/dL (9-23); Bilirubin, Total 0.40 mg/dL (0.2-1.2); CO2 31.6 mmol/L (20.0-31.0); Calcium 9.4 mg/dL (8.3-10.6); Chloride 103 mmol/L (98-107); Glucose 137 mg/dL (74-106); Potassium 4.5 mmol/L (3.5-5.1); Sodium 143 mmol/L (136-145); Total Protein 6.7 g/dL (5.7-8.2)
== END 2025-05-03 17:13 | disposition home or self-care (01) ==
LOC: LBN 17:12
PROVIDERS: PCP Legal Medicine; Visit Provider Nurse Practitioner Gerontology
DX: E87.8 Other disorders of electrolyte and fluid balance, not elsewhere classified (principal); D63.1 Anemia in chronic kidney disease; Z51.81 Encounter for therapeutic drug level monitoring
CPT/HCPCS: 80053; 80156; 85025

== ENCOUNTER 2025-05-17 13:50 | Outpatient (REF) | payer MEDICAID, SELFPAY ==
[2025-05-17 13:37] LABS: ALT 21 U/L (10-49); AST 22 U/L (<34); Albumin 3.9 g/dL (3.2-5.0); Alkaline Phosphatase 146 U/L (46-116); Anion Gap 8.7 mmol/L (3-11); BUN 13 mg/dL (9-23); Bilirubin, Total 0.2 mg/dL (0.2-1.2); CO2 30.4 mmol/L (20.0-31.0); Calcium 9.2 mg/dL (8.3-10.6); Chloride 96 mmol/L (98-107); Glucose 123 mg/dL (74-106); Potassium 4.6 mmol/L (3.5-5.1); Sodium 135 mmol/L (136-145); Total Protein 6.9 g/dL (5.7-8.2)
[2025-05-17 14:17] LABS: WBC 6.17 10^3/uL (4.4-10.8)
[2025-05-17 14:18] LABS: HCT 40.3 % (36.0-46.0); HGB 12.6 g/dL (11.2-15.7); Immature Grans % 1.3 %; MCH 31.3 pg (27.0-33.0); MCHC 31.3 % (32.0-36.0); MCV 100 fL (80-95); MPV 9.7 fL (8.0-11.0); Platelet Count 305 10^3/uL (130-400); RBC 4.03 10^6/uL (3.93-5.22); RDW 18.0 % (11.7-14.6); RDW-SD 66.9 fL
== END 2025-05-17 13:51 | disposition home or self-care (01) ==
LOC: LBN 13:50
PROVIDERS: PCP Legal Medicine; Visit Provider Nurse Practitioner Gerontology
DX: E87.8 Other disorders of electrolyte and fluid balance, not elsewhere classified (principal); D63.1 Anemia in chronic kidney disease
CPT/HCPCS: 80053; 85025

== ENCOUNTER 2025-05-28 16:00 | Outpatient (REF) | payer MEDICAID, SELFPAY | END 2025-05-28 16:01 | disposition home or self-care (01) | LOC: LBN 16:00 | PROVIDERS: PCP Legal Medicine; Visit Provider Nurse Practitioner Gerontology | DX: Z51.81 Encounter for therapeutic drug level monitoring (principal) | CPT/HCPCS: 80156 ==